=== PATIENT | male | born 1965 | race Caucasian/White ===

== ENCOUNTER → 2016-07-21 | Outpatient (CLI) | payer OTHER ==
--- NOTE | 2016-07-21 09:26 | NM ---
Nuclear medicine hepatobiliary scan. HISTORY: Pain. The patient received 8 ounces of ensure plus and 5.2 mCi of Technetium 99m Choletec. There is normal hepatic extraction. The gallbladder is seen by 15 minutes. There is biliary to cherie l clearance by 30 minutes. Ejection fraction is 67%. IMPRESSION: 1. Normal hepatobiliary exam
== END | disposition home or self-care (01) ==
LOC: RADNMMAIN 07:08
PROVIDERS: ATTEND Surgery
DX: R10.13 Epigastric pain (principal)
CPT/HCPCS: 78226; A9537

== ENCOUNTER → 2016-07-28 | Outpatient (CLI) | payer OTHER ==
--- NOTE | 2016-07-28 19:16 | XR ---
EXAMINATION TYPE: XR chest 2V DATE OF EXAM: 07/28/2016 COMPARISON: NONE HISTORY: Chest pain TECHNIQUE: Frontal and lateral views of the chest are obtained. FINDINGS: Heart and mediastinum are normal. Lungs are clear. Diaphragm is normal. Bony thorax is int act. IMPRESSION: Normal chest
== END | disposition home or self-care (01) ==
LOC: RADXRMAIN 17:43
PROVIDERS: ATTEND Family Medicine
DX: R07.81 Pleurodynia (principal)
CPT/HCPCS: 71020

== ENCOUNTER 2017-08-21 07:43 | Day surgery (SDC) | payer OTHER ==
[2017-08-18 16:10] VITALS: BMI 34.3
[~2017-08-21 07:43] MED LIST: LACTATED RINGERS 1,000 ML IV SCH
[2017-08-21] MEDS ORDERED: LIDOCAINE 1% 20 ML VIAL (10MG/ML) FOR IV START INTRADERMA ONE (08:01)
[2017-08-21 08:10] VITALS: RESP 16; TEMP 98.2
[2017-08-21] MEDS ORDERED: PROPOFOL 10 MG/ML 20 ML VIAL IV ONE (08:33)
--- NOTE | 2017-08-21 08:39 | P.GSHP ---
History of Present Illness H&P Date: 08/21/17 Chief Complaint: Constipation This is a 52-year-old male with a history of dysphagia.. Patient presents today for colonoscopy. Past Medical History Past Medical History: Asthma, Hyperlipidemia, Hypertension, Osteoarthritis (OA) , Prostate Disorder Additional Past Medical History / Comment(s): anemia, heart palpitations, blood clot left ankle, pituitary tumor, constipation, History of Any Multi-Drug Resistant Organisms: None Reported Past Surgical History: Heart Catheterization, Orthopedic Surgery Additional Past Surgical History / Comment(s): LEFT FOOT X6 , RIGHT FOOT X2, LEFT KNEE X3 (ARTHROSCOPIC), VASECTOMY, RIGHT LITTLE FINGER,LEFT SHOULDER X2, RIGHT SHOULDER X2 Past Anesthesia/Blood Transfusion Reactions: No Reported Reaction Smoking Status: Former smoker - Past Family History Mother Family Medical History: No Reported History Father Additional Family Medical History / Comment(s): ankylosis,spondylosis Medications and Allergies Home Medications Medication Instructions Recorded Confirmed Type Aspirin 81 mg PO DAILY 05/10/14 08/21/17 History Acetaminophen [Tylenol Extra 1,000 mg PO TID PRN 08/18/17 08/18/17 History Strength] Amitriptyline HCl 50 mg PO HS 08/18/17 08/21/17 History Atorvastatin [Lipitor] 80 mg PO HS 08/18/17 08/21/17 History Ferrous Sulfate [Feosol] 325 mg PO DAILY 08/18/17 08/18/17 History Ibuprofen [Motrin] 600 mg PO TID PRN 08/18/17 08/18/17 History Isosorbide Mononitrate ER [Imdur] 30 mg PO DAILY 08/18/17 08/18/17 History Lisinopril [Zestril] 10 mg PO DAILY 08/18/17 08/18/17 History Metoprolol Succinate [Toprol XL] 25 mg PO DAILY 08/18/17 08/18/17 History Allergies Allergy/AdvReac Type Severity Reaction Status Date / Time adhesive tape Allergy Itching Verified 08/18/17 15:57 pregabalin [From Lyrica] Allergy Rash/Hives Verified 08/18/17 15:57 Surgical - Exam Vital Signs Temp Pulse Resp BP Pulse Ox 98.2 F 97 16 123/91 95 08/21/17 08:07 08/21/17 08:07 08/21/17 08:07 08/21/17 08:07 08/21/17 08:07 - General well developed, no distress - Eyes PERRL - ENT normal pinna - Neck no masses - Respiratory normal expansion - Cardiovascular Rhythm: regular - Abdomen Abdomen: soft, non tender Assessment and Plan Assessment: Counts patient. We'll perform colonoscopy.
--- NOTE | 2017-08-21 08:52 | P.OP ---
Date of Procedure: 08/21/17 Preoperative Diagnosis: Constipation Postoperative Diagnosis: Diverticulosis Procedure(s) Performed: Colonoscopy Anesthesia: MAC Surgeon: Aakash Miller Pathology: none sent Condition: stable Disposition: PACU Description of Procedure: The patient's placed on the endoscopy table in the lateral position. He received IV sedation. Digital rectal exam was performed which revealed no no abnormalities. The flexible colonoscope was then placed patient anus and passed throughout the entire colon. The ileocecal valve lesions. The cecum, ascending and transverse colon appeared normal. In the descending; there is moderate diverticular changes. Scope summer back the rectum and this appeared normal. Scope was withdrawn for patient.
[2017-08-21 09:08] VITALS: BP 109/65; PULSE 71
== END 2017-08-21 09:33 | disposition home or self-care (01) ==
LOC: ORWHC2ENDO 07:43
PROVIDERS: ATTEND Surgery
DX: K57.30 Diverticulosis of large intestine without perforation or abscess without bleeding (principal); J45.909 Unspecified asthma, uncomplicated; E78.5 Hyperlipidemia, unspecified; I10 Essential (primary) hypertension; M19.90 Unspecified osteoarthritis, unspecified site; N42.9 Disorder of prostate, unspecified; D64.9 Anemia, unspecified; Z87.891 Personal history of nicotine dependence; Z79.82 Long term (current) use of aspirin; Z79.899 Other long term (current) drug therapy; Z88.8 Allergy status to other drugs, medicaments and biological substances; Z91.048 Other nonmedicinal substance allergy status
CPT/HCPCS: 45378; J2704

== ENCOUNTER → 2017-12-15 | Outpatient (CLI) | payer OTHER | END | disposition home or self-care (01) | LOC: LABPAT 14:31 | PROVIDERS: ATTEND Surgery | DX: Z01.812 Encounter for preprocedural laboratory examination (principal); K43.0 Incisional hernia with obstruction, without gangrene | CPT/HCPCS: 36415; 85025; 86850; 86900; 86901 ==

== ENCOUNTER 2017-12-25 07:53 | Observation (INO) | payer OTHER ==
[2017-12-25] MEDS ORDERED: SODIUM CHLORIDE 0.9% 2,000 ML IV STA (08:39)
[2017-12-25 09:04] LABS: Basophils % (A) 0 %; Eosinophils # (A) 0.1 k/uL (0-0.7); Eosinophils % (A) 1 %; HGB 14.6 gm/dL (13.0-17.5); Lymphocytes # (A) 0.7 k/uL (1.0-4.8); Lymphocytes % (A) 6 %; MCH 30.6 pg (25.0-35.0); MCHC 32.5 g/dL (31.0-37.0); MCV 94.2 fL (80.0-100.0); Mean Platelet Volume 6.8; Monocytes # (A) 0.5 k/uL (0-1.0); Monocytes % (A) 5 %; Neutrophils # (A) 9.8 k/uL (1.3-7.7); Neutrophils % (A) 87 %; Platelet Count 280 k/uL (150-450); RBC 4.78 m/uL (4.30-5.90); RDW 12.4 % (11.5-15.5); WBC 11.2 k/uL (3.8-10.6)
[2017-12-25 09:19] LABS: ALT 55 U/L (21-72); AST 38 U/L (17-59); Albumin 4.8 g/dL (3.5-5.0); Alkaline Phosphatase 70 U/L (38-126); Amylase 41 U/L (30-110); Anion Gap 12 mmol/L; Blood Urea Nitrogen 16 mg/dL (9-20); Calcium 10.2 mg/dL (8.4-10.2); Carbon Dioxide 27 mmol/L (22-30); Chloride 101 mmol/L (98-107); Glucose 144 mg/dL (74-99); Lipase 32 U/L (23-300); Potassium 4.8 mmol/L (3.5-5.1); Sodium 140 mmol/L (137-145); Total Protein 7.8 g/dL (6.3-8.2)
[2017-12-25] MEDS ORDERED: ONDANSETRON 4 MG/2 ML VIAL IVP STA (09:21)
[2017-12-25] MEDS ORDERED: HYDROmorphone 1 MG/ML 1 ML SYRINGE IVP STA (09:21)
[2017-12-25 09:23] LABS: Prothrombin Time 9.8 sec (9.0-12.0)
[2017-12-25 09:38] LABS: Partial Thromboplastin Time 20.6 sec (22.0-30.0)
--- NOTE | 2017-12-25 09:43 | ED ---
Abdominal Pain HPI - General Chief Complaint: Abdominal Pain Stated Complaint: Swelling/vomiting post surgery abd Time Seen by Provider: 12/25/17 08:38 Source: patient, RN notes reviewed Mode of arrival: wheelchair Limitations: no limitations - History of Present Illness Initial Comments: 52-year-old male presents emergency Department chief complaint abdominal pain. Patient states he had umbilical hernia repair by Dr. Miller on Thursday. Patient states that the pain started later that night and has progressed. He has not had a bowel movement since his surgery. Patient admits to nausea vomiting. Patient states pain is diffuse and states that nothing makes it better. He did not contact his surgeon about his symptoms. Patient states he did have this repair with mesh placement. Patient has no dysuria no hematuria. - Related Data Home Medications Medication Instructions Recorded Confirmed Aspirin 81 mg PO DAILY 05/10/14 12/25/17 Atorvastatin [Lipitor] 80 mg PO HS 08/18/17 12/25/17 Isosorbide Mononitrate ER [Imdur] 30 mg PO DAILY 08/18/17 12/25/17 Metoprolol Succinate [Toprol XL] 25 mg PO DAILY 08/18/17 12/25/17 Cholecalciferol [Vitamin D3] 2,000 unit PO DAILY 12/18/17 12/25/17 Lisinopril [Zestril] 5 mg PO DAILY 12/25/17 12/25/17 Ondansetron HCl [Zofran] 8 mg PO Q8HR PRN 12/25/17 12/25/17 Turmeric Root Extract [Turmeric] 500 mg PO DAILY 12/25/17 12/25/17 Previous Rx's Medication Instructions Recorded Docusate [Colace] 100 mg PO BID #20 capsule 12/23/17 HYDROcodone/APAP 7.5-325MG [[place] 1 tab PO Q4H PRN 3 Days #18 tab 12/23/17 7.5-325] Allergies Allergy/AdvReac Type Severity Reaction Status Date / Time adhesive tape Allergy Itching Verified 12/25/17 08:43 pregabalin [From Lyrica] Allergy Rash/Hives Verified 12/25/17 08:43 Review of Systems ROS Statement: Those systems with pertinent positive or pertinent negative responses have been documented in the HPI. ROS Other: All systems not noted in ROS Statement are negative. Past Medical History Past Medical History: Asthma, Deep Vein Thrombosis (DVT), Hyperlipidemia, Hypertension, Osteoarthritis (OA), Prostate Disorder Additional Past Medical History / Comment(s): anemia, heart palpitations, blood clot left ankle, pituitary tumor, constipation, History of Any Multi-Drug Resistant Organisms: None Reported Past Surgical History: Heart Catheterization, Hernia Repair, Orthopedic Surgery Additional Past Surgical History / Comment(s): LEFT FOOT X6 , RIGHT FOOT X2, LEFT KNEE X3 (ARTHROSCOPIC), VASECTOMY, RIGHT LITTLE FINGER,LEFT SHOULDER X2, RIGHT SHOULDER X2, BILAT ANKLE SX Past Anesthesia/Blood Transfusion Reactions: No Reported Reaction Past Psychological History: Anxiety Smoking Status: Former smoker Past Alcohol Use History: None Reported Past Drug Use History: None Reported - Past Family History Mother Family Medical History: No Reported History Father Additional Family Medical History / Comment(s): ankylosis,spondylosis General Exam General appearance: alert, in no apparent distress Head exam: Present: atraumatic, normocephalic, normal inspection Respiratory exam: Present: normal lung sounds bilaterally. Absent: respiratory distress, wheezes, rales, rhonchi, stridor Cardiovascular Exam: Present: normal rhythm, tachycardia, normal heart sounds. Absent: systolic murmur, diastolic murmur, rubs, gallop, clicks GI/Abdominal exam: Present: soft, distended, tenderness, normal bowel sounds. Absent: guarding, rebound, rigid Course Vital Signs 12/25/17 12/25/17 08:11 11:09 Temperature 98.2 F Pulse Rate 117 H 73 Respiratory 25 H 16 Rate Blood Pressure 169/92 134/79 O2 Sat by Pulse 94 L 93 L Oximetry Medical Decision Making - Medical Decision Making 52-year-old male presented from for abdominal pain postsurgical. Patient abdomen was distended and found have postsurgical ileus. Patient is vomiting. NG tube will be placed for symptom control and recently ileus. Patient will be admitted to Dr. Miller he shouldn't be placed IV fluids, antiemetics and pain control. - Lab Data Result diagrams: 12/25/17 08:36 12/25/17 08:36 Lab Results 12/25/17 12/25/17 12/25/17 Range/Units 08:36 08:36 08:36 WBC 11.2 H (3.8-10.6) k/uL RBC 4.78 (4.30-5.90) m/uL Hgb 14.6 (13.0-17.5) gm/dL Hct 45.0 (39.0-53.0) % MCV 94.2 (80.0-100.0) fL MCH 30.6 (25.0-35.0) pg MCHC 32.5 (31.0-37.0) g/dL RDW 12.4 (11.5-15.5) % Plt Count 280 (150-450) k/uL Neutrophils % 87 % Lymphocytes % 6 % Monocytes % 5 % Eosinophils % 1 % Basophils % 0 % Neutrophils # 9.8 H (1.3-7.7) k/uL Lymphocytes # 0.7 L (1.0-4.8) k/uL Monocytes # 0.5 (0-1.0) k/uL Eosinophils # 0.1 (0-0.7) k/uL Basophils # 0.0 (0-0.2) k/uL PT (9.0-12.0) sec INR (<1.2) APTT (22.0-30.0) sec Sodium 140 (137-145) mmol/L Potassium 4.8 (3.5-5.1) mmol/L Chloride 101 (98-107) mmol/L Carbon Dioxide 27 (22-30) mmol/L Anion Gap 12 mmol/L BUN 16 (9-20) mg/dL Creatinine 0.76 (0.66-1.25) mg/dL Est GFR (CKD-EPI)AfAm >90 (>60 ml/min/1.73 sqM) Est GFR (CKD-EPI)NonAf >90 (>60 ml/min/1.73 sqM) Glucose 144 H (74-99) mg/dL Plasma Lactic Acid Nabeel 1.3 (0.7-2.0) mmol/L Calcium 10.2 (8.4-10.2) mg/dL Total Bilirubin 1.0 (0.2-1.3) mg/dL AST 38 (17-59) U/L ALT 55 (21-72) U/L Alkaline Phosphatase 70 (38-126) U/L Total Protein 7.8 (6.3-8.2) g/dL Albumin 4.8 (3.5-5.0) g/dL Amylase 41 (30-110) U/L Lipase 32 (23-300) U/L 12/25/17 Range/Units 08:36 WBC (3.8-10.6) k/uL RBC (4.30-5.90) m/uL Hgb (13.0-17.5) gm/dL Hct (39.0-53.0) % MCV (80.0-100.0) fL MCH (25.0-35.0) pg MCHC (31.0-37.0) g/dL RDW (11.5-15.5) % Plt Count (150-450) k/uL Neutrophils % % Lymphocytes % % Monocytes % % Eosinophils % % Basophils % % Neutrophils # (1.3-7.7) k/uL Lymphocytes # (1.0-4.8) k/uL Monocytes # (0-1.0) k/uL Eosinophils # (0-0.7) k/uL Basophils # (0-0.2) k/uL PT 9.8 (9.0-12.0) sec INR 1.0 (<1.2) APTT 20.6 L (22.0-30.0) sec Sodium (137-145) mmol/L Potassium (3.5-5.1) mmol/L Chloride (98-107) mmol/L Carbon Dioxide (22-30) mmol/L Anion Gap mmol/L BUN (9-20) mg/dL Creatinine (0.66-1.25) mg/dL Est GFR (CKD-EPI)AfAm (>60 ml/min/1.73 sqM) Est GFR (CKD-EPI)NonAf (>60 ml/min/1.73 sqM) Glucose (74-99) mg/dL Plasma Lactic Acid Nabeel (0.7-2.0) mmol/L Calcium (8.4-10.2) mg/dL Total Bilirubin (0.2-1.3) mg/dL AST (17-59) U/L ALT (21-72) U/L Alkaline Phosphatase (38-126) U/L Total Protein (6.3-8.2) g/dL Albumin (3.5-5.0) g/dL Amylase (30-110) U/L Lipase (23-300) U/L Disposition Clinical Impression: Postoperative ileus, Abdominal pain, Status post unilateral hernia repair Disposition: ADMITTED IP TO THIS [facility] Condition: Fair Referrals: Juan Pa MD [Primary Care Provider] - 1-2 days
--- NOTE | 2017-12-25 10:19 | CT ---
EXAMINATION TYPE: CT abdomen pelvis w con DATE OF EXAM: 12/25/2017 COMPARISON: None HISTORY: Pain CONTRAST: Isovue 300/100 ml was administered through a 20 gauge IVPB placed in the RAC. FINDINGS: LUNG BASES-: Basilar linear atelectasis noted. LIVER/GB: No calcified gallstones. No space occupying hepatic lesion. Biliary tree is of normal ca liber. PANCREAS: No inflammation. No distinct mass. SPLEEN: No splenic enlargement. No lesion seen. ADRENALS: No nodule. No thickening. KIDNEYS/BLADDER: No hydronephrosis. No nephrolithiasis. No distinct renal mass. Urinary bladder g rossly unremarkable. BOWEL: There are small foci of free air seen within the peritoneal cavity compatible with pneumoperit oneum. Site of perforation is difficult to elucidate. There are surgical clips within the epigastrium and correlate with any recent surgical history. There is distention of the stomach as well as the s mall and large bowel which may reflect ileus. There is subcutaneous air seen along the anterior abdom inal wall of uncertain etiology. Again correlate for any recent surgical intervention. The appendix i s not clearly visualized. GENITAL ORGANS: No gross abnormality. LYMPH NODES: No greater than 1cm abdominal or pelvic lymph nodes are appreciated. AORTA: No significant abnormality. OSSEOUS STRUCTURES: No significant abnormality is seen. OTHER: No significant additional abnormality is seen. IMPRESSION: 1. Mild pneumoperitoneum is noted. I cannot exclude perforated hollow viscus. Site of possible perfor ation difficult to elucidate. 2. Changes of Miguel fundoplication. Correlate with the recent surgical history. 3. Subcutaneous emphysema of uncertain etiology overlying the anterior abdominal wall just superior a nd cranial to the level of the umbilicus. 4. Ileus
[2017-12-25] MEDS ORDERED: NALOXONE 0.4 MG/ML 1 ML VIAL IV PRN (11:14)
[2017-12-25] MEDS ORDERED: HYDROmorphone 1 MG/ML 1 ML SYRINGE IVP PRN (11:14)
[2017-12-25] MEDS ORDERED: ONDANSETRON 4 MG/2 ML VIAL IVP PRN (11:14)
[2017-12-25 11:20] LABS: Appearance,Urine Clear (Clear); Bilirubin,Urine Negative (Negative); Blood,Urine Negative (Negative); Color,Urine Light Yellow; Glucose,Urine (UA) Negative (Negative); Ketones,Urine Negative (Negative); Leukocyte Esterase,Urine Negative (Negative); Nitrite,Urine Negative (Negative); PH, Urine 6.5 (5.0-8.0); Protein,Urine Negative (Negative); Urobilinogen,Urine <2.0 mg/dL (<2.0)
[2017-12-25 11:34] LABS: Specific Gravity,Urine 1.046 (1.001-1.035)
[2017-12-25] MEDS: SODIUM CHLORIDE 0.9% 1,000 ML IV SCH (12:32)
[2017-12-25] MEDS: METOCLOPRAMIDE 5 MG/ML 2 ML VIAL IVP SCH ×2 (12:38→17:41)
[2017-12-25] MEDS: HYDROmorphone 1 MG/ML 1 ML SYRINGE IVP PRN ×2 (13:23→19:53)
[2017-12-25] MEDS: PANTOPRAZOLE 40 MG/10 ML VIAL IVP SCH (14:21)
[2017-12-25] MEDS ORDERED: PNEUMOCOCCAL VACC-PNEUMOVAX 23 25 MCG/0.5 ML VIAL IM ONE (14:48)
--- NOTE | 2017-12-25 15:00 | P.GSHP ---
History of Present Illness H&P Date: 12/25/17 Chief Complaint: Abdominal pain 52-year-old gentleman presented to the emergency room with a chief complaint of developing a sudden onset of abdominal pain. Patient stated it occurred during the night continue to progress. Reports the pain was intolerable. States he had not had a bowel movement since his surgery. Husser nauseated did vomit. Patient described the pain as diffuse. He noted that nothing seemed to make it better. Patient did recently undergo umbilical hernia repair by Dr. eastman on Thursday and was discharged. He states he went home was not having any problems until this occurred. He stated his last bowel movement was Thursday a day before the surgery currently patient is resting in bed with a nasogastric tube in place patient states after having the tube placed the abdominal discomfort has significantly improved CAT scan of the abdomen and pelvis with contrast resume report showed postop ileus - Review of Systems Comment: Essentially unremarkable except as mentioned in the present illness 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 Past Anesthesia/Blood Transfusion Reactions: No Reported Reaction Smoking Status: Former smoker - Past Family History Mother Family Medical History: Dementia Additional Family Medical History / Comment(s): Mother is 70yrs old. Father Family Medical History: Myocardial Infarction ([place]) Additional Family Medical History / Comment(s): Pt does not know father very well except that he was involved in drugs and of a [place]. Medications and Allergies Home Medications Medication Instructions Recorded Confirmed Type Aspirin 81 mg PO DAILY 05/10/14 12/25/17 History Atorvastatin [Lipitor] 80 mg PO HS 08/18/17 12/25/17 History Isosorbide Mononitrate ER [Imdur] 30 mg PO DAILY 08/18/17 12/25/17 History Metoprolol Succinate [Toprol XL] 25 mg PO DAILY 08/18/17 12/25/17 History Cholecalciferol [Vitamin D3] 2,000 unit PO DAILY 12/18/17 12/25/17 History Docusate [Colace] 100 mg PO BID #20 capsule 12/23/17 12/25/17 Rx HYDROcodone/APAP 7.5-325MG [[place] 1 tab PO Q4H PRN 3 Days #18 tab 12/23/1712/25 Rx 7.5-325] Lisinopril [Zestril] 5 mg PO DAILY 12/25/17 12/25/17 History Ondansetron HCl [Zofran] 8 mg PO Q8HR PRN 12/25/17 12/25/17 History Turmeric Root Extract [Turmeric] 500 mg PO DAILY 12/25/17 12/25/17 History Allergies Allergy/AdvReac Type Severity Reaction Status Date / Time adhesive tape Allergy Itching Verified 12/25/17 08:43 pregabalin [From Lyrica] Allergy Rash/Hives Verified 12/25/17 08:43 Surgical - Exam Vital Signs Temp Pulse Resp BP Pulse Ox 98.2 F 117 H 25 H 169/92 94 L 12/25/17 08:11 12/25/17 08:11 12/25/17 08:11 12/25/17 08:11 12/25/17 08:11 GENERAL APPEARANCE: The patient is alert, oriented, in no acute distress. States nasogastric tube has decrease the abdominal discomfort VITAL SIGNS: Reviewed HEENT: Head is normocephalic and atraumatic. Pupils are equal and reactive. The nares are patent. Oropharynx is clear without lesions. NECK: Supple without lymphadenopathy. Traches midline. HEART: S1, S2. Regular rate and rhythm. No murmur noted LUNGS: No crackles or wheezes are heard. Adequate air movement bilaterally ABDOMEN: Soft, surgical dressing sites dry mildly distended mild tenderness nasal gastric tube to suction scant amount of drainage in the tube few bowel sounds. No peritoneal signs. No palpable organomegaly or masses. EXTREMITIES: Normal skin color and turgor. No cyanosis, rash, ulceration, clubbing or edema. Radial pedal pulses are 2/4 bilaterally. NEUROLOGICAL: No focal deficits. Strength and sensation are grossly intact. Results - Labs 12/25/17 08:36 12/25/17 08:36 Abnormal Lab Results - Last 24 Hours (Table) 12/25/17 12/25/17 12/25/17 Range/Units 08:36 08:36 08:36 WBC 11.2 H (3.8-10.6) k/uL Neutrophils # 9.8 H (1.3-7.7) k/uL Lymphocytes # 0.7 L (1.0-4.8) k/uL APTT 20.6 L (22.0-30.0) sec Glucose 144 H (74-99) mg/dL Ur Specific [place] (1.001-1.035) 12/25/17 Range/Units 11:10 WBC (3.8-10.6) k/uL Neutrophils # (1.3-7.7) k/uL Lymphocytes # (1.0-4.8) k/uL APTT (22.0-30.0) sec Glucose (74-99) mg/dL Ur Specific [place] 1.046 H (1.001-1.035) Diabetes panel 12/25/17 Range/Units 08:36 Sodium 140 (137-145) mmol/L Potassium 4.8 (3.5-5.1) mmol/L Chloride 101 (98-107) mmol/L Carbon Dioxide 27 (22-30) mmol/L BUN 16 (9-20) mg/dL Creatinine 0.76 (0.66-1.25) mg/dL Glucose 144 H (74-99) mg/dL Calcium 10.2 (8.4-10.2) mg/dL AST 38 (17-59) U/L ALT 55 (21-72) U/L Alkaline Phosphatase 70 (38-126) U/L Total Protein 7.8 (6.3-8.2) g/dL Albumin 4.8 (3.5-5.0) g/dL Calcium panel 12/25/17 Range/Units 08:36 Calcium 10.2 (8.4-10.2) mg/dL Albumin 4.8 (3.5-5.0) g/dL Pituitary panel 12/25/17 Range/Units 08:36 Sodium 140 (137-145) mmol/L Potassium 4.8 (3.5-5.1) mmol/L Chloride 101 (98-107) mmol/L Carbon Dioxide 27 (22-30) mmol/L BUN 16 (9-20) mg/dL Creatinine 0.76 (0.66-1.25) mg/dL Glucose 144 H (74-99) mg/dL Calcium 10.2 (8.4-10.2) mg/dL Adrenal panel 12/25/17 Range/Units 08:36 Sodium 140 (137-145) mmol/L Potassium 4.8 (3.5-5.1) mmol/L Chloride 101 (98-107) mmol/L Carbon Dioxide 27 (22-30) mmol/L BUN 16 (9-20) mg/dL Creatinine 0.76 (0.66-1.25) mg/dL Glucose 144 H (74-99) mg/dL Calcium 10.2 (8.4-10.2) mg/dL Total Bilirubin 1.0 (0.2-1.3) mg/dL AST 38 (17-59) U/L ALT 55 (21-72) U/L Alkaline Phosphatase 70 (38-126) U/L Total Protein 7.8 (6.3-8.2) g/dL Albumin 4.8 (3.5-5.0) g/dL Assessment and Plan Assessment: Impression Present on admission vomiting nausea abdominal pain suspect due to postop ileus unexpected Computed tomography scan abdomen and pelvis reviewed the report suggest postop ileus Recent laparoscopic robotic-assisted repair of recurrent incarcerated incisional hernia December 23 Plan Continue the nasogastric tube to intermittent suction IV fluid for hydration Nothing by mouth until bowel function resumes Pain control DVT and GI prophylaxis Increase activity The above impression and plan of care have been discussed and directed by signing physician. Danica Cohen nurse practitioner acting as scribe for signing physician.
[2017-12-25] MEDS: HEPARIN SODIUM,PORCINE 5,000 UNIT/ML 1 ML VIAL SQ SCH (16:53)
[2017-12-26] MEDS: HEPARIN SODIUM,PORCINE 5,000 UNIT/ML 1 ML VIAL SQ SCH ×3 (00:41→17:59)
[2017-12-26] MEDS: METOCLOPRAMIDE 5 MG/ML 2 ML VIAL IVP SCH ×4 (00:42→17:58)
[2017-12-26] MEDS: HYDROmorphone 1 MG/ML 1 ML SYRINGE IVP PRN ×5 (00:42→22:40)
[2017-12-26] MEDS: SODIUM CHLORIDE 0.9% 1,000 ML IV SCH ×6 (00:51→20:44)
[2017-12-26] MEDS: PANTOPRAZOLE 40 MG/10 ML VIAL IVP SCH (08:36)
[2017-12-26 09:49] LABS: Basophils % (A) 0 %; Eosinophils # (A) 0.2 k/uL (0-0.7); Eosinophils % (A) 2 %; HCT 40.6 % (39.0-53.0); HGB 13.7 gm/dL (13.0-17.5); Lymphocytes # (A) 1.1 k/uL (1.0-4.8); Lymphocytes % (A) 13 %; MCH 31.7 pg (25.0-35.0); MCHC 33.7 g/dL (31.0-37.0); Mean Platelet Volume 7.1; Monocytes # (A) 0.6 k/uL (0-1.0); Monocytes % (A) 6 %; Neutrophils # (A) 6.7 k/uL (1.3-7.7); Neutrophils % (A) 77 %; Platelet Count 216 k/uL (150-450); RBC 4.32 m/uL (4.30-5.90); RDW 12.4 % (11.5-15.5); WBC 8.7 k/uL (3.8-10.6)
[2017-12-26 09:50] LABS: Anion Gap 8 mmol/L; Blood Urea Nitrogen 16 mg/dL (9-20); Calcium 8.7 mg/dL (8.4-10.2); Carbon Dioxide 30 mmol/L (22-30); Chloride 102 mmol/L (98-107); Glucose 96 mg/dL (74-99); Magnesium 1.8 mg/dL (1.6-2.3); Potassium 4.5 mmol/L (3.5-5.1); Sodium 140 mmol/L (137-145)
[2017-12-26 16:28] VITALS: BMI 35.2
--- NOTE | 2017-12-26 17:05 | P.PN ---
Subjective Progress Note Date: 12/26/17 CHIEF COMPLAINT: Ileus HISTORY OF PRESENT ILLNESS: The patient is a 52-year-old gentleman status post robotic ventral hernia repair who developed moderate ileus. He is now passing flatus. He requests his home medications. Abdominal pain is resolved. He reports irritation from nasogastric tube. PHYSICAL EXAM: GENERAL: Well-developed in no acute distress. HEENT: No sclera icterus. Extraocular movements grossly intact. Moist buccal mucosa. Head is atraumatic, normocephalic. Hears conversational speech. No nasal drainage. NECK: Supple without lymphadenopathy. CHEST: Non-labored respirations and equal bilateral excursions. CARDIOVASCULAR: Regular rate with regular rhythm. ABDOMEN: Soft, nontender, nondistended MUSCULOSKELETAL: No clubbing, cyanosis or edema. NEUROLOGIC: No focal or lateralizing signs. Cranial nerves II through XII grossly intact. PSYCH: Alert and oriented to person, place and time. SKIN: Well perfused. Good skin turgor. LABS: Reviewed ASSESSMENT: 1. Postoperative ileus following abdominal surgery PLAN: 1. I personally discontinued his NG tube at bedside. 2. Home medications reordered. 3. Start of diet. Objective - Vital Signs Vital signs: Vital Signs Temp 98.7 F 12/26/17 14:14 Pulse 88 12/26/17 14:14 Resp 16 12/26/17 14:14 BP 148/78 12/26/17 14:14 Pulse Ox 92 L 12/26/17 14:14 Intake & Output 12/25/17 12/26/17 12/26/17 18:59 06:59 18:59 Intake Total 250 1125 1000 Output Total 300 Balance 794 103 9664 Weight 92.986 kg 92.986 kg Intake: Intake, IV Titration 250 1125 1000 Amount Sodium Chloride 0.9% 1, 250 1125 1000 000 ml @ 125 mls/hr IV . Q8H ML Rx#:[id number] Output: Gastric Drainage 300 Other: # Voids 3 - Labs CBC & Chem 7: 12/26/17 09:14 12/26/17 09:14 Assessment and Plan (1) Abdominal pain Current Visit: Yes Status: Acute Code(s): R10.9 - UNSPECIFIED ABDOMINAL PAIN SNOMED Code(s): 41957410 (2) Postoperative ileus Current Visit: Yes Status: Acute Code(s): K91.89 - OTH POSTPROCEDURAL COMPLICATIONS AND DISORDERS OF DGSTV SYS; K56.7 - ILEUS, UNSPECIFIED SNOMED Code(s): 054540507 (3) Status post unilateral hernia repair Current Visit: Yes Status: Acute Code(s): Z98.890 - OTHER SPECIFIED POSTPROCEDURAL STATES; Z87.19 - PERSONAL HISTORY OF OTHER DISEASES OF THE DIGESTIVE SYSTEM SNOMED Code(s): 90397081276873
[2017-12-26] MEDS: ISOSORBIDE MONONITRATE ER 30 MG TAB.ER.24H PO SCH (17:59)
[2017-12-26] MEDS: LISINOPRIL 5 MG TAB PO SCH (17:59)
[2017-12-26] MEDS: METOPROLOL SUCCINATE (ER) 25 MG TAB.ER.24H PO SCH (18:00)
[2017-12-26] MEDS: HYDROcodone/APAP 7.5-325MG 1 EACH TAB PO PRN (18:05)
[2017-12-26] MEDS: DOCUSATE 100 MG CAP PO SCH (20:43)
[2017-12-26] MEDS ORDERED: ATORVASTATIN 80 MG TAB PO SCH (21:00)
[2017-12-27] MEDS: METOCLOPRAMIDE 5 MG/ML 2 ML VIAL IVP SCH ×3 (00:58→13:14)
[2017-12-27] MEDS: HEPARIN SODIUM,PORCINE 5,000 UNIT/ML 1 ML VIAL SQ SCH ×2 (00:59→09:26)
[2017-12-27] MEDS: SODIUM CHLORIDE 0.9% 1,000 ML IV SCH (05:53)
[2017-12-27] MEDS: HYDROcodone/APAP 7.5-325MG 1 EACH TAB PO PRN (06:24)
[2017-12-27] MEDS ORDERED: ASPIRIN 81 MG PO SCH (09:00)
[2017-12-27] MEDS: PANTOPRAZOLE 40 MG/10 ML VIAL IVP SCH (09:24)
[2017-12-27] MEDS: ISOSORBIDE MONONITRATE ER 30 MG TAB.ER.24H PO SCH (09:25)
[2017-12-27] MEDS: DOCUSATE 100 MG CAP PO SCH (09:25)
[2017-12-27] MEDS: LISINOPRIL 5 MG TAB PO SCH (09:26)
[2017-12-27] MEDS: METOPROLOL SUCCINATE (ER) 25 MG TAB.ER.24H PO SCH (09:26)
[2017-12-27 10:11] VITALS: RESP 16
[2017-12-27] MEDS ORDERED: CHOLECALCIFEROL 1,000 UNIT TAB PO SCH (12:00)
--- NOTE | 2017-12-27 13:27 | P.DS ---
Providers Date of admission: 12/25/17 11:29 Expected date of discharge: 12/27/17 Attending physician: Aakash Miller Primary care physician: Juan Pa - Discharge Diagnosis(es) (1) Abdominal pain Current Visit: Yes Status: Acute (2) Postoperative ileus Current Visit: Yes Status: Acute (3) Status post unilateral hernia repair Current Visit: Yes Status: Acute Hospital Course: CHIEF COMPLAINT: Ileus HISTORY OF PRESENT ILLNESS: The patient is a 52-year-old gentleman status post robotic ventral hernia repair who developed moderate ileus. Yesterday he started passing flatus. This morning and last night he is tolerating regular diet. Nasogastric tube had been discontinued since yesterday. Long discussion of avoiding narcotics and pain alternatives and were reviewed. Overall had abdominal pain resolved. PHYSICAL EXAM: Vital Signs Temp 99 F 12/27/17 07:00 Pulse 75 12/27/17 07:00 Resp 16 12/27/17 07:00 BP 111/65 12/27/17 07:00 Pulse Ox 93 L 12/27/17 07:00 Intake & Output 12/26/17 12/27/17 12/27/17 18:59 06:59 18:59 Intake Total 1368 2100 220 Balance 1368 2100 220 Weight 92.986 kg Intake: Intake, IV Titration 1000 2000 Amount Sodium Chloride 0.9% 1, 1000 1000 000 ml @ 125 mls/hr IV . Q8H ML Rx#:[id number] Sodium Chloride 0.9% 1, 1000 000 ml @ 999 mls/hr IV . Q1H1M ML Rx#:[id number] Oral 368 100 220 Other: # Voids 3 2 GENERAL: Well-developed in no acute distress. HEENT: No sclera icterus. Extraocular movements grossly intact. Moist buccal mucosa. Head is atraumatic, normocephalic. Hears conversational speech. No nasal drainage. NECK: Supple without lymphadenopathy. CHEST: Non-labored respirations and equal bilateral excursions. CARDIOVASCULAR: Regular rate with regular rhythm. ABDOMEN: Soft, nontender, nondistended MUSCULOSKELETAL: No clubbing, cyanosis or edema. NEUROLOGIC: No focal or lateralizing signs. Cranial nerves II through XII grossly intact. PSYCH: Alert and oriented to person, place and time. SKIN: Well perfused. Good skin turgor. LABS: Reviewed Laboratory Last Values WBC 8.7 k/uL (3.8-10.6) 12/26/17 09:14 RBC 4.32 m/uL (4.30-5.90) 12/26/17 09:14 Hgb 13.7 gm/dL (13.0-17.5) 12/26/17 09:14 Hct 40.6 % (39.0-53.0) 12/26/17 09:14 MCV 94.0 fL (80.0-100.0) 12/26/17 09:14 MCH 31.7 pg (25.0-35.0) 12/26/17 09:14 MCHC 33.7 g/dL (31.0-37.0) 12/26/17 09:14 RDW 12.4 % (11.5-15.5) 12/26/17 09:14 Plt Count 216 k/uL (150-450) 12/26/17 09:14 Neutrophils % 77 % 12/26/17 09:14 Lymphocytes % 13 % 12/26/17 09:14 Monocytes % 6 % 12/26/17 09:14 Eosinophils % 2 % 12/26/17 09:14 Basophils % 0 % 12/26/17 09:14 Neutrophils # 6.7 k/uL (1.3-7.7) 12/26/17 09:14 Lymphocytes # 1.1 k/uL (1.0-4.8) 12/26/17 09:14 Monocytes # 0.6 k/uL (0-1.0) 12/26/17 09:14 Eosinophils # 0.2 k/uL (0-0.7) 12/26/17 09:14 Basophils # 0.0 k/uL (0-0.2) 12/26/17 09:14 PT 9.8 sec (9.0-12.0) 12/25/17 08:36 INR 1.0 (<1.2) 12/25/17 08:36 APTT 20.6 sec (22.0-30.0) L 12/25/17 08:36 Sodium 140 mmol/L (137-145) 12/26/17 09:14 Potassium 4.5 mmol/L (3.5-5.1) 12/26/17 09:14 Chloride 102 mmol/L (98-107) 12/26/17 09:14 Carbon Dioxide 30 mmol/L (22-30) 12/26/17 09:14 Anion Gap 8 mmol/L 12/26/17 09:14 BUN 16 mg/dL (9-20) 12/26/17 09:14 Creatinine 0.69 mg/dL (0.66-1.25) 12/26/17 09:14 Est GFR (CKD-EPI)AfAm >90 (>60 ml/min/1.73 sqM) 12/26/17 09:14 Est GFR (CKD-EPI)NonAf >90 (>60 ml/min/1.73 sqM) 12/26/17 09:14 Glucose 96 mg/dL (74-99) 12/26/17 09:14 Plasma Lactic Acid Nabeel 1.3 mmol/L (0.7-2.0) 12/25/17 08:36 Calcium 8.7 mg/dL (8.4-10.2) 12/26/17 09:14 Phosphorus 3.0 mg/dL (2.5-4.5) 12/26/17 09:14 Magnesium 1.8 mg/dL (1.6-2.3) 12/26/17 09:14 Total Bilirubin 1.0 mg/dL (0.2-1.3) 12/25/17 08:36 AST 38 U/L (17-59) 12/25/17 08:36 ALT 55 U/L (21-72) 12/25/17 08:36 Alkaline Phosphatase 70 U/L (38-126) 12/25/17 08:36 Total Protein 7.8 g/dL (6.3-8.2) 12/25/17 08:36 Albumin 4.8 g/dL (3.5-5.0) 12/25/17 08:36 Amylase 41 U/L (30-110) 12/25/17 08:36 Lipase 32 U/L (23-300) 12/25/17 08:36 Urine Color Light Yellow 12/25/17 11:10 Urine Appearance Clear (Clear) 12/25/17 11:10 Urine pH 6.5 (5.0-8.0) 12/25/17 11:10 Ur Specific [place] 1.046 (1.001-1.035) H 12/25/17 11:10 Urine Protein Negative (Negative) 12/25/17 11:10 Urine Glucose (UA) Negative (Negative) 12/25/17 11:10 Urine Ketones Negative (Negative) 12/25/17 11:10 Urine Blood Negative (Negative) 12/25/17 11:10 Urine Nitrite Negative (Negative) 12/25/17 11:10 Urine Bilirubin Negative (Negative) 12/25/17 11:10 Urine Urobilinogen <2.0 mg/dL (<2.0) 12/25/17 11:10 Ur Leukocyte Esterase Negative (Negative) 12/25/17 11:10 ASSESSMENT: 1. Postoperative ileus following abdominal surgery PLAN: 1. Patient will follow up with operating surgeon in the office. 2. Sclerae for discharge. Pertinent Studies: CT of the abdomen pelvis demonstrated diffuse gaseous distended stomach including small intestine. Postoperative changes along the subcutaneous tissue from previous ventral hernia repair Patient Condition at Discharge: Fair Plan - Discharge Summary Discharge Rx Participant: No New Discharge Prescriptions: No Action Aspirin 81 mg PO DAILY Metoprolol Succinate [Toprol XL] 25 mg PO DAILY Isosorbide Mononitrate ER [Imdur] 30 mg PO DAILY Atorvastatin [Lipitor] 80 mg PO HS Cholecalciferol [Vitamin D3] 2,000 unit PO DAILY Docusate [Colace] 100 mg PO BID #20 capsule HYDROcodone/APAP 7.5-325MG [Carmel 7.5-325] 1 tab PO Q4H PRN 3 Days #18 tab PRN Reason: Pain Turmeric Root Extract [Turmeric] 500 mg PO DAILY Lisinopril [Zestril] 5 mg PO DAILY Ondansetron HCl [Zofran] 8 mg PO Q8HR PRN PRN Reason: Nausea Discharge Medication List Aspirin 81 mg PO DAILY 05/10/14 [History] Atorvastatin [Lipitor] 80 mg PO HS 08/18/17 [History] Isosorbide Mononitrate ER [Imdur] 30 mg PO DAILY 08/18/17 [History] Metoprolol Succinate [Toprol XL] 25 mg PO DAILY 08/18/17 [History] Cholecalciferol [Vitamin D3] 2,000 unit PO DAILY 12/18/17 [History] Docusate [Colace] 100 mg PO BID #20 capsule 12/23/17 [Rx] HYDROcodone/APAP 7.5-325MG [Carmel 7.5-325] 1 tab PO Q4H PRN 3 Days #18 tab 12/23 [Rx] Lisinopril [Zestril] 5 mg PO DAILY 12/25/17 [History] Ondansetron HCl [Zofran] 8 mg PO Q8HR PRN 12/25/17 [History] Turmeric Root Extract [Turmeric] 500 mg PO DAILY 12/25/17 [History] Follow up Appointment(s)/Referral(s): Juan Pa MD [Primary Care Provider] - 1-2 days Aakash Miller MD [STAFF PHYSICIAN] - 12/29/17 Patient Instructions/Handouts: Pain Management (DC), Safe Use of Opioids (DC) Activity/Diet/Wound Care/Special Instructions: Diet as tolerated. Avoid additional narcotics. May shower. No bath tub soaks. Discharge Disposition: HOME SELF-CARE
[2017-12-27 14:40] VITALS: BP 112/66; PULSE 80; TEMP 98.7
== END 2017-12-27 14:53 | disposition home or self-care (01) ==
LOC: SUPCPDRO 07:53 → EC 07:53 → INTOOBSV 11:29 → 4SSUR 11:29 → UNDODISIN 12-27 14:53
PROVIDERS: ADMIT Surgery; ATTEND Surgery
DX: K91.89 Other postprocedural complications and disorders of digestive system (principal); K56.7 Ileus, unspecified; I71.4 Abdominal aortic aneurysm, without rupture; Z87.81 Personal history of (healed) traumatic fracture; M19.90 Unspecified osteoarthritis, unspecified site; Z87.01 Personal history of pneumonia (recurrent); Z87.891 Personal history of nicotine dependence; E78.5 Hyperlipidemia, unspecified; I10 Essential (primary) hypertension; K59.00 Constipation, unspecified; N42.9 Disorder of prostate, unspecified; Z86.718 Personal history of other venous thrombosis and embolism; Z79.82 Long term (current) use of aspirin; Z79.899 Other long term (current) drug therapy; Z88.8 Allergy status to other drugs, medicaments and biological substances; Z91.048 Other nonmedicinal substance allergy status; Z91.81 History of falling; Z82.49 Family history of ischemic heart disease and other diseases of the circulatory system; Z81.8 Family history of other mental and behavioral disorders
CPT/HCPCS: 96376 ×3; 96361 ×3; 96372 ×3; 96375 ×2; 96374; 99285; 36415; 80053; 80048; 82150; 83605; 83690; 83735; 84100; 85025 ×2; 85610; 85730; 81003; 74177; G0378 ×3; J1644 ×3; J2765 ×3; J2405; J1170 ×2; C9113 ×3; Q9967

== ENCOUNTER 2018-08-09 21:03 | Inpatient (IN) | payer OTHER ==
[2018-08-09] MEDS ORDERED: SODIUM CHLORIDE 0.9% 1,000 ML IV STA (21:24)
[2018-08-09] MEDS ORDERED: ASPIRIN 81 MG PO STA (21:24)
--- NOTE | 2018-08-09 21:26 | ED ---
Chest Pain HPI - General Chief Complaint: Chest Pain Stated Complaint: Chest Pain Time Seen by Provider: 08/09/18 21:24 Source: patient Mode of arrival: wheelchair Limitations: no limitations - History of Present Illness Initial Comments: Gonzalez is a 53-year-old gentleman who presents the emergency department today for evaluation of epigastric abdominal pain that began around 7 PM tonight. Patient reports that he wasusual state of health throughout the day today, he states that he ate a normal lunch she came home from work and he ate some cheese and an apple and felt some pain in his epigastrium. Patient describes it as a pressure similar to when he had a postop ileus after hiatal hernia repair last year. She reports that his last bowel movement was this morning and was normal in color caliber and consistency. Patient does note that he had cardiac stenting done approximately 4 weeks ago he's not been experiencing chest pain palpitation shortness of breath diaphoresis or lightheadedness. He's been compliant with all his medications including his anti-coagulated antiplatelet medications. - Related Data Home Medications Medication Instructions Recorded Confirmed Aspirin 81 mg PO DAILY 05/10/14 08/09/18 Atorvastatin [Lipitor] 80 mg PO HS 08/18/17 08/09/18 Isosorbide Mononitrate ER [Imdur] 30 mg PO DAILY 08/18/17 08/09/18 Metoprolol Succinate [Toprol XL] 25 mg PO DAILY 08/18/17 08/09/18 Cholecalciferol [Vitamin D3] 2,000 unit PO DAILY 12/18/17 08/09/18 Lisinopril [Zestril] 5 mg PO DAILY 12/25/17 08/09/18 Ondansetron HCl [Zofran] 8 mg PO Q8HR PRN 12/25/17 08/09/18 Caberline 0.5mg 0.5 mg PO TUFR 08/09/18 08/09/18 Ticagrelor [Brilinta] 90 mg PO BID 08/09/18 08/09/18 Allergies Allergy/AdvReac Type Severity Reaction Status Date / Time adhesive tape Allergy Itching Verified 08/09/18 22:02 pregabalin [From Lyrica] Allergy Rash/Hives Verified 08/09/18 22:02 Review of Systems ROS Statement: Those systems with pertinent positive or pertinent negative responses have been documented in the HPI. ROS Other: All systems not noted in ROS Statement are negative. 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 Past Anesthesia/Blood Transfusion Reactions: No Reported Reaction Past Psychological History: Anxiety, Depression Smoking Status: Former smoker Past Alcohol Use History: None Reported Past Drug Use History: None Reported - Past Family History Mother Family Medical History: Dementia Additional Family Medical History / Comment(s): Mother is 70yrs old. Father Family Medical History: Myocardial Infarction ([place]) Additional Family Medical History / Comment(s): Pt does not know father very well except that he was involved in drugs and of a [place]. General Exam - General Exam Comments Initial Comments: Physical Exam GENERAL: Appears uncomfortable HENT: Normocephalic, Atraumatic. EYES: PERRL, EOMI PULMONARY: Unlabored respirations. No audible rales rhonchi or wheezing was noted. CARDIOVASCULAR: There is a regular rate and rhythm without any murmurs gallops or rubs. ABDOMEN: Distended, tympanic epigastrum NABS SKIN: Skin is clear with no lesions or rashes and otherwise unremarkable. : Deferred NEUROLOGIC: Patient is alert and oriented x3. Moving all extremities spontaneously MUSCULOSKELETAL: Normal extremities with adequate strength and full range of motion. No lower extremity swelling or edema. No calf tenderness. PSYCHIATRIC: Normal psychiatric evaluation. Limitations: no limitations Course Vital Signs 08/09/18 08/09/18 08/09/18 21:09 21:21 21:26 Temperature 98.0 F Pulse Rate 92 75 Pulse Rate [ 83 Bilateral Test Department Helper ] Respiratory 18 18 Rate Blood Pressure 115/81 134/97 O2 Sat by Pulse 96 98 Oximetry 08/10/18 00:29 Temperature Pulse Rate 72 Pulse Rate [ Bilateral Test Department Helper ] Respiratory 18 Rate Blood Pressure 128/89 O2 Sat by Pulse 94 L Oximetry Chest Pain MDM - MDM The patient was seen and evaluated, history is obtained from the patient and review of medical record History and physical exam are concerning for a small bowel obstruction given the patient has epigastric distention nausea no vomiting X-rays concerning for small bowel surgeon as there is a very distended stomach full of air and multiple air-fluid levels on CT next and decision was made place an NG tube Labs unremarkable Cardiac enzymes negative - I believe the patient's discomfort is not cardiac in nature Patient will be admitted for IVF, NG tube management and evaluation by surgeon Dr. Pagan Patient care discussed with Dr. Torres who agrees with plan Disposition Clinical Impression: SBO (small bowel obstruction) Disposition: ADMITTED IP TO THIS HOSP Condition: Stable Is patient prescribed a controlled substance at d/c from ED?: No Referrals: Nonstaff,Physician [REFERRING] - 1-2 days
[2018-08-09 22:06] LABS: Basophils % (A) 1 %; Eosinophils # (A) 0.5 k/uL (0-0.7); Eosinophils % (A) 7 %; HCT 39.8 % (39.0-53.0); HGB 13.6 gm/dL (13.0-17.5); Lymphocytes # (A) 1.9 k/uL (1.0-4.8); Lymphocytes % (A) 26 %; MCH 31.3 pg (25.0-35.0); MCHC 34.1 g/dL (31.0-37.0); MCV 91.8 fL (80.0-100.0); Mean Platelet Volume 7.3; Monocytes # (A) 0.5 k/uL (0-1.0); Monocytes % (A) 6 %; Neutrophils # (A) 4.1 k/uL (1.3-7.7); Neutrophils % (A) 57 %; Platelet Count 230 k/uL (150-450); RBC 4.34 m/uL (4.30-5.90); RDW 12.6 % (11.5-15.5); WBC 7.3 k/uL (3.8-10.6)
[2018-08-09] MEDS ORDERED: LIDOCAINE URO-JET JELLY 2% 5 ML KIT URETHRAL ONE (22:11)
[2018-08-09] MEDS ORDERED: HYDROmorphone 1 MG/ML 1 ML SYRINGE IVP STA (22:13)
[2018-08-09 22:16] LABS: ALT 38 U/L (21-72); AST 31 U/L (17-59); African American GFR (CKD) >90 (>60 ml/min/1.73 sqM); Alkaline Phosphatase 56 U/L (38-126); Anion Gap 11 mmol/L; Blood Urea Nitrogen 24 mg/dL (9-20); Calcium 9.9 mg/dL (8.4-10.2); Carbon Dioxide 24 mmol/L (22-30); Chloride 107 mmol/L (98-107); Glucose 95 mg/dL (74-99); Lipase 69 U/L (23-300); Magnesium 2.2 mg/dL (1.6-2.3); Potassium 4.4 mmol/L (3.5-5.1); Sodium 142 mmol/L (137-145); Total Bilirubin 0.6 mg/dL (0.2-1.3); Total Protein 7.5 g/dL (6.3-8.2)
[2018-08-09 22:32] LABS: INR 0.9 (<1.2); Prothrombin Time 9.5 sec (9.0-12.0)
[2018-08-09 22:44] LABS: Partial Thromboplastin Time 21.6 sec (22.0-30.0)
--- NOTE | 2018-08-09 23:01 | XR ---
EXAM: XR Abdomen, 1 View CLINICAL HISTORY: ITS.REASON XR Reason: Pain TECHNIQUE: Frontal upright view of the abdomen/pelvis. COMPARISON: Correlation is made with chest x-ray 08/09/2018. FINDINGS: Moderate gaseous distention of stomach. Mild gaseous distention of proximal small bowel in the left upper quadrant and mid abdomen with associated air-fluid levels. Paucity of more distal small bowel gas. Findings suggestive of early or partial small bowel obstruction. Moderate fecal debris in the right colon. No evidence of pneumoperitoneum. No abnormal calcifications identified. Mild lumbar spine degenerative changes and mild lumbar scoliosis, convex to the left. IMPRESSION: Findings suggesting early or partial small bowel obstruction. <MYCVCSECTION> [employer] 08/09/18 23:04 Verify Receipt Verified receipt with [facility] in the ER for Dr Arrington on 08/09 23:04 (-04:00)
[2018-08-09] MEDS ORDERED: NALOXONE 0.4 MG/ML 1 ML VIAL IV PRN (23:20)
--- NOTE | 2018-08-09 23:50 | XR ---
EXAM: XR Chest, 2 Views CLINICAL HISTORY: ITS.REASON XR Reason: Chest Pain TECHNIQUE: Frontal and lateral views of the chest. COMPARISON: Chest x-ray 07/28/2016 FINDINGS: Lungs: No focal pulmonary infiltrates or consolidations. Pleural space: No evidence of pleural effusion or pneumothorax. Heart: Heart size is within normal limits. Mediastinum: Mediastinal structures are unremarkable. Bones/joints: Mild degenerative changes involve lower thoracic spine. IMPRESSION: No evidence of acute cardiopulmonary disease.
[2018-08-10] MEDS: PANTOPRAZOLE 40 MG/10 ML VIAL IV SCH ×2 (00:35→09:11)
[2018-08-10] MEDS: SODIUM CHLORIDE 0.9% 1,000 ML IV SCH ×3 (01:24→19:54)
[2018-08-10] MEDS: HYDROmorphone 1 MG/ML 1 ML SYRINGE IVP PRN ×5 (01:24→23:47)
[2018-08-10] MEDS: NITROGLYCERIN SL TABS 0.4 MG TAB SUBLINGUAL PRN (06:03)
[2018-08-10] MEDS ORDERED: IOPAMIDOL-300 CONTRAST 30 ML VIAL (ORAL USE) PO PRN (10:46)
[2018-08-10] MEDS ORDERED: ENALAPRILAT 1.25 MG/ML 1 ML VIAL IVP PRN (12:47)
--- NOTE | 2018-08-10 12:47 | P.HPIM ---
History of Present Illness H&P Date: 08/10/18 Chief Complaint: Nausea and abdominal pain This is a 53-year-old male patient of Jasiel Mark NP with past medical history of hypertension, hyperlipidemia, coronary artery disease, DVT, previous bowel surgeries, multiple orthopedic surgeries following a fall of 4 stories in 1991 including ankles, left knee scopes, right tibial screws and plate subsequently removed, fractured back without surgery. Patient was recently seen at [facility] on July 15 and had 3 cardiac stents placed by Dr. Mansfield. He is also known to have 2 aortic aneurysms as well. Patient states that he has been walking outside 2 miles every day for the past 2 weeks and started cardiac rehab. Sudden onset yesterday of nausea and abdominal pain. He did have a bowel movement in the morning which was formed. He denies any blood in his stools. He usually has a bowel movement every day. He did pass gas yesterday. The patient does have history of previous ileus following umbilical hernia rep air and he thought the pain was very similar. Patient came into [facility] emergency center for evaluation. Abdominal x-ray revealed early or partial small bowel obstruction. Chest x-ray was negative for acute cardiac pulmonary findings. CBC was within normal limits as well as CMP except for BUN of 24. Troponins negative on 2 draws. Lipase 69. Patient was admitted to the [facility] floor, NG tube placed to suction, consults with Dr. Miller and cardiology. Consultants of added and CAT scan of the abdomen and pelvis and echocardiogram. Review of Systems Constitutional: Reports poor appetite, Denies chills, Denies fatigue, Denies fever, Denies lethargy, Denies malaise, Denies weakness, Denies weight loss Ears, nose, mouth and throat: Denies dental pain, Denies nasal congestion, Denies nasal discharge, Denies vertigo Cardiovascular: Denies chest pain, Denies decreased exercise tolerance, Denies dyspnea on exertion, Denies edema, Denies irregular heart beat, Denies leg edema, Denies lightheadedness, Denies syncope Respiratory: Denies congestion, Denies cough, Denies cough with sputum, Denies dyspnea, Denies excessive sputum, Denies hemoptysis, Denies home oxygen, Denies respiratory infections, Denies sleep apnea, Denies wheezing Gastrointestinal: Reports abdominal pain, Reports bloating, Reports constipation, Reports loss of appetite, Reports nausea, Denies diarrhea Genitourinary: Denies dysuria, Denies urinary retention Musculoskeletal: Denies frequent falls, Denies gait dysfunction, Denies muscle weakness, Denies myalgias Integumentary: Denies pruritus, Denies rash, Denies wounds Neurological: Denies aphasia, Denies change in mentation, Denies change in speech, Denies confusion, Denies convulsions, Denies gait dysfunction, Denies seizures, Denies syncope Psychiatric: Denies anxiety, Denies depression Endocrine: Denies fatigue, Denies weight change 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, DVT L ankle, numbness/tingling legs, 2 abdominal aortic aneurysms, anemia, constipation, diverticulosis, hiatal hernia, L ear tinnitis, palpitations, pituitary gland tumor History of Any Multi-Drug Resistant Organisms: None Reported Past Surgical History: Heart Catheterization, Heart Catheterization With Stent, Hernia Repair, Orthopedic Surgery Additional Past Surgical History / Comment(s): 12/23/17 Incisional hernia with mesh, LEFT FOOT X8 , RIGHT FOOT X2, LEFT KNEE X3 (ARTHROSCOPIC), VASECTOMY, RIGHT LITTLE FINGER,LEFT SHOULDER X2, RIGHT SHOULDER X2, BILAT ANKLE SX, colonoscopy x3, pain clinic procedures. Past Anesthesia/Blood Transfusion Reactions: No Reported Reaction Date of Last Stent Placement:: 07/15/18 Past Psychological History: Anxiety, Depression Additional Psychological History / Comment(s): Pt is disabled. He resides with his spouse and 3 children under the age of 18 and 2 adult children. Pt drives. Smoking Status: Former smoker Past Alcohol Use History: None Reported Additional Past Alcohol Use History / Comment(s): QUIT SMOKING 2003, SMOKED 1 PACK PER WEEK, STARTED SMOKING AT AGE 18 Past Drug Use History: None Reported - Past Family History Mother Family Medical History: Dementia Additional Family Medical History / Comment(s): Mother is 70yrs old with AD. Father Family Medical History: Myocardial Infarction ([place]) Additional Family Medical History / Comment(s): Father passed at age 53 from [place] with history of drug and alcohol abuse. Brother(s) Additional Family Medical History / Comment(s): Patient has one brother with history of diabetes, hypertension, hyperlipidemia, ankylosing spondylosis. Sister(s) Additional Family Medical History / Comment(s): The patient has one sister diagnosed last week with liver cancer unsure primary. Daughter(s) Additional Family Medical History / Comment(s): Patient has 3 daughters ages 23, 19 and 11. 23-year-old daughter has had cardiac ablation done. Son(s) Additional Family Medical History / Comment(s): Patient has 2 sons ages 26 and 14. Son age 26 has been diagnosed with hypertension and chronic back pain. Medications and Allergies Home Medications Medication Instructions Recorded Confirmed Type Aspirin 81 mg PO DAILY 05/10/14 08/10/18 History Atorvastatin [Lipitor] 80 mg PO HS 08/18/17 08/10/18 History Isosorbide Mononitrate ER [Imdur] 30 mg PO DAILY 08/18/17 08/10/18 History Metoprolol Succinate [Toprol XL] 25 mg PO DAILY 08/18/17 08/10/18 History Cholecalciferol [Vitamin D3] 2,000 unit PO DAILY 12/18/17 08/10/18 History Lisinopril [Zestril] 5 mg PO DAILY 12/25/17 08/10/18 History Ondansetron HCl [Zofran] 8 mg PO Q8HR PRN 12/25/17 08/09/18 History Caberline 0.5mg 0.5 mg PO TUFR 08/09/18 08/09/18 History Ticagrelor [Brilinta] 90 mg PO BID 08/09/18 08/10/18 History Multivitamins, Thera [Multivitamin 1 tab PO DAILY 08/10/18 08/10/18 History (formulary)] Nitroglycerin Sl Tabs [Nitrostat] 0.4 mg SUBLINGUAL Q5M PRN 08/10/18 08/10/18 History Allergies Allergy/AdvReac Type Severity Reaction Status Date / Time adhesive tape Allergy Itching Verified 08/09/18 22:02 pregabalin [From Lyrica] Allergy Rash/Hives Verified 08/09/18 22:02 Physical Exam Vitals: Vital Signs Temp Pulse Pulse Pulse Resp BP BP 08/10/18 11:18 98.2 F 76 18 150/92 08/10/18 06:14 131/85 08/10/18 06:08 98.0 F 85 16 140/90 08/10/18 05:38 97.9 F 75 18 138/89 08/10/18 02:53 92 18 138/96 08/10/18 00:29 72 18 128/89 08/09/18 21:26 75 18 134/97 08/09/18 21:21 83 08/09/18 21:09 98.0 F 92 18 115/81 Pulse Ox 08/10/18 11:18 95 08/10/18 06:14 08/10/18 06:08 08/10/18 05:38 96 08/10/18 02:53 95 08/10/18 00:29 94 L 08/09/18 21:26 98 08/09/18 21:21 08/09/18 21:09 96 Intake and Output 08/09/18 08/10/18 08/10/18 22:59 06:59 14:59 Intake Total 400 Balance 400 Intake: Intake, IV Titration 400 Amount Sodium Chloride 0.9% 1, 400 000 ml @ 100 mls/hr IV . Q10H [facility] Rx#:[id number] Other: Voiding Method Toilet Toilet # Voids 1 Weight 92.533 kg 92.533 kg Gen: This is a 53-year-old male. Patient is resting in bed and appea rs to be comfortable. HEENT: Head is atraumatic, normocephalic. Pupils equal, round. Sclerae is anic teric. NG tube in place. NECK: Supple. No JVD. No lymphadenopathy. No thyromegaly. LUNGS: Clear to auscultation. No wheezes or rhonchi. No intercostal retractions. HEART: Regular rate and rhythm. No murmur. ABDOMEN: Soft. Bowel sounds are faint. No masses. No tenderness. EXTREMITIES: No pedal edema. No calf tenderness. Dorsalis pedis +2 bilaterally. NEUROLOGICAL: Patient is awake, alert and oriented x3. Cranial nerves 2 through 12 are grossly intact. Results CBC & Chem 7: 08/09/18 21:30 08/09/18 21:30 Labs: Abnormal Lab Results - Last 24 Hours (Table) 08/09/18 08/09/18 Range/Units 21:30 21:30 APTT 21.6 L (22.0-30.0) sec BUN 24 H (9-20) mg/dL Thrombosis Risk Factor Assmnt - DVT/VTE Prophylaxis DVT/VTE Prophylaxis: Pharmacologic Prophylaxis ordered - Choose All That Apply Any of the Below Risk Factors Present?: Yes Each Factor Represents 1 point: Age 41-60 years Each Risk Factor Represents 3 Points: History of DVT/PE Other congenital or acquired thrombophilia - If yes, enter type in comment: No Thrombosis Risk Factor Assessment Total Risk Factor Score: 4 Thrombosis Risk Factor Assessment Level: Moderate Risk Assessment and Plan Plan: 1. Small bowel obstruction on conservative management. Continue NG tube, consult with Dr. Miller. CAT scan of the abdomen pelvis to be done this afternoon. 2. History of coronary artery disease with recent stent placement July [address] Leo and [facility]. Cardiology consult appreciated. Echocardiogram. Brilinta and aspirin on hold. 3. Hypertension. Patient is normally on lisinopril 5 mg daily, Toprol-XL 25 mg daily, Imdur 30 mg daily. 4. Hyperlipidemia. Lipitor on hold. 5. History of previous hiatal hernia repair and umbilical hernia repair along with ileus. 6. Previous traumatic fall with multiple fractures and subsequent surgeries. 7. Memory impairment. Patient is concerned regarding memory loss. Discussed sleep hygiene, use of B12 and recommend neurology workup to be arranged by PCP. 8. DVT prophylaxis. Heparin subcu. 9. GI prophylaxis. Protonix. Patient will be admitted to the hospital for a minimum of 3 night stay. Discharge plan: Return home Impression and plan of care have been directed as dictated by the signing physic ian. Lauren Junior nurse practitioner acting as scribe for signing physician.
--- NOTE | 2018-08-10 13:37 | P.CRDCN ---
History of Present Illness History of present illness: This is a pleasant 53-year-old male past medical history significant for coronary artery disease, dyslipidemia, hypertension, DVT, ascending and descending aortic aneurysm and former nicotine dependence. 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 Mansfield. Urinalysis see him in consultation secondary to chest discomfort. He presented to the hospital yesterday with this tight squeezing sensation in the epigastric region that radiated around like a band on his chest. There is no radiation to the arm, back, neck or jaw. He denies associated shortness of breath. He did have some nausea but no vomiting and mild diaphoresis. His pain was constant with no specific aggravating or alleviating factors. Upon arrival to the emergency department he was found to have a partial small bowel obstruction. He states the discomfort in his epigastric region improved after the NG tube was placed. He recently underwent stent placement to the mid RCA on July and is currently maintained on dual antiplatelet therapy. Per the patient he did not have an acute infarct. EKG reveals sinus mechanism with no acute ST or T wave abnormalities noted. Chest x-ray is negative for acute cardiopulmonary process. Abdominal x-ray suggestive of early or partial small bowel obstruction. Laboratory data reviewed, WBC 7.3, hemoglobin 0.6, platelets 230, sodium 142, potassium 4.4, creatinine 0.71, magnesium 2.2, cardiac enzymes negative 2, proBNP 25. Current cardiac medications include Brilinta 90 mg twice a day, aspirin 81 mg daily, atorvastatin 80 mg daily, Toprol 25 mg daily, lisinopril 5 mg daily, Imdur 30 mg daily. At the time of my exam: CONSTITUTIONAL: Denies fever. Denies chills. EYES: Denies blurred vision. Denies vision changes. Denies eye pain. EARS, NOSE, MOUTH & THROAT: Denies headache. Denies sore throat. Denies ear pain. CARDIOVASCULAR: Denies chest pain. Denies shortness of breath. Denies orthopnea. Denies PND. Denies palpitations. RESPIRATORY: Denies cough. GASTROINTESTINAL: Denies abdominal pain. Denies diarrhea. Denies constipation. Complains of persistent nausea and has had an episode of vomiting. MUSCULOSKELETAL: Denies myalgias. INTEGUMENTARY: Denies pruitis. Denies rash. NEUROLOGIC: Denies numbness. Denies tingling. Denies weakness. PSYCHIATRIC: Denies anxiety. Denies depression. ENDOCRINE: Denies fatigue. Denies weight change. Denies polydipsia. Denies polyurina. GENITOURINARY: Denies burning, hematuria or urgency with micturation. HEMATOLOGIC: Denies history of anemia. Denies bleeding. Blood pressure 150/92 heart rate 76 afebrile maintaining oxygen saturation on room air GENERAL: This is a 53-year-old male in no apparent distress at the time of my examination. HEENT: Head is atraumatic, normocephalic. Pupils are equal, round. Sclerae anicteric. Conjunctivae are clear. Mucous membranes of the mouth are moist. Neck is supple. There is no jugular venous distention. No carotid bruit is heard. LUNGS: Clear to auscultation no wheezes, rales or rhonchi. No chest wall tenderness is noted on palpation or with deep breathing. HEART: Regular rate and rhythm without murmurs, rubs or gallops. S1 and S2 heard. ABDOMEN: Soft, nontender. Bowel sounds are heard. No organomegaly noted. EXTREMITIES: No evidence of peripheral edema and no calf tenderness noted. VASCULAR: Radial and dorsalis pedis pulses palpated, no evidence of clubbing. NEUROLOGIC: Patient is awake, alert and oriented x3. ASSESSMENT Small bowel obstruction, partial Chest pain, atypical for angina. An acute coronary event has been ruled out with EKG evidence of ischemia and negative cardiac enzymes. Coronary artery disease status post recent stent placement to the mid RCA 07/15/2018 maintained on dual antiplatelet therapy Hypertension Dyslipidemia PLAN Brillinta and aspirin to be resumed per surgery services as soon as possible. Last dose was last night. Obtain 2D echocardiogram and doppler study to assess cardiac structure and function. Ongoing medical management per surgery and primary care team. If surgery is required we will place him on an integrillin drip for anti- platelet protection. Thank you kindly for this consultation. Nurse Practitioner note has been reviewed, I agree with a documented findings and plan of care. Patient was seen and examined. 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, DVT L ankle, numbness/tingling legs, 2 abdominal aortic aneurysms, anemia, constipation, diverticulosis, hiatal hernia, L ear tinnitis, palpitations, pituitary gland tumor History of Any Multi-Drug Resistant Organisms: None Reported Past Surgical History: Heart Catheterization, Heart Catheterization With Stent, Hernia Repair, Orthopedic Surgery Additional Past Surgical History / Comment(s): 12/23/17 Incisional hernia with mesh, LEFT FOOT X8 , RIGHT FOOT X2, LEFT KNEE X3 (ARTHROSCOPIC), VASECTOMY, RIGHT LITTLE FINGER,LEFT SHOULDER X2, RIGHT SHOULDER X2, BILAT ANKLE SX, colonoscopy x3, pain clinic procedures. Past Anesthesia/Blood Transfusion Reactions: No Reported Reaction Date of Last Stent Placement:: 07/15/18 Past Psychological History: Anxiety, Depression Additional Psychological History / Comment(s): Pt is disabled. He resides with his spouse and 3 children under the age of 18 and 2 adult children. Pt drives. Smoking Status: Former smoker Past Alcohol Use History: None Reported Additional Past Alcohol Use History / Comment(s): QUIT SMOKING 2003, SMOKED 1 PACK PER WEEK, STARTED SMOKING AT AGE 18 Past Drug Use History: None Reported - Past Family History Mother Family Medical History: Dementia Additional Family Medical History / Comment(s): Mother is 70yrs old. Father Family Medical History: Myocardial Infarction ([place]) Additional Family Medical History / Comment(s): Pt does not know father very well except that he was involved in drugs and of a DC. Brother(s) Additional Family Medical History / Comment(s): Patient has one brother with history of diabetes, hypertension, hyperlipidemia, ankylosing spondylosis. Sister(s) Additional Family Medical History / Comment(s): The patient has one sister diagnosed last week with liver cancer unsure primary. Daughter(s) Additional Family Medical History / Comment(s): Patient has 3 daughters ages 23, 19 and 11. 23-year-old daughter has had cardiac ablation done. Son(s) Additional Family Medical History / Comment(s): Patient has 2 sons ages 26 and 14. Son age 26 has been diagnosed with hypertension and chronic back pain. Medications and Allergies Home Medications Medication Instructions Recorded Confirmed Type Aspirin 81 mg PO DAILY 05/10/14 08/10/18 History Atorvastatin [Lipitor] 80 mg PO HS 08/18/17 08/10/18 History Isosorbide Mononitrate ER [Imdur] 30 mg PO DAILY 08/18/17 08/10/18 History Metoprolol Succinate [Toprol XL] 25 mg PO DAILY 08/18/17 08/10/18 History Cholecalciferol [Vitamin D3] 2,000 unit PO DAILY 12/18/17 08/10/18 History Lisinopril [Zestril] 5 mg PO DAILY 12/25/17 08/10/18 History Ondansetron HCl [Zofran] 8 mg PO Q8HR PRN 12/25/17 08/09/18 History Caberline 0.5mg 0.5 mg PO TUFR 08/09/18 08/09/18 History Ticagrelor [Brilinta] 90 mg PO BID 08/09/18 08/10/18 History Multivitamins, Thera [Multivitamin 1 tab PO DAILY 08/10/18 08/10/18 History (formulary)] Nitroglycerin Sl Tabs [Nitrostat] 0.4 mg SUBLINGUAL Q5M PRN 08/10/18 08/10/18 History Allergies Allergy/AdvReac Type Severity Reaction Status Date / Time adhesive tape Allergy Itching Verified 08/09/18 22:02 pregabalin [From Lyrica] Allergy Rash/Hives Verified 08/09/18 22:02 Physical Exam Vitals: Vital Signs Temp Pulse Pulse Pulse Resp BP BP 08/10/18 11:18 98.2 F 76 18 150/92 08/10/18 06:14 131/85 08/10/18 06:08 98.0 F 85 16 140/90 08/10/18 05:38 97.9 F 75 18 138/89 08/10/18 02:53 92 18 138/96 08/10/18 00:29 72 18 128/89 08/09/18 21:26 75 18 134/97 08/09/18 21:21 83 08/09/18 21:09 98.0 F 92 18 115/81 Pulse Ox 08/10/18 11:18 95 08/10/18 06:14 08/10/18 06:08 08/10/18 05:38 96 08/10/18 02:53 95 08/10/18 00:29 94 L 08/09/18 21:26 98 08/09/18 21:21 08/09/18 21:09 96 Intake and Output 08/09/18 08/10/18 08/10/18 22:59 06:59 14:59 Intake Total 400 Balance 400 Intake: Intake, IV Titration 400 Amount Sodium Chloride 0.9% 1, 400 000 ml @ 100 mls/hr IV . Q10H ML Rx#:[id number] Other: Voiding Method Toilet Toilet # Voids 1 Weight 92.533 kg 92.533 kg Results 08/09/18 21:30 08/09/18 21:30 Cardiac Enzymes 08/09/18 08/09/18 08/10/18 Range/Units 21:30 21:32 06:52 AST 31 (17-59) U/L Troponin I <0.012 <0.012 (0.000-0.034) ng/mL Coagulation 08/09/18 Range/Units 21:30 PT 9.5 (9.0-12.0) sec APTT 21.6 L (22.0-30.0) sec CBC 08/09/18 Range/Units 21:30 WBC 7.3 (3.8-10.6) k/uL RBC 4.34 (4.30-5.90) m/uL Hgb 13.6 (13.0-17.5) gm/dL Hct 39.8 (39.0-53.0) % Plt Count 230 (150-450) k/uL Comprehensive Metabolic Panel 08/09/18 Range/Units 21:30 Sodium 142 (137-145) mmol/L Potassium 4.4 (3.5-5.1) mmol/L Chloride 107 (98-107) mmol/L Carbon Dioxide 24 (22-30) mmol/L BUN 24 H (9-20) mg/dL Creatinine 0.71 (0.66-1.25) mg/dL Glucose 95 (74-99) mg/dL Calcium 9.9 (8.4-10.2) mg/dL AST 31 (17-59) U/L ALT 38 (21-72) U/L Alkaline Phosphatase 56 (38-126) U/L Total Protein 7.5 (6.3-8.2) g/dL Albumin 5.0 (3.5-5.0) g/dL Current Medications Generic Name Dose Route Start Last Admin Trade Name Freq PRN Reason Stop Dose Admin Hydromorphone HCl 1 mg 08/09/18 23:20 08/10/18 11:14 Dilaudid IVP 1 mg Q3HR PRN Administration Severe Pain Sodium Chloride 1,000 mls @ 100 mls/hr 08/09/18 23:30 08/10/18 09:14 Saline 0.9% IV 100 mls/hr .Q10H ML Administration Iopamidol 30 ml 08/10/18 10:46 Isovue-300 30 Ml (For Oral Use) PO 08/11/18 10:[address] Scan Naloxone HCl 0.2 mg 08/09/18 23:20 Narcan IV Q2M PRN Opioid Reversal Nitroglycerin 0.4 mg 08/10/18 05:56 08/10/18 06:03 Nitrostat SUBLINGUAL 0.4 mg Q5M PRN Administration Chest Pain Pantoprazole Sodium 40 mg 08/09/18 23:30 08/10/18 09:11 Protonix IV 40 mg DAILY ML Administration Intake and Output 08/09/18 08/10/18 08/10/18 22:59 06:59 14:59 Intake Total 400 Balance 400 Intake: Intake, IV Titration 400 Amount Sodium Chloride 0.9% 1, 400 000 ml @ 100 mls/hr IV . Q10H ML Rx#:[id number] Other: Voiding Method Toilet Toilet # Voids 1 Weight 92.533 kg 92.533 kg Patient Weight 08/11/18 06:59 Weight 92.533 kg 08/09/18 21:30 08/09/18 21:30
--- NOTE | 2018-08-10 13:42 | P.GSCN ---
History of Present Illness Consult date: 08/10/18 Reason for Consult: SBO Requesting physician: Keila Arrington History of present illness: CHIEF COMPLAINT: Abdominal pain HISTORY OF PRESENT ILLNESS: 53-year-old male who presented to the emergency room with chief complaint of chest pain/epigastric pain. Patient states pain came on very suddenly yesterday afternoon and with his recent cardiac history he came to the ER for further evaluation. Patient reports bowel movement yesterday morning. Normal in characteristics. Patient reports passing flatus yesterday but denies passing flatus this morning. NG tube was placed in ER with bilious drainage. Patient reports NG was disconnected so patient could use the restroom and he reports an episode of emesis. He continues to rate his pain about a 5/10. PAST MEDICAL HISTORY: See list. PAST SURGICAL HISTORY: See list. SOCIAL HISTORY: No illicit drug use. REVIEW OF SYSTEMS: CONSTITUTIONAL: Denies fever or chills. HEENT: Denies blurred vision, vision changes, or eye pain. Denies hemoptysis CARDIOVASCULAR: Reports chest/epigastric pain. RESPIRATORY: No shortness of breath. GASTROINTESTINAL: Refer to HPI for pertinent findings HEMATOLOGIC: Denies bleeding disorders. GENITOURINARY: Denies any blood in urine. SKIN: Denies pruitis. Denies rash. PHYSICAL EXAM: VITAL SIGNS: Reviewed. GENERAL: Well-developed in no acute distress. HEENT: No sclera icterus. Extraocular movements grossly intact. Moist buccal mucosa. Head is atraumatic, normocephalic. ABDOMEN: Soft. Nondistended. Positive bowel sounds. Mild tenderness near epigastric region. NEUROLOGIC: Alert and oriented. Cranial nerves II through XII grossly intact. LABORATORY DATA: Laboratory data reveals white count 7.3. Hemoglobin 13.6. Potassium 4.4. BUN 24. Creatinine 0.71. Magnesium 2.2. IMAGING: KUB x-ray: Findings suggestive of early or partial small bowel obstruction ASSESSMENT: 1. Abdominal pain 2. Small bowel obstruction 3. History of coronary artery disease with recent stent placement 4. Previous hiatal hernia repair and umbilical hernia repair PLAN: 1. NPO. Continue IV fluids 2. Obtain CT abdomen pelvis with IV and oral contrast 3. Continue NG to LIS 4. Hold Brilinta at this time 5. Further recommendations pending Nurse practitioner note has been reviewed by physician. Signing provider agrees with the documented findings, assessment, and plan of care. 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, DVT L ankle, numbness/tingling legs, 2 abdominal aortic aneurysms, anemia, constipation, diverticulosis, hiatal hernia, L ear tinnitis, pa lpitations, pituitary gland tumor History of Any Multi-Drug Resistant Organisms: None Reported Past Surgical History: Heart Catheterization, Heart Catheterization With Stent, Hernia Repair, Orthopedic Surgery Additional Past Surgical History / Comment(s): 12/23/17 Incisional hernia with mesh, LEFT FOOT X8 , RIGHT FOOT X2, LEFT KNEE X3 (ARTHROSCOPIC), VASECTOMY, RIGHT LITTLE FINGER,LEFT SHOULDER X2, RIGHT SHOULDER X2, BILAT ANKLE SX, colonoscopy x3, pain clinic procedures. Past Anesthesia/Blood Transfusion Reactions: No Reported Reaction Date of Last Stent Placement:: 07/15/18 Past Psychological History: Anxiety, Depression Additional Psychological History / Comment(s): Pt is disabled. He resides with his spouse and 3 children under the age of 18 and 2 adult children. Pt drives. Smoking Status: Former smoker Past Alcohol Use History: None Reported Additional Past Alcohol Use History / Comment(s): QUIT SMOKING 2003, SMOKED 1 PACK PER WEEK, STARTED SMOKING AT AGE 18 Past Drug Use History: None Reported - Past Family History Mother Family Medical History: Dementia Additional Family Medical History / Comment(s): Mother is 70yrs old with AD. Father Family Medical History: Myocardial Infarction ([place]) Additional Family Medical History / Comment(s): Father passed at age 53 from [place] with history of drug and alcohol abuse. Brother(s) Additional Family Medical History / Comment(s): Patient has one brother with history of diabetes, hypertension, hyperlipidemia, ankylosing spondylosis. Sister(s) Additional Family Medical History / Comment(s): The patient has one sister diagnosed last week with liver cancer unsure primary. Daughter(s) Additional Family Medical History / Comment(s): Patient has 3 daughters ages 23, 19 and 11. 23-year-old daughter has had cardiac ablation done. Son(s) Additional Family Medical History / Comment(s): Patient has 2 sons ages 26 and 14. Son age 26 has been diagnosed with hypertension and chronic back pain. Medications and Allergies Home Medications Medication Instructions Recorded Confirmed Type Aspirin 81 mg PO DAILY 05/10/14 08/10/18 History Atorvastatin [Lipitor] 80 mg PO HS 08/18/17 08/10/18 History Isosorbide Mononitrate ER [Imdur] 30 mg PO DAILY 08/18/17 08/10/18 History Metoprolol Succinate [Toprol XL] 25 mg PO DAILY 08/18/17 08/10/18 History Cholecalciferol [Vitamin D3] 2,000 unit PO DAILY 12/18/17 08/10/18 History Lisinopril [Zestril] 5 mg PO DAILY 12/25/17 08/10/18 History Ondansetron HCl [Zofran] 8 mg PO Q8HR PRN 12/25/17 08/09/18 History Caberline 0.5mg 0.5 mg PO TUFR 08/09/18 08/09/18 History Ticagrelor [Brilinta] 90 mg PO BID 08/09/18 08/10/18 History Multivitamins, Thera [Multivitamin 1 tab PO DAILY 08/10/18 08/10/18 History (formulary)] Nitroglycerin Sl Tabs [Nitrostat] 0.4 mg SUBLINGUAL Q5M PRN 08/10/18 08/10/18 History Allergies Allergy/AdvReac Type Severity Reaction Status Date / Time adhesive tape Allergy Itching Verified 08/09/18 22:02 pregabalin [From Lyrica] Allergy Rash/Hives Verified 08/09/18 22:02 Surgical - Exam Vital Signs Temp Pulse Resp BP Pulse Ox 98.0 F 92 18 115/81 96 08/09/18 21:09 08/09/18 21:09 08/09/18 21:09 08/09/18 21:09 08/09/18 21:09 Results - Labs 08/09/18 21:30 08/09/18 21:30 Abnormal Lab Results - Last 24 Hours (Table) 08/09/18 08/09/18 Range/Units 21:30 21:30 APTT 21.6 L (22.0-30.0) sec BUN 24 H (9-20) mg/dL Diabetes panel 08/09/18 Range/Units 21:30 Sodium 142 (137-145) mmol/L Potassium 4.4 (3.5-5.1) mmol/L Chloride 107 (98-107) mmol/L Carbon Dioxide 24 (22-30) mmol/L BUN 24 H (9-20) mg/dL Creatinine 0.71 (0.66-1.25) mg/dL Glucose 95 (74-99) mg/dL Calcium 9.9 (8.4-10.2) mg/dL AST 31 (17-59) U/L ALT 38 (21-72) U/L Alkaline Phosphatase 56 (38-126) U/L Total Protein 7.5 (6.3-8.2) g/dL Albumin 5.0 (3.5-5.0) g/dL Calcium panel 08/09/18 Range/Units 21:30 Calcium 9.9 (8.4-10.2) mg/dL Albumin 5.0 (3.5-5.0) g/dL Pituitary panel 08/09/18 Range/Units 21:30 Sodium 142 (137-145) mmol/L Potassium 4.4 (3.5-5.1) mmol/L Chloride 107 (98-107) mmol/L Carbon Dioxide 24 (22-30) mmol/L BUN 24 H (9-20) mg/dL Creatinine 0.71 (0.66-1.25) mg/dL Glucose 95 (74-99) mg/dL Calcium 9.9 (8.4-10.2) mg/dL Adrenal panel 08/09/18 Range/Units 21:30 Sodium 142 (137-145) mmol/L Potassium 4.4 (3.5-5.1) mmol/L Chloride 107 (98-107) mmol/L Carbon Dioxide 24 (22-30) mmol/L BUN 24 H (9-20) mg/dL Creatinine 0.71 (0.66-1.25) mg/dL Glucose 95 (74-99) mg/dL Calcium 9.9 (8.4-10.2) mg/dL Total Bilirubin 0.6 (0.2-1.3) mg/dL AST 31 (17-59) U/L ALT 38 (21-72) U/L Alkaline Phosphatase 56 (38-126) U/L Total Protein 7.5 (6.3-8.2) g/dL Albumin 5.0 (3.5-5.0) g/dL
--- NOTE | 2018-08-10 16:08 | CT ---
EXAMINATION TYPE: CT abdomen pelvis w con DATE OF EXAM: 08/10/2018 COMPARISON: 12/25/2017 HISTORY: 53-year-old male small bowel obstruction TECHNIQUE: Contiguous axial scanning of the abdomen and pelvis following administration of 100 ml Iso digna 300 IV contrast. Delayed images through the kidneys and coronal/sagittal reconstructions perform ed. CT DLP: 1097.60 mGycm Automated exposure control for dose reduction was used. FINDINGS: Heart upper limits of normal in size without pericardial effusion. Coronary vessel calcific ations are present. Strandy atelectasis in the lower lungs without pleural effusion. Mild circumferential wall thickening of the lower esophagus. There is lobulated soft tissue thickening projecting into the lumen of the gastric fundus measuring u p to 4.4 x 4.1 cm extending from below the level of the GE junction. Suggestion of a couple tiny surg ical clips at the GE junction. Tiny calcified granuloma anterior right hepatic dome. Otherwise, no focal liver lesion. No biliary du ctal dilatation. Portal venous system is patent. Gallbladder, adrenal glands, kidneys, spleen, and pancreas appear within normal limits. NG tube is present. Oral contrast does progress into the left mid abdomen. Dilated small bowel loops measure up to 4.0 cm and distal thirds small bowel loops are collapsed Suspected transition point in the lower mid abdomen, axial images 64 with fecalized small bowel keke nt. No free fluid or free air. Distal small bowel loops are collapsed. No mesenteric or retroperitoneal lymphadenopathy. Moderate stool in the right side of the colon. Sigmoid diverticulosis. No pericolonic inflammatory ch sumanth. Bladder is urine distended. Mild pelvic free fluid likely reactive to the small bowel obstruction. No pelvic lymphadenopathy. Bones: Degenerative disc disease and facet arthropathy throughout the lumbar spine. IMPRESSION: 1. FINDINGS SUGGEST HIGH-GRADE SMALL BOWEL OBSTRUCTION WITH TRANSITION POINT IN THE LOWER MID ABDOMEN . SMALL BOWEL LOOPS ARE DILATED UP TO 4.0 CM AND THERE IS MILD PELVIC FREE FLUID LIKELY REACTIVE. 2. LOBULATED SOFT TISSUE THICKENING PROJECTING INTO THE LUMEN OF THE GASTRIC FUNDUS MEASURING 4.4 X 4 .1 CM JUST BELOW THE LEVEL OF THE GE JUNCTION. RECOMMEND DIRECT VISUALIZATION TO EXCLUDE A SUBMUCOSA L GASTRIC MASS. GIVEN THE PRESENCE OF A COUPLE SURGICAL CLIPS AT THE GE JUNCTION, AN UNUSUAL POSTSURG ICAL APPEARANCE IS ALSO A POSSIBILITY. 3. MILD CIRCUMFERENTIAL WALL THICKENING OF THE LOWER ESOPHAGUS COULD REPRESENT ESOPHAGITIS.
[2018-08-10] MEDS: HEPARIN SODIUM,PORCINE 5,000 UNIT/ML 1 ML VIAL SQ SCH (20:00)
[2018-08-11] MEDS: SODIUM CHLORIDE 0.9% 1,000 ML IV SCH ×2 (03:45→18:02)
[2018-08-11] MEDS: HYDROmorphone 1 MG/ML 1 ML SYRINGE IVP PRN ×4 (03:46→21:32)
[2018-08-11] MEDS: HEPARIN SODIUM,PORCINE 5,000 UNIT/ML 1 ML VIAL SQ SCH ×2 (09:30→21:32)
[2018-08-11] MEDS: PANTOPRAZOLE 40 MG/10 ML VIAL IV SCH (09:37)
--- NOTE | 2018-08-11 10:27 | P.PN ---
Subjective This is a pleasant 53-year-old male past medical history significant for coronary artery disease, dyslipidemia, hypertension, DVT, ascending and descending aortic aneurysm and former nicotine dependence. 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 Mansfield. Patient is seen and examined sitting up in bed. He is currently experiencing persistent hiccups and describes pain all over his abdomen and torso with mild associated nausea. CT of the abdomen and pelvis obtained yesterday suggested a high-grade small bowel obstruction with transi tion point in the lower mid abdomen, small bowel loops are dilated up to 4 cm and there is mild pelvic free fluid. Mild circumferential wall thickening suggestive of esophagitis. Lobulated soft tissue thickening into the lumen of the gastric fundus just below the level of the GE junction. Surgery is planned for this afternoon with Dr. Ibanez. Last dose of brillinta was Thursday night. He denies any symptoms of angina, shortness of breath, dizziness or palpitations. Blood pressure 139/84 heart rate 86 afebrile and maintaining oxygen saturation on room air. GENERAL: This is a 53-year-old male in no apparent distress at the time of my examination. HEENT: Head is atraumatic, normocephalic. Pupils are equal, round. Sclerae anicteric. Conjunctivae are clear. Mucous membranes of the mouth are moist. Neck is supple. There is no jugular venous distention. No carotid bruit is heard. NG tube in place. LUNGS: Clear to auscultation no wheezes, rales or rhonchi. No chest wall tender ness is noted on palpation or with deep breathing. HEART: Regular rate and rhythm without murmurs, rubs or gallops. S1 and S2 heard. EXTREMITIES: No evidence of peripheral edema and no calf tenderness noted. ASSESSMENT Small bowel obstruction, partial Chest pain, atypical for angina. An acute coronary event has been ruled out with EKG evidence of ischemia and negative cardiac enzymes. Coronary artery disease status post recent stent placement to the mid [facility] 07/15/2018 maintained on dual antiplatelet therapy Hypertension Dyslipidemia PLAN Stable from a cardiac perspective for surgery this afternoon. Brillinta should be resumed as soon as possible per surgical services. Preferably this evening if not tomorrow morning. Echo has been obtained and will be reviewed prior to surgery. We will continue to follow and make recommendations accordingly. Nurse Practitioner note has been reviewed, I agree with a documented findings and plan of care. Patient was seen and examined. Objective - Vital Signs Vital signs: Vital Signs Temp 98.1 F 08/11/18 04:44 Pulse 86 08/11/18 04:44 Resp 18 08/11/18 08:00 BP 139/84 08/11/18 04:44 Pulse Ox 99 08/11/18 04:44 Intake & Output 08/10/18 08/11/18 08/11/18 18:59 06:59 18:59 Intake Total 800 1200 Output Total 300 Balance 800 900 Weight 92.533 kg Intake: Intake, IV Titration 800 1200 Amount Sodium Chloride 0.9% 1, 800 1200 000 ml @ 100 mls/hr IV . Q10H ML Rx#:[id number] Output: Gastric Drainage 300 Other: Voiding Method Toilet Toilet Toilet # Voids 2 - Labs CBC & Chem 7: 08/09/18 21:30 08/09/18 21:30
--- NOTE | 2018-08-11 12:12 | ECHOF ---
Referral Reason:cp MEASUREMENTS -------- HEIGHT: 162.6 cm WEIGHT: 92.5 kg BP: 150/92 RVIDd: 3.0 cm (< 3.3) IVSd: 1.2 cm (0.6 - 1.1) LVIDd: 4.9 cm (3.9 - 5.3) LVPWd: 1.1 cm (0.6 - 1.1) IVSs: 1.7 cm LVIDs: 3.0 cm LVPWs: 1.6 cm LA Diam: 3.6 cm (2.7 - 3.8) LAESV Index (A-L): 20.85 ml/m Ao Diam: 3.5 cm (2.0 - 3.7) AV Cusp: 2.4 cm (1.5 - 2.6) MV EXCURSION: 13.341 mm (> 18.000) MV EF SLOPE: 108 mm/s (70 - 150) EPSS: 0.5 cm MV E Edinson: 1.05 m/s MV DecT: 206 ms MV A Edinson: 1.08 m/s MV E/A Ratio: 0.98 RAP: 5.00 mmHg RVSP: 35.70 mmHg FINDINGS -------- Sinus rhythm. This was a technically adequate study. The left ventricular size is normal. There is borderline concentric left ventricular hypertrophy. Overall left ventricular systolic function is normal with, an EF between 60 - 65 %. The right ventricle is normal in size. Normal LA size by volume 22+/-6 ml/m2. The right atrium is normal in size. Interatrial and interventricular septum intact. The aortic valve is trileaflet and appears structurally normal. Mild mitral regurgitation is present. Mild tricuspid regurgitation present. There is mild pulmonary hypertension. The right ventricular systolic pressure, as measured by Doppler, is 35.70mmHg. There is no pulmonic regurgitation present. The aortic root size is normal. IVC Not well visulized. There is no pericardial effusion. CONCLUSIONS -------- 1. Sinus rhythm. 2. This was a technically adequate study. 3. The left ventricular size is normal. 4. There is borderline concentric left ventricular hypertrophy. 5. Overall left ventricular systolic function is normal with, an EF between 60 - 65 %. 6. The right ventricle is normal in size. 7. Normal LA size by volume 22+/-6 ml/m2. 8. The right atrium is normal in size. 9. Interatrial and interventricular septum intact. 10. The aortic valve is trileaflet and appears structurally normal. 11. Mild mitral regurgitation is present. 12. Mild tricuspid regurgitation present. 13. There is mild pulmonary hypertension. 14. The right ventricular systolic pressure, as measured by Doppler, is 35.70mmHg. 15. There is no pulmonic regurgitation present. 16. The aortic root size is normal. 17. IVC Not well visulized. 18. There is no pericardial effusion. BANKING OFFICER: Safia Murphy RDCS
[2018-08-11 12:29] LABS: HCT 38.8 % (39.0-53.0); HGB 12.5 gm/dL (13.0-17.5); MCH 30.5 pg (25.0-35.0); MCHC 32.3 g/dL (31.0-37.0); MCV 94.5 fL (80.0-100.0); Mean Platelet Volume 7.8; Platelet Count 205 k/uL (150-450); RDW 13.9 % (11.5-15.5)
[2018-08-11 12:40] LABS: ALT 32 U/L (21-72); AST 24 U/L (17-59); African American GFR (CKD) >90 (>60 ml/min/1.73 sqM); Albumin 4.4 g/dL (3.5-5.0); Alkaline Phosphatase 58 U/L (38-126); Anion Gap 9 mmol/L; Blood Urea Nitrogen 15 mg/dL (9-20); Calcium 9.1 mg/dL (8.4-10.2); Carbon Dioxide 30 mmol/L (22-30); Chloride 102 mmol/L (98-107); Glucose 89 mg/dL (74-99); Potassium 4.6 mmol/L (3.5-5.1); Sodium 141 mmol/L (137-145); Total Bilirubin 1.4 mg/dL (0.2-1.3); Total Protein 6.7 g/dL (6.3-8.2)
--- NOTE | 2018-08-11 13:05 | XR ---
EXAMINATION TYPE: XR KUB portable DATE OF EXAM: 08/09/2018 11:07 PM CLINICAL HISTORY: NG tube placement TECHNIQUE: Single supine KUB image of the abdomen is obtained. COMPARISON: 08/09/2018. FINDINGS: Fenestrated portion of the enteric tube is at the gastroesophageal junction with recommenda tion of advancement of 5 cm for optimal placement. The stomach is markedly enlarged with air-fluid le vels throughout dilated small bowel concerning for small bowel obstruction. Exam is suboptimal for ev aluation of pneumoperitoneum. IMPRESSION: Enteric tube is cephalad in placement and should be advanced approximately 5 cm placement . Again findings of small bowel obstruction are seen.
[2018-08-11] MEDS ORDERED: LACTATED RINGERS 1,000 ML IV ONE ×3 (13:11→14:46)
[2018-08-11] MEDS ORDERED: HEPARIN SODIUM,PORCINE 5,000 UNIT/ML 1 ML VIAL SQ ONE (13:18)
--- NOTE | 2018-08-11 13:18 | P.PN ---
Progress Note - Text Progress Note Date: 08/11/18 Patient's CAT scan shows evidence of a high-grade small bowel charge. Patient will go to the OR today for exploratory laparotomy.
[2018-08-11] MEDS ORDERED: NEOSTIGMINE 1 MG/ML 10 ML VIAL ONE (13:19)
[2018-08-11] MEDS ORDERED: SUCCINYLCHOLINE CHLORIDE 100 MG/5 ML SYR IV ONE (13:19)
[2018-08-11] MEDS ORDERED: MIDAZOLAM 2 MG/2 ML VIAL ONE (13:19)
[2018-08-11] MEDS ORDERED: ESMOLOL 100 MG/10 ML VIAL ONE (13:19)
[2018-08-11] MEDS ORDERED: HYDROmorphone (PF) 1 MG/ML ONE (13:19)
[2018-08-11] MEDS ORDERED: GLYCOPYRROLATE 0.2 MG/ML 2 ML VIAL ONE (13:19)
[2018-08-11] MEDS ORDERED: PROPOFOL 10 MG/ML 20 ML VIAL IV ONE (13:19)
[2018-08-11] MEDS ORDERED: METOPROLOL TARTRATE 5 MG/5 ML VIAL IVP ONE (13:19)
[2018-08-11] MEDS ORDERED: fentaNYL (PF) 50 MCG/ML 2 ML AMP ONE (13:19)
[2018-08-11] MEDS ORDERED: LIDOCAINE 1% INJ 10MG/ML (20 ML MDV) ONE (13:19)
[2018-08-11] MEDS ORDERED: ceFAZolin 1,000 MG VIAL ONE (13:19)
[2018-08-11] MEDS ORDERED: ROCURONIUM BROMIDE 10 MG/ML 10 ML VIAL IV ONE (13:19)
--- NOTE | 2018-08-11 14:24 | P.PN ---
Subjective Progress Note Date: 08/11/18 This is a 53-year-old male patient of Jasiel Mark NP with past medical history of hypertension, hyperlipidemia, coronary artery disease, DVT, previous bowel surgeries, multiple orthopedic surgeries following a fall of 4 stories in 1991 including ankles, left knee scopes, right tibial screws and plate subsequently removed, fractured back without surgery. Patient was recently seen at [facility] on July 15 and had 3 cardiac stents placed by Dr. Mansfield. He is also known to have 2 aortic aneurysms as well. Patient states that he has been walking outside 2 miles every day for the past 2 weeks and started cardiac rehab. Sudden onset yesterday of nausea and abdominal pain. He did have a bowel movement in the morning which was formed. He denies any blood in his stools. He usually has a bowel movement every day. He did pass gas yesterday. The patient does have history of previous ileus following umbilical hernia repair and he thought the pain was very similar. Patient came into [facility] for evaluation. Abdominal x-ray revealed early or partial small bowel obstruction. Chest x-ray was negative for acute cardiac pulmonary findings. CBC was within normal limits as well as CMP except for BUN of 24. Troponins negative on 2 draws. Lipase 69. Patient was admitted to the MedSurg floor, NG tube placed to suction, consults with Dr. Miller and cardiology. Consultants of added and CAT scan of the abdomen and pelvis and echocardiogram. 08/11: Patient states he has continued to have vomiting despite NG tube in place. CAT scan of the abdomen and pelvis with contrast reveals high-grade small bowel obstruction with transition point in the lower mid abdomen. Small bowel loops dilated up to 4 cm and mild pelvic free fluid likely reactive. Lobulated soft tissue thickening projecting into the lumen of the gastric fundus measuring 4.4 x 4.1 cm below the level of the GE junction. Mild circumferential wall thickening of the lower esophagus could represent esophagitis. Dr. Nagy is taking the patient for exploratory laparotomy today. Patient has been evaluated by cardiology and cleared for surgery. Proventil to be resumed as soon as possible once cleared by surgical services. Echocardiogram reveals EF of 60-65% with borderline concentric left ventricular hypertrophy, mild mitral regurgitation, mild tricuspid regurgitation, mild pul monary hypertension. Patient has been afebrile, heart rate 81, blood pressure 136/65, pulse ox 96% on room air. Repeat white count 9.0, hemoglobin 12.5, platelet count 205, electrolytic within normal limits, creatinine 0.61. Total bilirubin 1.4 and liver function tests within normal limits. Objective - Vital Signs Vital signs: Vital Signs Temp 98.1 F 08/11/18 04:44 Pulse 86 08/11/18 04:44 Resp 18 08/11/18 08:00 BP 139/84 08/11/18 04:44 Pulse Ox 99 08/11/18 04:44 Intake & Output 08/10/18 08/11/18 08/11/18 18:59 06:59 18:59 Intake Total 800 1200 Output Total 300 Balance 800 900 Weight 92.533 kg Intake: Intake, IV Titration 800 1200 Amount Sodium Chloride 0.9% 1, 800 1200 000 ml @ 100 mls/hr IV . Q10H ML Rx#:[id number] Output: Gastric Drainage 300 Other: Voiding Method Toilet Toilet Toilet # Voids 2 - Exam Review of Systems Constitutional: Reports poor appetite, Denies chills, Denies fatigue, Denies fever, Denies lethargy, Denies malaise, Denies weakness, Denies weight loss Ears, nose, mouth and throat: Denies dental pain, Denies nasal congestion, Denies nasal discharge, Denies vertigo Cardiovascular: Denies chest pain, Denies decreased exercise tolerance, Denies dyspnea on exertion, Denies edema, Denies irregular heart beat, Denies leg edema, Denies lightheadedness, Denies syncope Respiratory: Denies congestion, Denies cough, Denies cough with sputum, Denies dyspnea, Denies excessive sputum, Denies hemoptysis, Denies home oxygen, Denies respiratory infections, Denies sleep apnea, Denies wheezing Gastrointestinal: Reports abdominal pain, Reports bloating, Reports constipation, Reports loss of appetite, Reports nausea, reports vomiting, Denies diarrhea Genitourinary: Denies dysuria, Denies urinary retention Musculoskeletal: Denies frequent falls, Denies gait dysfunction, Denies muscle weakness, Denies myalgias Integumentary: Denies pruritus, Denies rash, Denies wounds Neurological: Denies aphasia, Denies change in mentation, Denies change in speech, Denies confusion, Denies convulsions, Denies gait dysfunction, Denies seizures, Denies syncope Psychiatric: Denies anxiety, Denies depression Endocrine: Denies fatigue, Denies weight change Gen: This is a 53-year-old male. Patient is resting in bed and appears to be comfortable. HEENT: Head is atraumatic, normocephalic. Pupils equal, round. Sclerae is anicteric. NG tube in place draining dark brown/black fluid. NECK: Supple. No JVD. No lymphadenopathy. No thyromegaly. LUNGS: Clear to auscultation. No wheezes or rhonchi. No intercostal retractions. HEART: Regular rate and rhythm. No murmur. ABDOMEN: Soft. Bowel sounds are faint. No masses. No tenderness. EXTREMITIES: No pedal edema. No calf tenderness. Dorsalis pedis +2 bilaterally. NEUROLOGICAL: Patient is awake, alert and oriented x3. Cranial nerves 2 through 12 are grossly intact. - Labs CBC & Chem 7: 08/11/18 11:53 08/11/18 11:53 Assessment and Plan Plan: 1. Small bowel obstruction on conservative management. Continue NG tube, consult with Dr. Miller. CAT scan of the abdomen pelvis as above. Patient is going for expiratory laparotomy this afternoon. 2. History of coronary artery disease with recent stent placement July [address] Leo and [facility]. Cardiology consult appreciated. Echocardiogram as above. Brilinta and aspirin on hold. 3. Hypertension. Patient is normally on lisinopril 5 mg daily, Toprol-XL 25 mg daily, Imdur 30 mg daily. 4. Hyperlipidemia. Lipitor on hold. 5. History of previous hiatal hernia repair and umbilical hernia repair along with ileus. 6. Previous traumatic fall with multiple fractures and subsequent surgeries. 7. Memory impairment. Patient is concerned regarding memory loss. Discussed sleep hygiene, use of B12 and recommend neurology workup to be arranged by PCP. 8. DVT prophylaxis. Heparin subcu. 9. GI prophylaxis. Protonix. Discharge plan: Return home Impression and plan of care have been directed as dictated by the signing physician. Lauren Junior nurse practitioner acting as scribe for signing physician.
--- NOTE | 2018-08-11 14:43 | P.OP ---
Date of Procedure: 08/11/18 Preoperative Diagnosis: Small bowel obstruction Postoperative Diagnosis: Small bowel obstruction secondary to in Relation of Jejunum and Ileum Procedure(s) Performed: Exposure laparotomy with lysis of adhesions Anesthesia: CHANDAN Surgeon: Aakash Miller Estimated Blood Loss (ml): 50 Pathology: none sent Condition: stable Disposition: PACU Description of Procedure: The patient's placed on the operative table in the supine position. He received general anesthesia. His abdomen was prepped and draped in usual sterile fashion. The abdomen was entered through midline incision. The Bookwalter exposed wound. The small bowel was examined. The small bowel appeared to be chronically dilated. There was a peculiar pattern of obstruction of the entire jejunum and ileum. The small bowel was encapsulated in a scar which created multiple points of obstruction. At this point the prostate 1 hour of operative time used to lyse adhesions of the small bowel. Care was taken to identify and preserve the small bowel wall. There is no enterotomies made. The entire small bowel was freed from adhesions. And then the bowel was run. There is no evidence of any enterotomies. Several small serosal tears were sutured with 3-0 GI silk suture suture. The small bowel was run. There is no obstruction seen. The fluid could be transferred throughout the small bowel by milking the bowel. This point the abdomen was irrigated. The fascia was closed with looped #1 PDS suture. Skin was closed shahbaz. The perivenous wound system was placed on the stapled skin.
[2018-08-11] MEDS: HYDROmorphone 1 MG/ML 1 ML SYRINGE IVP ONE ×2 (15:07→15:15)
[2018-08-11] MEDS: fentaNYL (PF) 50 MCG/ML 2 ML AMP IV ONE ×2 (15:25→15:35)
[2018-08-11] MEDS: MIDAZOLAM (PF) 2 MG/2 ML VIAL IV ONE ×2 (15:31→15:55)
[2018-08-11] MEDS: ACETAMINOPHEN IV (For NPO) 1,000 MG in EMPTY BAG 1 BAG IVPB PRN (19:11)
[2018-08-12] MEDS: HYDROmorphone 1 MG/ML 1 ML SYRINGE IVP PRN ×7 (00:24→21:18)
[2018-08-12] MEDS: SODIUM CHLORIDE 0.9% 1,000 ML IV SCH ×3 (06:48→21:24)
[2018-08-12 07:43] LABS: Basophils % (A) 0 %; Eosinophils % (A) 0 %; HCT 41.4 % (39.0-53.0); HGB 13.5 gm/dL (13.0-17.5); Lymphocytes % (A) 9 %; MCH 30.2 pg (25.0-35.0); MCHC 32.6 g/dL (31.0-37.0); MCV 92.6 fL (80.0-100.0); Mean Platelet Volume 7.3; Monocytes # (A) 0.6 k/uL (0-1.0); Monocytes % (A) 6 %; Neutrophils # (A) 8.9 k/uL (1.3-7.7); Neutrophils % (A) 83 %; Platelet Count 240 k/uL (150-450); RBC 4.47 m/uL (4.30-5.90); RDW 12.5 % (11.5-15.5); WBC 10.7 k/uL (3.8-10.6)
[2018-08-12 08:03] LABS: ALT 26 U/L (21-72); AST 22 U/L (17-59); African American GFR (CKD) >90 (>60 ml/min/1.73 sqM); Albumin 3.7 g/dL (3.5-5.0); Alkaline Phosphatase 52 U/L (38-126); Anion Gap 13 mmol/L; Blood Urea Nitrogen 12 mg/dL (9-20); Calcium 8.5 mg/dL (8.4-10.2); Carbon Dioxide 25 mmol/L (22-30); Chloride 99 mmol/L (98-107); Glucose 92 mg/dL (74-99); Potassium 4.3 mmol/L (3.5-5.1); Sodium 137 mmol/L (137-145); Total Bilirubin 1.4 mg/dL (0.2-1.3); Total Protein 5.8 g/dL (6.3-8.2)
[2018-08-12] MEDS: PANTOPRAZOLE 40 MG/10 ML VIAL IV SCH (08:49)
[2018-08-12] MEDS: HEPARIN SODIUM,PORCINE 5,000 UNIT/ML 1 ML VIAL SQ SCH ×2 (08:49→21:19)
[2018-08-12] MEDS ORDERED: TICAGRELOR 90 MG TAB PO SCH (09:00)
[2018-08-12] MEDS ORDERED: TAMSULOSIN 0.4 MG CAP.ER.24H PO STA (09:04)
[2018-08-12] MEDS: TICAGRELOR 90 MG TAB PO SCH ×2 (10:06→21:19)
--- NOTE | 2018-08-12 10:14 | P.PN ---
Subjective Progress Note Date: 08/12/18 This is a 53-year-old gentleman with history of ischemic heart disease who had a stent placement done in July in [place], was admitted to the hospital with complaints of a down pain and was found to have small bowel obstruction. Patient underwent surgical procedure yesterday to free of obstruction. Patient seemed to be clinically stable. He patient is slightly tachycardic and blood pressures running high in the range of 150/80. Complaints of a vague chest discomfort which seemed to moderate superficial and associated with some tenderness. The pain is different than the discomfort he had before the stent placement. Apparently patient is not going to get better length that today. I'm going to put him on IV Lopressor 2.5 mg every 6-8 hours. Rest of the medication to be continued. We'll monitor him closely Objective - Vital Signs Vital signs: Vital Signs Temp 98.8 F 08/12/18 05:00 Pulse 106 H 08/12/18 05:00 Resp 18 08/12/18 05:00 BP 140/99 08/12/18 05:00 Pulse Ox 92 L 08/12/18 05:00 Intake & Output 08/11/18 08/12/18 08/12/18 18:59 06:59 18:59 Intake Total 2800 900 Output Total 325 1225 Balance 2475 -325 Intake: IV 2300 Intake, IV Titration 500 900 Amount ACETAMINOPHEN IV (For NPO 100 ) 1,000 mg In Empty Bag 1 bag @ 400 mls/hr IVPB Q6HR PRN Rx#:[id number] Sodium Chloride 0.9% 1, 500 800 000 ml @ 100 mls/hr IV . Q10H ML Rx#:[id number] Oral 0 Output: Gastric Drainage 125 Urine 225 1100 Uretheral (Pimentel) 1100 Estimated Blood Loss 100 Other: Voiding Method Indwelling Catheter Indwelling Catheter Indwelling Catheter # Voids 3 - Exam GENERAL EXAM: Patient is alert and oriented and doesn't appear to be in any acute distress HEENT: Normocephalic. Normal reaction of pupils, equal size, normal range of extraocular motion. No erythema or exudates in the throat. NECK: No masses, no nuchal rigidity. CHEST: No chest wall deformity. LUNGS: Equal air entry with no crackles or wheeze. HEART: S1 and S2 normal with no audible mumurs or gallops. Regular rhythm, femorals equal on both sides.. ABDOMEN: Postsurgical. SKIN: No rashes CENTRAL NERVOUS SYSTEM: No focal deficits. EXTREMITIES: No cyanosis, clubbing or edema. A normal physical exam - Labs CBC & Chem 7: 08/12/18 06:53 08/12/18 06:53 Labs: Abnormal Lab Results - Last 24 Hours (Table) 08/11/18 08/11/18 08/12/18 Range/Units 11:53 11:53 06:53 WBC 10.7 H (3.8-10.6) k/uL RBC 4.10 L (4.30-5.90) m/uL Hgb 12.5 L (13.0-17.5) gm/dL Hct 38.8 L (39.0-53.0) % Neutrophils # 8.9 H (1.3-7.7) k/uL Creatinine 0.60 L (0.66-1.25) mg/dL Total Bilirubin 1.4 H (0.2-1.3) mg/dL Total Protein (6.3-8.2) g/dL 08/12/18 Range/Units 06:53 WBC (3.8-10.6) k/uL RBC (4.30-5.90) m/uL Hgb (13.0-17.5) gm/dL Hct (39.0-53.0) % Neutrophils # (1.3-7.7) k/uL Creatinine 0.64 L (0.66-1.25) mg/dL Total Bilirubin 1.4 H (0.2-1.3) mg/dL Total Protein 5.8 L (6.3-8.2) g/dL Assessment and Plan (1) History of ischemic heart disease Current Visit: Yes Status: Acute Code(s): Z86.79 - PERSONAL HISTORY OF OTHER DISEASES OF THE CIRCULATORY SYSTEM SNOMED Code(s): 523076951 (2) SBO (small bowel obstruction) Current Visit: Yes Status: Acute Code(s): K56.609 - UNSP INTESTNL OBST, UNSP TO PARTIAL VERSUS COMPLETE OBST SNOMED Code(s): 121062343 (3) Hypertension Current Visit: Yes Status: Acute Code(s): I10 - ESSENTIAL (PRIMARY) HYPERTENSION SNOMED Code(s): 31613434 Plan: I'll start him IV beta livier and switch to by mouth beta livier when patient is able to swallow. We'll resume Brillinta as soon as cleared by surgeon. Rest of the management as for the surgeon. We'll follow
--- NOTE | 2018-08-12 10:27 | P.PN ---
<Christi Jerez Carolin - Last Filed: 08/12/18 10:20> Subjective Progress Note Date: 08/12/18 CHIEF COMPLAINT: Abdominal pain HISTORY OF PRESENT ILLNESS: Patient is s/p exploratory laparotomy with lysis of adhesions secondary to bowel obstruction. POD #1. NG to LIS. Denies passing fla tus. Pain controlled on current medications. WBC 10.7. Hemoglobin stable at 13.5. PHYSICAL EXAM: VITAL SIGNS: Currently stable. GENERAL: Well-developed in no acute distress. HEENT: NG to LIS. No sclera icterus. Extraocular movements grossly intact. Moist buccal mucosa. Head is atraumatic, normocephalic. Hears conversational speech. No nasal drainage. NECK: Supple without lymphadenopathy. CHEST: Non-labored respirations and equal bilateral excursions. CARDIOVASCULAR: Regular rate with regular rhythm. Palpable 2+ radial pulses. ABDOMEN: Soft. Nondistended. Hypoactive bowel sounds. PREVENA intact to incision. MUSCULOSKELETAL: No clubbing, cyanosis or edema. NEUROLOGIC: No focal or lateralizing signs. Cranial nerves II through XII grossly intact. PSYCH: Appropriate affect. Alert and oriented to person, place and time. SKIN: Well perfused. Good skin turgor. ASSESSMENT: 1. Abdominal pain 2. Small bowel obstruction 3. History of coronary artery disease with recent stent placement 4. Previous hiatal hernia repair and umbilical hernia repair PLAN: 1. Begin ice chips and popsicles 2. Continue NG tube until patient begins passing flatus 3. Flomax 0.4mg. Discontinue andres catheter. 4. May resume Brilinta today due to recent stent placement 5. Pain control 6. Activity as tolerated 7. Incentive spirometry Nurse practitioner note has been reviewed by physician. Signing provider agrees with the documented findings, assessment, and plan of care. Objective - Vital Signs Vital signs: Vital Signs Temp 98.8 F 08/12/18 05:00 Pulse 106 H 08/12/18 05:00 Resp 18 08/12/18 05:00 BP 140/99 08/12/18 05:00 Pulse Ox 92 L 08/12/18 05:00 Intake & Output 08/11/18 08/12/18 08/12/18 18:59 06:59 18:59 Intake Total 2800 900 Output Total 325 1225 Balance 2475 -325 Intake: IV 2300 Intake, IV Titration 500 900 Amount ACETAMINOPHEN IV (For NPO 100 ) 1,000 mg In Empty Bag 1 bag @ 400 mls/hr IVPB Q6HR PRN Rx#:[id number] Sodium Chloride 0.9% 1, 500 800 000 ml @ 100 mls/hr IV . Q10H ML Rx#:[id number] Oral 0 Output: Gastric Drainage 125 Urine 225 1100 Uretheral (Andres) 1100 Estimated Blood Loss 100 Other: Voiding Method Indwelling Catheter Indwelling Catheter Indwelling Catheter # Voids 3 - Labs CBC & Chem 7: 08/12/18 06:53 08/12/18 06:53 Labs: Abnormal Lab Results - Last 24 Hours (Table) 08/11/18 08/11/18 08/12/18 Range/Units 11:53 11:53 06:53 WBC 10.7 H (3.8-10.6) k/uL RBC 4.10 L (4.30-5.90) m/uL Hgb 12.5 L (13.0-17.5) gm/dL Hct 38.8 L (39.0-53.0) % Neutrophils # 8.9 H (1.3-7.7) k/uL Creatinine 0.60 L (0.66-1.25) mg/dL Total Bilirubin 1.4 H (0.2-1.3) mg/dL Total Protein (6.3-8.2) g/dL 08/12/18 Range/Units 06:53 WBC (3.8-10.6) k/uL RBC (4.30-5.90) m/uL Hgb (13.0-17.5) gm/dL Hct (39.0-53.0) % Neutrophils # (1.3-7.7) k/uL Creatinine 0.64 L (0.66-1.25) mg/dL Total Bilirubin 1.4 H (0.2-1.3) mg/dL Total Protein 5.8 L (6.3-8.2) g/dL Assessment and Plan (1) History of ischemic heart disease Current Visit: Yes Status: Acute Code(s): Z86.79 - PERSONAL HISTORY OF OTHER DISEASES OF THE CIRCULATORY SYSTEM SNOMED Code(s): 000257535 (2) SBO (small bowel obstruction) Current Visit: Yes Status: Acute Code(s): K56.609 - UNSP INTESTNL OBST, UNSP TO PARTIAL VERSUS COMPLETE OBST SNOMED Code(s): 552505872 (3) Abdominal pain Current Visit: No Status: Acute Code(s): R10.9 - UNSPECIFIED ABDOMINAL PAIN SNOMED Code(s): 39796953 <KeltonRand N - Last Filed: 08/12/18 18:41> Subjective I personally spoke to admitting attending regarding recent stent placement and antiplatelet therapy. Per cardiology, Brilinta must be re-started immediately with operating surgeon agreeable to restart. Will watch for any bleeding. Ov erall condition, guarded. Objective - Vital Signs Vital signs: Vital Signs Temp 100.4 F H 08/12/18 11:22 Pulse 116 H 08/12/18 11:22 Resp 16 08/12/18 11:22 BP 124/82 08/12/18 11:22 Pulse Ox 92 L 08/12/18 11:22 Intake & Output 08/11/18 08/12/18 08/12/18 18:59 06:59 18:59 Intake Total 2800 900 800 Output Total 325 1225 1240 Balance 2475 -325 -440 Intake: IV 2300 Intake, IV Titration 500 900 800 Amount ACETAMINOPHEN IV (For NPO 100 100 ) 1,000 mg In Empty Bag 1 bag @ 400 mls/hr IVPB Q6HR PRN Rx#:[id number] Sodium Chloride 0.9% 1, 500 800 700 000 ml @ 100 mls/hr IV . Q10H ML Rx#:[id number] Oral 0 Output: Gastric Drainage 125 300 Urine 225 1100 800 Uretheral (Andres) 1100 Post Void Residual 140 Estimated Blood Loss 100 Other: Voiding Method Indwelling Catheter Indwelling Catheter Indwelling Catheter # Voids 3 2 - Labs CBC & Chem 7: 08/12/18 06:53 08/12/18 06:53 Labs: Abnormal Lab Results - Last 24 Hours (Table) 08/12/18 08/12/18 Range/Units 06:53 06:53 WBC 10.7 H (3.8-10.6) k/uL Neutrophils # 8.9 H (1.3-7.7) k/uL Creatinine 0.64 L (0.66-1.25) mg/dL Total Bilirubin 1.4 H (0.2-1.3) mg/dL Total Protein 5.8 L (6.3-8.2) g/dL
[2018-08-12] MEDS: METOPROLOL TARTRATE 25 MG TAB PO SCH ×2 (11:07→21:19)
[2018-08-12] MEDS: METOPROLOL TARTRATE 5 MG/5 ML VIAL IVP SCH (11:56)
--- NOTE | 2018-08-12 12:15 | P.PN ---
Subjective Progress Note Date: 08/12/18 This is a 53-year-old male patient of Jasiel Mark NP with past medical history of hypertension, hyperlipidemia, coronary artery disease, DVT, previous bowel surgeries, multiple orthopedic surgeries following a fall of 4 stories in 1991 including ankles, left knee scopes, right tibial screws and plate subsequently removed, fractured back without surgery. Patient was recently seen [place] [facility] [place] and had 3 cardiac stents placed by Dr. Mansfield. He is also known to have 2 aortic aneurysms as well. Patient states that he has been walking outside 2 miles every day for the past 2 weeks and started cardiac rehab. Sudden onset yesterday of nausea and abdominal pain. He did have a bowel movement in the morning which was formed. He denies any blood in his stools. He usually has a bowel movement every day. He did pass gas yesterday. The patient does have history of previous ileus following umbilical hernia repair and he thought the pain was very similar. Patient came into [facility] emergency center for evaluation. Abdominal x-ray revealed early or partial small bowel obstruction. Chest x-ray was negative for acute cardiac pulmonary findings. CBC was within normal limits as well as CMP except for BUN of 24. Troponins negative on 2 draws. Lipase 69. Patient was admitted to the MedSurg floor, NG tube placed to suction, consults with Dr. Miller and cardiology. Consultants of added and CAT scan of the abdomen and pelvis and echocardiogram. 08/11: Patient states he has continued to have vomiting despite NG tube in place. CAT scan of the abdomen and pelvis with contrast reveals high-grade small bowel obstruction with transition point in the lower mid abdomen. Small bowel loops dilated up to 4 cm and mild pelvic free fluid likely reactive. Lobulated soft tissue thickening projecting into the lumen of the gastric fundus measuring 4.4 x 4.1 cm below the level of the GE junction. Mild circumferential wall thickening of the lower esophagus could represent esophagitis. Dr. Nagy is taking the patient for exploratory laparotomy today. Patient has been evaluated by cardiology and cleared for surgery. Proventil to be resumed as soon as possible once cleared by surgical services. Echocardiogram reveals EF of 60-65% with borderline concentric left ventricular hypertrophy, mild mitral regurgitation, mild tricuspid regurgitation, mild pul monary hypertension. Patient has been afebrile, heart rate 81, blood pressure 136/65, pulse ox 96% on room air. Repeat white count 9.0, hemoglobin 12.5, platelet count 205, electrolytic within normal limits, creatinine 0.61. Total bilirubin 1.4 and liver function tests within normal limits. 08/12, patient underwent exploratory laparotomy with lysis of adhesions on 08/11/2018, in relation to small bowel obstruction from jejunum and ileum, patient was seen by cardiology for which the entire has to be resumed as soon as possible secondary to recent stent 07/15/2018, patient's aware off bleeding, occasions related to this, however the stent needs to be protected. We would monitor for bleeding, Review of Systems Constitutional: Reports poor appetite, Denies chills, Denies fatigue, Denies fever, Denies lethargy, Denies malaise, Denies weakness, Denies weight loss Ears, nose, mouth and throat: Denies dental pain, Denies nasal congestion, Denies nasal discharge, Denies vertigo Cardiovascular: Denies chest pain, Denies decreased exercise tolerance, Denies dyspnea on exertion, Denies edema, Denies irregular heart beat, Denies leg edema, Denies lightheadedness, Denies syncope Respiratory: Denies congestion, Denies cough, Denies cough with sputum, Denies dyspnea, Denies excessive sputum, Denies hemoptysis, Denies home oxygen, Denies respiratory infections, Denies sleep apnea, Denies wheezing Gastrointestinal: Reports abdominal pain, Reports bloating, Reports constipation, Reports loss of appetite, Reports nausea, reports vomiting, Denies diarrhea Genitourinary: Denies dysuria, Denies urinary retention Musculoskeletal: Denies frequent falls, Denies gait dysfunction, Denies muscle weakness, Denies myalgias Integumentary: Denies pruritus, Denies rash, Denies wounds Neurological: Denies aphasia, Denies change in mentation, Denies change in s peech, Denies confusion, Denies convulsions, Denies gait dysfunction, Denies seizures, Denies syncope Psychiatric: Denies anxiety, Denies depression Endocrine: Denies fatigue, Denies weight change Objective - Vital Signs Vital signs: Vital Signs Temp 100.4 F H 08/12/18 11:22 Pulse 116 H 08/12/18 11:22 Resp 16 08/12/18 11:22 BP 124/82 08/12/18 11:22 Pulse Ox 92 L 08/12/18 11:22 Intake & Output 08/11/18 08/12/18 08/12/18 18:59 06:59 18:59 Intake Total 2800 900 Output Total 325 1225 Balance 2475 -325 Intake: IV 2300 Intake, IV Titration 500 900 Amount ACETAMINOPHEN IV (For NPO 100 ) 1,000 mg In Empty Bag 1 bag @ 400 mls/hr IVPB Q6HR PRN Rx#:[id number] Sodium Chloride 0.9% 1, 500 800 000 ml @ 100 mls/hr IV . Q10H ML Rx#:[id number] Oral 0 Output: Gastric Drainage 125 Urine 225 1100 Uretheral (Pimentel) 1100 Estimated Blood Loss 100 Other: Voiding Method Indwelling Catheter Indwelling Catheter Indwelling Catheter # Voids 3 - Constitutional General appearance: Present: cooperative, no acute distress - EENT Eyes: Present: anicteric sclerae, dentition normal, normal appearance ENT: Present: NA/AT, normal oropharynx - Neck Neck: Present: normal ROM. Absent: lymphadenopathy, other, rigidity, stridor, thyromegaly - Respiratory Respiratory: bilateral: CTA, negative: diminished, dullness, rales - Cardiovascular Rhythm: regular Heart sounds: normal: S1, S2 Abnormal Heart Sounds: Absent: systolic murmur, diastolic murmur, rub, S3 Au p, S4 Gallop, click, other - Gastrointestinal General gastrointestinal: Present: normal bowel sounds, soft - Integumentary Integumentary: Present: decreased turgor, normal - Neurologic Neurologic: Present: CNII-XII intact - Musculoskeletal Musculoskeletal: Present: gait normal - Psychiatric Psychiatric: Present: A&O x's 3, appropriate affect - Labs CBC & Chem 7: 08/12/18 06:53 08/12/18 06:53 Labs: Abnormal Lab Results - Last 24 Hours (Table) 08/11/18 08/11/18 08/12/18 Range/Units 11:53 11:53 06:53 WBC 10.7 H (3.8-10.6) k/uL RBC 4.10 L (4.30-5.90) m/uL Hgb 12.5 L (13.0-17.5) gm/dL Hct 38.8 L (39.0-53.0) % Neutrophils # 8.9 H (1.3-7.7) k/uL Creatinine 0.60 L (0.66-1.25) mg/dL Total Bilirubin 1.4 H (0.2-1.3) mg/dL Total Protein (6.3-8.2) g/dL 08/12/18 Range/Units 06:53 WBC (3.8-10.6) k/uL RBC (4.30-5.90) m/uL Hgb (13.0-17.5) gm/dL Hct (39.0-53.0) % Neutrophils # (1.3-7.7) k/uL Creatinine 0.64 L (0.66-1.25) mg/dL Total Bilirubin 1.4 H (0.2-1.3) mg/dL Total Protein 5.8 L (6.3-8.2) g/dL Assessment and Plan Plan: 1. Small bowel obstruction status post exploratory laparotomy with lysis of adhesions 08/11/[address] Miller Continue NG tube, consult with Dr. Neena quinones. CAT scan of the abdomen pelvis as above. 2. History of coronary artery disease with recent stent placement July [address] Leo and C. Cardiology consult appreciated. Echocardiogram as above. Brilinta at 90 twice a day restarted August 12 to prevent risk for stent restenosis, higher bleeding risks patient aware, continued monitor H&H 3. Hypertension. Patient is normally on lisinopril 5 mg daily, Toprol-XL 25 mg daily, Imdur 30 mg daily. 4. Hyperlipidemia. Lipitor on hold. 5. History of previous hiatal hernia repair and umbilical hernia repair along with ileus. 6. Previous traumatic fall with multiple fractures and subsequent surgeries. 7. Memory impairment. Patient is concerned regarding memory loss. Discussed sleep hygiene, use of B12 and recommend neurology workup to be arranged by PCP. 8. DVT prophylaxis. Heparin subcu. 9. GI prophylaxis. Protonix.
[2018-08-12] MEDS: ACETAMINOPHEN IV (For NPO) 1,000 MG in EMPTY BAG 1 BAG IVPB PRN (12:55)
[2018-08-12] MEDS ORDERED: ACETAMINOPHEN IV (For NPO) 1,000 MG in EMPTY BAG 1 BAG IVPB PRN (18:19)
[2018-08-13] MEDS: HYDROmorphone 1 MG/ML 1 ML SYRINGE IVP PRN ×6 (00:19→19:24)
[2018-08-13] MEDS ORDERED: NITROGLYCERIN SL TABS 0.4 MG TAB SUBLINGUAL PRN (08:26)
[2018-08-13] MEDS ORDERED: METOPROLOL SUCCINATE (ER) 25 MG TAB.ER.24H PO SCH (09:00)
[2018-08-13] MEDS: NITROGLYCERIN 0.1MG/HR PATCH TRANSDERM SCH (09:29)
[2018-08-13] MEDS: PANTOPRAZOLE 40 MG/10 ML VIAL IV SCH ×2 (09:29→20:47)
[2018-08-13] MEDS: METOPROLOL TARTRATE 25 MG TAB PO SCH ×2 (09:29→20:46)
[2018-08-13] MEDS: SODIUM CHLORIDE 0.9% 1,000 ML IV SCH ×2 (09:29→17:47)
[2018-08-13] MEDS: TICAGRELOR 90 MG TAB PO SCH ×2 (09:30→20:46)
[2018-08-13] MEDS: HEPARIN SODIUM,PORCINE 5,000 UNIT/ML 1 ML VIAL SQ SCH ×2 (09:30→20:47)
--- NOTE | 2018-08-13 09:37 | XR ---
EXAMINATION TYPE: XR chest 1V portable DATE OF EXAM: 08/13/2018 Comparison: 08/09/2018 Clinical History: 53-year-old male pneumonia, atelectasis Findings: Heart upper limits of normal in size. Low lung volumes and vascular markings. New focal patchy right basilar opacity. No sizable effusion. ET tube tip is just below the GE junction. Consider advancement by 5 cm. Impression: New focal patchy opacity at the right base could represent either atelectasis or pneumonia. Follow-up after treatment to reassess. NG tube could be further advanced into the stomach by 5 cm.
[2018-08-13 09:44] LABS: Basophils % (A) 0 %; Eosinophils # (A) 0.1 k/uL (0-0.7); Eosinophils % (A) 1 %; HCT 35.8 % (39.0-53.0); HGB 11.9 gm/dL (13.0-17.5); Lymphocytes # (A) 0.7 k/uL (1.0-4.8); Lymphocytes % (A) 8 %; MCH 30.5 pg (25.0-35.0); MCHC 33.3 g/dL (31.0-37.0); MCV 91.6 fL (80.0-100.0); Mean Platelet Volume 7.7; Monocytes # (A) 0.6 k/uL (0-1.0); Monocytes % (A) 7 %; Neutrophils % (A) 82 %; Platelet Count 213 k/uL (150-450); RBC 3.91 m/uL (4.30-5.90); RDW 13.2 % (11.5-15.5); WBC 8.5 k/uL (3.8-10.6)
[2018-08-13 10:02] LABS: African American GFR (CKD) >90 (>60 ml/min/1.73 sqM); Anion Gap 14 mmol/L; Blood Urea Nitrogen 13 mg/dL (9-20); Calcium 8.4 mg/dL (8.4-10.2); Carbon Dioxide 23 mmol/L (22-30); Chloride 100 mmol/L (98-107); Glucose 109 mg/dL (74-99); Sodium 137 mmol/L (137-145)
--- NOTE | 2018-08-13 11:09 | P.PN ---
Subjective Progress Note Date: 08/13/18 This is a 53-year-old male patient of Jasiel Mark NP with past medical history of hypertension, hyperlipidemia, coronary artery disease, DVT, previous bowel surgeries, multiple orthopedic surgeries following a fall of 4 stories in 1991 including ankles, left knee scopes, right tibial screws and plate subsequently removed, fractured back without surgery. Patient was recently seen at [facility] on July 15 and had 3 cardiac stents placed by Dr. Mansfield. He is also known to have 2 aortic aneurysms as well. Patient states that he has been walking outside 2 miles every day for the past 2 weeks and started cardiac rehab. Sudden onset yesterday of nausea and abdominal pain. He did have a bowel movement in the morning which was formed. He denies any blood in his stools. He usually has a bowel movement every day. He did pass gas yesterday. The patient does have history of previous ileus following umbilical hernia repair and he thought the pain was very similar. Patient came into [facility] emergency center for evaluation. Abdominal x-ray revealed early or partial small bowel obstruction. Chest x-ray was negative for acute cardiac pulmonary findings. CBC was within normal limits as well as CMP except for BUN of 24. Troponins negative on 2 draws. Lipase 69. Patient was admitted to the MedSurg floor, NG tube placed to suction, consults with Dr. Miller and cardiology. Consultants of added and CAT scan of the abdomen and pelvis and echocardiogram. 08/11: Patient states he has continued to have vomiting despite NG tube in place. CAT scan of the abdomen and pelvis with contrast reveals high-grade small bowel obstruction with transition point in the lower mid abdomen. Small bowel loops dilated up to 4 cm and mild pelvic free fluid likely reactive. Lobulated soft tissue thickening projecting into the lumen of the gastric fundus measuring 4.4 x 4.1 cm below the level of the GE junction. Mild circumferential wall thickening of the lower esophagus could represent esophagitis. Dr. Nagy is taking the patient for exploratory laparotomy today. Patient has been evaluated by cardiology and cleared for surgery. Proventil to be resumed as soon as possible once cleared by surgical services. Echocardiogram reveals EF of 60-65% with borderline concentric left ventricular hypertrophy, mild mitral regurgitation, mild tricuspid regurgitation, mild pul monary hypertension. Patient has been afebrile, heart rate 81, blood pressure 136/65, pulse ox 96% on room air. Repeat white count 9.0, hemoglobin 12.5, platelet count 205, electrolytic within normal limits, creatinine 0.61. Total bilirubin 1.4 and liver function tests within normal limits. 08/12, patient underwent exploratory laparotomy with lysis of adhesions on 08/11/2018, in relation to small bowel obstruction from jejunum and ileum, patient was seen by cardiology for which the entire has to be resumed as soon as possible secondary to recent stent 07/15/2018, patient's aware off bleeding, occasions related to this, however the stent needs to be protected. We would monitor for bleeding, 08/13: Temperature max 101.6, heart rate running between 106 and 121, blood pressure 134/95, pulse ox 94% on room air. Chest x-ray and urinalysis ordered. Patient is complaining of feeling soreness. He denies passing any gas. NG tube is worked up with coffee-ground return. Wound VAC is in place. He is using incentive spirometry at 2500 ML's every hour. Lopressor has been resumed by cardiology and patient is on Vasotec IV. Patient is having some complaints of chest pain and nitro patch will be ordered. Troponin ordered as well. Objective - Vital Signs Vital signs: Vital Signs Temp 99.1 F 08/13/18 05:00 Pulse 106 H 08/13/18 05:00 Resp 18 08/13/18 05:00 BP 154/95 08/13/18 05:00 Pulse Ox 95 08/13/18 05:00 Intake & Output 08/12/18 08/13/18 08/13/18 18:59 06:59 18:59 Intake Total 800 1600 Output Total 1240 400 Balance -440 1200 Intake: Intake, IV Titration 800 1600 Amount ACETAMINOPHEN IV (For NPO 100 ) 1,000 mg In Empty Bag 1 bag @ 400 mls/hr IVPB Q6HR PRN Rx#:[id number] ACETAMINOPHEN IV (For NPO 400 ) 1,000 mg In Empty Bag 1 bag @ 400 mls/hr IVPB Q6HR PRN Rx#:[id number] Sodium Chloride 0.9% 1, 700 1200 000 ml @ 100 mls/hr IV . Q10H ML Rx#:[id number] Oral 0 Output: Gastric Drainage 300 Urine 800 400 Post Void Residual 140 Other: Voiding Method Indwelling Catheter Indwelling Catheter # Voids 2 2 - Exam Review of Systems Constitutional: Reports poor appetite, reports chills, Denies fatigue, reports fever, Denies lethargy, Denies malaise, Denies weakness, Denies weight loss Ears, nose, mouth and throat: Denies dental pain, Denies nasal congestion, Denies nasal discharge, Denies vertigo Cardiovascular: Denies chest pain, Denies decreased exercise tolerance, Denies dyspnea on exertion, Denies edema, Denies irregular heart beat, Denies leg edema, Denies lightheadedness, Denies syncope Respiratory: Denies congestion, Denies cough, Denies cough with sputum, Denies dyspnea, Denies excessive sputum, Denies hemoptysis, Denies home oxygen, Denies respiratory infections, Denies sleep apnea, Denies wheezing Gastrointestinal: Reports abdominal pain, Reports bloating, Reports constipation, Reports loss of appetite, Reports nausea, reports vomiting, Denies diarrhea Genitourinary: Denies dysuria, Denies urinary retention Musculoskeletal: Denies frequent falls, Denies gait dysfunction, Denies muscle weakness, Denies myalgias Integumentary: Denies pruritus, Denies rash, Denies wounds Neurological: Denies aphasia, Denies change in mentation, Denies change in speech, Denies confusion, Denies convulsions, Denies gait dysfunction, Denies seizures, Denies syncope Psychiatric: Denies anxiety, Denies depression Endocrine: Denies fatigue, Denies weight change Gen: This is a 53-year-old male. Patient is resting in chair and appears to be comfortable. HEENT: Head is atraumatic, normocephalic. Pupils equal, round. Sclerae is anicteric. NG tube in place draining dark brown/black fluid. NECK: Supple. No JVD. No lymphadenopathy. No thyromegaly. LUNGS: Clear to auscultation. No wheezes or rhonchi. No intercostal retractions. HEART: Regular rate and rhythm. No murmur. ABDOMEN: Soft. Bowel sounds are faint. No masses. Wound VAC in place to the mid abdominal wound. EXTREMITIES: No pedal edema. No calf tenderness. Dorsalis pedis +2 bilaterally. NEUROLOGICAL: Patient is awake, alert and oriented x3. Cranial nerves 2 through 12 are grossly intact. - Labs CBC & Chem 7: 08/13/18 09:22 08/13/18 09:22 Labs: Abnormal Lab Results - Last 24 Hours (Table) 08/12/18 08/12/18 Range/Units 06:53 06:53 WBC 10.7 H (3.8-10.6) k/uL Neutrophils # 8.9 H (1.3-7.7) k/uL Creatinine 0.64 L (0.66-1.25) mg/dL Total Bilirubin 1.4 H (0.2-1.3) mg/dL Total Protein 5.8 L (6.3-8.2) g/dL Assessment and Plan Plan: 1. Small bowel obstruction status post exploratory laparotomy with lysis of adhesions 08/11/[address] Miller. Continue NG tube. 2. Fevers. Portable chest x-ray, urinalysis added. Patient is doing well with incentive spirometry. Continue Kefzol. 2. History of coronary artery disease with recent stent placement July [address] Leo and C. Cardiology consult appreciated. Echocardiogram as above. Brilinta has been resumed as well as Lopressor 25 mg twice daily. We will add in nitroglycerin patch. 3. Hypertension. Patient is normally on lisinopril 5 mg daily, Toprol-XL 25 mg daily, Imdur 30 mg daily. Vasotec IV as needed. 4. Hyperlipidemia. Lipitor on hold. 5. History of previous hiatal hernia repair and umbilical hernia repair along with ileus. 6. Previous traumatic fall with multiple fractures and subsequent surgeries. 7. Memory impairment. Patient is concerned regarding memory loss. Discussed sleep hygiene, use of B12 and recommend neurology workup to be arranged by PCP. 8. DVT prophylaxis. Heparin subcu. 9. GI prophylaxis. Protonix. Discharge plan: Return home Impression and plan of care have been directed as dictated by the signing physician. Lauren Junior nurse practitioner acting as scribe for signing physician.
--- NOTE | 2018-08-13 11:57 | P.PN ---
<Christi Jerez Carolin - Last Filed: 08/13/18 11:51> Subjective Progress Note Date: 08/13/18 CHIEF COMPLAINT: Abdominal pain HISTORY OF PRESENT ILLNESS: Patient is s/p exploratory laparotomy with lysis of adhesions secondary to bowel obstruction. POD #2. NG to LIS with dark coffee gr ound drainage. Denies passing flatus. He reports his pain has increased over the last 24 hours. He feels his abdomen is more distended today. Using IS and pulling 2500cc. Patient was febrile overnight. Chest xray ordered this morning ordered per medicine team. XR feels NG needs to be advanced further for optimal position. PHYSICAL EXAM: VITAL SIGNS: Currently stable. GENERAL: Well-developed in no acute distress. HEENT: NG to LIS with dark coffee ground drainage. No sclera icterus. Extraocular movements grossly intact. Moist buccal mucosa. Head is atraumatic, normocephalic. Hears conversational speech. No nasal drainage. NECK: Supple without lymphadenopathy. CHEST: Non-labored respirations and equal bilateral excursions. CARDIOVASCULAR: Regular rate with regular rhythm. Palpable 2+ radial pulses. ABDOMEN: Soft. Distended. Very hypoactive bowel sounds. PREVENA intact to incision. MUSCULOSKELETAL: No clubbing, cyanosis or edema. NEUROLOGIC: No focal or lateralizing signs. Cranial nerves II through XII grossly intact. PSYCH: Appropriate affect. Alert and oriented to person, place and time. SKIN: Well perfused. Good skin turgor. ASSESSMENT: 1. Abdominal pain 2. Small bowel obstruction 3. History of coronary artery disease with recent stent placement 4. Previous hiatal hernia repair and umbilical hernia repair 5. Gastritis PLAN: 1. Continue ice chips and popsicles 2. Continue NG tube until patient begins passing flatus 3. NG has been advanced. Repeat XR to ensure proper positioning. 4. Pain control. Continue dilaudid. Add IV Tylenol 4 doses 5. Incentive spirometry 6. Increase activity as tolerated. Patient encouraged to ambulate in the hallway 7. Continue Protonix 40mg. Will increase to BID. 8. Monitor hemoglobin. Repeat at 1400. 9. Beta livier resumed per cardiology and increased to BID dosing Nurse practitioner note has been reviewed by physician. Signing provider agrees with the documented findings, assessment, and plan of care. Objective - Vital Signs Vital signs: Vital Signs Temp 98.8 F 08/13/18 09:02 Pulse 110 H 08/13/18 09:02 Resp 18 08/13/18 09:02 BP 134/95 08/13/18 09:02 Pulse Ox 94 L 08/13/18 09:02 Intake & Output 08/12/18 08/13/18 08/13/18 18:59 06:59 18:59 Intake Total 800 1600 Output Total 1240 400 Balance -440 1200 Intake: Intake, IV Titration 800 1600 Amount ACETAMINOPHEN IV (For NPO 100 ) 1,000 mg In Empty Bag 1 bag @ 400 mls/hr IVPB Q6HR PRN Rx#:[id number] ACETAMINOPHEN IV (For NPO 400 ) 1,000 mg In Empty Bag 1 bag @ 400 mls/hr IVPB Q6HR PRN Rx#:[id number] Sodium Chloride 0.9% 1, 700 1200 000 ml @ 100 mls/hr IV . Q10H ML Rx#:[id number] Oral 0 Output: Gastric Drainage 300 Urine 800 400 Post Void Residual 140 Other: Voiding Method Indwelling Catheter Indwelling Catheter # Voids 2 2 - Labs CBC & Chem 7: 08/13/18 09:22 08/13/18 09:22 Labs: Abnormal Lab Results - Last 24 Hours (Table) 08/13/18 08/13/18 Range/Units 09:22 09:22 RBC 3.91 L (4.30-5.90) m/uL Hgb 11.9 L (13.0-17.5) gm/dL Hct 35.8 L (39.0-53.0) % Lymphocytes # 0.7 L (1.0-4.8) k/uL Creatinine 0.56 L (0.66-1.25) mg/dL Glucose 109 H (74-99) mg/dL Assessment and Plan (1) History of ischemic heart disease Current Visit: Yes Status: Acute Code(s): Z86.79 - PERSONAL HISTORY OF OTHER DISEASES OF THE CIRCULATORY SYSTEM SNOMED Code(s): 134730657 (2) SBO (small bowel obstruction) Current Visit: Yes Status: Acute Code(s): K56.609 - UNSP INTESTNL OBST, UNSP TO PARTIAL VERSUS COMPLETE OBST SNOMED Code(s): 467755619 (3) Abdominal pain Current Visit: No Status: Acute Code(s): R10.9 - UNSPECIFIED ABDOMINAL PAIN SNOMED Code(s): 77198012 <Rand Melara N - Last Filed: 08/13/18 16:37> Subjective Abdominal x-ray personally reviewed confirming NG tube in satisfactory position within the body of the stomach. We'll continue to monitor hemoglobin. Ambulation and incentive spirometry education reinforced. Objective - Vital Signs Vital signs: Vital Signs Temp 98.1 F 08/13/18 13:56 Pulse 105 H 08/13/18 13:56 Resp 18 08/13/18 13:56 BP 139/85 08/13/18 13:56 Pulse Ox 94 L 08/13/18 13:56 Intake & Output 08/12/18 08/13/18 08/13/18 18:59 06:59 18:59 Intake Total 800 1600 800 Output Total 1240 400 Balance -440 1200 800 Weight 92.533 kg Intake: Intake, IV Titration 800 1600 800 Amount ACETAMINOPHEN IV (For NPO 100 ) 1,000 mg In Empty Bag 1 bag @ 400 mls/hr IVPB Q6HR PRN Rx#:[id number] ACETAMINOPHEN IV (For NPO 400 ) 1,000 mg In Empty Bag 1 bag @ 400 mls/hr IVPB Q6HR PRN Rx#:[id number] Sodium Chloride 0.9% 1, 700 1200 750 000 ml @ 100 mls/hr IV . Q10H ML Rx#:[id number] ceFAZolin 1,000 mg In 50 Sodium Chloride 0.9% 50 ml @ 100 mls/hr IVPB Q8HR ML Rx#:[id number] Oral 0 Output: Gastric Drainage 300 Urine 800 400 Post Void Residual 140 Other: Voiding Method Indwelling Catheter Indwelling Catheter # Voids 2 2 - Labs CBC & Chem 7: 08/13/18 09:22 08/13/18 09:22 Labs: Abnormal Lab Results - Last 24 Hours (Table) 08/13/18 08/13/18 08/13/18 Range/Units 09:00 09:22 09:22 RBC 3.91 L (4.30-5.90) m/uL Hgb 11.9 L (13.0-17.5) gm/dL Hct 35.8 L (39.0-53.0) % Lymphocytes # 0.7 L (1.0-4.8) k/uL Creatinine 0.56 L (0.66-1.25) mg/dL Glucose 109 H (74-99) mg/dL Urine Protein 1+ H (Negative) Urine Ketones 4+ H (Negative) Urine Blood Trace H (Negative) Urine Mucus Few H (None) /hpf
[2018-08-13 12:17] LABS: Appearance,Urine Clear (Clear); Bilirubin,Urine Negative (Negative); Blood,Urine Trace (Negative); Color,Urine Yellow; Glucose,Urine (UA) Negative (Negative); Ketones,Urine 4+ (Negative); Leukocyte Esterase,Urine Negative (Negative); Mucus,Urine Few /hpf; Nitrite,Urine Negative (Negative); Protein,Urine 1+ (Negative); RBC,Urine 1 /hpf (0-5); Specific Gravity,Urine 1.022 (1.001-1.035); Squamous Epithelial Cell,Urine <1 /hpf (0-4); Urobilinogen,Urine <2.0 mg/dL (<2.0)
[2018-08-13] MEDS: ACETAMINOPHEN IV (For NPO) 1,000 MG in EMPTY BAG 1 BAG IVPB SCH ×3 (12:59→23:05)
--- NOTE | 2018-08-13 13:17 | XR ---
EXAMINATION TYPE: XR chest 1V confirm [facility] DATE OF EXAM: 08/13/2018 COMPARISON: NONE HISTORY: 53-year-old male status post advancement of NG tube. TECHNIQUE: Single frontal view of the chest is obtained. FINDINGS: Heart upper limits of normal in size. Focal patchy opacity right base persists. NG tube now satisfact ory after advancement. IMPRESSION: NG tube now satisfactory after advancement. Continued focal patchy opacification at the right base.
--- NOTE | 2018-08-13 14:48 | CDI ---
Documentation Clarification Form Date: 08/13/2018 2:16:50 PM From: Desiree Avila RN, CCDS Admit Date: 08/10/2018 2:18:00 AM Patient Name: Gonzalez Sauceda Visit Number: [id number] Discharge Date: ATTENTION: The Clinical Documentation Specialists (CDI) and [facility] Coding Staff appreciate your assistance in clarifying documentation. Please respond to the clarification below the line at the bottom and electronically sign. The CDI & [facility] Coding staff will review the response and follow-up if needed. Please note: Queries are made part of the Legal Health Record. If you have any questions, please contact the author of this message via ITS. Dr. Aakash Miller Several small serosal tears are documented in the operative report on 08/11/18 and further clarification is needed. Patients Admitting Diagnosis: Small bowel obstruction Post-Operative Diagnosis: Small bowel obstruction secondary to the Relation of Jejunum and Ileum Procedure performed: Exploratory laparotomy with lysis of adhesions. History/Risk Factors: Coronary artery disease, Hypertension, Asthma, hyperlipidemia Clinical Indicators: 53-year-old male who present with complaints of abdominal pain CT Abdomen findings suggest high-grade small bowel obstruction with transition point in the lower mid abdomen. Small bowel loops are dilated up to 4.0 cm. Procedure notes: Several small serosal tears were sutured with 3-0 GI silk suture. Treatment: Exploratory laparotomy with lysis of adhesions NGT LIS Pain control. Continue Dilaudid. Added IV Tylenol x4 doses, Incentive spirometry Increase activity as tolerated. Continue Protonix IV Monitor HGB IV Fluids In order to accurately reflect this patients severity of illness, please clarify findings of serosal tears in the operative note is: An expected post-procedural or post-surgical condition related to patient underlying medical conditions (specify if known) An unexpected post-procedural or post-surgical condition related to surgical care (a complication of care) An unexpected post-procedural or post-surgical condition, related to the patients underlying medical comorbidities Other, please specify Unable to determine (Last Revision: May 2018) Expected MTDD
[2018-08-13 16:53] LABS: HCT 36.2 % (39.0-53.0); HGB 12.1 gm/dL (13.0-17.5); MCH 31.1 pg (25.0-35.0); MCHC 33.4 g/dL (31.0-37.0); MCV 93.1 fL (80.0-100.0); Mean Platelet Volume 7.6; Platelet Count 223 k/uL (150-450); RBC 3.89 m/uL (4.30-5.90); RDW 12.7 % (11.5-15.5); WBC 8.4 k/uL (3.8-10.6)
[2018-08-14] MEDS: HYDROmorphone 1 MG/ML 1 ML SYRINGE IVP PRN ×5 (00:42→21:30)
[2018-08-14] MEDS: ACETAMINOPHEN IV (For NPO) 1,000 MG in EMPTY BAG 1 BAG IVPB SCH (05:38)
[2018-08-14] MEDS: SODIUM CHLORIDE 0.9% 1,000 ML IV SCH ×2 (05:39→16:50)
[2018-08-14 07:25] LABS: Basophils % (A) 0 %; Eosinophils # (A) 0.4 k/uL (0-0.7); Eosinophils % (A) 7 %; HCT 31.3 % (39.0-53.0); HGB 10.5 gm/dL (13.0-17.5); Lymphocytes # (A) 0.8 k/uL (1.0-4.8); Lymphocytes % (A) 16 %; MCHC 33.7 g/dL (31.0-37.0); MCV 91.9 fL (80.0-100.0); Mean Platelet Volume 7.4; Monocytes # (A) 0.5 k/uL (0-1.0); Monocytes % (A) 9 %; Neutrophils # (A) 3.6 k/uL (1.3-7.7); Neutrophils % (A) 67 %; Platelet Count 203 k/uL (150-450); RDW 13.3 % (11.5-15.5); WBC 5.3 k/uL (3.8-10.6)
[2018-08-14] MEDS: HEPARIN SODIUM,PORCINE 5,000 UNIT/ML 1 ML VIAL SQ SCH ×2 (08:51→21:26)
[2018-08-14] MEDS: METOPROLOL TARTRATE 25 MG TAB PO SCH ×2 (08:51→21:26)
[2018-08-14] MEDS: TICAGRELOR 90 MG TAB PO SCH ×2 (08:51→21:26)
[2018-08-14] MEDS: NITROGLYCERIN 0.1MG/HR PATCH TRANSDERM SCH (08:51)
[2018-08-14] MEDS: PANTOPRAZOLE 40 MG/10 ML VIAL IV SCH ×3 (08:51→21:26)
--- NOTE | 2018-08-14 08:54 | P.PN ---
Subjective Progress Note Date: 08/14/18 CHIEF COMPLAINT: Acute hydrops cholecystitis HISTORY OF PRESENT ILLNESS: The patient is a 53-year-old female status post lysis of adhesions, 08/11/2018. He is POD 3. His pain is well controlled. "I slept better and my stomach is rumbling." He is ambulating. No reports of fevers. Hemoglobin has dropped from 13.5 to under 12 mg/dL since institution of Brilinta. ROS: No reports of nausea and vomiting. No bowel movements. No fevers or chills. No new chest pain. No productive sputum PHYSICAL EXAM: VITAL SIGNS: Reviewed CONSTITUTIONAL: Well developed and in no acute distress. EYES: Conjuctivae without sclera icterus. Extraocular movements grossly intact. HEAD, EARS, NOSE, THROAT: Moist buccal mucosa. Head is atraumatic, normocephalic. Hears conversational speech. No nasal drainage. NECK: Supple. No thyroidomegaly. RESPIRATORY: Non-labored respirations and equal bilateral excursions. CARDIOVASCULAR: Palpable 2+ radial pulses. Regular rate. Regular rhythm. ABDOMEN: Soft, nondistened. NGT output decrease bilious. Incision clean, dry intact. MUSCULOSKELETAL: No gross deformity of the lower extremities noted. No clubbing. No cyanosis. SKIN: Good skin turgor. Well perfused. NEUROLOGIC: Cranial nerves I through XII grossly intact. No focal or lateralizing signs. PSYCH: Appropriate affect. Alert and oriented to person, place and time. CLINCAL LABS: White blood cell count normal. Hemoglobin dropper from 13.5 to 10.5 after start of Brilinta ASSESSMENT: 1. Small bowel obstruction s/p lysis of adhesions 2. Myocardial infarction 3. Coronary artery disease s/p stent placement. 4. Chronic antiplatelet therapy PLAN: 1. Monitor hemoglobin. 2. Bowel function is imminent. May remove NGT with passage of flatus. 3. Will start clear liquid once flatus resumes. Objective - Vital Signs Vital signs: Vital Signs Temp 98.9 F 08/14/18 05:00 Pulse 93 08/14/18 05:00 Resp 16 08/14/18 05:00 BP 131/83 08/14/18 05:00 Pulse Ox 93 L 08/14/18 05:00 Intake & Output 08/13/18 08/14/18 08/14/18 18:59 06:59 18:59 Intake Total 800 1650 Output Total 900 Balance 800 750 Weight 92.533 kg Intake: Intake, IV Titration 800 1650 Amount Sodium Chloride 0.9% 1, 750 1600 000 ml @ 100 mls/hr IV . Q10H ML Rx#:[id number] ceFAZolin 1,000 mg In 50 50 Sodium Chloride 0.9% 50 ml @ 100 mls/hr IVPB Q8HR ML Rx#:[id number] Output: Gastric Drainage 900 Other: Voiding Method Toilet # Voids 1 - Labs CBC & Chem 7: 08/14/18 06:36 08/13/18 09:22 Labs: Abnormal Lab Results - Last 24 Hours (Table) 08/13/18 08/13/18 08/13/18 Range/Units 09:00 09:22 09:22 RBC 3.91 L (4.30-5.90) m/uL Hgb 11.9 L (13.0-17.5) gm/dL Hct 35.8 L (39.0-53.0) % Lymphocytes # 0.7 L (1.0-4.8) k/uL Creatinine 0.56 L (0.66-1.25) mg/dL Glucose 109 H (74-99) mg/dL Urine Protein 1+ H (Negative) Urine Ketones 4+ H (Negative) Urine Blood Trace H (Negative) Urine Mucus Few H (None) /hpf 08/13/18 08/14/18 Range/Units 15:42 06:36 RBC 3.89 L 3.40 L (4.30-5.90) m/uL Hgb 12.1 L 10.5 L (13.0-17.5) gm/dL Hct 36.2 L 31.3 L (39.0-53.0) % Lymphocytes # 0.8 L (1.0-4.8) k/uL Creatinine (0.66-1.25) mg/dL Glucose (74-99) mg/dL Urine Protein (Negative) Urine Ketones (Negative) Urine Blood (Negative) Urine Mucus (None) /hpf
[2018-08-14] MEDS ORDERED: ACETAMINOPHEN TAB 500 MG TAB PO PRN (11:26)
[2018-08-14] MEDS ORDERED: MORPHINE SULFATE 2 MG/ML SYRINGE IVP PRN (15:16)
--- NOTE | 2018-08-14 16:42 | P.PN ---
Subjective Progress Note Date: 08/14/18 This is a 53-year-old male patient of Jasiel Mark NP with past medical history of hypertension, hyperlipidemia, coronary artery disease, DVT, previous bowel surgeries, multiple orthopedic surgeries following a fall of 4 stories in 1991 including ankles, left knee scopes, right tibial screws and plate subsequently removed, fractured back without surgery. Patient was recently seen at [facility] on July 15 and had 3 cardiac stents placed by Dr. Mansfield. He is also known to have 2 aortic aneurysms as well. Patient states that he has been walking outside 2 miles every day for the past 2 weeks and started cardiac rehab. Sudden onset yesterday of nausea and abdominal pain. He did have a bowel movement in the morning which was formed. He denies any blood in his stools. He usually has a bowel movement every day. He did pass gas yesterday. The patient does have history of previous ileus following umbilical hernia repair and he thought the pain was very similar. Patient came into [facility] emergency center for evaluation. Abdominal x-ray revealed early or partial small bowel obstruction. Chest x-ray was negative for acute cardiac pulmonary findings. CBC was within normal limits as well as CMP except for BUN of 24. Troponins negative on 2 draws. Lipase 69. Patient was admitted to the MedSurg floor, NG tube placed to suction, consults with Dr. Miller and cardiology. Consultants of added and CAT scan of the abdomen and pelvis and echocardiogram. 08/11: Patient states he has continued to have vomiting despite NG tube in place. CAT scan of the abdomen and pelvis with contrast reveals high-grade small bowel obstruction with transition point in the lower mid abdomen. Small bowel loops dilated up to 4 cm and mild pelvic free fluid likely reactive. Lobulated soft tissue thickening projecting into the lumen of the gastric fundus measuring 4.4 x 4.1 cm below the level of the GE junction. Mild circumferential wall thickening of the lower esophagus could represent esophagitis. Dr. Nagy is taking the patient for exploratory laparotomy today. Patient has been evaluated by cardiology and cleared for surgery. Proventil to be resumed as soon as possible once cleared by surgical services. Echocardiogram reveals EF of 60-65% with borderline concentric left ventricular hypertrophy, mild mitral regurgitation, mild tricuspid regurgitation, mild pul monary hypertension. Patient has been afebrile, heart rate 81, blood pressure 136/65, pulse ox 96% on room air. Repeat white count 9.0, hemoglobin 12.5, platelet count 205, electrolytic within normal limits, creatinine 0.61. Total bilirubin 1.4 and liver function tests within normal limits. 08/12, patient underwent exploratory laparotomy with lysis of adhesions on 08/11/2018, in relation to small bowel obstruction from jejunum and ileum, patient was seen by cardiology for which the entire has to be resumed as soon as possible secondary to recent stent 07/15/2018, patient's aware off bleeding, occasions related to this, however the stent needs to be protected. We would monitor for bleeding, 08/13: Temperature max 101.6, heart rate running between 106 and 121, blood pressure 134/95, pulse ox 94% on room air. Chest x-ray and urinalysis ordered. Patient is complaining of feeling soreness. He denies passing any gas. NG tube is worked up with coffee-ground return. Wound VAC is in place. He is using incentive spirometry at 2500 ML's every hour. Lopressor has been resumed by cardiology and patient is on Vasotec IV. Patient is having some complaints of chest pain and nitro patch will be ordered. Troponin ordered as well. 08/14 patient examined bedside is doing well today. He continues to have the NG tube. No flatus or bowel movement.labs this morning suggests a hemoglobin of 10 WBC 5.3 patient and no episodes of fever. Continue to be nothing by mouth has he has not passed flatulence ROS Constitutional: Reports poor appetite, reports chills, Denies fatigue, reports fever, Denies lethargy, Denies malaise, Denies weakness, Denies weight loss Ears, nose, mouth and throat: Denies dental pain, Denies nasal congestion, Den ies nasal discharge, Denies vertigo Cardiovascular: Denies chest pain, Denies decreased exercise tolerance, Denies dyspnea on exertion, Denies edema, Denies irregular heart beat, Denies leg edema, Denies lightheadedness, Denies syncope Respiratory: Denies congestion, Denies cough, Denies cough with sputum, Denies dyspnea, Denies excessive sputum, Denies hemoptysis, Denies home oxygen, Denies respiratory infections, Denies sleep apnea, Denies wheezing Gastrointestinal: Reports abdominal pain, Reports bloating, Reports co nstipation, Reports loss of appetite, Reports nausea, reports vomiting, Denies diarrhea Genitourinary: Denies dysuria, Denies urinary retention Musculoskeletal: Denies frequent falls, Denies gait dysfunction, Denies muscle weakness, Denies myalgias Integumentary: Denies pruritus, Denies rash, Denies wounds Neurological: Denies aphasia, Denies change in mentation, Denies change in speech, Denies confusion, Denies convulsions, Denies gait dysfunction, Denies seizures, Denies syncope Psychiatric: Denies anxiety, Denies depression Endocrine: Denies fatigue, Denies weight change Objective - Vital Signs Vital signs: Vital Signs Temp 97.8 F 08/14/18 12:45 Pulse 92 08/14/18 12:45 Resp 16 08/14/18 12:45 BP 130/80 08/14/18 12:45 Pulse Ox 94 L 08/14/18 12:45 Intake & Output 08/13/18 08/14/18 08/14/18 18:59 06:59 18:59 Intake Total 800 1650 800 Output Total 900 Balance 800 750 800 Weight 92.533 kg Intake: Intake, IV Titration 800 1650 800 Amount Sodium Chloride 0.9% 1, 750 1600 750 000 ml @ 100 mls/hr IV . Q10H ML Rx#:[id number] ceFAZolin 1,000 mg In 50 50 50 Sodium Chloride 0.9% 50 ml @ 100 mls/hr IVPB Q8HR ML Rx#:[id number] Output: Gastric Drainage 900 Other: Voiding Method Toilet Toilet # Voids 1 - Exam Gen: This is a 53-year-old male. Patient is resting in chair and appears to be comfortable. HEENT: Head is atraumatic, normocephalic. Pupils equal, round. Sclerae is anicteric. NG tube in place draining dark brown/black fluid. NECK: Supple. No JVD. No lymphadenopathy. No thyromegaly. LUNGS: Clear to auscultation. No wheezes or rhonchi. No intercostal retractions. HEART: Regular rate and rhythm. No murmur. ABDOMEN: Soft. Bowel sounds are faint. No masses. Wound VAC in place to the mid abdominal wound. EXTREMITIES: No pedal edema. No calf tenderness. Dorsalis pedis +2 bilat erally. NEUROLOGICAL: Patient is awake, alert and oriented x3. Cranial nerves 2 through 12 are grossly intact. - Labs CBC & Chem 7: 08/14/18 06:36 08/13/18 09:22 Labs: Abnormal Lab Results - Last 24 Hours (Table) 08/13/18 08/14/18 Range/Units 15:42 06:36 RBC 3.89 L 3.40 L (4.30-5.90) m/uL Hgb 12.1 L 10.5 L (13.0-17.5) gm/dL Hct 36.2 L 31.3 L (39.0-53.0) % Lymphocytes # 0.8 L (1.0-4.8) k/uL Assessment and Plan Plan: 1. Small bowel obstruction status post exploratory laparotomy with lysis of adhesions 08/11/[address] Miller. Continue NG tube. 2. Fevers. Portable chest x-raywith focal patchy opacification and right base concerning for pneumonia, urinalysis is negative Patient is doing well with incentive spirometry. Continue Kefzol. 2. History of coronary artery disease with recent stent placement July [address] Leo and [facility]. Cardiology consult appreciated. Echocardiogram as above. Brilinta has been resumed as well as Lopressor 25 mg twice daily. continue nitroglycerin patch. 3. Hypertension. Patient is normally on lisinopril 5 mg daily, Toprol-XL 25 mg daily, Imdur 30 mg daily. Vasotec IV as needed. 4. Hyperlipidemia. Lipitor on hold. 5. History of previous hiatal hernia repair and umbilical hernia repair along with ileus. 6. Previous traumatic fall with multiple fractures and subsequent surgeries. 7. Memory impairment. Patient is concerned regarding memory loss. Discussed sleep hygiene, use of B12 and recommend neurology workup to be arranged by PCP 8. DVT prophylaxis. Heparin subcu. 9. GI prophylaxis. Protonix. 10.Pituitarytumor caberline on hold Discharge plan: Return home
[2018-08-15] MEDS: HYDROmorphone 1 MG/ML 1 ML SYRINGE IVP PRN ×2 (01:08→04:08)
[2018-08-15] MEDS: SODIUM CHLORIDE 0.9% 1,000 ML IV SCH ×3 (03:58→20:44)
[2018-08-15] MEDS ORDERED: MORPHINE SULFATE 2 MG/ML SYRINGE IVP PRN (07:19)
[2018-08-15] MEDS ORDERED: LISINOPRIL 5 MG TAB PO STA (08:27)
--- NOTE | 2018-08-15 08:27 | P.PN ---
Subjective Progress Note Date: 08/14/18 This is a 53-year-old gentleman with history of ischemic heart disease who had a stent placement done in July in [place], was admitted to the hospital with complaints of a down pain and was found to have small bowel obstruction. Patient underwent surgical procedure yesterday to free of obstruction. Patient seemed to be clinically stable. He patient is slightly tachycardic and blood pressures running high in the range of 150/80. Complaints of a vague chest discomfort which seemed to moderate superficial and associated with some tenderness. The pain is different than the discomfort he had before the stent placement. Apparently patient is not going to get better length that today. I'm going to put him on IV Lopressor 2.5 mg every 6-8 hours. Rest of the medication to be continued. We'll monitor him closely. 08/14/2018: Patient is feeling better. He is put on Brillinta. So far. Patient is tolerating well. No complaints of any chest pain or shortness of breath. Still has NG tube. Maintaining sinus rhythm. Patient is on her also on IV Lopressor. We'llswitch to by mouth Lopressor Objective - Vital Signs Vital signs: Vital Signs Temp 98.6 F 08/15/18 04:11 Pulse 104 H 08/15/18 04:11 Resp 18 08/15/18 04:11 BP 137/89 08/15/18 04:11 Pulse Ox 94 L 08/15/18 04:11 Intake & Output 08/14/18 08/15/18 08/15/18 18:59 06:59 18:59 Intake Total 800 Output Total 350 650 Balance 450 -650 Intake: Intake, IV Titration 800 Amount Sodium Chloride 0.9% 1, 750 000 ml @ 100 mls/hr IV . Q10H ML Rx#:[id number] ceFAZolin 1,000 mg In 50 Sodium Chloride 0.9% 50 ml @ 100 mls/hr IVPB Q8HR ML Rx#:[id number] Output: Gastric Drainage 350 250 Urine 400 Other: Voiding Method Toilet Toilet # Voids 1 - Exam GENERAL EXAM: Patient is alert and oriented and doesn't appear to be in any acute distress HEENT: Normocephalic. Normal reaction of pupils, equal size, normal range of extraocular motion. No erythema or exudates in the throat. NECK: No masses, no nuchal rigidity. CHEST: No chest wall deformity. LUNGS: Equal air entry with no crackles or wheeze. HEART: S1 and S2 normal with no audible mumurs or gallops. Regular rhythm, femorals equal on both sides.. ABDOMEN: Postsurgical. SKIN: No rashes CENTRAL NERVOUS SYSTEM: No focal deficits. EXTREMITIES: No cyanosis, clubbing or edema. A normal physical exam - Labs CBC & Chem 7: 08/14/18 06:36 08/13/18 09:22 Assessment and Plan (1) History of ischemic heart disease Current Visit: Yes Status: Acute Code(s): Z86.79 - PERSONAL HISTORY OF OTHER DISEASES OF THE CIRCULATORY SYSTEM SNOMED Code(s): 439685183 (2) SBO (small bowel obstruction) Current Visit: Yes Status: Acute Code(s): K56.609 - UNSP INTESTNL OBST, UNSP TO PARTIAL VERSUS COMPLETE OBST SNOMED Code(s): 266141541 (3) Hypertension Current Visit: Yes Status: Acute Code(s): I10 - ESSENTIAL (PRIMARY) HYPERTENSION SNOMED Code(s): 71867660 Plan: Patient is clinically stable. Taking pills by mouth. Started on anti-platelet agent. We'll switch to by mouth beta livier
--- NOTE | 2018-08-15 08:35 | P.PN ---
Subjective Progress Note Date: 08/15/18 CHIEF COMPLAINT: Acute hydrops cholecystitis HISTORY OF PRESENT ILLNESS: The patient is a 53-year-old female status post lysis of adhesions, 08/11/2018. He is POD 4. He is passing flatus and ambulating. No new abdominal pain. No fevers. No bowel movements. ROS: No reports of nausea and vomiting. No bowel movements. No fevers or chills. No new chest pain. No productive sputum PHYSICAL EXAM: VITAL SIGNS: Reviewed CONSTITUTIONAL: Well developed and in no acute distress. EYES: Conjuctivae without sclera icterus. Extraocular movements grossly intact. HEAD, EARS, NOSE, THROAT: Moist buccal mucosa. Head is atraumatic, normocephalic. Hears conversational speech. No nasal drainage. NECK: Supple. No thyroidomegaly. RESPIRATORY: Non-labored respirations and equal bilateral excursions. CARDIOVASCULAR: Palpable 2+ radial pulses. Regular rate. Regular rhythm. ABDOMEN: Dressing clean dry and intact. NGT removed. MUSCULOSKELETAL: No gross deformity of the lower extremities noted. No clubbi ng. No cyanosis. SKIN: Good skin turgor. Well perfused. NEUROLOGIC: Cranial nerves I through XII grossly intact. No focal or lateralizing signs. PSYCH: Appropriate affect. Alert and oriented to person, place and time. CLINCAL LABS: White blood cell count normal. ASSESSMENT: 1. Small bowel obstruction s/p lysis of adhesions 2. Myocardial infarction 3. Coronary artery disease s/p stent placement. 4. Chronic antiplatelet therapy PLAN: 1. NGT removed by me at bedside 2. Start clears. Objective - Vital Signs Vital signs: Vital Signs Temp 98.6 F 08/15/18 04:11 Pulse 104 H 08/15/18 04:11 Resp 18 08/15/18 04:11 BP 137/89 08/15/18 04:11 Pulse Ox 94 L 08/15/18 04:11 Intake & Output 08/14/18 08/15/18 08/15/18 18:59 06:59 18:59 Intake Total 800 Output Total 350 650 Balance 450 -650 Intake: Intake, IV Titration 800 Amount Sodium Chloride 0.9% 1, 750 000 ml @ 100 mls/hr IV . Q10H [facility] Rx#:[id number] ceFAZolin 1,000 mg In 50 Sodium Chloride 0.9% 50 ml @ 100 mls/hr IVPB Q8HR [facility] Rx#:[id number] Output: Gastric Drainage 350 250 Urine 400 Other: Voiding Method Toilet Toilet # Voids 1 - Labs CBC & Chem 7: 08/14/18 06:36 08/13/18 09:22 Assessment and Plan (1) History of ischemic heart disease Current Visit: Yes Status: Acute Code(s): Z86.79 - PERSONAL HISTORY OF OTHER DISEASES OF THE CIRCULATORY SYSTEM SNOMED Code(s): 589725505 (2) SBO (small bowel obstruction) Current Visit: Yes Status: Acute Code(s): K56.609 - UNSP INTESTNL OBST, UNSP TO PARTIAL VERSUS COMPLETE OBST SNOMED Code(s): 464720969 (3) GERD (gastroesophageal reflux disease) Current Visit: No Status: Acute Code(s): K21.9 - GASTRO-ESOPHAGEAL REFLUX DISEASE WITHOUT ESOPHAGITIS SNOMED Code(s): 300949767
[2018-08-15] MEDS: NITROGLYCERIN SL TABS 0.4 MG TAB SUBLINGUAL PRN (08:38)
[2018-08-15] MEDS: METOPROLOL TARTRATE 25 MG TAB PO SCH (08:40)
[2018-08-15] MEDS: TICAGRELOR 90 MG TAB PO SCH ×2 (08:40→20:44)
[2018-08-15] MEDS: ATORVASTATIN 80 MG TAB PO SCH ×2 (08:40→20:43)
[2018-08-15] MEDS: HEPARIN SODIUM,PORCINE 5,000 UNIT/ML 1 ML VIAL SQ SCH ×2 (08:41→20:43)
[2018-08-15] MEDS: NITROGLYCERIN 0.1MG/HR PATCH TRANSDERM SCH (08:41)
--- NOTE | 2018-08-15 08:43 | P.PN ---
Subjective Progress Note Date: 08/15/18 This is a 53-year-old gentleman with history of ischemic heart disease who had a stent placement done in July in [place], was admitted to the hospital with complaints of a down pain and was found to have small bowel obstruction. Patient underwent surgical procedure yesterday to free of obstruction. Patient seemed to be clinically stable. He patient is slightly tachycardic and blood pressures running high in the range of 150/80. Complaints of a vague chest discomfort which seemed to moderate superficial and associated with some tenderness. The pain is different than the discomfort he had before the stent placement. Apparently patient is not going to get better length that today. I'm going to put him on IV Lopressor 2.5 mg every 6-8 hours. Rest of the medication to be continued. We'll monitor him closely. 08/14/2018: Patient is feeling better. He is put on Brillinta. So far. Patient is tolerating well. No complaints of any chest pain or shortness of breath. Still has NG tube. Maintaining sinus rhythm. Patient is on her also on IV Lopressor. We'llswitch to by mouth Lopressor. 08/15/2018: Patient NG tube is taken out. Patient is passing flatus. Does complain of some chest pain across the chest. Doesn't appear to be in acute distress. Rates this pain as a 5 on a scale of 1-10. Patient seemed to be under stress because his daughter is at [facility] emergency room. We'll going to give her sublingual nitro and also nitro paste. We will going to get an EKG. I'm also going to increase the dose of the Lopressor. Further examination depend upon the findings and clinical course Objective - Vital Signs Vital signs: Vital Signs Temp 98.6 F 08/15/18 04:11 Pulse 104 H 08/15/18 04:11 Resp 18 08/15/18 04:11 BP 137/89 08/15/18 04:11 Pulse Ox 94 L 08/15/18 04:11 Intake & Output 08/14/18 08/15/18 08/15/18 18:59 06:59 18:59 Intake Total 800 Output Total 350 650 Balance 450 -650 Intake: Intake, IV Titration 800 Amount Sodium Chloride 0.9% 1, 750 000 ml @ 100 mls/hr IV . Q10H [facility] Rx#:[id number] ceFAZolin 1,000 mg In 50 Sodium Chloride 0.9% 50 ml @ 100 mls/hr IVPB Q8HR [facility] Rx#:[id number] Output: Gastric Drainage 350 250 Urine 400 Other: Voiding Method Toilet Toilet # Voids 1 - Exam GENERAL EXAM: Patient is alert and oriented and doesn't appear to be in any acute distress HEENT: Normocephalic. Normal reaction of pupils, equal size, normal range of extraocular motion. No erythema or exudates in the throat. NECK: No masses, no nuchal rigidity. CHEST: No chest wall deformity. LUNGS: Equal air entry with no crackles or wheeze. HEART: S1 and S2 normal with no audible mumurs or gallops. Regular rhythm, femorals equal on both sides.. ABDOMEN: Postsurgical. SKIN: No rashes CENTRAL NERVOUS SYSTEM: No focal deficits. EXTREMITIES: No cyanosis, clubbing or edema. A normal physical exam - Labs CBC & Chem 7: 08/14/18 06:36 08/13/18 09:22 Assessment and Plan (1) History of ischemic heart disease Current Visit: Yes Status: Acute Code(s): Z86.79 - PERSONAL HISTORY OF OTHER DISEASES OF THE CIRCULATORY SYSTEM SNOMED Code(s): 703538575 (2) SBO (small bowel obstruction) Current Visit: Yes Status: Acute Code(s): K56.609 - UNSP INTESTNL OBST, UNSP TO PARTIAL VERSUS COMPLETE OBST SNOMED Code(s): 979134306 (3) Hypertension Current Visit: Yes Status: Acute Code(s): I10 - ESSENTIAL (PRIMARY) HYPERTENSION SNOMED Code(s): 85212310 Plan: Patient complains of chest pain but doesn't appear to be in acute distress. We will treat him with sublingual nitro Nitropaste. EKG to be taken. We'll increase the dose of the Lopressor. Further recommendations depend upon clinical course
[2018-08-15] MEDS: METOPROLOL TARTRATE 50 MG TAB PO SCH ×2 (09:30→20:44)
[2018-08-15] MEDS: HYDROcodone/APAP 5-325MG 1 EACH TAB PO PRN ×3 (14:26→23:37)
--- NOTE | 2018-08-15 15:29 | P.PN ---
Subjective Progress Note Date: 08/15/18 This is a 53-year-old male patient of Jasiel Mark NP with past medical history of hypertension, hyperlipidemia, coronary artery disease, DVT, previous bowel surgeries, multiple orthopedic surgeries following a fall of 4 stories in 1991 including ankles, left knee scopes, right tibial screws and plate subsequently removed, fractured back without surgery. Patient was recently seen at [facility] on July 15 and had 3 cardiac stents placed by Dr. Mansfield. He is also known to have 2 aortic aneurysms as well. Patient states that he has been walking outside 2 miles every day for the past 2 weeks and started cardiac rehab. Sudden onset yesterday of nausea and abdominal pain. He did have a bowel movement in the morning which was formed. He denies any blood in his stools. He usually has a bowel movement every day. He did pass gas yesterday. The patient does have history of previous ileus following umbilical hernia repair and he thought the pain was very similar. Patient came into [facility] emergency center for evaluation. Abdominal x-ray revealed early or partial small bowel obstruction. Chest x-ray was negative for acute cardiac pulmonary findings. CBC was within normal limits as well as CMP except for BUN of 24. Troponins negative on 2 draws. Lipase 69. Patient was admitted to the MedSurg floor, NG tube placed to suction, consults with Dr. Miller and cardiology. Consultants of added and CAT scan of the abdomen and pelvis and echocardiogram. 08/11: Patient states he has continued to have vomiting despite NG tube in place. CAT scan of the abdomen and pelvis with contrast reveals high-grade small bowel obstruction with transition point in the lower mid abdomen. Small bowel loops dilated up to 4 cm and mild pelvic free fluid likely reactive. Lobulated soft tissue thickening projecting into the lumen of the gastric fundus measuring 4.4 x 4.1 cm below the level of the GE junction. Mild circumferential wall thickening of the lower esophagus could represent esophagitis. Dr. Nagy is taking the patient for exploratory laparotomy today. Patient has been evaluated by cardiology and cleared for surgery. Proventil to be resumed as soon as possible once cleared by surgical services. Echocardiogram reveals EF of 60-65% with borderline concentric left ventricular hypertrophy, mild mitral regurgitation, mild tricuspid regurgitation, mild pul monary hypertension. Patient has been afebrile, heart rate 81, blood pressure 136/65, pulse ox 96% on room air. Repeat white count 9.0, hemoglobin 12.5, platelet count 205, electrolytic within normal limits, creatinine 0.61. Total bilirubin 1.4 and liver function tests within normal limits. 08/12, patient underwent exploratory laparotomy with lysis of adhesions on 08/11/2018, in relation to small bowel obstruction from jejunum and ileum, patient was seen by cardiology for which the entire has to be resumed as soon as possible secondary to recent stent 07/15/2018, patient's aware off bleeding, occasions related to this, however the stent needs to be protected. We would monitor for bleeding, 08/13: Temperature max 101.6, heart rate running between 106 and 121, blood pressure 134/95, pulse ox 94% on room air. Chest x-ray and urinalysis ordered. Patient is complaining of feeling soreness. He denies passing any gas. NG tube is worked up with coffee-ground return. Wound VAC is in place. He is using incentive spirometry at 2500 ML's every hour. Lopressor has been resumed by cardiology and patient is on Vasotec IV. Patient is having some complaints of chest pain and nitro patch will be ordered. Troponin ordered as well. 08/14 patient examined bedside is doing well today. He continues to have the NG tube. No flatus or bowel movement.labs this morning suggests a hemoglobin of 10 WBC 5.3 patient and no episodes of fever. Continue to be nothing by mouth has he has not passed flatulence 08/15 patient doing well. He did have a brief episode of chest pain this morning and was given nitro tab. NG tube is out as patient is passing blood clot as. Clear liquid diet is initiated. With his present medications Imdur and removed patient's Nitropatch. Vitals are otherwise stable. Patient is ambulating without any difficulty. We'll advance diet slowly ROS Constitutional: Reports poor appetite, reports chills, Denies fatigue, reports fever, Denies lethargy, Denies malaise, Denies weakness, Denies weight loss Ears, nose, mouth and throat: Denies dental pain, Denies nasal congestion, Denies nasal discharge, Denies vertigo Cardiovascular: Denies chest pain, Denies decreased exercise tolerance, Denies dyspnea on exertion, Denies edema, Denies irregular heart beat, Denies leg edema, Denies lightheadedness, Denies syncope Respiratory: Denies congestion, Denies cough, Denies cough with sputum, Denies dyspnea, Denies excessive sputum, Denies hemoptysis, Denies home oxygen, Denies respiratory infections, Denies sleep apnea, Denies wheezing Gastrointestinal: Reports abdominal pain, Reports bloating, Reports constipation, Reports loss of appetite, Reports nausea, reports vomiting, Denies diarrhea Genitourinary: Denies dysuria, Denies urinary retention Musculoskeletal: Denies frequent falls, Denies gait dysfunction, Denies muscle weakness, Denies myalgias Integumentary: Denies pruritus, Denies rash, Denies wounds Neurological: Denies aphasia, Denies change in mentation, Denies change in speech, Denies confusion, Denies convulsions, Denies gait dysfunction, Denies seizures, Denies syncope Psychiatric: Denies anxiety, Denies depression Endocrine: Denies fatigue, Denies weight change Objective - Vital Signs Vital signs: Vital Signs Temp 98.3 F 08/15/18 13:45 Pulse 87 08/15/18 13:45 Resp 16 08/15/18 13:45 BP 123/78 08/15/18 13:45 Pulse Ox 94 L 08/15/18 13:45 Intake & Output 08/14/18 08/15/18 08/15/18 18:59 06:59 18:59 Intake Total 800 850 Output Total 350 650 Balance 450 -650 850 Weight 92.533 kg Intake: Intake, IV Titration 800 850 Amount Sodium Chloride 0.9% 1, 750 800 000 ml @ 100 mls/hr IV . Q10H ML Rx#:[id number] ceFAZolin 1,000 mg In 50 50 Sodium Chloride 0.9% 50 ml @ 100 mls/hr IVPB Q8HR ML Rx#:[id number] Output: Gastric Drainage 350 250 Urine 400 Other: Voiding Method Toilet Toilet Toilet # Voids 1 - Exam Gen: This is a 53-year-old male. Patient is resting in chair and appears to be comfortable. HEENT: Head is atraumatic, normocephalic. Pupils equal, round. Sclerae is anicteric. NECK: Supple. No JVD. No lymphadenopathy. No thyromegaly. LUNGS: Clear to auscultation. No wheezes or rhonchi. No intercostal retractions. HEART: Regular rate and rhythm. No murmur. ABDOMEN: Soft. Bowel sounds are faint. No masses. Wound VAC in place to the mid abdominal wound. EXTREMITIES: No pedal edema. No calf tenderness. Dorsalis pedis +2 bilaterally. NEUROLOGICAL: Patient is awake, alert and oriented x3. Cranial nerves 2 through 12 are grossly intact. - Labs CBC & Chem 7: 08/14/18 06:36 08/13/18 09:22 Assessment and Plan Plan: 1. Small bowel obstruction status post exploratory laparotomy with lysis of adhesions 08/11/[address] Miller. Clear liquid diet initiated today 2. Fevers. Portable chest x-raywith focal patchy opacification and right base concerning for pneumonia, urinalysis is negative Patient is doing well with incentive spirometry. Continue Kefzol. 2. History of coronary artery disease with recent stent placement July [address] Leo and C. Cardiology consult appreciated. Echocardiogram as above. Brilinta has been resumed as well as Lopressor 25 mg twice daily. We will restart Imdur 3. Hypertension. Patient is normally on lisinopril 5 mg daily, Toprol-XL 25 mg daily, Imdur 30 mg daily. Vasotec IV as needed. 4. Hyperlipidemia. Lipitor was initiated 5. History of previous hiatal hernia repair and umbilical hernia repair along with ileus. 6. Previous traumatic fall with multiple fractures and subsequent surgeries. 7. Memory impairment. Patient is concerned regarding memory loss. Discussed sleep hygiene, use of B12 and recommend neurology workup to be arranged by PCP 8. DVT prophylaxis. Heparin subcu. 9. GI prophylaxis. Protonix. 10.Pituitarytumor caberline on hold Discharge plan: Return home
[2018-08-15] MEDS: PANTOPRAZOLE 40 MG/10 ML VIAL IV SCH (20:44)
[2018-08-16] MEDS: SODIUM CHLORIDE 0.9% 1,000 ML IV SCH ×2 (03:55→16:18)
[2018-08-16] MEDS: HYDROcodone/APAP 5-325MG 1 EACH TAB PO PRN ×3 (03:57→15:01)
[2018-08-16] MEDS: HEPARIN SODIUM,PORCINE 5,000 UNIT/ML 1 ML VIAL SQ SCH ×2 (08:55→22:29)
[2018-08-16] MEDS: METOPROLOL TARTRATE 50 MG TAB PO SCH ×2 (08:55→22:29)
[2018-08-16] MEDS: PANTOPRAZOLE 40 MG/10 ML VIAL IV SCH ×2 (08:55→22:29)
[2018-08-16] MEDS: LISINOPRIL 5 MG TAB PO SCH (08:55)
[2018-08-16] MEDS: ATORVASTATIN 80 MG TAB PO SCH ×2 (08:55→22:29)
[2018-08-16] MEDS: ISOSORBIDE MONONITRATE ER 30 MG TAB.ER.24H PO SCH (08:55)
[2018-08-16] MEDS: TICAGRELOR 90 MG TAB PO SCH ×2 (08:56→22:30)
[2018-08-16] MEDS: NITROGLYCERIN 0.1MG/HR PATCH TRANSDERM SCH (08:56)
[2018-08-16] MEDS: SIMETHICONE 40 MG/0.6 ML DROPS 2,000 MG/30 ML BOTTLE PO SCH ×4 (11:16→22:30)
[2018-08-16 11:43] LABS: HCT 35.9 % (39.0-53.0); HGB 11.9 gm/dL (13.0-17.5); MCH 30.4 pg (25.0-35.0); MCHC 33.1 g/dL (31.0-37.0); Mean Platelet Volume 6.7; Platelet Count 330 k/uL (150-450); RDW 12.5 % (11.5-15.5); WBC 7.8 k/uL (3.8-10.6)
--- NOTE | 2018-08-16 11:44 | P.PN ---
Subjective Progress Note Date: 08/16/18 CHIEF COMPLAINT: Abdominal pain HISTORY OF PRESENT ILLNESS: Patient is s/p exploratory laparotomy with lysis of adhesions secondary to bowel obstruction. NG tube was discontinued yesterday. Patient has been tolerating clear liquids. Patient reports passing a small amount of flatus this morning. No bowel movement today. He reports abdominal pain and is currently rating it 6/10. He reports a lot of belching this morning as well. Lab work from this morning is currently pending. PHYSICAL EXAM: VITAL SIGNS: Currently stable. GENERAL: Well-developed in no acute distress. HEENT: No sclera icterus. Extraocular movements grossly intact. Moist buccal mucosa. Head is atraumatic, normocephalic. Hears conversational speech. No nasal drainage. NECK: Supple without lymphadenopathy. CHEST: Non-labored respirations and equal bilateral excursions. CARDIOVASCULAR: Regular rate with regular rhythm. Palpable 2+ radial pulses. ABDOMEN: Soft. Mildly distended.. Hypoactive bowel sounds. PREVENA intact to incision. MUSCULOSKELETAL: No clubbing, cyanosis or edema. NEUROLOGIC: No focal or lateralizing signs. Cranial nerves II through XII grossly intact. PSYCH: Appropriate affect. Alert and oriented to person, place and time. SKIN: Well perfused. Good skin turgor. ASSESSMENT: 1. Abdominal pain 2. Small bowel obstruction 3. History of coronary artery disease with recent stent placement 4. Previous hiatal hernia repair and umbilical hernia repair 5. Gastritis 6. Acute myocardial infarction, ruled out PLAN: 1. Await lab work from this morning 2. Continue clear liquid diet 3. Begin Reglan 10 mg IV every 6 hours 4. Pain control 5. Incentive spirometry 6. Increase activity as tolerated. Patient encouraged to ambulate in the hallway Nurse practitioner note has been reviewed by physician. Signing provider agrees with the documented findings, assessment, and plan of care. Objective - Vital Signs Vital signs: Vital Signs Temp 97.9 F 08/16/18 05:00 Pulse 90 08/16/18 05:00 Resp 16 08/16/18 05:00 BP 113/80 08/16/18 05:00 Pulse Ox 96 08/16/18 05:00 Intake & Output 08/15/18 08/16/18 08/16/18 18:59 06:59 18:59 Intake Total 850 1290 Output Total 400 Balance 850 890 Weight 92.533 kg Intake: Intake, IV Titration 850 50 Amount Sodium Chloride 0.9% 1, 800 0 000 ml @ 100 mls/hr IV . Q10H ML Rx#:[id number] ceFAZolin 1,000 mg In 50 50 Sodium Chloride 0.9% 50 ml @ 100 mls/hr IVPB Q8HR ML Rx#:[id number] Oral 1240 Output: Drainage 0 Abdomen 0 Urine 400 Other: Voiding Method Toilet Toilet Toilet # Voids 2 - Labs CBC & Chem 7: 08/14/18 06:36 08/13/18 09:22 Assessment and Plan (1) History of ischemic heart disease Current Visit: Yes Status: Acute Code(s): Z86.79 - PERSONAL HISTORY OF OTHER DISEASES OF THE CIRCULATORY SYSTEM SNOMED Code(s): 023137048 (2) SBO (small bowel obstruction) Current Visit: Yes Status: Acute Code(s): K56.609 - UNSP INTESTNL OBST, UNSP TO PARTIAL VERSUS COMPLETE OBST SNOMED Code(s): 747456693 (3) Abdominal pain Current Visit: No Status: Acute Code(s): R10.9 - UNSPECIFIED ABDOMINAL PAIN SNOMED Code(s): 14615105
[2018-08-16 12:03] LABS: African American GFR (CKD) >90 (>60 ml/min/1.73 sqM); Anion Gap 12 mmol/L; Blood Urea Nitrogen 15 mg/dL (9-20); Carbon Dioxide 28 mmol/L (22-30); Chloride 99 mmol/L (98-107); Glucose 121 mg/dL (74-99); Potassium 3.6 mmol/L (3.5-5.1); Sodium 139 mmol/L (137-145)
[2018-08-16] MEDS: METOCLOPRAMIDE 5 MG/ML 2 ML VIAL IVP SCH ×3 (12:08→23:26)
--- NOTE | 2018-08-16 13:53 | P.PN ---
Subjective Progress Note Date: 08/16/18 This is a 53-year-old male patient of Jasiel Mark NP with past medical history of hypertension, hyperlipidemia, coronary artery disease, DVT, previous bowel surgeries, multiple orthopedic surgeries following a fall of 4 stories in 1991 including ankles, left knee scopes, right tibial screws and plate subsequently removed, fractured back without surgery. Patient was recently seen at [facility] on July 15 and had 3 cardiac stents placed by Dr. Mansfield. He is also known to have 2 aortic aneurysms as well. Patient states that he has been walking outside 2 miles every day for the past 2 weeks and started cardiac rehab. Sudden onset yesterday of nausea and abdominal pain. He did have a bowel movement in the morning which was formed. He denies any blood in his stools. He usually has a bowel movement every day. He did pass gas yesterday. The patient does have history of previous ileus following umbilical hernia repair and he thought the pain was very similar. Patient came into [facility] emergency center for evaluation. Abdominal x-ray revealed early or partial small bowel obstruction. Chest x-ray was negative for acute cardiac pulmonary findings. CBC was within normal limits as well as CMP except for BUN of 24. Troponins negative on 2 draws. Lipase 69. Patient was admitted to the MedSurg floor, NG tube placed to suction, consults with Dr. Miller and cardiology. Consultants of added and CAT scan of the abdomen and pelvis and echocardiogram. 08/11: Patient states he has continued to have vomiting despite NG tube in place. CAT scan of the abdomen and pelvis with contrast reveals high-grade small bowel obstruction with transition point in the lower mid abdomen. Small bowel loops dilated up to 4 cm and mild pelvic free fluid likely reactive. Lobulated soft tissue thickening projecting into the lumen of the gastric fundus measuring 4.4 x 4.1 cm below the level of the GE junction. Mild circumferential wall thickening of the lower esophagus could represent esophagitis. Dr. Nagy is taking the patient for exploratory laparotomy today. Patient has been evaluated by cardiology and cleared for surgery. Proventil to be resumed as soon as possible once cleared by surgical services. Echocardiogram reveals EF of 60-65% with borderline concentric left ventricular hypertrophy, mild mitral regurgitation, mild tricuspid regurgitation, mild pul monary hypertension. Patient has been afebrile, heart rate 81, blood pressure 136/65, pulse ox 96% on room air. Repeat white count 9.0, hemoglobin 12.5, platelet count 205, electrolytic within normal limits, creatinine 0.61. Total bilirubin 1.4 and liver function tests within normal limits. 08/12, patient underwent exploratory laparotomy with lysis of adhesions on 08/11/2018, in relation to small bowel obstruction from jejunum and ileum, patient was seen by cardiology for which the entire has to be resumed as soon as possible secondary to recent stent 07/15/2018, patient's aware off bleeding, occasions related to this, however the stent needs to be protected. We would monitor for bleeding, 08/13: Temperature max 101.6, heart rate running between 106 and 121, blood pressure 134/95, pulse ox 94% on room air. Chest x-ray and urinalysis ordered. Patient is complaining of feeling soreness. He denies passing any gas. NG tube is worked up with coffee-ground return. Wound VAC is in place. He is using incentive spirometry at 2500 ML's every hour. Lopressor has been resumed by cardiology and patient is on Vasotec IV. Patient is having some complaints of chest pain and nitro patch will be ordered. Troponin ordered as well. 08/14 patient examined bedside is doing well today. He continues to have the NG tube. No flatus or bowel movement.labs this morning suggests a hemoglobin of 10 WBC 5.3 patient and no episodes of fever. Continue to be nothing by mouth has he has not passed flatulence 08/15 patient doing well. He did have a brief episode of chest pain this morning and was given nitro tab. NG tube is out as patient is passing blood clot as. Clear liquid diet is initiated. With his present medications Imdur and removed patient's Nitropatch. Vitals are otherwise stable. Patient is ambulating without any difficulty. We'll advance diet slowly 08/16: Patient states that he had 2 very tiny bowel movements yesterday. He denies having any nausea vomiting. He still has some abdominal pain and [place] takes the edge off. He does have some tenderness around the surgical area. Wound VAC remains in place. Repeat lab work reveals Shelly BC 7.8, hemoglobin 11.9. Repeat troponins were negative on August 13 and a BMP 85. IV fluids will be discontinued. Patient is continued on IV Kefzol. Objective - Vital Signs Vital signs: Vital Signs Temp 97.9 F 08/16/18 05:00 Pulse 90 08/16/18 05:00 Resp 16 08/16/18 05:00 BP 113/80 08/16/18 05:00 Pulse Ox 96 08/16/18 05:00 Intake & Output 08/15/18 08/16/18 08/16/18 18:59 06:59 18:59 Intake Total 850 1290 Output Total 400 Balance 850 890 Weight 92.533 kg Intake: Intake, IV Titration 850 50 Amount Sodium Chloride 0.9% 1, 800 0 000 ml @ 100 mls/hr IV . Q10H ML Rx#:[id number] ceFAZolin 1,000 mg In 50 50 Sodium Chloride 0.9% 50 ml @ 100 mls/hr IVPB Q8HR ML Rx#:[id number] Oral 1240 Output: Drainage 0 Abdomen 0 Urine 400 Other: Voiding Method Toilet Toilet # Voids 2 - Exam Review of Systems Constitutional: Reports poor appetite, reports chills, Denies fatigue, reports fever, Denies lethargy, Denies malaise, Denies weakness, Denies weight loss Ears, nose, mouth and throat: Denies dental pain, Denies nasal congestion, Denies nasal discharge, Denies vertigo Cardiovascular: Denies chest pain, Denies decreased exercise tolerance, Denies dyspnea on exertion, Denies edema, Denies irregular heart beat, Denies leg edema, Denies lightheadedness, Denies syncope Respiratory: Denies congestion, Denies cough, Denies cough with sputum, Denies dyspnea, Denies excessive sputum, Denies hemoptysis, Denies home oxygen, Denies respiratory infections, Denies sleep apnea, Denies wheezing Gastrointestinal: Reports abdominal pain, Reports bloating, Reports constipation, Reports loss of appetite, denies nausea, denies vomiting, Denies diarrhea Genitourinary: Denies dysuria, Denies urinary retention Musculoskeletal: Denies frequent falls, Denies gait dysfunction, Denies muscle weakness, Denies myalgias Integumentary: Denies pruritus, Denies rash, Denies wounds Neurological: Denies aphasia, Denies change in mentation, Denies change in speech, Denies confusion, Denies convulsions, Denies gait dysfunction, Denies seizures, Denies syncope Psychiatric: Denies anxiety, Denies depression Endocrine: Denies fatigue, Denies weight change Gen: This is a 53-year-old male. Patient is resting in chair and appears to be comfortable. HEENT: Head is atraumatic, normocephalic. Pupils equal, round. Sclerae is anicteric. NECK: Supple. No JVD. No lymphadenopathy. No thyromegaly. LUNGS: Clear to auscultation. No wheezes or rhonchi. No intercostal retractions. HEART: Regular rate and rhythm. No murmur. ABDOMEN: Soft. Bowel sounds are faint. No masses. Wound VAC in place to the mid abdominal wound. Mild tenderness. EXTREMITIES: No pedal edema. No calf tenderness. Dorsalis pedis +2 bilaterally. NEUROLOGICAL: Patient is awake, alert and oriented x3. Cranial nerves 2 through 12 are grossly intact. - Labs CBC & Chem 7: 08/16/18 11:11 08/16/18 11:11 Assessment and Plan Plan: 1. Small bowel obstruction status post exploratory laparotomy with lysis of adhesions 08/11/[address] Miller. Continue clear liquid diet and advance per general surgery. Continue ensure. Reglan 10 mg IV push every 6 hours started by general surgery. 2. Fevers. Portable chest x-ray, urinalysis added. Patient is doing well with incentive spirometry. Continue Kefzol. 2. History of coronary artery disease with recent stent placement July [address] Leo and [facility]. Cardiology consult appreciated. Echocardiogram as above. Brilinta has been resumed as well as Lopressor increased to 50 mg twice daily. Imdur resumed 3. Hypertension. Continue lisinopril 5 mg daily, Lopressor 50 mg twice daily, Imdur 30 mg daily. Vasotec IV as needed. 4. Hyperlipidemia. Continue Lipitor 80 mg at bedtime. 5. History of previous hiatal hernia repair and umbilical hernia repair along with ileus. 6. Previous traumatic fall with multiple fractures and subsequent surgeries. 7. Memory impairment. Patient is concerned regarding memory loss. Discussed sleep hygiene, use of B12 and recommend neurology workup to be arranged by PCP. 8. DVT prophylaxis. Heparin subcu. 9. GI prophylaxis. Protonix. Discharge plan: Return home in the next 24-48 hours. Impression and plan of care have been directed as dictated by the signing physician. Lauren Junior nurse practitioner acting as scribe for signing physician.
[2018-08-16] MEDS: ONDANSETRON 4 MG/2 ML VIAL IVP PRN (20:05)
--- NOTE | 2018-08-16 21:29 | XR ---
EXAMINATION TYPE: XR chest 1V portable DATE OF EXAM: 08/16/2018 Comparison: 08/13/2018 Clinical History: 53-year-old male in GE tube placement Findings: NG tube is present looped in the epigastric region projecting over the gastric lucency. Heart upper l imits of normal in size. Hazy peripheral lung densities related to overlying soft tissue. Strandy ate lectasis right base with improving aeration in the mid and lower lungs from prior exam. Impression: 1. NG tube looped over the gastric lucency. It appears satisfactory. 2. Improving aeration at the lung bases with some residual strandy right basilar atelectasis.
--- NOTE | 2018-08-16 23:12 | PN ---
PROGRESS NOTE Mr. Sauceda has a known case of ischemic heart disease. He has recently had a stent placement done in July. The patient was admitted with a small bowel obstruction. The patient has undergone surgery. The patient is still complaining of nausea and abdominal discomfort, had small bowel movements yesterday. He has not had any chest pains. His vital signs are stable. His hemoglobin is 11.9. Electrolytes are normal. From a cardiac standpoint, the patient seems to be stable. Will continue current medical therapy. Will continue with the anti-platelet agents along with Lipitor, Imdur, lisinopril and metoprolol. PHYSICAL EXAMINATION: Physical examination reveals a 53-year-old gentleman who is alert and oriented, does not appear in acute distress. NECK: Supple. No JVD. HEART: S1 and S2 heard. LUNGS: Lungs appear to be clear. EXTREMITIES: No significant edema. ABDOMEN: Distended with mild tenderness. LAB VALUES: Hemoglobin of 11.9, white count 7.8. Electrolytes are normal. Kidney function is normal. FINAL IMPRESSION: 1. Status post surgery for a small bowel obstruction. 2. Ischemic heart disease with recent stent placement. 3. Hypertension. PLAN: Continue current medical therapy. Will follow him. MMODL / IJN: [id number] /
[2018-08-17] MEDS: HYDROcodone/APAP 5-325MG 1 EACH TAB PO PRN ×6 (00:08→23:56)
[2018-08-17] MEDS: SODIUM CHLORIDE 0.9% 1,000 ML IV SCH ×2 (04:48→19:21)
[2018-08-17] MEDS: METOCLOPRAMIDE 5 MG/ML 2 ML VIAL IVP SCH ×4 (05:14→23:52)
[2018-08-17] MEDS: PANTOPRAZOLE 40 MG/10 ML VIAL IV SCH ×2 (09:11→20:20)
[2018-08-17] MEDS: SIMETHICONE 40 MG/0.6 ML DROPS 2,000 MG/30 ML BOTTLE PO SCH ×3 (09:12→17:42)
[2018-08-17] MEDS: HEPARIN SODIUM,PORCINE 5,000 UNIT/ML 1 ML VIAL SQ SCH ×2 (09:12→20:20)
[2018-08-17] MEDS: ONDANSETRON 4 MG/2 ML VIAL IVP PRN (09:12)
[2018-08-17] MEDS: TICAGRELOR 90 MG TAB PO SCH ×2 (09:14→20:08)
[2018-08-17] MEDS: NITROGLYCERIN 0.1MG/HR PATCH TRANSDERM SCH (09:14)
[2018-08-17] MEDS: METOPROLOL TARTRATE 50 MG TAB PO SCH ×2 (09:15→20:08)
[2018-08-17] MEDS: ISOSORBIDE MONONITRATE ER 30 MG TAB.ER.24H PO SCH (09:15)
[2018-08-17] MEDS: ATORVASTATIN 80 MG TAB PO SCH ×2 (09:15→20:21)
[2018-08-17] MEDS: LISINOPRIL 5 MG TAB PO SCH (09:15)
[2018-08-17] MEDS: [UNRECOGNIZED DRUG - OTHER] PO SCH (09:17)
--- NOTE | 2018-08-17 12:05 | P.PN ---
Subjective Progress Note Date: 08/17/18 This is a 53-year-old gentleman with history of ischemic heart disease who had a stent placement done in July in [place], was admitted to the hospital with complaints of a down pain and was found to have small bowel obstruction. Patient underwent surgical procedure yesterday to free of obstruction. Patient seemed to be clinically stable. He patient is slightly tachycardic and blood pressures running high in the range of 150/80. Complaints of a vague chest discomfort which seemed to moderate superficial and associated with some tenderness. The pain is different than the discomfort he had before the stent placement. Apparently patient is not going to get better length that today. I'm going to put him on IV Lopressor 2.5 mg every 6-8 hours. Rest of the medication to be continued. We'll monitor him closely. 08/14/2018: Patient is feeling better. He is put on Brillinta. So far. Patient is tolerating well. No complaints of any chest pain or shortness of breath. Still has NG tube. Maintaining sinus rhythm. Patient is on her also on IV Lopressor. We'llswitch to by mouth Lopressor. 08/15/2018: Patient NG tube is taken out. Patient is passing flatus. Does complain of some chest pain across the chest. Doesn't appear to be in acute distress. Rates this pain as a 5 on a scale of 1-10. Patient seemed to be under stress because his daughter is at [facility] emergency room. We'll going to give her sublingual nitro and also nitro paste. We will going to get an EKG. I'm also going to increase the dose of the Lopressor. Further examination depend upon the findings and clinical course. 08/17/2018. Patient unfortunately was having nausea and retching yesterday with abdominal discomfort. NG tube has frequent back. Feeling better since NG tube is put back. Had some problem with nasal bleeding. No complex of chest pain. Vital signs are otherwise stable. Lungs are clear. We'll continue current medical therapy. Patient is back on his beta blockers Objective - Vital Signs Vital signs: Vital Signs Temp 98.3 F 08/17/18 11:35 Pulse 89 08/17/18 11:35 Resp 16 08/17/18 11:35 BP 116/74 08/17/18 11:35 Pulse Ox 95 08/17/18 11:35 Intake & Output 08/16/18 08/17/18 08/17/18 18:59 06:59 18:59 Intake Total 725 Output Total 500 Balance 225 Weight 92.533 kg Intake: Intake, IV Titration 575 Amount Sodium Chloride 0.9% 1, 525 000 ml @ 75 mls/hr IV . [id number] ML Rx#:[id number] ceFAZolin 1,000 mg In 50 Sodium Chloride 0.9% 50 ml @ 100 mls/hr IVPB Q8HR ML Rx#:[id number] Oral 150 Output: Drainage 300 Abdomen 300 Urine 200 Other: Voiding Method Toilet Toilet # Voids 5 1 - Exam GENERAL EXAM: Patient is alert and oriented and doesn't appear to be in any acute distress HEENT: Normocephalic. Normal reaction of pupils, equal size, normal range of extraocular motion. No erythema or exudates in the throat. NECK: No masses, no nuchal rigidity. CHEST: No chest wall deformity. LUNGS: Equal air entry with no crackles or wheeze. HEART: S1 and S2 normal with no audible mumurs or gallops. Regular rhythm, femorals equal on both sides.. ABDOMEN: Postsurgical. SKIN: No rashes CENTRAL NERVOUS SYSTEM: No focal deficits. EXTREMITIES: No cyanosis, clubbing or edema. A normal physical exam - Labs CBC & Chem 7: 08/16/18 11:11 08/16/18 11:11 Labs: Abnormal Lab Results - Last 24 Hours (Table) 08/16/18 Range/Units 11:11 Glucose 121 H (74-99) mg/dL Assessment and Plan (1) History of ischemic heart disease Current Visit: Yes Status: Acute Code(s): Z86.79 - PERSONAL HISTORY OF OTHER DISEASES OF THE CIRCULATORY SYSTEM SNOMED Code(s): 179143436 (2) SBO (small bowel obstruction) Current Visit: Yes Status: Acute Code(s): K56.609 - UNSP INTESTNL OBST, UNSP TO PARTIAL VERSUS COMPLETE OBST SNOMED Code(s): 804903755 (3) Hypertension Current Visit: Yes Status: Acute Code(s): I10 - ESSENTIAL (PRIMARY) HYPERTENSION SNOMED Code(s): 83495252 Plan: Patient has NG tube back. Feeling better. Had some bowel movement this morning. Cardiac-caceres stable. We'll continue current medical therapy
--- NOTE | 2018-08-17 12:08 | P.PN ---
Subjective Progress Note Date: 08/17/18 CHIEF COMPLAINT: Abdominal pain HISTORY OF PRESENT ILLNESS: Patient is s/p exploratory laparotomy with lysis of adhesions secondary to bowel obstruction. Overnight, patient began having increased abdominal distention, nausea, and dry heaves. NG was inserted. patient reports relief of symptoms. He reports passing a small amount of flatus this morning. No BM today. PHYSICAL EXAM: VITAL SIGNS: Currently stable. GENERAL: Well-developed in no acute distress. HEENT: No sclera icterus. Extraocular movements grossly intact. Moist buccal mucosa. Head is atraumatic, normocephalic. Hears conversational speech. No nasal drainage. NECK: Supple without lymphadenopathy. CHEST: Non-labored respirations and equal bilateral excursions. CARDIOVASCULAR: Regular rate with regular rhythm. Palpable 2+ radial pulses. ABDOMEN: Soft. Mildly distended.. Hypoactive bowel sounds. PREVENA intact to incision. MUSCULOSKELETAL: No clubbing, cyanosis or edema. NEUROLOGIC: No focal or lateralizing signs. Cranial nerves II through XII grossly intact. PSYCH: Appropriate affect. Alert and oriented to person, place and time. SKIN: Well perfused. Good skin turgor. ASSESSMENT: 1. Abdominal pain 2. Small bowel obstruction 3. History of coronary artery disease with recent stent placement 4. Previous hiatal hernia repair and umbilical hernia repair 5. Gastritis 6. Acute myocardial infarction, ruled out PLAN: 1. NPO 2. Continue Reglan 3. Continue NG tube to LIS 4. Consult dietary to begin TPN 5. Pain control 6. Incentive spirometry 7. Activity as tolerated Nurse practitioner note has been reviewed by physician. Signing provider agrees with the documented findings, assessment, and plan of care. Objective - Vital Signs Vital signs: Vital Signs Temp 98.3 F 08/17/18 11:35 Pulse 89 08/17/18 11:35 Resp 16 08/17/18 11:35 BP 116/74 08/17/18 11:35 Pulse Ox 95 08/17/18 11:35 Intake & Output 08/16/18 08/17/18 08/17/18 18:59 06:59 18:59 Intake Total 725 Output Total 500 Balance 225 Weight 92.533 kg Intake: Intake, IV Titration 575 Amount Sodium Chloride 0.9% 1, 525 000 ml @ 75 mls/hr IV . [id number] [facility] Rx#:[id number] ceFAZolin 1,000 mg In 50 Sodium Chloride 0.9% 50 ml @ 100 mls/hr IVPB Q8HR ML Rx#:[id number] Oral 150 Output: Drainage 300 Abdomen 300 Urine 200 Other: Voiding Method Toilet Toilet # Voids 5 1 - Labs CBC & Chem 7: 08/16/18 11:11 08/16/18 11:11 Labs: Abnormal Lab Results - Last 24 Hours (Table) 08/16/18 Range/Units 11:11 Glucose 121 H (74-99) mg/dL Assessment and Plan (1) History of ischemic heart disease Current Visit: Yes Status: Acute Code(s): Z86.79 - PERSONAL HISTORY OF OTHER DISEASES OF THE CIRCULATORY SYSTEM SNOMED Code(s): 993257719 (2) SBO (small bowel obstruction) Current Visit: Yes Status: Acute Code(s): K56.609 - UNSP INTESTNL OBST, UNSP TO PARTIAL VERSUS COMPLETE OBST SNOMED Code(s): 743387059 (3) Abdominal pain Current Visit: No Status: Acute Code(s): R10.9 - UNSPECIFIED ABDOMINAL PAIN SNOMED Code(s): 41246862
[2018-08-17 13:45] LABS: HCT 30.6 % (39.0-53.0); HGB 10.5 gm/dL (13.0-17.5); MCH 31.6 pg (25.0-35.0); MCHC 34.2 g/dL (31.0-37.0); MCV 92.5 fL (80.0-100.0); Mean Platelet Volume 6.9; Platelet Count 313 k/uL (150-450); RBC 3.31 m/uL (4.30-5.90); RDW 12.5 % (11.5-15.5); WBC 6.2 k/uL (3.8-10.6)
[2018-08-17 13:50] LABS: African American GFR (CKD) >90 (>60 ml/min/1.73 sqM); Anion Gap 8 mmol/L; Blood Urea Nitrogen 15 mg/dL (9-20); Calcium 8.8 mg/dL (8.4-10.2); Carbon Dioxide 29 mmol/L (22-30); Chloride 103 mmol/L (98-107); Glucose 96 mg/dL (74-99); Potassium 3.9 mmol/L (3.5-5.1); Sodium 140 mmol/L (137-145)
[2018-08-17 15:44] LABS: Magnesium 2.1 mg/dL (1.6-2.3); Phosphorus 3.3 mg/dL (2.5-4.5)
--- NOTE | 2018-08-17 15:54 | P.PN ---
Subjective Progress Note Date: 08/17/18 This is a 53-year-old male patient of Jasiel Mark NP with past medical history of hypertension, hyperlipidemia, coronary artery disease, DVT, previous bowel surgeries, multiple orthopedic surgeries following a fall of 4 stories in 1991 including ankles, left knee scopes, right tibial screws and plate subsequently removed, fractured back without surgery. Patient was recently seen at [facility] on July 15 and had 3 cardiac stents placed by Dr. Mansfield. He is also known to have 2 aortic aneurysms as well. Patient states that he has been walking outside 2 miles every day for the past 2 weeks and started cardiac rehab. Sudden onset yesterday of nausea and abdominal pain. He did have a bowel movement in the morning which was formed. He denies any blood in his stools. He usually has a bowel movement every day. He did pass gas yesterday. The patient does have history of previous ileus following umbilical hernia repair and he thought the pain was very similar. Patient came into emergency center for evaluation. Abdominal x-ray revealed early or partial small bowel obstruction. Chest x-ray was negative for acute cardiac pulmonary findings. CBC was within normal limits as well as CMP except for BUN of 24. Troponins negative on 2 draws. Lipase 69. Patient was admitted to the MedSurg floor, NG tube placed to suction, consults with Dr. Miller and cardiology. Consultants of added and CAT scan of the abdomen and pelvis and echocardiogram. 08/11: Patient states he has continued to have vomiting despite NG tube in place. CAT scan of the abdomen and pelvis with contrast reveals high-grade small bowel obstruction with transition point in the lower mid abdomen. Small bowel loops dilated up to 4 cm and mild pelvic free fluid likely reactive. Lobulated soft tissue thickening projecting into the lumen of the gastric fundus measuring 4.4 x 4.1 cm below the level of the GE junction. Mild circumferential wall thickening of the lower esophagus could represent esophagitis. Dr. Nagy is taking the patient for exploratory laparotomy today. Patient has been evaluated by cardiology and cleared for surgery. Proventil to be resumed as soon as possible once cleared by surgical services. Echocardiogram reveals EF of 60-65% with borderline concentric left ventricular hypertrophy, mild mitral regurgitation, mild tricuspid regurgitation, mild pul monary hypertension. Patient has been afebrile, heart rate 81, blood pressure 136/65, pulse ox 96% on room air. Repeat white count 9.0, hemoglobin 12.5, platelet count 205, electrolytic within normal limits, creatinine 0.61. Total bilirubin 1.4 and liver function tests within normal limits. 08/12, patient underwent exploratory laparotomy with lysis of adhesions on 08/11/2018, in relation to small bowel obstruction from jejunum and ileum, patient was seen by cardiology for which the entire has to be resumed as soon as possible secondary to recent stent 07/15/2018, patient's aware off bleeding, occasions related to this, however the stent needs to be protected. We would monitor for bleeding, 08/13: Temperature max 101.6, heart rate running between 106 and 121, blood pressure 134/95, pulse ox 94% on room air. Chest x-ray and urinalysis ordered. Patient is complaining of feeling soreness. He denies passing any gas. NG tube is worked up with coffee-ground return. Wound VAC is in place. He is using incentive spirometry at 2500 ML's every hour. Lopressor has been resumed by cardiology and patient is on Vasotec IV. Patient is having some complaints of chest pain and nitro patch will be ordered. Troponin ordered as well. 08/14 patient examined bedside is doing well today. He continues to have the NG tube. No flatus or bowel movement.labs this morning suggests a hemoglobin of 10 WBC 5.3 patient and no episodes of fever. Continue to be nothing by mouth has he has not passed flatulence 08/15 patient doing well. He did have a brief episode of chest pain this morning and was given nitro tab. NG tube is out as patient is passing blood clot as. Clear liquid diet is initiated. With his present medications Imdur and removed patient's Nitropatch. Vitals are otherwise stable. Patient is ambulating without any difficulty. We'll advance diet slowly 08/16: Patient states that he had 2 very tiny bowel movements yesterday. He denies having any nausea vomiting. He still has some abdominal pain and [place] takes the edge off. He does have some tenderness around the surgical area. Wound VAC remains in place. Repeat lab work reveals WBC 7.8, hemoglobin 11.9. Repeat troponins were negative on August 13 and a BMP 85. IV fluids will be discontinued. Patient is continued on IV Kefzol. 7/9: The patient states that last evening he had dry heaves for about 4 hours and NG tube was replaced on 10 PM. He does have dark brown/black output. He also complains of having a nosebleed due to trauma from the NG tube and use of Brilinta. Patient states last p.m., he did pass gas and had a formed bowel movement. He has been afebrile, heart rate 89, blood pressure 116/74, pulse ox 95% on room air. Dietitian has been consulted for TPN. Objective - Vital Signs Vital signs: Vital Signs Temp 98.3 F 08/17/18 11:35 Pulse 89 08/17/18 11:35 Resp 16 08/17/18 11:35 BP 116/74 08/17/18 11:35 Pulse Ox 95 08/17/18 11:35 Intake & Output 08/16/18 08/17/18 08/17/18 18:59 06:59 18:59 Intake Total 725 Output Total 500 Balance 225 Weight 92.533 kg 85.729 kg Intake: Intake, IV Titration 575 Amount Sodium Chloride 0.9% 1, 525 000 ml @ 75 mls/hr IV . [id number] ML Rx#:[id number] ceFAZolin 1,000 mg In 50 Sodium Chloride 0.9% 50 ml @ 100 mls/hr IVPB Q8HR ML Rx#:[id number] Oral 150 Output: Drainage 300 Abdomen 300 Urine 200 Other: Voiding Method Toilet Toilet Toilet # Voids 5 1 - Exam Review of Systems Constitutional: Reports poor appetite, reports chills, Denies fatigue, reports fever, Denies lethargy, Denies malaise, Denies weakness, Denies weight loss Ears, nose, mouth and throat: Denies dental pain, Denies nasal congestion, Denies nasal discharge, Denies vertigo Cardiovascular: Denies chest pain, Denies decreased exercise tolerance, Denies dyspnea on exertion, Denies edema, Denies irregular heart beat, Denies leg charbel ma, Denies lightheadedness, Denies syncope Respiratory: Denies congestion, Denies cough, Denies cough with sputum, Denies dyspnea, Denies excessive sputum, Denies hemoptysis, Denies home oxygen, Denies respiratory infections, Denies sleep apnea, Denies wheezing Gastrointestinal: Reports abdominal pain, Reports bloating and abdominal distention, Reports constipation, Reports dry heaves, denies nausea, denies vomiting, Denies diarrhea Genitourinary: Denies dysuria, Denies urinary retention Musculoskeletal: Denies frequent falls, Denies gait dysfunction, Denies muscle weakness, Denies myalgias Integumentary: Denies pruritus, Denies rash, Denies wounds Neurological: Denies aphasia, Denies change in mentation, Denies change in speech, Denies confusion, Denies convulsions, Denies gait dysfunction, Denies seizures, Denies syncope Psychiatric: Denies anxiety, Denies depression Endocrine: Denies fatigue, Denies weight change Gen: This is a 53-year-old male. Patient is resting in chair and appears to be comfortable. HEENT: Head is atraumatic, normocephalic. Pupils equal, round. Sclerae is anicteric. NG tube in place. NECK: Supple. No JVD. No lymphadenopathy. No thyromegaly. LUNGS: Clear to auscultation. No wheezes or rhonchi. No intercostal retractions. HEART: Regular rate and rhythm. No murmur. ABDOMEN: Soft. Bowel sounds are faint. No masses. Mild tenderness. EXTREMITIES: No pedal edema. No calf tenderness. Dorsalis pedis +2 bilaterally. NEUROLOGICAL: Patient is awake, alert and oriented x3. Cranial nerves 2 through 12 are grossly intact. - Labs CBC & Chem 7: 08/17/18 13:16 08/17/18 13:16 Labs: Abnormal Lab Results - Last 24 Hours (Table) 08/17/18 08/17/18 08/17/18 Range/Units 13:16 13:16 13:16 RBC 3.31 L (4.30-5.90) m/uL Hgb 10.5 L (13.0-17.5) gm/dL Hct 30.6 L (39.0-53.0) % Creatinine 0.54 L (0.66-1.25) mg/dL Triglycerides 157 H (<150) mg/dL Assessment and Plan Plan: 1. Small bowel obstruction status post exploratory laparotomy with lysis of adhesions 08/11/[address] Miller. Reglan 10 mg IV push every 6 hours started by general surgery. NG tube replaced. Dietitian consult in for TPN/PPN 2. Fevers secondary to pneumonia. Portable chest x-ray, urinalysis added. Patient is doing well with incentive spirometry. Continue Kefzol. 3. History of coronary artery disease with recent stent placement July [address] Leo and [facility]. Cardiology consult appreciated. Echocardiogram as above. Brilinta has been resumed as well as Lopressor increased to 50 mg twice daily. Imdur resumed 4. Hypertension. Continue lisinopril 5 mg daily, Lopressor 50 mg twice daily, Imdur 30 mg daily. Vasotec IV as needed. 5. Hyperlipidemia. Continue Lipitor 80 mg at bedtime. 6. History of previous hiatal hernia repair and umbilical hernia repair along with ileus. 7. Previous traumatic fall with multiple fractures and subsequent surgeries. 8. Memory impairment. Patient is concerned regarding memory loss. Discussed sleep hygiene, use of B12 and recommend neurology workup to be arranged by PCP. 9. DVT prophylaxis. Heparin subcu. 10. GI prophylaxis. Protonix. 11. Severe protein calorie malnutrition. Patient to start TPN/PPN. Discharge plan: Return home Impression and plan of care have been directed as dictated by the signing physician. Lauren Junior nurse practitioner acting as scribe for signing physician.
[2018-08-17] MEDS ORDERED: MVI, ADULT NO.4 WITH VIT K 10 ML, TRACE (CONC-1ML/DOSE) 1 ML in AMINO ACID 4.25%-D10W+L... IV SCH ×3 (16:00)
[2018-08-17] MEDS: INSULIN ASPART (NovoLOG) 100 UNIT/ML VIAL SQ SCH (17:13)
[2018-08-17] MEDS: FAT EMULSION 20% 250 ML IV SCH (17:13)
[2018-08-17 23:47] LABS: Glucose,Whole Blood 110 mg/dL (75-99)
[2018-08-18] MEDS: SIMETHICONE 40 MG/0.6 ML DROPS 2,000 MG/30 ML BOTTLE PO SCH ×5 (00:04→21:21)
[2018-08-18] MEDS: INSULIN ASPART (NovoLOG) 100 UNIT/ML VIAL SQ SCH ×4 (00:05→17:20)
[2018-08-18] MEDS: HYDROcodone/APAP 5-325MG 1 EACH TAB PO PRN ×4 (04:20→21:23)
[2018-08-18 05:54] LABS: Glucose,Whole Blood 106 mg/dL (75-99)
[2018-08-18] MEDS: METOCLOPRAMIDE 5 MG/ML 2 ML VIAL IVP SCH ×4 (05:55→23:43)
[2018-08-18] MEDS: SODIUM CHLORIDE 0.9% 1,000 ML IV SCH (05:56)
[2018-08-18 07:41] LABS: HCT 30.1 % (39.0-53.0); HGB 10.1 gm/dL (13.0-17.5); MCH 30.8 pg (25.0-35.0); MCHC 33.7 g/dL (31.0-37.0); MCV 91.5 fL (80.0-100.0); Mean Platelet Volume 6.7; Platelet Count 322 k/uL (150-450); RBC 3.29 m/uL (4.30-5.90); RDW 12.6 % (11.5-15.5); WBC 5.9 k/uL (3.8-10.6)
[2018-08-18 07:55] LABS: African American GFR (CKD) >90 (>60 ml/min/1.73 sqM); Anion Gap 8 mmol/L; Blood Urea Nitrogen 11 mg/dL (9-20); Calcium 8.7 mg/dL (8.4-10.2); Carbon Dioxide 32 mmol/L (22-30); Chloride 100 mmol/L (98-107); Glucose 107 mg/dL (74-99); Magnesium 2.2 mg/dL (1.6-2.3); Phosphorus 3.8 mg/dL (2.5-4.5); Potassium 3.3 mmol/L (3.5-5.1); Sodium 140 mmol/L (137-145)
[2018-08-18] MEDS: HEPARIN SODIUM,PORCINE 5,000 UNIT/ML 1 ML VIAL SQ SCH ×2 (09:06→21:21)
[2018-08-18] MEDS: PANTOPRAZOLE 40 MG/10 ML VIAL IV SCH ×2 (09:06→21:20)
[2018-08-18] MEDS: LISINOPRIL 5 MG TAB PO SCH (09:06)
[2018-08-18] MEDS: ATORVASTATIN 80 MG TAB PO SCH ×2 (09:06→21:23)
[2018-08-18] MEDS: NITROGLYCERIN 0.1MG/HR PATCH TRANSDERM SCH (09:07)
[2018-08-18] MEDS: ISOSORBIDE MONONITRATE ER 30 MG TAB.ER.24H PO SCH (09:07)
[2018-08-18] MEDS: TICAGRELOR 90 MG TAB PO SCH ×2 (09:07→21:21)
[2018-08-18] MEDS: METOPROLOL TARTRATE 50 MG TAB PO SCH ×2 (09:08→21:20)
[2018-08-18] MEDS ORDERED: Potassium Replacement Protocol 1 EACH MISC MISCELLANE PRN (09:30)
--- NOTE | 2018-08-18 09:31 | P.PN ---
Subjective Progress Note Date: 08/18/18 CHIEF COMPLAINT: Abdominal pain HISTORY OF PRESENT ILLNESS: Patient is s/p exploratory laparotomy with lysis of adhesions secondary to bowel obstruction. NG remains intact with bilious drainage. Patient reports passing small amount of flatus. Denies BM. Reports pain is tolerable. WBC 5.9. Hemoglobin 10.1. Vital signs stable. Afebrile. PHYSICAL EXAM: VITAL SIGNS: Currently stable. GENERAL: Well-developed in no acute distress. HEENT: NG to LIS with bilious drainage. No sclera icterus. Extraocular movements grossly intact. Moist buccal mucosa. Head is atraumatic, normocephalic. Hears conversational speech. No nasal drainage. NECK: Supple without lymphadenopathy. CHEST: Non-labored respirations and equal bilateral excursions. CARDIOVASCULAR: Regular rate with regular rhythm. Palpable 2+ radial pulses. ABDOMEN: Soft. Mildly distended. Hypoactive bowel sounds. PREVENA intact to incision. MUSCULOSKELETAL: No clubbing, cyanosis or edema. NEUROLOGIC: No focal or lateralizing signs. Cranial nerves II through XII grossly intact. PSYCH: Appropriate affect. Alert and oriented to person, place and time. SKIN: Well perfused. Good skin turgor. ASSESSMENT: 1. Abdominal pain 2. Small bowel obstruction 3. History of coronary artery disease with recent stent placement 4. Previous hiatal hernia repair and umbilical hernia repair 5. Gastritis 6. Acute myocardial infarction, ruled out 7. Ileus 8. Hypokalemia PLAN: 1. NPO except ice chips and Popsicles 2. Continue Reglan 3. Continue NG tube to LIS 4. Continue TPN 5. Pain control 6. Incentive spirometry 7. Activity as tolerated 8. Optifoam dressing ordered. Will DC Prevena today 9. Replace potassium Nurse practitioner note has been reviewed by physician. Signing provider agrees with the documented findings, assessment, and plan of care. Objective - Vital Signs Vital signs: Vital Signs Temp 98.6 F 08/18/18 05:00 Pulse 75 08/18/18 05:00 Resp 18 08/18/18 05:00 BP 152/93 08/18/18 05:00 Pulse Ox 94 L 08/18/18 05:00 Intake & Output 08/17/18 08/18/18 08/18/18 18:59 06:59 18:59 Intake Total 1020 Output Total 450 250 Balance -450 770 Weight 85.729 kg 85 kg Intake: Intake, IV Titration 930 Amount Mvi, Adult No.4 with Vit 600 K 10 ml Trace (Conc-1Ml/ Dose) 1 ml In Amino Acid 4.25%-D10w+Lytes*E* 1,000 ml @ 50 mls/hr IV . [id number] ML Rx#:[id number] Sodium Chloride 0.9% 1, 280 000 ml @ 75 mls/hr IV . [id number] ML Rx#:[id number] ceFAZolin 1,000 mg In 50 Sodium Chloride 0.9% 50 ml @ 100 mls/hr IVPB Q8HR ML Rx#:[id number] Oral 90 Output: Gastric Drainage 450 250 Other: Voiding Method Toilet Toilet # Voids 1 # Bowel Movements 1 - Labs CBC & Chem 7: 08/18/18 07:10 08/18/18 07:10 Labs: Abnormal Lab Results - Last 24 Hours (Table) 08/17/18 08/17/18 08/17/18 Range/Units 13:16 13:16 13:16 RBC 3.31 L (4.30-5.90) m/uL Hgb 10.5 L (13.0-17.5) gm/dL Hct 30.6 L (39.0-53.0) % Potassium (3.5-5.1) mmol/L Carbon Dioxide (22-30) mmol/L Creatinine 0.54 L (0.66-1.25) mg/dL Glucose (74-99) mg/dL POC Glucose (mg/dL) (75-99) mg/dL Triglycerides 157 H (<150) mg/dL 08/17/18 08/18/18 08/18/18 Range/Units 23:46 05:41 07:10 RBC 3.29 L (4.30-5.90) m/uL Hgb 10.1 L (13.0-17.5) gm/dL Hct 30.1 L (39.0-53.0) % Potassium (3.5-5.1) mmol/L Carbon Dioxide (22-30) mmol/L Creatinine (0.66-1.25) mg/dL Glucose (74-99) mg/dL POC Glucose (mg/dL) 110 H 106 H (75-99) mg/dL Triglycerides (<150) mg/dL 08/18/18 Range/Units 07:10 RBC (4.30-5.90) m/uL Hgb (13.0-17.5) gm/dL Hct (39.0-53.0) % Potassium 3.3 L (3.5-5.1) mmol/L Carbon Dioxide 32 H (22-30) mmol/L Creatinine 0.56 L (0.66-1.25) mg/dL Glucose 107 H (74-99) mg/dL POC Glucose (mg/dL) (75-99) mg/dL Triglycerides (<150) mg/dL Assessment and Plan (1) History of ischemic heart disease Current Visit: Yes Status: Acute Code(s): Z86.79 - PERSONAL HISTORY OF OTHER DISEASES OF THE CIRCULATORY SYSTEM SNOMED Code(s): 730700873 (2) SBO (small bowel obstruction) Current Visit: Yes Status: Acute Code(s): K56.609 - UNSP INTESTNL OBST, UNSP TO PARTIAL VERSUS COMPLETE OBST SNOMED Code(s): 310724327 (3) Abdominal pain Current Visit: No Status: Acute Code(s): R10.9 - UNSPECIFIED ABDOMINAL PAIN SNOMED Code(s): 63379888
[2018-08-18 11:16] LABS: Glucose,Whole Blood 99 mg/dL (75-99)
--- NOTE | 2018-08-18 12:38 | P.PN ---
Subjective Progress Note Date: 08/18/18 This is a 53-year-old gentleman with history of ischemic heart disease who had a stent placement done in July in [place], was admitted to the hospital with complaints of a down pain and was found to have small bowel obstruction. Patient underwent surgical procedure yesterday to free of obstruction. Patient seemed to be clinically stable. He patient is slightly tachycardic and blood pressures running high in the range of 150/80. Complaints of a vague chest discomfort which seemed to moderate superficial and associated with some tenderness. The pain is different than the discomfort he had before the stent placement. Apparently patient is not going to get better length that today. I'm going to put him on IV Lopressor 2.5 mg every 6-8 hours. Rest of the medication to be continued. We'll monitor him closely. 08/14/2018: Patient is feeling better. He is put on Brillinta. So far. Patient is tolerating well. No complaints of any chest pain or shortness of breath. Still has NG tube. Maintaining sinus rhythm. Patient is on her also on IV Lopressor. We'llswitch to by mouth Lopressor. 08/15/2018: Patient NG tube is taken out. Patient is passing flatus. Does complain of some chest pain across the chest. Doesn't appear to be in acute distress. Rates this pain as a 5 on a scale of 1-10. Patient seemed to be under stress because his daughter is at [facility] emergency room. We'll going to give her sublingual nitro and also nitro paste. We will going to get an EKG. I'm also going to increase the dose of the Lopressor. Further examination depend upon the findings and clinical course. 08/17/2018. Patient unfortunately was having nausea and retching yesterday with abdominal discomfort. NG tube has frequent back. Feeling better since NG tube is put back. Had some problem with nasal bleeding. No complex of chest pain. Vital signs are otherwise stable. Lungs are clear. We'll continue current medical therapy. Patient is back on his beta blockers. 08/18/2018: Patient is still has NG tube. However is feeling better. She passing some flatness. No complaints of chest pain or shortness of breath. Vital signs are stable. His heart rate is better controlled. Lungs are clear. Heart is regular. Will stay in the current medical therapy. Objective - Vital Signs Vital signs: Vital Signs Temp 98.2 F 08/18/18 12:26 Pulse 71 08/18/18 12:26 Resp 16 08/18/18 12:26 BP 128/80 08/18/18 12:26 Pulse Ox 96 08/18/18 12:26 Intake & Output 08/17/18 08/18/18 08/18/18 18:59 06:59 18:59 Intake Total 1020 Output Total 450 250 Balance -450 770 Weight 85.729 kg 85 kg Intake: Intake, IV Titration 930 Amount Mvi, Adult No.4 with Vit 600 K 10 ml Trace (Conc-1Ml/ Dose) 1 ml In Amino Acid 4.25%-D10w+Lytes*E* 1,000 ml @ 50 mls/hr IV . [id number] [facility] Rx#:[id number] Sodium Chloride 0.9% 1, 280 000 ml @ 75 mls/hr IV . [id number] ML Rx#:[id number] ceFAZolin 1,000 mg In 50 Sodium Chloride 0.9% 50 ml @ 100 mls/hr IVPB Q8HR ML Rx#:[id number] Oral 90 Output: Gastric Drainage 450 250 Other: Voiding Method Toilet Toilet # Voids 1 # Bowel Movements 1 - Exam GENERAL EXAM: Patient is alert and oriented and doesn't appear to be in any acute distress HEENT: Normocephalic. Normal reaction of pupils, equal size, normal range of extraocular motion. No erythema or exudates in the throat. NECK: No masses, no nuchal rigidity. CHEST: No chest wall deformity. LUNGS: Equal air entry with no crackles or wheeze. HEART: S1 and S2 normal with no audible mumurs or gallops. Regular rhythm, femorals equal on both sides.. ABDOMEN: Postsurgical. SKIN: No rashes CENTRAL NERVOUS SYSTEM: No focal deficits. EXTREMITIES: No cyanosis, clubbing or edema. A normal physical exam - Labs CBC & Chem 7: 08/18/18 07:10 08/18/18 07:10 Labs: Abnormal Lab Results - Last 24 Hours (Table) 08/17/18 08/17/18 08/17/18 Range/Units 13:16 13:16 13:16 RBC 3.31 L (4.30-5.90) m/uL Hgb 10.5 L (13.0-17.5) gm/dL Hct 30.6 L (39.0-53.0) % Potassium (3.5-5.1) mmol/L Carbon Dioxide (22-30) mmol/L Creatinine 0.54 L (0.66-1.25) mg/dL Glucose (74-99) mg/dL POC Glucose (mg/dL) (75-99) mg/dL Triglycerides 157 H (<150) mg/dL 08/17/18 08/18/18 08/18/18 Range/Units 23:46 05:41 07:10 RBC 3.29 L (4.30-5.90) m/uL Hgb 10.1 L (13.0-17.5) gm/dL Hct 30.1 L (39.0-53.0) % Potassium (3.5-5.1) mmol/L Carbon Dioxide (22-30) mmol/L Creatinine (0.66-1.25) mg/dL Glucose (74-99) mg/dL POC Glucose (mg/dL) 110 H 106 H (75-99) mg/dL Triglycerides (<150) mg/dL 08/18/18 Range/Units 07:10 RBC (4.30-5.90) m/uL Hgb (13.0-17.5) gm/dL Hct (39.0-53.0) % Potassium 3.3 L (3.5-5.1) mmol/L Carbon Dioxide 32 H (22-30) mmol/L Creatinine 0.56 L (0.66-1.25) mg/dL Glucose 107 H (74-99) mg/dL POC Glucose (mg/dL) (75-99) mg/dL Triglycerides (<150) mg/dL Assessment and Plan (1) History of ischemic heart disease Current Visit: Yes Status: Acute Code(s): Z86.79 - PERSONAL HISTORY OF OTHER DISEASES OF THE CIRCULATORY SYSTEM SNOMED Code(s): 709780618 (2) SBO (small bowel obstruction) Current Visit: Yes Status: Acute Code(s): K56.609 - UNSP INTESTNL OBST, UNSP TO PARTIAL VERSUS COMPLETE OBST SNOMED Code(s): 081706003 (3) Hypertension Current Visit: Yes Status: Acute Code(s): I10 - ESSENTIAL (PRIMARY) HYP ERTENSION SNOMED Code(s): 60736793 Plan: From a cardiac standpoint, patient is stable. Tolerating medications. Heart rate is better controlled. Will stay on the current medical therapy. We'll follow
[2018-08-18] MEDS: 1: MVI, ADULT NO.4 WITH VIT K 10 ML, TRACE (CONC-1ML/DOSE) 1 ML in AMINO ACID 4.25%-D10W IV SCH ×3 (13:03)
[2018-08-18] MEDS: POTASSIUM CHLORIDE 10 MEQ in WATER FOR INJECTION 1 100ML.BAG IVPB SCH ×3 (13:04→18:00)
--- NOTE | 2018-08-18 13:08 | P.PN ---
Subjective Progress Note Date: 08/18/18 This is a 53-year-old male patient of Jasiel Mark NP with past medical history of hypertension, hyperlipidemia, coronary artery disease, DVT, previous bowel surgeries, multiple orthopedic surgeries following a fall of 4 stories in 1991 including ankles, left knee scopes, right tibial screws and plate subsequently removed, fractured back without surgery. Patient was recently seen at [facility] on July 15 and had 3 cardiac stents placed by Dr. Mansfield. He is also known to have 2 aortic aneurysms as well. Patient states that he has been walking outside 2 miles every day for the past 2 weeks and started cardiac rehab. Sudden onset yesterday of nausea and abdominal pain. He did have a bowel movement in the morning which was formed. He denies any blood in his stools. He usually has a bowel movement every day. He did pass gas yesterday. The patient does have history of previous ileus following umbilical hernia repair and he thought the pain was very similar. Patient came into [facility] emergency center for evaluation. Abdominal x-ray revealed early or partial small bowel obstruction. Chest x-ray was negative for acute cardiac pulmonary findings. CBC was within normal limits as well as CMP except for BUN of 24. Troponins negative on 2 draws. Lipase 69. Patient was admitted to the MedSurg floor, NG tube placed to suction, consults with Dr. Miller and cardiology. Consultants of added and CAT scan of the abdomen and pelvis and echocardiogram. 08/11: Patient states he has continued to have vomiting despite NG tube in place. CAT scan of the abdomen and pelvis with contrast reveals high-grade small bowel obstruction with transition point in the lower mid abdomen. Small bowel loops dilated up to 4 cm and mild pelvic free fluid likely reactive. Lobulated soft tissue thickening projecting into the lumen of the gastric fundus measuring 4.4 x 4.1 cm below the level of the GE junction. Mild circumferential wall thickening of the lower esophagus could represent esophagitis. Dr. Nagy is taking the patient for exploratory laparotomy today. Patient has been evaluated by cardiology and cleared for surgery. Proventil to be resumed as soon as possible once cleared by surgical services. Echocardiogram reveals EF of 60-65% with borderline concentric left ventricular hypertrophy, mild mitral regurgitation, mild tricuspid regurgitation, mild pul monary hypertension. Patient has been afebrile, heart rate 81, blood pressure 136/65, pulse ox 96% on room air. Repeat white count 9.0, hemoglobin 12.5, platelet count 205, electrolytic within normal limits, creatinine 0.61. Total bilirubin 1.4 and liver function tests within normal limits. 08/12, patient underwent exploratory laparotomy with lysis of adhesions on 08/11/2018, in relation to small bowel obstruction from jejunum and ileum, patient was seen by cardiology for which the entire has to be resumed as soon as possible secondary to recent stent 07/15/2018, patient's aware off bleeding, occasions related to this, however the stent needs to be protected. We would monitor for bleeding, 08/13: Temperature max 101.6, heart rate running between 106 and 121, blood pressure 134/95, pulse ox 94% on room air. Chest x-ray and urinalysis ordered. Patient is complaining of feeling soreness. He denies passing any gas. NG tube is worked up with coffee-ground return. Wound VAC is in place. He is using incentive spirometry at 2500 ML's every hour. Lopressor has been resumed by cardiology and patient is on Vasotec IV. Patient is having some complaints of chest pain and nitro patch will be ordered. Troponin ordered as well. 08/14 patient examined bedside is doing well today. He continues to have the NG tube. No flatus or bowel movement.labs this morning suggests a hemoglobin of 10 WBC 5.3 patient and no episodes of fever. Continue to be nothing by mouth has he has not passed flatulence 08/15 patient doing well. He did have a brief episode of chest pain this morning and was given nitro tab. NG tube is out as patient is passing blood clot as. Clear liquid diet is initiated. With his present medications Imdur and removed patient's Nitropatch. Vitals are otherwise stable. Patient is ambulating without any difficulty. We'll advance diet slowly 08/16: Patient states that he had 2 very tiny bowel movements yesterday. He denies having any nausea vomiting. He still has some abdominal pain and [place] takes the edge off. He does have some tenderness around the surgical area. Wound VAC remains in place. Repeat lab work reveals WBC 7.8, hemoglobin 11.9. Repeat troponins were negative on August 13 and a BMP 85. IV fluids will be discontinued. Patient is continued on IV Kefzol. 7/9: The patient states that last evening he had dry heaves for about 4 hours and NG tube was replaced on 10 PM. He does have dark brown/black output. He also complains of having a nosebleed due to trauma from the NG tube and use of Brilinta. Patient states last p.m., he did pass gas and had a formed bowel movement. He has been afebrile, heart rate 89, blood pressure 116/74, pulse ox 95% on room air. Dietitian has been consulted for TPN. 08/18 patient continues to be nothing by mouth. He stated his passing platters. He denies any chest pain, shortness of breath, abdominal pain. Blood pressure this morning suggests a blood pressure 152/92, repeat blood pressure 128/80 continue lisinopril and Imdur. And metoprolol 50 twice a day. Heart rate is controlled. ROS Constitutional: Reports poor appetite, reports chills, Denies fatigue, reports fever, Denies lethargy, Denies malaise, Denies weakness, Denies weight loss Ears, nose, mouth and throat: Denies dental pain, Denies nasal congestion, Denies nasal discharge, Denies vertigo Cardiovascular: Denies chest pain, Denies decreased exercise tolerance, Denies dyspnea on exertion, Denies edema, Denies irregular heart beat, Denies leg edema , Denies lightheadedness, Denies syncope Respiratory: Denies congestion, Denies cough, Denies cough with sputum, Denies dyspnea, Denies excessive sputum, Denies hemoptysis, Denies home oxygen, Denies respiratory infections, Denies sleep apnea, Denies wheezing Gastrointestinal: Reports abdominal pain, Reports bloating, Reports constipation, Reports loss of appetite, Reports nausea, reports vomiting, Denies diarrhea Genitourinary: Denies dysuria, Denies urinary retention Musculoskeletal: Denies frequent falls, Denies gait dysfunction, Denies muscle weakness, Denies myalgias Integumentary: Denies pruritus, Denies rash, Denies wounds Neurological: Denies aphasia, Denies change in mentation, Denies change in speech, Denies confusion, Denies convulsions, Denies gait dysfunction, Denies seizures, Denies syncope Psychiatric: Denies anxiety, Denies depression Endocrine: Denies fatigue, Denies weight change Objective - Vital Signs Vital signs: Vital Signs Temp 98.2 F 08/18/18 12:26 Pulse 71 08/18/18 12:26 Resp 16 08/18/18 12:26 BP 128/80 08/18/18 12:26 Pulse Ox 96 08/18/18 12:26 Intake & Output 08/17/18 08/18/18 08/18/18 18:59 06:59 18:59 Intake Total 1020 Output Total 450 250 Balance -450 770 Weight 85.729 kg 85 kg Intake: Intake, IV Titration 930 Amount Mvi, Adult No.4 with Vit 600 K 10 ml Trace (Conc-1Ml/ Dose) 1 ml In Amino Acid 4.25%-D10w+Lytes*E* 1,000 ml @ 50 mls/hr IV . [id number] ML Rx#:[id number] Sodium Chloride 0.9% 1, 280 000 ml @ 75 mls/hr IV . [id number] ML Rx#:[id number] ceFAZolin 1,000 mg In 50 Sodium Chloride 0.9% 50 ml @ 100 mls/hr IVPB Q8HR ML Rx#:[id number] Oral 90 Output: Gastric Drainage 450 250 Other: Voiding Method Toilet Toilet # Voids 1 # Bowel Movements 1 - Exam Gen: This is a 53-year-old male. Patient is resting in chair and appears to be comfortable. HEENT: Head is atraumatic, normocephalic. Pupils equal, round. Sclerae is anicteric. NECK: Supple. No JVD. No lymphadenopathy. No thyromegaly. LUNGS: Clear to auscultation. No wheezes or rhonchi. No intercostal retractions. HEART: Regular rate and rhythm. No murmur. ABDOMEN: Soft. Bowel sounds are faint. No masses. Wound VAC in place to the mid abdominal wound. EXTREMITIES: No pedal edema. No calf tenderness. Dorsalis pedis +2 bilaterally. NEUROLOGICAL: Patient is awake, alert and oriented x3. Cranial nerves 2 through 12 are grossly intact. - Labs CBC & Chem 7: 08/18/18 07:10 08/18/18 07:10 Labs: Abnormal Lab Results - Last 24 Hours (Table) 08/17/18 08/17/18 08/17/18 Range/Units 13:16 13:16 13:16 RBC 3.31 L (4.30-5.90) m/uL Hgb 10.5 L (13.0-17.5) gm/dL Hct 30.6 L (39.0-53.0) % Potassium (3.5-5.1) mmol/L Carbon Dioxide (22-30) mmol/L Creatinine 0.54 L (0.66-1.25) mg/dL Glucose (74-99) mg/dL POC Glucose (mg/dL) (75-99) mg/dL Triglycerides 157 H (<150) mg/dL 08/17/18 08/18/18 08/18/18 Range/Units 23:46 05:41 07:10 RBC 3.29 L (4.30-5.90) m/uL Hgb 10.1 L (13.0-17.5) gm/dL Hct 30.1 L (39.0-53.0) % Potassium (3.5-5.1) mmol/L Carbon Dioxide (22-30) mmol/L Creatinine (0.66-1.25) mg/dL Glucose (74-99) mg/dL POC Glucose (mg/dL) 110 H 106 H (75-99) mg/dL Triglycerides (<150) mg/dL 08/18/18 Range/Units 07:10 RBC (4.30-5.90) m/uL Hgb (13.0-17.5) gm/dL Hct (39.0-53.0) % Potassium 3.3 L (3.5-5.1) mmol/L Carbon Dioxide 32 H (22-30) mmol/L Creatinine 0.56 L (0.66-1.25) mg/dL Glucose 107 H (74-99) mg/dL POC Glucose (mg/dL) (75-99) mg/dL Triglycerides (<150) mg/dL Assessment and Plan Plan: 1. Small bowel obstruction status post exploratory laparotomy with lysis of adhesions 08/11/[address] Miller nothing by mouth. TPN initiated 2. Fevers. Portable chest x-raywith focal patchy opacification and right base concerning for pneumonia, urinalysis is negative Patient is doing well with incentive spirometry. Continue Kefzol. 2. History of coronary artery disease with recent stent placement July [address] Leo and [facility]. Cardiology consult appreciated. Echocardiogram as above. Continue the Lamictal, Lopressor, Imdur and lisinopril 3. Hypertension. Patient is normally on lisinopril 5 mg daily, Toprol-XL 25 mg daily, Imdur 30 mg daily. Vasotec IV as needed. 4. Hyperlipidemia. Lipitor was initiated 5. History of previous hiatal hernia repair and umbilical hernia repair along with ileus. 6. Previous traumatic fall with multiple fractures and subsequent surgeries. 7. Memory impairment. Patient is concerned regarding memory loss. Discussed sleep hygiene, use of B12 and recommend neurology workup to be arranged by PCP 8. DVT prophylaxis. Heparin subcu. 9. GI prophylaxis. Protonix. 10.Pituitarytumor continue caberline 11 hypokalemia status post repletion Discharge plan: Return home
[2018-08-18] MEDS: FAT EMULSION 20% 250 ML IV SCH (16:17)
[2018-08-18 17:16] LABS: Glucose,Whole Blood 105 mg/dL (75-99)
[2018-08-19] MEDS: 1: MVI, ADULT NO.4 WITH VIT K 10 ML, TRACE (CONC-1ML/DOSE) 1 ML in AMINO ACID 4.25%-D10W IV SCH ×6 (00:09→12:47)
[2018-08-19 00:19] LABS: Glucose,Whole Blood 125 mg/dL (75-99)
[2018-08-19] MEDS: INSULIN ASPART (NovoLOG) 100 UNIT/ML VIAL SQ SCH ×4 (00:44→17:36)
[2018-08-19] MEDS: SODIUM CHLORIDE 0.9% 1,000 ML IV SCH ×2 (04:09→12:48)
[2018-08-19] MEDS: HYDROcodone/APAP 5-325MG 1 EACH TAB PO PRN ×5 (04:25→22:19)
[2018-08-19] MEDS: METOCLOPRAMIDE 5 MG/ML 2 ML VIAL IVP SCH ×3 (06:18→17:41)
[2018-08-19 06:41] LABS: Glucose,Whole Blood 129 mg/dL (75-99)
[2018-08-19 08:01] LABS: ALT 93 U/L (21-72); AST 100 U/L (17-59); African American GFR (CKD) >90 (>60 ml/min/1.73 sqM); Albumin 3.8 g/dL (3.5-5.0); Alkaline Phosphatase 54 U/L (38-126); Anion Gap 10 mmol/L; Blood Urea Nitrogen 12 mg/dL (9-20); Carbon Dioxide 28 mmol/L (22-30); Chloride 102 mmol/L (98-107); Glucose 127 mg/dL (74-99); Magnesium 2.2 mg/dL (1.6-2.3); Phosphorus 4.1 mg/dL (2.5-4.5); Potassium 3.2 mmol/L (3.5-5.1); Sodium 140 mmol/L (137-145); Total Bilirubin 0.5 mg/dL (0.2-1.3); Total Protein 6.1 g/dL (6.3-8.2)
[2018-08-19] MEDS: METOPROLOL TARTRATE 50 MG TAB PO SCH ×2 (08:27→20:52)
[2018-08-19] MEDS: ATORVASTATIN 80 MG TAB PO SCH ×2 (08:27→20:52)
[2018-08-19] MEDS: TICAGRELOR 90 MG TAB PO SCH ×2 (08:27→20:53)
[2018-08-19] MEDS: PANTOPRAZOLE 40 MG/10 ML VIAL IV SCH ×2 (08:27→20:52)
[2018-08-19] MEDS: NITROGLYCERIN 0.1MG/HR PATCH TRANSDERM SCH (08:27)
[2018-08-19] MEDS: HEPARIN SODIUM,PORCINE 5,000 UNIT/ML 1 ML VIAL SQ SCH ×2 (08:27→20:52)
[2018-08-19] MEDS: LISINOPRIL 5 MG TAB PO SCH (08:27)
[2018-08-19] MEDS: SIMETHICONE 40 MG/0.6 ML DROPS 2,000 MG/30 ML BOTTLE PO SCH ×4 (08:27→22:20)
[2018-08-19] MEDS: ISOSORBIDE MONONITRATE ER 30 MG TAB.ER.24H PO SCH (08:27)
[2018-08-19] MEDS ORDERED: LISINOPRIL 10 MG TAB PO SCH (09:00)
[2018-08-19] MEDS ORDERED: Potassium Replacement Protocol 1 EACH MISC MISCELLANE PRN (10:29)
[2018-08-19] MEDS: POTASSIUM CHLORIDE ER 20 MEQ TAB.ER PO SCH ×2 (10:38→12:49)
[2018-08-19 11:24] LABS: Glucose,Whole Blood 146 mg/dL (75-99)
--- NOTE | 2018-08-19 11:27 | P.PN ---
Subjective Progress Note Date: 08/19/18 CHIEF COMPLAINT: Abdominal pain HISTORY OF PRESENT ILLNESS: Patient is s/p exploratory laparotomy with lysis of adhesions secondary to bowel obstruction. NG remains intact with bilious drainage. Patient reports passing flatus and having a moderate sized bowel mo vement yesterday. Tolerating ice chips and popsicles. Patient is hestitant to have NG tube removed because he is afraid he will need to have it reinserted. Midline IV went back yesterday and was removed. Patient has new PIV inserted. His potassium was low yesterday-unable to tolerate IV supplementation. K this morning is 3.2. Patient did receive 40meq this AM per NG. PHYSICAL EXAM: VITAL SIGNS: Currently stable. GENERAL: Well-developed in no acute distress. HEENT: NG to LIS with bilious drainage. No sclera icterus. Extraocular movements grossly intact. Moist buccal mucosa. Head is atraumatic, normocephalic. Hears conversational speech. No nasal drainage. NECK: Supple without lymphadenopathy. CHEST: Non-labored respirations and equal bilateral excursions. CARDIOVASCULAR: Regular rate with regular rhythm. Palpable 2+ radial pulses. ABDOMEN: Soft. Nondistended. Positive bowel sounds. Optifoam dressing to midline incision. MUSCULOSKELETAL: No clubbing, cyanosis or edema. NEUROLOGIC: No focal or lateralizing signs. Cranial nerves II through XII grossly intact. PSYCH: Appropriate affect. Alert and oriented to person, place and time. SKIN: Well perfused. Good skin turgor. ASSESSMENT: 1. Abdominal pain 2. Small bowel obstruction 3. History of coronary artery disease with recent stent placement 4. Previous hiatal hernia repair and umbilical hernia repair 5. Gastritis 6. Acute myocardial infarction, ruled out 7. Ileus 8. Hypokalemia, secondary to NG tube PLAN: Patients ileus appears to be resolving. However, patient is very hestitant to have NG removed because he is afraid he will need it re-inserted as this has happened once already since surgery. Begin clear liquid diet. Clamp NG tube. If patient begins to experience increased abdominal pain, abdominal distention, nausea or vomiting place NG back to suction. Continue IV fluids. Will add 20meq of potassium to IV fluids. Patient already received 40meq this morning via NG. anticipate resolution hypokalemia with NG tube clamped and subsequent removal. Continue Reglan. Continue PPN. If patient unable to tolerate clear liquid diet, will order new midline IV to be inserted but will wait at this time to see how patient tolerates. continue incentive spirometry. Activity as tolerated. Patient encouraged to ambulate in the hallway. Nurse practitioner note has been reviewed by physician. Signing provider agrees with the documented findings, assessment, and plan of care. Objective - Vital Signs Vital signs: Vital Signs Temp 98.2 F 08/19/18 05:00 Pulse 107 H 08/19/18 05:00 Resp 16 08/19/18 05:00 BP 133/79 08/19/18 05:00 Pulse Ox 97 08/19/18 05:00 Intake & Output 08/18/18 08/19/18 08/19/18 18:59 06:59 18:59 Intake Total 870 Output Total 500 Balance 870 -500 Weight 85 kg Intake: Intake, IV Titration 870 Amount Amino Acid 4.25%-D10w+ 270 Lytes*E* 1,000 ml @ 90 mls/hr IV .BY DURATION ML Rx#:[id number] Sodium Chloride 0.9% 1, 600 000 ml @ 75 mls/hr IV . [id number] LM Rx#:[id number] Output: Gastric Drainage 300 Urine 200 Other: Voiding Method Toilet # Voids 2 - Labs CBC & Chem 7: 08/18/18 07:10 08/19/18 07:02 Labs: Abnormal Lab Results - Last 24 Hours (Table) 08/18/18 08/19/18 08/19/18 Range/Units 17:15 00:18 06:39 Potassium (3.5-5.1) mmol/L Creatinine (0.66-1.25) mg/dL Glucose (74-99) mg/dL POC Glucose (mg/dL) 105 H 125 H 129 H (75-99) mg/dL AST (17-59) U/L ALT (21-72) U/L Total Protein (6.3-8.2) g/dL 08/19/18 Range/Units 07:02 Potassium 3.2 L (3.5-5.1) mmol/L Creatinine 0.54 L (0.66-1.25) mg/dL Glucose 127 H (74-99) mg/dL POC Glucose (mg/dL) (75-99) mg/dL AST 100 H (17-59) U/L ALT 93 H (21-72) U/L Total Protein 6.1 L (6.3-8.2) g/dL Assessment and Plan (1) History of ischemic heart disease Current Visit: Yes Status: Acute Code(s): Z86.79 - PERSONAL HISTORY OF OTHER DISEASES OF THE CIRCULATORY SYSTEM SNOMED Code(s): 533043073 (2) SBO (small bowel obstruction) Current Visit: Yes Status: Acute Code(s): K56.609 - UNSP INTESTNL OBST, UNSP TO PARTIAL VERSUS COMPLETE OBST SNOMED Code(s): 797317903 (3) Abdominal pain Current Visit: No Status: Acute Code(s): R10.9 - UNSPECIFIED ABDOMINAL PAIN SNOMED Code(s): 43193876
[2018-08-19] MEDS ORDERED: SODIUM CHLORIDE 0.9% 1,000 ML with POTASSIUM CHLORIDE 20 MEQ IV SCH ×2 (11:30)
[2018-08-19] MEDS: 0.9% NACL WITH KCL 20 MEQ/L 1,000 ML IV SCH (12:47)
[2018-08-19] MEDS ORDERED: BENZOCAINE/MENTHOL LOZENG 1 EACH LOZENGE MUCOUS MEM PRN (13:43)
--- NOTE | 2018-08-19 15:51 | P.PN ---
Subjective Progress Note Date: 08/19/18 This is a 53-year-old male patient of Jasiel Mark NP with past medical history of hypertension, hyperlipidemia, coronary artery disease, DVT, previous bowel surgeries, multiple orthopedic surgeries following a fall of 4 stories in 1991 including ankles, left knee scopes, right tibial screws and plate subsequently removed, fractured back without surgery. Patient was recently seen at [facility] on July 15 and had 3 cardiac stents placed by Dr. Mansfield. He is also known to have 2 aortic aneurysms as well. Patient states that he has been walking outside 2 miles every day for the past 2 weeks and started cardiac rehab. Sudden onset yesterday of nausea and abdominal pain. He did have a bowel movement in the morning which was formed. He denies any blood in his stools. He usually has a bowel movement every day. He did pass gas yesterday. The patient does have history of previous ileus following umbilical hernia repair and he thought the pain was very similar. Patient came into [facility] emergency center for evaluation. Abdominal x-ray revealed early or partial small bowel obstruction. Chest x-ray was negative for acute cardiac pulmonary findings. CBC was within normal limits as well as CMP except for BUN of 24. Troponins negative on 2 draws. Lipase 69. Patient was admitted to the MedSurg floor, NG tube placed to suction, consults with Dr. Miller and cardiology. Consultants of added and CAT scan of the abdomen and pelvis and echocardiogram. 08/11: Patient states he has continued to have vomiting despite NG tube in place. CAT scan of the abdomen and pelvis with contrast reveals high-grade small bowel obstruction with transition point in the lower mid abdomen. Small bowel loops dilated up to 4 cm and mild pelvic free fluid likely reactive. Lobulated soft tissue thickening projecting into the lumen of the gastric fundus measuring 4.4 x 4.1 cm below the level of the GE junction. Mild circumferential wall thickening of the lower esophagus could represent esophagitis. Dr. Nagy is taking the patient for exploratory laparotomy today. Patient has been evaluated by cardiology and cleared for surgery. Proventil to be resumed as soon as possible once cleared by surgical services. Echocardiogram reveals EF of 60-65% with borderline concentric left ventricular hypertrophy, mild mitral regurgitation, mild tricuspid regurgitation, mild pul monary hypertension. Patient has been afebrile, heart rate 81, blood pressure 136/65, pulse ox 96% on room air. Repeat white count 9.0, hemoglobin 12.5, platelet count 205, electrolytic within normal limits, creatinine 0.61. Total bilirubin 1.4 and liver function tests within normal limits. 08/12, patient underwent exploratory laparotomy with lysis of adhesions on 08/11/2018, in relation to small bowel obstruction from jejunum and ileum, patient was seen by cardiology for which the entire has to be resumed as soon as possible secondary to recent stent 07/15/2018, patient's aware off bleeding, occasions related to this, however the stent needs to be protected. We would monitor for bleeding, 08/13: Temperature max 101.6, heart rate running between 106 and 121, blood pressure 134/95, pulse ox 94% on room air. Chest x-ray and urinalysis ordered. Patient is complaining of feeling soreness. He denies passing any gas. NG tube is worked up with coffee-ground return. Wound VAC is in place. He is using incentive spirometry at 2500 ML's every hour. Lopressor has been resumed by cardiology and patient is on Vasotec IV. Patient is having some complaints of chest pain and nitro patch will be ordered. Troponin ordered as well. 08/14 patient examined bedside is doing well today. He continues to have the NG tube. No flatus or bowel movement.labs this morning suggests a hemoglobin of 10 WBC 5.3 patient and no episodes of fever. Continue to be nothing by mouth has he has not passed flatulence 08/15 patient doing well. He did have a brief episode of chest pain this morning and was given nitro tab. NG tube is out as patient is passing blood clot as. Clear liquid diet is initiated. With his present medications Imdur and removed patient's Nitropatch. Vitals are otherwise stable. Patient is ambulating without any difficulty. We'll advance diet slowly 08/16: Patient states that he had 2 very tiny bowel movements yesterday. He denies having any nausea vomiting. He still has some abdominal pain and Vida takes the edge off. He does have some tenderness around the surgical area. Wound VAC remains in place. Repeat lab work reveals WBC 7.8, hemoglobin 11.9. Repeat troponins were negative on August 13 and a BMP 85. IV fluids will be discontinued. Patient is continued on IV Kefzol. 7/9: The patient states that last evening he had dry heaves for about 4 hours and NG tube was replaced on 10 PM. He does have dark brown/black output. He also complains of having a nosebleed due to trauma from the NG tube and use of Brilinta. Patient states last p.m., he did pass gas and had a formed bowel movement. He has been afebrile, heart rate 89, blood pressure 116/74, pulse ox 95% on room air. Dietitian has been consulted for TPN. 08/18 patient continues to be nothing by mouth. He stated his passing platters. He denies any chest pain, shortness of breath, abdominal pain. Blood pressure this morning suggests a blood pressure 152/92, repeat blood pressure 128/80 continue lisinopril and Imdur. And metoprolol 50 twice a day. Heart rate is controlled. 08/19: Patient states that he had a bowel movement last night. This morning, NG tube was clamped for about a half-hour patient was unable to tolerate this and had to be put back to suction. He states he started feeling sick and his abdomen was bloated. Plan is to place NG tube on suction 2 hours and off 2 hours. Patient has been ambulating in the hallway. He denies any chest pain, shortness of breath, lightheadedness or dizziness. He is afebrile, heart rate 79, blood pressure 127/78 and pulse ox 98% on room air. Potassium 3.2 and his been replaced, blood sugars running between 127 and 146. Objective - Vital Signs Vital signs: Vital Signs Temp 98.2 F 08/19/18 05:00 Pulse 107 H 08/19/18 05:00 Resp 16 08/19/18 05:00 BP 133/79 08/19/18 05:00 Pulse Ox 97 08/19/18 05:00 Intake & Output 08/18/18 08/19/18 08/19/18 18:59 06:59 18:59 Intake Total 870 Output Total 500 Balance 870 -500 Weight 85 kg Intake: Intake, IV Titration 870 Amount Amino Acid 4.25%-D10w+ 270 Lytes*E* 1,000 ml @ 90 mls/hr IV .BY DURATION [facility] Rx#:[id number] Sodium Chloride 0.9% 1, 600 000 ml @ 75 mls/hr IV . [id number] [facility] Rx#:[id number] Output: Gastric Drainage 300 Urine 200 Other: Voiding Method Toilet # Voids 2 - Exam ROS Constitutional: Reports poor appetite, reports chills, Denies fatigue, reports fever, Denies lethargy, Denies malaise, Denies weakness, Denies weight loss Ears, nose, mouth and throat: Denies dental pain, Denies nasal congestion, Denies nasal discharge, Denies vertigo Cardiovascular: Denies chest pain, Denies decreased exercise tolerance, Denies dyspnea on exertion, Denies edema, Denies irregular heart beat, Denies leg edema, Denies lightheadedness, Denies syncope Respiratory: Denies congestion, Denies cough, Denies cough with sputum, Denies dyspnea, Denies excessive sputum, Denies hemoptysis, Denies home oxygen, Denies respiratory infections, Denies sleep apnea, Denies wheezing Gastrointestinal: Denies abdominal pain, Reports bloating, Reports constipation, Reports loss of appetite, denies nausea, denies vomiting, Denies diarrhea Genitourinary: Denies dysuria, Denies urinary retention Musculoskeletal: Denies frequent falls, Denies gait dysfunction, Denies muscle weakness, Denies myalgias Integumentary: Denies pruritus, Denies rash, Denies wounds Neurological: Denies aphasia, Denies change in mentation, Denies change in speech, Denies confusion, Denies convulsions, Denies gait dysfunction, Denies seizures, Denies syncope Psychiatric: Denies anxiety, Denies depression Endocrine: Denies fatigue, Denies weight change Gen: This is a 53-year-old male. Patient is resting in bed and appears to be comfortable. HEENT: Head is atraumatic, normocephalic. Pupils equal, round. Sclerae is anicteric. NG tube to suction. NECK: Supple. No JVD. No lymphadenopathy. No thyromegaly. LUNGS: Clear to auscultation. No wheezes or rhonchi. No intercostal retractions. HEART: Regular rate and rhythm. No murmur. ABDOMEN: Soft. Bowel sounds are faint. No masses. Dressing to to the mid abdominal wound. EXTREMITIES: No pedal edema. No calf tenderness. Dorsalis pedis +2 bilaterally. NEUROLOGICAL: Patient is awake, alert and oriented x3. Cranial nerves 2 through 12 are grossly intact. - Labs CBC & Chem 7: 08/18/18 07:10 08/19/18 07:02 Labs: Abnormal Lab Results - Last 24 Hours (Table) 08/18/18 08/19/18 08/19/18 Range/Units 17:15 00:18 06:39 Potassium (3.5-5.1) mmol/L Creatinine (0.66-1.25) mg/dL Glucose (74-99) mg/dL POC Glucose (mg/dL) 105 H 125 H 129 H (75-99) mg/dL AST (17-59) U/L ALT (21-72) U/L Total Protein (6.3-8.2) g/dL 08/19/18 Range/Units 07:02 Potassium 3.2 L (3.5-5.1) mmol/L Creatinine 0.54 L (0.66-1.25) mg/dL Glucose 127 H (74-99) mg/dL POC Glucose (mg/dL) (75-99) mg/dL AST 100 H (17-59) U/L ALT 93 H (21-72) U/L Total Protein 6.1 L (6.3-8.2) g/dL Assessment and Plan Plan: 1. Small bowel obstruction status post exploratory laparotomy with lysis of adhesions 08/11/[address] Miller. Reglan 10 mg IV push every 6 hours started by general surgery. NG tube replaced. Dietitian consult in for TPN/PPN 2. Fevers secondary to pneumonia. Portable chest x-ray, urinalysis added. Patient is doing well with incentive spirometry. Continue Kefzol. 3. History of coronary artery disease with recent stent placement July [address] Leo and [facility]. Cardiology consult appreciated. Echocardiogram as above. Brilinta has been resumed as well as Lopressor increased to 50 mg twice daily. Imdur resumed 4. Hypertension. Continue lisinopril 5 mg daily, Lopressor 50 mg twice daily, Imdur 30 mg daily. Vasotec IV as needed. 5. Hyperlipidemia. Continue Lipitor 80 mg at bedtime. 6. History of previous hiatal hernia repair and umbilical hernia repair along with ileus. 7. Previous traumatic fall with multiple fractures and subsequent surgeries. 8. Memory impairment. Patient is concerned regarding memory loss. Discussed sleep hygiene, use of B12 and recommend neurology workup to be arranged by PCP. 9. DVT prophylaxis. Heparin subcu. 10. GI prophylaxis. Protonix. 11. Severe protein calorie malnutrition. TPN/PPN. Discharge plan: Return home Impression and plan of care have been directed as dictated by the signing physician. Lauren Junior nurse practitioner acting as scribe for signing physician.
[2018-08-19] MEDS: FAT EMULSION 20% 250 ML IV SCH (16:16)
[2018-08-19 17:29] LABS: Glucose,Whole Blood 111 mg/dL (75-99)
[2018-08-20 00:12] LABS: Glucose,Whole Blood 121 mg/dL (75-99)
[2018-08-20] MEDS: INSULIN ASPART (NovoLOG) 100 UNIT/ML VIAL SQ SCH ×4 (00:13→18:29)
[2018-08-20] MEDS: METOCLOPRAMIDE 5 MG/ML 2 ML VIAL IVP SCH ×4 (00:35→18:31)
[2018-08-20] MEDS: 1: MVI, ADULT NO.4 WITH VIT K 10 ML, TRACE (CONC-1ML/DOSE) 1 ML in AMINO ACID 4.25%-D10W IV SCH ×6 (00:35→13:01)
[2018-08-20] MEDS: HYDROcodone/APAP 5-325MG 1 EACH TAB PO PRN ×4 (03:59→20:21)
[2018-08-20 05:52] LABS: Glucose,Whole Blood 129 mg/dL (75-99)
[2018-08-20] MEDS: 0.9% NACL WITH KCL 20 MEQ/L 1,000 ML IV SCH ×2 (07:17→13:09)
[2018-08-20 09:07] LABS: ALT 97 U/L (21-72); AST 100 U/L (17-59); African American GFR (CKD) >90 (>60 ml/min/1.73 sqM); Alkaline Phosphatase 54 U/L (38-126); Anion Gap 11 mmol/L; Blood Urea Nitrogen 13 mg/dL (9-20); Calcium 9.2 mg/dL (8.4-10.2); Carbon Dioxide 28 mmol/L (22-30); Chloride 102 mmol/L (98-107); Glucose 117 mg/dL (74-99); Magnesium 2.4 mg/dL (1.6-2.3); Phosphorus 4.4 mg/dL (2.5-4.5); Potassium 4.2 mmol/L (3.5-5.1); Sodium 141 mmol/L (137-145); Total Bilirubin 0.5 mg/dL (0.2-1.3); Total Protein 6.4 g/dL (6.3-8.2)
[2018-08-20] MEDS: PANTOPRAZOLE 40 MG/10 ML VIAL IV SCH ×2 (09:10→20:20)
[2018-08-20] MEDS: LISINOPRIL 5 MG TAB PO SCH (09:12)
[2018-08-20] MEDS: ISOSORBIDE MONONITRATE ER 30 MG TAB.ER.24H PO SCH (09:12)
[2018-08-20] MEDS: ATORVASTATIN 80 MG TAB PO SCH ×2 (09:12→20:20)
[2018-08-20] MEDS: HEPARIN SODIUM,PORCINE 5,000 UNIT/ML 1 ML VIAL SQ SCH ×2 (09:12→20:22)
[2018-08-20] MEDS: METOPROLOL TARTRATE 50 MG TAB PO SCH ×2 (09:12→20:28)
[2018-08-20] MEDS: [UNRECOGNIZED DRUG - OTHER] PO SCH (09:14)
[2018-08-20] MEDS: SIMETHICONE 40 MG/0.6 ML DROPS 2,000 MG/30 ML BOTTLE PO SCH ×3 (09:19→18:30)
[2018-08-20] MEDS: TICAGRELOR 90 MG TAB PO SCH ×2 (09:20→20:20)
[2018-08-20] MEDS: NITROGLYCERIN 0.1MG/HR PATCH TRANSDERM SCH (09:20)
--- NOTE | 2018-08-20 11:32 | P.PN ---
Subjective Progress Note Date: 08/20/18 This is a 53-year-old gentleman with history of ischemic heart disease who had a stent placement done in July in [place], was admitted to the hospital with complaints of a down pain and was found to have small bowel obstruction. Patient underwent surgical procedure yesterday to free of obstruction. Patient seemed to be clinically stable. He patient is slightly tachycardic and blood pressures running high in the range of 150/80. Complaints of a vague chest discomfort which seemed to moderate superficial and associated with some tenderness. The pain is different than the discomfort he had before the stent placement. Apparently patient is not going to get better length that today. I'm going to put him on IV Lopressor 2.5 mg every 6-8 hours. Rest of the medication to be continued. We'll monitor him closely. 08/14/2018: Patient is feeling better. He is put on Brillinta. So far. Patient is tolerating well. No complaints of any chest pain or shortness of breath. Still has NG tube. Maintaining sinus rhythm. Patient is on her also on IV Lopressor. We'llswitch to by mouth Lopressor. 08/15/2018: Patient NG tube is taken out. Patient is passing flatus. Does complain of some chest pain across the chest. Doesn't appear to be in acute distress. Rates this pain as a 5 on a scale of 1-10. Patient seemed to be under stress because his daughter is at [facility] emergency room. We'll going to give her sublingual nitro and also nitro paste. We will going to get an EKG. I'm also going to increase the dose of the Lopressor. Further examination depend upon the findings and clinical course. 08/17/2018. Patient unfortunately was having nausea and retching yesterday with abdominal discomfort. NG tube has frequent back. Feeling better since NG tube is put back. Had some problem with nasal bleeding. No complex of chest pain. Vital signs are otherwise stable. Lungs are clear. We'll continue current medical therapy. Patient is back on his beta blockers. 08/18/2018: Patient is still has NG tube. However is feeling better. She passing some flatness. No complaints of chest pain or shortness of breath. Vital signs are stable. His heart rate is better controlled. Lungs are clear. Heart is regular. Will stay in the current medical therapy. 08/19/2018: Patient tolerated clamping the NG tube for couple of hours. There is more bowel activity and bowel movements. Overall he is feeling better. His blood was was high initially but subsequently came down. . Denies any chest pain or shortness of breath. Maintaining sinus rhythm. Tolerating medications Objective - Vital Signs Vital signs: Vital Signs Temp 98.8 F 08/20/18 05:00 Pulse 90 08/20/18 05:00 Resp 18 08/20/18 05:00 BP 117/86 08/20/18 05:00 Pulse Ox 95 08/20/18 05:00 Intake & Output 08/19/18 08/20/18 08/20/18 18:59 06:59 18:59 Intake Total 1000 825 Balance 1000 825 Weight 87 kg Intake: Intake, IV Titration 1000 825 Amount 0.9% NaCl with KCl 20 Meq 825 /l 1,000 ml @ 75 mls/hr IV .[id number] [facility] Rx#: [id number] Amino Acid 4.25%-D10w+ 1000 Lytes*E* 1,000 ml @ 90 mls/hr IV .BY DURATION [facility] Rx#:[id number] Other: Voiding Method Toilet Toilet # Voids 2 1 - Exam GENERAL EXAM: Patient is alert and oriented and doesn't appear to be in any acute distress HEENT: Normocephalic. Normal reaction of pupils, equal size, normal range of extraocular motion. No erythema or exudates in the throat. NECK: No masses, no nuchal rigidity. CHEST: No chest wall deformity. LUNGS: Equal air entry with no crackles or wheeze. HEART: S1 and S2 normal with no audible mumurs or gallops. Regular rhythm, femorals equal on both sides.. ABDOMEN: Postsurgical. SKIN: No rashes CENTRAL NERVOUS SYSTEM: No focal deficits. EXTREMITIES: No cyanosis, clubbing or edema. A normal physical exam - Labs CBC & Chem 7: 08/18/18 07:10 08/20/18 07:17 Labs: Abnormal Lab Results - Last 24 Hours (Table) 08/19/18 08/20/18 08/20/18 Range/Units 17:27 00:11 05:50 Creatinine (0.66-1.25) mg/dL Glucose (74-99) mg/dL POC Glucose (mg/dL) 111 H 121 H 129 H (75-99) mg/dL Magnesium (1.6-2.3) mg/dL AST (17-59) U/L ALT (21-72) U/L 08/20/18 Range/Units 07:17 Creatinine 0.56 L (0.66-1.25) mg/dL Glucose 117 H (74-99) mg/dL POC Glucose (mg/dL) (75-99) mg/dL Magnesium 2.4 H (1.6-2.3) mg/dL AST 100 H (17-59) U/L ALT 97 H (21-72) U/L Assessment and Plan (1) History of ischemic heart disease Current Visit: Yes Status: Acute Code(s): Z86.79 - PERSONAL HISTORY OF OTHER DISEASES OF THE CIRCULATORY SYSTEM SNOMED Code(s): 320168644 (2) SBO (small bowel obstruction) Current Visit: Yes Status: Acute Code(s): K56.609 - UNSP INTESTNL OBST, UNSP TO PARTIAL VERSUS COMPLETE OBST SNOMED Code(s): 472495346 (3) Hypertension Current Visit: Yes Status: Acute Code(s): I10 - ESSENTIAL (PRIMARY) HYPERTENSION SNOMED Code(s): 21028790 Plan: It appears that patient is making progress and have more bowel activity. Cardiac-caceres stable. We'll continue current medical therapy
[2018-08-20 12:04] LABS: Glucose,Whole Blood 114 mg/dL (75-99)
--- NOTE | 2018-08-20 14:02 | P.PN ---
Subjective Progress Note Date: 08/20/18 This is a 53-year-old male patient of Jasiel Mark NP with past medical history of hypertension, hyperlipidemia, coronary artery disease, DVT, previous bowel surgeries, multiple orthopedic surgeries following a fall of 4 stories in 1991 including ankles, left knee scopes, right tibial screws and plate subsequently removed, fractured back without surgery. Patient was recently seen at [facility] on July 15 and had 3 cardiac stents placed by Dr. Mansfield. He is also known to have 2 aortic aneurysms as well. Patient states that he has been walking outside 2 miles every day for the past 2 weeks and started cardiac rehab. Sudden onset yesterday of nausea and abdominal pain. He did have a bowel movement in the morning which was formed. He denies any blood in his stools. He usually has a bowel movement every day. He did pass gas yesterday. The patient does have history of previous ileus following umbilical hernia repair and he thought the pain was very similar. Patient came into [facility] for evaluation. Abdominal x-ray revealed early or partial small bowel obstruction. Chest x-ray was negative for acute cardiac pulmonary findings. CBC was within normal limits as well as CMP except for BUN of 24. Troponins negative on 2 draws. Lipase 69. Patient was admitted to the MedSurg floor, NG tube placed to suction, consults with Dr. Miller and cardiology. Consultants of added and CAT scan of the abdomen and pelvis and echocardiogram. 08/11: Patient states he has continued to have vomiting despite NG tube in place. CAT scan of the abdomen and pelvis with contrast reveals high-grade small bowel obstruction with transition point in the lower mid abdomen. Small bowel loops dilated up to 4 cm and mild pelvic free fluid likely reactive. Lobulated soft tissue thickening projecting into the lumen of the gastric fundus measuring 4.4 x 4.1 cm below the level of the GE junction. Mild circumferential wall thickening of the lower esophagus could represent esophagitis. Dr. Nagy is taking the patient for exploratory laparotomy today. Patient has been evaluated by cardiology and cleared for surgery. Proventil to be resumed as soon as possible once cleared by surgical services. Echocardiogram reveals EF of 60-65% with borderline concentric left ventricular hypertrophy, mild mitral regurgitation, mild tricuspid regurgitation, mild pul monary hypertension. Patient has been afebrile, heart rate 81, blood pressure 136/65, pulse ox 96% on room air. Repeat white count 9.0, hemoglobin 12.5, platelet count 205, electrolytic within normal limits, creatinine 0.61. Total bilirubin 1.4 and liver function tests within normal limits. 08/12, patient underwent exploratory laparotomy with lysis of adhesions on 08/11/2018, in relation to small bowel obstruction from jejunum and ileum, patient was seen by cardiology for which the entire has to be resumed as soon as possible secondary to recent stent 07/15/2018, patient's aware off bleeding, occasions related to this, however the stent needs to be protected. We would monitor for bleeding, 08/13: Temperature max 101.6, heart rate running between 106 and 121, blood pressure 134/95, pulse ox 94% on room air. Chest x-ray and urinalysis ordered. Patient is complaining of feeling soreness. He denies passing any gas. NG tube is worked up with coffee-ground return. Wound VAC is in place. He is using incentive spirometry at 2500 ML's every hour. Lopressor has been resumed by cardiology and patient is on Vasotec IV. Patient is having some complaints of chest pain and nitro patch will be ordered. Troponin ordered as well. 08/14 patient examined bedside is doing well today. He continues to have the NG tube. No flatus or bowel movement.labs this morning suggests a hemoglobin of 10 WBC 5.3 patient and no episodes of fever. Continue to be nothing by mouth has he has not passed flatulence 08/15 patient doing well. He did have a brief episode of chest pain this morning and was given nitro tab. NG tube is out as patient is passing blood clot as. Clear liquid diet is initiated. With his present medications Imdur and removed patient's Nitropatch. Vitals are otherwise stable. Patient is ambulating without any difficulty. We'll advance diet slowly 08/16: Patient states that he had 2 very tiny bowel movements yesterday. He denies having any nausea vomiting. He still has some abdominal pain and Solon takes the edge off. He does have some tenderness around the surgical area. Wound VAC remains in place. Repeat lab work reveals WBC 7.8, hemoglobin 11.9. Repeat troponins were negative on August 13 and a BMP 85. IV fluids will be discontinued. Patient is continued on IV Kefzol. 08/17: The patient states that last evening he had dry heaves for about 4 hours and NG tube was replaced on 10 PM. He does have dark brown/black output. He also complains of having a nosebleed due to trauma from the NG tube and use of Brilinta. Patient states last p.m., he did pass gas and had a formed bowel movement. He has been afebrile, heart rate 89, blood pressure 116/74, pulse ox 95% on room air. Dietitian has been consulted for TPN. 08/18 patient continues to be nothing by mouth. He stated his passing platters. He denies any chest pain, shortness of breath, abdominal pain. Blood pressure this morning suggests a blood pressure 152/92, repeat blood pressure 128/80 continue lisinopril and Imdur. And metoprolol 50 twice a day. Heart rate is controlled. 08/19: Patient states that he had a bowel movement last night. This morning, NG tube was clamped for about a half-hour patient was unable to tolerate this and had to be put back to suction. He states he started feeling sick and his abdomen was bloated. Plan is to place NG tube on suction 2 hours and off 2 hours. Patient has been ambulating in the hallway. He denies any chest pain, shortness of breath, lightheadedness or dizziness. He is afebrile, heart rate 79, blood pressure 127/78 and pulse ox 98% on room air. Potassium 3.2 and his been replaced, blood sugars running between 127 and 146. 08/20: The patient states that he did have another bowel movement last night. He denies having nausea or vomiting. He is tolerating clear liquids but he is up to suction and continues to have NG tube in place. We anticipate that this will be discontinued by general surgery today. Patient is ambulating well in the hallway without any symptoms of lightheadedness, dizziness, chest pain or shortness of breath. He is continued to be followed by cardiology and has been resumed on his cardiac medications. Objective - Vital Signs Vital signs: Vital Signs Temp 98.8 F 08/20/18 05:00 Pulse 90 08/20/18 05:00 Resp 18 08/20/18 05:00 BP 117/86 08/20/18 05:00 Pulse Ox 95 08/20/18 05:00 Intake & Output 08/19/18 08/20/18 08/20/18 18:59 06:59 18:59 Intake Total 1000 825 Balance 1000 825 Weight 87 kg Intake: Intake, IV Titration 1000 825 Amount 0.9% NaCl with KCl 20 Meq 825 /l 1,000 ml @ 75 mls/hr IV .[id number] ML Rx#: [id number] Amino Acid 4.25%-D10w+ 1000 Lytes*E* 1,000 ml @ 90 mls/hr IV .BY DURATION ML Rx#:[id number] Other: Voiding Method Toilet Toilet # Voids 2 1 - Exam ROS Constitutional: Reports poor appetite, reports chills, Denies fatigue, reports fever, Denies lethargy, Denies malaise, Denies weakness, Denies weight loss Ears, nose, mouth and throat: Denies dental pain, Denies nasal congestion, Denies nasal discharge, Denies vertigo Cardiovascular: Denies chest pain, Denies decreased exercise tolerance, Denies dyspnea on exertion, Denies edema, Denies irregular heart beat, Denies leg edema, Denies lightheadedness, Denies syncope Respiratory: Denies congestion, Denies cough, Denies cough with sputum, Denies dyspnea, Denies excessive sputum, Denies hemoptysis, Denies home oxygen, Denies respiratory infections, Denies sleep apnea, Denies wheezing Gastrointestinal: Denies abdominal pain, denies bloating, denies constipation, denies loss of appetite, denies nausea, denies vomiting, Denies diarrhea Genitourinary: Denies dysuria, Denies urinary retention Musculoskeletal: Denies frequent falls, Denies gait dysfunction, Denies muscle weakness, Denies myalgias Integumentary: Denies pruritus, Denies rash, Denies wounds Neurological: Denies aphasia, Denies change in mentation, Denies change in speech, Denies confusion, Denies convulsions, Denies gait dysfunction, Denies seizures, Denies syncope Psychiatric: Denies anxiety, Denies depression Endocrine: Denies fatigue, Denies weight change Gen: This is a 53-year-old male. Patient is resting in chair and bull ears to be comfortable. HEENT: Head is atraumatic, normocephalic. Pupils equal, round. Sclerae is an icteric. NG tube not hooked to suction. NECK: Supple. No JVD. No lymphadenopathy. No thyromegaly. LUNGS: Clear to auscultation. No wheezes or rhonchi. No intercostal retractions. HEART: Regular rate and rhythm. No murmur. ABDOMEN: Soft. Bowel sounds are active. No masses. Dressing to to the mid abdominal wound. EXTREMITIES: No pedal edema. No calf tenderness. Dorsalis pedis +2 bilaterally. NEUROLOGICAL: Patient is awake, alert and oriented x3. Cranial nerves 2 through 12 are grossly intact. - Labs CBC & Chem 7: 08/18/18 07:10 08/20/18 07:17 Labs: Abnormal Lab Results - Last 24 Hours (Table) 08/19/18 08/20/18 08/20/18 Range/Units 17:27 00:11 05:50 Creatinine (0.66-1.25) mg/dL Glucose (74-99) mg/dL POC Glucose (mg/dL) 111 H 121 H 129 H (75-99) mg/dL Magnesium (1.6-2.3) mg/dL AST (17-59) U/L ALT (21-72) U/L 08/20/18 08/20/18 Range/Units 07:17 12:01 Creatinine 0.56 L (0.66-1.25) mg/dL Glucose 117 H (74-99) mg/dL POC Glucose (mg/dL) 114 H (75-99) mg/dL Magnesium 2.4 H (1.6-2.3) mg/dL AST 100 H (17-59) U/L ALT 97 H (21-72) U/L Assessment and Plan Plan: 1. Small bowel obstruction status post exploratory laparotomy with lysis of adhesions 08/11/[address] Miller. Reglan 10 mg IV push every 6 hours started by general surgery. NG tube most likely will be removed today. 2. Fevers secondary to pneumonia. Portable chest x-ray, urinalysis added. Patient is doing well with incentive spirometry. Continue Kefzol. 3. History of coronary artery disease with recent stent placement July [address] Leo and [facility]. Cardiology consult appreciated. Echocardiogram as above. Brilinta has been resumed as well as Lopressor increased to 50 mg twice daily. Imdur resumed 4. Hypertension. Continue lisinopril 5 mg daily, Lopressor 50 mg twice daily, Imdur 30 mg daily. Vasotec IV as needed. 5. Hyperlipidemia. Continue Lipitor 80 mg at bedtime. 6. History of previous hiatal hernia repair and umbilical hernia repair along with ileus. 7. Previous traumatic fall with multiple fractures and subsequent surgeries. 8. Memory impairment. Patient is concerned regarding memory loss. Discussed sleep hygiene, use of B12 and recommend neurology workup to be arranged by PCP. 9. DVT prophylaxis. Heparin subcu. 10. GI prophylaxis. Protonix. 11. Severe protein calorie malnutrition. TPN/PPN. Discharge plan: Return home over the weekend Impression and plan of care have been directed as dictated by the signing physician. Lauren Junior nurse practitioner acting as scribe for signing physician.
--- NOTE | 2018-08-20 14:04 | P.PN ---
Subjective Progress Note Date: 08/20/18 CHIEF COMPLAINT: Abdominal pain HISTORY OF PRESENT ILLNESS: Patient is s/p exploratory laparotomy with lysis of adhesions secondary to bowel obstruction. patient reports his pain is tolerable. He reports moderate sized bowel movement yesterday. Patient is passing flatus this morning. He is tolerating ice chips and popsicles. Patient also reports drinking clear liquids, though clear liquid diet has not been ordered for patient. Patient reports he has been shutting off the suction to his NG tube intermittently over the last 24 hours and going about 4-5 hours each time with it clamped. PHYSICAL EXAM: VITAL SIGNS: Currently stable. GENERAL: Well-developed in no acute distress. HEENT: NG to LIS with bilious drainage. No sclera icterus. Extraocular movements grossly intact. Moist buccal mucosa. Head is atraumatic, normocephalic. Hears conversational speech. No nasal drainage. NECK: Supple without lymphadenopathy. CHEST: Non-labored respirations and equal bilateral excursions. CARDIOVASCULAR: Regular rate with regular rhythm. Palpable 2+ radial pulses. ABDOMEN: Soft. Nondistended. Positive bowel sounds. Optifoam dressing to midline incision. MUSCULOSKELETAL: No clubbing, cyanosis or edema. NEUROLOGIC: No focal or lateralizing signs. Cranial nerves II through XII grossly intact. PSYCH: Appropriate affect. Alert and oriented to person, place and time. SKIN: Well perfused. Good skin turgor. ASSESSMENT: 1. Abdominal pain 2. Small bowel obstruction 3. History of coronary artery disease with recent stent placement 4. Previous hiatal hernia repair and umbilical hernia repair 5. Gastritis, acute, likely stress induced secondary to recent surgery, resolved 6. Acute myocardial infarction, ruled out 7. Ileus, an unexpected but potential outcome of surgery, resolved 8. Hypokalemia, secondary to NG tube PLAN: Discontinue NG tube Begin clear liquid diet Continue PPN until patient able to tolerate 50% of full liquid diet Anticipate discharge home this weekend if patient remains stable and is able to tolerate advancement to full liquid diet Patient encouraged to remain on full liquid diet at the time of discharge for 3- 5 days Nurse practitioner note has been reviewed by physician. Signing provider agrees with the documented findings, assessment, and plan of care. Objective - Vital Signs Vital signs: Vital Signs Temp 97.8 F 08/20/18 12:56 Pulse 70 08/20/18 12:56 Resp 20 08/20/18 12:56 BP 126/86 08/20/18 12:56 Pulse Ox 97 08/20/18 12:56 Intake & Output 08/19/18 08/20/18 08/20/18 18:59 06:59 18:59 Intake Total 1000 1836 Balance 1000 1836 Weight 87 kg Intake: Intake, IV Titration 1000 1836 Amount 0.9% NaCl with KCl 20 Meq 825 /l 1,000 ml @ 75 mls/hr IV .[id number] ML Rx#: [id number] Amino Acid 4.25%-D10w+ 1000 Lytes*E* 1,000 ml @ 90 mls/hr IV .BY DURATION ML Rx#:[id number] Mvi, Adult No.4 with Vit 1011 K 10 ml Trace (Conc-1Ml/ Dose) 1 ml In Amino Acid 4.25%-D10w+Lytes*E* 1,000 ml @ 90 mls/hr IV .BY DURATION ML Rx#: [id number] Other: Voiding Method Toilet Toilet # Voids 2 1 - Labs CBC & Chem 7: 08/18/18 07:10 08/20/18 07:17 Labs: Abnormal Lab Results - Last 24 Hours (Table) 08/19/18 08/20/18 08/20/18 Range/Units 17:27 00:11 05:50 Creatinine (0.66-1.25) mg/dL Glucose (74-99) mg/dL POC Glucose (mg/dL) 111 H 121 H 129 H (75-99) mg/dL Magnesium (1.6-2.3) mg/dL AST (17-59) U/L ALT (21-72) U/L 08/20/18 08/20/18 Range/Units 07:17 12:01 Creatinine 0.56 L (0.66-1.25) mg/dL Glucose 117 H (74-99) mg/dL POC Glucose (mg/dL) 114 H (75-99) mg/dL Magnesium 2.4 H (1.6-2.3) mg/dL AST 100 H (17-59) U/L ALT 97 H (21-72) U/L Assessment and Plan (1) History of ischemic heart disease Current Visit: Yes Status: Acute Code(s): Z86.79 - PERSONAL HISTORY OF OTHER DISEASES OF THE CIRCULATORY SYSTEM SNOMED Code(s): 241394607 (2) SBO (small bowel obstruction) Current Visit: Yes Status: Acute Code(s): K56.609 - UNSP INTESTNL OBST, UNSP TO PARTIAL VERSUS COMPLETE OBST SNOMED Code(s): 691102054 (3) Abdominal pain Current Visit: No Status: Acute Code(s): R10.9 - UNSPECIFIED ABDOMINAL PAIN SNOMED Code(s): 99629061
[2018-08-20 14:34] VITALS: BMI 32.9
[2018-08-20 17:33] LABS: Glucose,Whole Blood 103 mg/dL (75-99)
[2018-08-20] MEDS: FAT EMULSION 20% 250 ML IV SCH (18:28)
[2018-08-20 22:11] VITALS: RESP 18
[2018-08-21 00:13] LABS: Glucose,Whole Blood 77 mg/dL (75-99)
[2018-08-21] MEDS: INSULIN ASPART (NovoLOG) 100 UNIT/ML VIAL SQ SCH ×2 (00:44→05:56)
[2018-08-21] MEDS: SIMETHICONE 40 MG/0.6 ML DROPS 2,000 MG/30 ML BOTTLE PO SCH ×2 (00:48→08:23)
[2018-08-21] MEDS: METOCLOPRAMIDE 5 MG/ML 2 ML VIAL IVP SCH ×2 (00:49→06:02)
[2018-08-21] MEDS: HYDROcodone/APAP 5-325MG 1 EACH TAB PO PRN ×2 (03:49→12:33)
[2018-08-21] MEDS: 0.9% NACL WITH KCL 20 MEQ/L 1,000 ML IV SCH (04:29)
[2018-08-21 04:51] VITALS: BP 118/84; TEMP 97.9
[2018-08-21 05:58] LABS: Glucose,Whole Blood 109 mg/dL (75-99)
[2018-08-21 07:41] LABS: Basophils # (A) 0.1 k/uL (0-0.2); Basophils % (A) 1 %; Eosinophils # (A) 0.5 k/uL (0-0.7); Eosinophils % (A) 5 %; HCT 35.3 % (39.0-53.0); HGB 11.9 gm/dL (13.0-17.5); Lymphocytes # (A) 1.4 k/uL (1.0-4.8); Lymphocytes % (A) 17 %; MCH 30.7 pg (25.0-35.0); MCHC 33.6 g/dL (31.0-37.0); MCV 91.4 fL (80.0-100.0); Mean Platelet Volume 7.2; Monocytes # (A) 0.4 k/uL (0-1.0); Monocytes % (A) 5 %; Neutrophils # (A) 5.9 k/uL (1.3-7.7); Neutrophils % (A) 70 %; Platelet Count 445 k/uL (150-450); RBC 3.86 m/uL (4.30-5.90); RDW 13.6 % (11.5-15.5); WBC 8.4 k/uL (3.8-10.6)
[2018-08-21 08:04] LABS: African American GFR (CKD) >90 (>60 ml/min/1.73 sqM); Anion Gap 12 mmol/L; Blood Urea Nitrogen 13 mg/dL (9-20); Calcium 9.4 mg/dL (8.4-10.2); Carbon Dioxide 24 mmol/L (22-30); Chloride 103 mmol/L (98-107); Glucose 102 mg/dL (74-99); Magnesium 2.3 mg/dL (1.6-2.3); Potassium 4.7 mmol/L (3.5-5.1); Sodium 139 mmol/L (137-145)
[2018-08-21] MEDS: ATORVASTATIN 80 MG TAB PO SCH (08:22)
[2018-08-21] MEDS: ISOSORBIDE MONONITRATE ER 30 MG TAB.ER.24H PO SCH (08:22)
[2018-08-21] MEDS: HEPARIN SODIUM,PORCINE 5,000 UNIT/ML 1 ML VIAL SQ SCH (08:22)
[2018-08-21] MEDS: LISINOPRIL 5 MG TAB PO SCH (08:22)
[2018-08-21] MEDS: METOPROLOL TARTRATE 50 MG TAB PO SCH (08:23)
[2018-08-21] MEDS: NITROGLYCERIN 0.1MG/HR PATCH TRANSDERM SCH (08:23)
[2018-08-21] MEDS: PANTOPRAZOLE 40 MG/10 ML VIAL IV SCH (08:23)
[2018-08-21] MEDS: TICAGRELOR 90 MG TAB PO SCH (08:28)
[2018-08-21 10:48] VITALS: PULSE 70
--- NOTE | 2018-08-21 11:26 | P.PN ---
Subjective Progress Note Date: 08/21/18 Principal diagnosis: Adhesions Patient doing well today. Tolerating full liquids. He has had multiple loose stools. He is quite anxious to go home. He just learned his family member has stage IV pancreatic cancer. Denies pain. Objective - Vital Signs Vital signs: Vital Signs Temp 97.9 F 08/21/18 04:50 Pulse 70 08/21/18 08:25 Resp 18 08/21/18 08:25 BP 118/84 08/21/18 04:50 Pulse Ox 94 L 08/21/18 08:21 Intake & Output 08/20/18 08/21/18 08/21/18 18:59 06:59 18:59 Intake Total 225 Balance 225 Weight 87 kg 87 kg Intake: Intake, IV Titration 225 Amount 0.9% NaCl with KCl 20 Meq 225 /l 1,000 ml @ 75 mls/hr IV .[id number] ML Rx#: [id number] Other: Voiding Method Toilet Toilet Toilet # Voids 3 2 - Exam Abdomen: Soft, nondistended, incision clean and dry - Labs CBC & Chem 7: 08/21/18 07:11 08/21/18 07:11 Labs: Abnormal Lab Results - Last 24 Hours (Table) 08/20/18 08/20/18 08/21/18 Range/Units 12:01 17:33 05:52 RBC (4.30-5.90) m/uL Hgb (13.0-17.5) gm/dL Hct (39.0-53.0) % Creatinine (0.66-1.25) mg/dL Glucose (74-99) mg/dL POC Glucose (mg/dL) 114 H 103 H 109 H (75-99) mg/dL 08/21/18 08/21/18 Range/Units 07:11 07:11 RBC 3.86 L (4.30-5.90) m/uL Hgb 11.9 L (13.0-17.5) gm/dL Hct 35.3 L (39.0-53.0) % Creatinine 0.55 L (0.66-1.25) mg/dL Glucose 102 H (74-99) mg/dL POC Glucose (mg/dL) (75-99) mg/dL Assessment and Plan (1) SBO (small bowel obstruction) Narrative/Plan: Continue full liquids after discharge. Discharge home today. Outpatient fol low-up one week. Current Visit: Yes Status: Acute Code(s): K56.609 - UNSP INTESTNL OBST, UNSP TO PARTIAL VERSUS COMPLETE OBST SNOMED Code(s): 378226329
[2018-08-21 11:59] LABS: Glucose,Whole Blood 101 mg/dL (75-99)
--- NOTE | 2018-08-21 12:29 | P.DS ---
Providers Date of admission: 08/10/18 02:18 Attending physician: Ashley Torres Consults: 08/09/18 23:20 Consult Physician Urgent Consulting Provider: Aakash Miller Consult Reason/Comments: SBO Do you want consulting provider notified?: Already Contacted 08/10/18 05:59 Consult Physician Routine Consulting Provider: Alexys Rainey Consult Reason/Comments: chest pain Do you want consulting provider notified?: Yes, Notify in am Primary care physician: [facility] Course: This is 53 years old male who presented to the hospital with small bowel obstruction status post exploratory laparotomy with lysis of adhesions on 08/11/2018. Patient had prolonged recovery compensated with fevers that felt to be related to pneumonia a shunt was treated accordingly and evaluated by cardiology due to history of coronary artery disease anticoagulation was resumed during the hospital stay vital signs stabilized a shunt was resumed on his home medication and felt stable from the medical standpoint for discharge after evaluation from general surgery who cleared the patient for discharge. Patient was discharged in stable condition per surgery recommendation Patient Condition at Discharge: Stable Plan - Discharge Summary Discharge Rx Participant: No New Discharge Prescriptions: New Hydrocodone/Acetaminophen [[place] 5-325] 1 tab PO Q4HR PRN 3 Days #18 tab PRN Reason: Pain No Action Aspirin 81 mg PO DAILY Metoprolol Succinate [Toprol XL] 25 mg PO DAILY Isosorbide Mononitrate ER [Imdur] 30 mg PO DAILY Atorvastatin [Lipitor] 80 mg PO HS Cholecalciferol [Vitamin D3] 2,000 unit PO DAILY Lisinopril [Zestril] 5 mg PO DAILY Ondansetron HCl [Zofran] 8 mg PO Q8HR PRN PRN Reason: Nausea Ticagrelor [Brilinta] 90 mg PO BID [place] 0.5mg 0.5 mg PO TUFR Nitroglycerin Sl Tabs [Nitrostat] 0.4 mg SUBLINGUAL Q5M PRN PRN Reason: Chest Pain Multivitamins, Thera [Multivitamin (formulary)] 1 tab PO DAILY Discharge Medication List Aspirin 81 mg PO DAILY 05/10/14 [History] Atorvastatin [Lipitor] 80 mg PO HS 08/18/17 [History] Isosorbide Mononitrate ER [Imdur] 30 mg PO DAILY 08/18/17 [History] Metoprolol Succinate [Toprol XL] 25 mg PO DAILY 08/18/17 [History] Cholecalciferol [Vitamin D3] 2,000 unit PO DAILY 12/18/17 [History] Lisinopril [Zestril] 5 mg PO DAILY 12/25/17 [History] Ondansetron HCl [Zofran] 8 mg PO Q8HR PRN 12/25/17 [History] [place] 0.5mg 0.5 mg PO TUFR 08/09/18 [History] Ticagrelor [Brilinta] 90 mg PO BID 08/09/18 [History] Multivitamins, Thera [Multivitamin (formulary)] 1 tab PO DAILY 08/10/18 [History] Nitroglycerin Sl Tabs [Nitrostat] 0.4 mg SUBLINGUAL Q5M PRN 08/10/18 [History] Hydrocodone/Acetaminophen [[place] 5-325] 1 tab PO Q4HR PRN 3 Days #18 tab 08/11/18 [Rx] Follow up Appointment(s)/Referral(s): Raj Mark NPC [REFERRING] - 1 Week Pascual Mansfield MD [STAFF PHYSICIAN] - 1 Week Aakash Miller MD [STAFF PHYSICIAN] - 1 Week Patient Instructions/Handouts: Hydrocodone/Acetaminophen (By mouth), Gastroeso phageal Reflux Disease (DC), Hypertension (DC), Bowel Obstruction (DC) Activity/Diet/Wound Care/Special Instructions: No driving while taking [place] No lifting over 10 pounds You may shower. No soaking or tub baths Very light activity until you are reevaluated at your follow up appointment with your surgeon continue full liquid diet for 3-5 days after discharge Discharge Disposition: HOME SELF-CARE
== END 2018-08-21 13:01 | disposition home or self-care (01) | DRG 329 ==
LOC: EC 21:03 → 3NMEDONC 08-10 02:18
PROVIDERS: ADMIT Family Medicine; ATTEND Family Medicine
PROC: 0DQ80ZZ Repair Small Intestine, Open Approach (ICD-10-PCS; 2018-08-11)
PROC: 0WPF0JZ Removal of Synthetic Substitute from Abdominal Wall, Open Approach (ICD-10-PCS; 2018-08-11)
PROC: 0DN80ZZ Release Small Intestine, Open Approach (ICD-10-PCS; principal; 2018-08-11 12:20)
PROC: 05HF33Z Insertion of Infusion Device into Left Cephalic Vein, Percutaneous Approach (ICD-10-PCS; 2018-08-16)
DX: K56.50 Intestinal adhesions [bands], unspecified as to partial versus complete obstruction (principal); J18.9 Pneumonia, unspecified organism; K82.1 Hydrops of gallbladder; S36.439A Laceration of unspecified part of small intestine, initial encounter; Z87.01 Personal history of pneumonia (recurrent); J45.909 Unspecified asthma, uncomplicated; K21.9 Gastro-esophageal reflux disease without esophagitis; K29.00 Acute gastritis without bleeding; E78.5 Hyperlipidemia, unspecified; E87.6 Hypokalemia; F32.9 Major depressive disorder, single episode, unspecified; F41.9 Anxiety disorder, unspecified; I10 Essential (primary) hypertension; I25.10 Atherosclerotic heart disease of native coronary artery without angina pectoris; I27.20 Pulmonary hypertension, unspecified; I71.9 Aortic aneurysm of unspecified site, without rupture; K81.9 Cholecystitis, unspecified; R04.0 Epistaxis; Z79.02 Long term (current) use of antithrombotics/antiplatelets; Z79.82 Long term (current) use of aspirin; Z79.899 Other long term (current) drug therapy; Z80.0 Family history of malignant neoplasm of digestive organs; Z82.49 Family history of ischemic heart disease and other diseases of the circulatory system; Z83.3 Family history of diabetes mellitus; Z87.891 Personal history of nicotine dependence; Z95.5 Presence of coronary angioplasty implant and graft; Z81.1 Family history of alcohol abuse and dependence; Z82.61 Family history of arthritis; Z81.3 Family history of other psychoactive substance abuse and dependence; K57.90 Diverticulosis of intestine, part unspecified, without perforation or abscess without bleeding
CPT/HCPCS: 36410; 36415; 71045; 71046; 74018; 74177; 76937; 80048; 80053; 81001; 83690; 83735; 83880; 84100; 84478; 84484; 85025; 85027; 85610; 85730; 86850; 86900; 86901; 88304; 93005; 93306; 94760; 96361; 96374; 96375; 96376; 99285

== ENCOUNTER 2018-09-29 16:07 | Emergency (ER) | payer OTHER ==
--- NOTE | 2018-09-29 17:23 | ED ---
Abdominal Pain HPI - General Chief Complaint: Abdominal Pain Stated Complaint: ABDOMINAL PAIN Time Seen by Provider: 09/29/18 16:20 Source: patient Mode of arrival: ambulatory Limitations: no limitations - History of Present Illness Initial Comments: Patient is a 53-year-old male who presents to the emergency department with reported right lower quadrant abdominal pain. He had surgery on August [address] Miller for small bowel obstruction with lysis of adhesions. After surgery he had some drainage from his incision. He was placed on antibiotics. States that since he finished the course, he has been feeling well. He saw Dr. Miller 1 week ago in office and had no complaints at that time. He states shortly afterwards he began having the right lower quadrant pain which is worse with movement. Also reports that it is severe when he coughs or sneezes. It is adjacent to his incision site. He denies any redness, swelling or induration of the adjacent tissues. He denies any fevers or chills. No drainage from the site. He denies any deep abdominal pain. No nausea or vomiting. Denies any hematemesis. No changes in his bowel or bladder habits. Denies any hematuria, dysuria or difficulty voiding. Denies diarrhea, constipation, melanotic stools or hematochezia. States he has a bowel movement daily. Denies any chest pain or shortness of breath. No testicular pain. There are no alleviating, precipitating or modifying factors - Related Data Home Medications Medication Instructions Recorded Confirmed Aspirin 81 mg PO DAILY 05/10/14 09/29/18 Atorvastatin [Lipitor] 80 mg PO HS 08/18/17 09/29/18 Isosorbide Mononitrate ER [Imdur] 30 mg PO DAILY 08/18/17 09/29/18 Metoprolol Succinate [Toprol XL] 25 mg PO DAILY 08/18/17 09/29/18 Lisinopril [Zestril] 2.5 mg PO DAILY 12/25/17 09/29/18 Nitroglycerin Sl Tabs [Nitrostat] 0.4 mg SUBLINGUAL Q5M PRN 08/10/18 09/29/18 Cabergoline 0.5 mg PO Q5D 09/29/18 09/29/18 Clopidogrel Bisulfate [Plavix] 75 mg PO DAILY 09/29/18 09/29/18 Allergies Allergy/AdvReac Type Severity Reaction Status Date / Time adhesive tape Allergy Itching Verified 09/29/18 16:45 pregabalin [From Lyrica] Allergy Rash/Hives Verified 09/29/18 16:45 Review of Systems ROS Statement: Those systems with pertinent positive or pertinent negative responses have been documented in the HPI. ROS Other: All systems not noted in ROS Statement are negative. 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, DVT L ankle, numbness/tingling legs, 2 abdominal aortic aneurysms, anemia, constipation, diverticulosis, hiatal hernia, L ear tinnitis, palpitations, pituitary gland tumor History of Any Multi-Drug Resistant Organisms: None Reported Past Surgical History: Heart Catheterization, Heart Catheterization With Stent, Hernia Repair, Orthopedic Surgery Additional Past Surgical History / Comment(s): 12/23/17 Incisional hernia with mesh, LEFT FOOT X8 , RIGHT FOOT X2, LEFT KNEE X3 (ARTHROSCOPIC), VASECTOMY, RIGHT LITTLE FINGER,LEFT SHOULDER X2, RIGHT SHOULDER X2, BILAT ANKLE SX, colonoscopy x3, pain clinic procedures. Abd. Surgery 08/11/2018 Past Anesthesia/Blood Transfusion Reactions: No Reported Reaction Date of Last Stent Placement:: 07/15/18 Past Psychological History: Anxiety, Depression Smoking Status: Former smoker Past Alcohol Use History: None Reported Past Drug Use History: None Reported - Past Family History Mother Family Medical History: Dementia Additional Family Medical History / Comment(s): Mother is 70yrs old with AD. Father Family Medical History: Myocardial Infarction ([place]) Additional Family Medical History / Comment(s): Father passed at age 53 from [place] with history of drug and alcohol abuse. Brother(s) Additional Family Medical History / Comment(s): Patient has one brother with history of diabetes, hypertension, hyperlipidemia, ankylosing spondylosis. Sister(s) Additional Family Medical History / Comment(s): The patient has one sister diagnosed last week with liver cancer unsure primary. Daughter(s) Additional Family Medical History / Comment(s): Patient has 3 daughters ages 23, 19 and 11. 23-year-old daughter has had cardiac ablation done. Son(s) Additional Family Medical History / Comment(s): Patient has 2 sons ages 26 and 14. Son age 26 has been diagnosed with hypertension and chronic back pain. General Exam Limitations: no limitations General appearance: alert, in no apparent distress Head exam: Present: atraumatic, normocephalic, normal inspection Eye exam: Present: normal appearance, PERRL, EOMI. Absent: scleral icterus, conjunctival injection, periorbital swelling ENT exam: Present: normal exam, mucous membranes moist Neck exam: Present: normal inspection. Absent: tenderness, meningismus, lymphadenopathy Respiratory exam: Present: normal lung sounds bilaterally. Absent: respiratory distress, wheezes, rales, rhonchi, stridor Cardiovascular Exam: Present: regular rate, normal rhythm, normal heart sounds. Absent: systolic murmur, diastolic murmur, rubs, gallop, clicks GI/Abdominal exam: Present: soft, tenderness (Tenderness in the right lower quadrant adjacent to the patient's midline incision. Incision is well-healed. No drainage, induration or redness surrounding the incision. No deep palpable masses), normal bowel sounds. Absent: distended, guarding, rebound, rigid Rectal exam: Present: deferred Extremities exam: Present: normal inspection, full ROM, normal capillary refill. Absent: tenderness, pedal edema, joint swelling, calf tenderness Back exam: Present: normal inspection Neurological exam: Present: alert, oriented X3, CN II-XII intact Psychiatric exam: Present: normal affect, normal mood Skin exam: Present: warm, dry, intact, normal color. Absent: rash Course Vital Signs 09/29/18 09/29/18 16:14 19:20 Temperature 98.3 F 98.0 F Pulse Rate 76 72 Respiratory 17 18 Rate Blood Pressure 124/80 122/78 O2 Sat by Pulse 96 98 Oximetry Medical Decision Making - Medical Decision Making Upon arrival the patient is placed in room 10. He is hooked up to continuous pulse ox and cardiac monitoring. A thorough history and physical exam was performed. Peripheral IV was established. I offered the patient something for pain control, however he refused. Laboratory studies are performed and the patient sent for CT of his abdomen and pelvis. Upon return of the results they are discussed with the patient. I called and discussed the case with Dr. Hussein coburn who felt comfortable with the patient being discharged home. The patient is to follow up with Dr. Miller on Thursday at his scheduled appointment. He is instructed to take Motrin and Tylenol at home for pain. If he has any new or worsening symptoms, he should return to the emergency room. Patient was then discharged home in stable condition - Differential Diagnosis acute adominal pain, s/p SBO, hx abdominal adhesions, r/o recurrent SBO - Lab Data Result diagrams: 09/29/18 17:30 09/29/18 17:30 Lab Results 09/29/18 09/29/18 09/29/18 Range/Units 17:30 17:30 17:30 WBC 4.8 (3.8-10.6) k/uL RBC 3.96 L (4.30-5.90) m/uL Hgb 12.1 L (13.0-17.5) gm/dL Hct 36.2 L (39.0-53.0) % MCV 91.5 (80.0-100.0) fL MCH 30.5 (25.0-35.0) pg MCHC 33.3 (31.0-37.0) g/dL RDW 13.9 (11.5-15.5) % Plt Count 223 (150-450) k/uL Neutrophils % 65 % Lymphocytes % 18 % Monocytes % 8 % Eosinophils % 4 % Basophils % 1 % Neutrophils # 3.1 (1.3-7.7) k/uL Lymphocytes # 0.9 L (1.0-4.8) k/uL Monocytes # 0.4 (0-1.0) k/uL Eosinophils # 0.2 (0-0.7) k/uL Basophils # 0.0 (0-0.2) k/uL Sodium 141 (137-145) mmol/L Potassium 4.3 (3.5-5.1) mmol/L Chloride 106 (98-107) mmol/L Carbon Dioxide 27 (22-30) mmol/L Anion Gap 8 mmol/L BUN 16 (9-20) mg/dL Creatinine 0.77 (0.66-1.25) mg/dL Est GFR (CKD-EPI)AfAm >90 (>60 ml/min/1.73 sqM) Est GFR (CKD-EPI)NonAf >90 (>60 ml/min/1.73 sqM) Glucose 92 (74-99) mg/dL Plasma Lactic Acid Nabeel 1.1 (0.7-2.0) mmol/L Calcium 9.5 (8.4-10.2) mg/dL Total Bilirubin 0.5 (0.2-1.3) mg/dL AST 27 (17-59) U/L ALT 39 (21-72) U/L Alkaline Phosphatase 47 (38-126) U/L Total Protein 6.6 (6.3-8.2) g/dL Albumin 4.3 (3.5-5.0) g/dL Lipase 224 (23-300) U/L - Radiology Data Radiology results: report reviewed, image reviewed Disposition Clinical Impression: History of small bowel obstruction, Right lower quadrant abdominal pain Disposition: HOME SELF-CARE Condition: Stable Instructions (If sedation given, give patient instructions): Abdominal Pain (ED) Additional Instructions: Please follow-up with Dr. Miller at your scheduled appointment on Thursday. Take Tylenol and Motrin for pain. Return to the emergency room for any new or worsening symptoms Is patient prescribed a controlled substance at d/c from ED?: No Referrals: Juan Pa MD [Primary Care Provider] - 1-2 days Time of Disposition: 18:49
[2018-09-29 17:57] LABS: Basophils % (A) 1 %; Eosinophils # (A) 0.2 k/uL (0-0.7); Eosinophils % (A) 4 %; HCT 36.2 % (39.0-53.0); HGB 12.1 gm/dL (13.0-17.5); Lymphocytes # (A) 0.9 k/uL (1.0-4.8); Lymphocytes % (A) 18 %; MCH 30.5 pg (25.0-35.0); MCHC 33.3 g/dL (31.0-37.0); MCV 91.5 fL (80.0-100.0); Mean Platelet Volume 7.5; Monocytes # (A) 0.4 k/uL (0-1.0); Monocytes % (A) 8 %; Neutrophils # (A) 3.1 k/uL (1.3-7.7); Neutrophils % (A) 65 %; Platelet Count 223 k/uL (150-450); RBC 3.96 m/uL (4.30-5.90); RDW 13.9 % (11.5-15.5); WBC 4.8 k/uL (3.8-10.6)
[2018-09-29 18:01] LABS: ALT 39 U/L (21-72); AST 27 U/L (17-59); African American GFR (CKD) >90 (>60 ml/min/1.73 sqM); Albumin 4.3 g/dL (3.5-5.0); Alkaline Phosphatase 47 U/L (38-126); Anion Gap 8 mmol/L; Blood Urea Nitrogen 16 mg/dL (9-20); Calcium 9.5 mg/dL (8.4-10.2); Carbon Dioxide 27 mmol/L (22-30); Chloride 106 mmol/L (98-107); Glucose 92 mg/dL (74-99); Potassium 4.3 mmol/L (3.5-5.1); Sodium 141 mmol/L (137-145); Total Bilirubin 0.5 mg/dL (0.2-1.3); Total Protein 6.6 g/dL (6.3-8.2)
--- NOTE | 2018-09-29 18:21 | CT ---
EXAMINATION TYPE: CT abdomen pelvis w con DATE OF EXAM: 09/29/2018 COMPARISON: August 10, 2018 HISTORY: Mid Abdominal pain. Post OP August 2018 CT DLP: 1093.6 mGycm Automated exposure control for dose reduction was used. TECHNIQUE: Helical acquisition of images was performed from the lung bases through the pelvis. CONTRAST: Performed without Oral Contrast and with IV Contrast, patient injected with 100 mL of Isovue 300. FINDINGS: Lung bases are clear. There is no pleural effusion. Heart appears enlarged. There is no pericardial e ffusion. There are clips at the gastroesophageal junction. Liver shows no focal defect. Gallbladder is contrac diogenes. Spleen appears normal. There is no pancreatic mass. There is subcutaneous fat stranding in the m idline anterior abdomen related to surgery. There is no adrenal mass. Kidneys show satisfactory contr ast opacification. There is no hydronephrosis. There is no retroperitoneal adenopathy. There is no fr ee fluid in the pelvis. There is no inguinal hernia. There are a few sigmoid diverticula. There is no sign of diverticulitis. Bladder distends smoothly. There is no mesenteric edema. There is no ascites or free air. Lumbar vertebra have normal alignment. Posterior elements are intact. There is no lumbar compression fracture. There is degenerative disc s pace narrowing and spur formation in the lumbar spine. Bony pelvis is intact. IMPRESSION: THERE IS MILD SIGMOID DIVERTICULOSIS. NO EVIDENCE OF A BOWEL OBSTRUCTION. THERE IS CLEARING OF THE DI LATED SMALL BOWEL COMPARED TO OLD EXAM. NO SIGN OF ACUTE ABDOMEN AND PELVIS.
[2018-09-29 19:35] VITALS: BP 122/78; PULSE 72; RESP 18; TEMP 98
== END 2018-09-29 19:20 | disposition home or self-care (01) ==
LOC: EC 16:07
DX: R10.31 Right lower quadrant pain (principal); E78.5 Hyperlipidemia, unspecified; I10 Essential (primary) hypertension; Z87.19 Personal history of other diseases of the digestive system; Z86.718 Personal history of other venous thrombosis and embolism; Z95.818 Presence of other cardiac implants and grafts; Z95.5 Presence of coronary angioplasty implant and graft; Z87.891 Personal history of nicotine dependence; Z98.890 Other specified postprocedural states; Z79.82 Long term (current) use of aspirin; Z79.02 Long term (current) use of antithrombotics/antiplatelets; Z79.899 Other long term (current) drug therapy; Z91.048 Other nonmedicinal substance allergy status; Z88.8 Allergy status to other drugs, medicaments and biological substances
CPT/HCPCS: 99284; 36415; 80053; 83605; 83690; 85025; 74177; Q9967

== ENCOUNTER 2018-11-26 11:53 | Inpatient (IN) | payer OTHER ==
[2018-11-26] MEDS ORDERED: ASPIRIN 81 MG PO STA (12:14)
[2018-11-26] MEDS ORDERED: SODIUM CHLORIDE 0.9% 500 ML 500 ML IV STA (12:14)
[2018-11-26] MEDS ORDERED: NITROGLYCERIN OINT 1 INCH/GM PACKET TOPICAL STA (12:14)
--- NOTE | 2018-11-26 12:20 | ED ---
General Adult HPI - General Chief complaint: Chest Pain Stated complaint: Chest Pain Time Seen by Provider: 11/26/18 12:00 Source: patient, RN notes reviewed Mode of arrival: wheelchair Limitations: no limitations - History of Present Illness Initial comments: This is a 53-year-old male with a past history significant for hypertension high cholesterol and recent stent placement in July. Patient states he started having chest pain today at 10-10 and his taken 3 Nitrostat no relief. Patient states the pain initially was radiating into his neck and down his left arm and he was also very short of breath. Patient states continues to have the chest p ain but he does not have any pain in the arm. Patient denies any recent fever chills or cough per patient denies lightheadedness or dizziness. Patient denies any diaphoretic episodes. Patient denies any abdominal pain patient denies any nausea vomiting diarrhea. Patient denies any leg swelling or calf tenderness. - Related Data Home Medications Medication Instructions Recorded Confirmed Aspirin 81 mg PO DAILY 05/10/14 11/26/18 Atorvastatin [Lipitor] 80 mg PO HS 08/18/17 11/26/18 Isosorbide Mononitrate ER [Imdur] 30 mg PO DAILY 08/18/17 11/26/18 Metoprolol Succinate [Toprol XL] 25 mg PO DAILY 08/18/17 11/26/18 Lisinopril [Zestril] 2.5 mg PO DAILY 12/25/17 11/26/18 Nitroglycerin Sl Tabs [Nitrostat] 0.4 mg SUBLINGUAL Q5M PRN 08/10/18 11/26/18 Cabergoline 0.5 mg PO Q5D 09/29/18 11/26/18 Clopidogrel Bisulfate [Plavix] 75 mg PO DAILY 09/29/18 11/26/18 Allergies Allergy/AdvReac Type Severity Reaction Status Date / Time adhesive tape Allergy Itching Verified 11/26/18 12:17 pregabalin [From Lyrica] Allergy Rash/Hives Verified 11/26/18 12:17 Review of Systems ROS Statement: Those systems with pertinent positive or pertinent negative responses have been documented in the HPI. ROS Other: All systems not noted in ROS Statement are negative. 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, DVT L ankle, numbness/tingling legs, 2 abdominal aortic aneurysms, anemia, constipation, diverticulosis, hiatal hernia, L ear tinnitis, palpitations, pituitary gland tumor History of Any Multi-Drug Resistant Organisms: None Reported Past Surgical History: Heart Catheterization, Heart Catheterization With Stent, Hernia Repair, Orthopedic Surgery Additional Past Surgical History / Comment(s): 12/23/17 Incisional hernia with mesh, LEFT FOOT X8 , RIGHT FOOT X2, LEFT KNEE X3 (ARTHROSCOPIC), VASECTOMY, RIGHT LITTLE FINGER,LEFT SHOULDER X2, RIGHT SHOULDER X2, BILAT ANKLE SX, colonoscopy x3, pain clinic procedures. Abd. Surgery 08/11/2018, scar tissue removal within colon Past Anesthesia/Blood Transfusion Reactions: No Reported Reaction Date of Last Stent Placement:: 07/15/18 Past Psychological History: Anxiety, Depression Smoking Status: Former smoker Past Alcohol Use History: None Reported Past Drug Use History: None Reported - Past Family History Mother Family Medical History: Dementia Additional Family Medical History / Comment(s): Mother is 70yrs old with AD. Father Family Medical History: Myocardial Infarction ([place]) Additional Family Medical History / Comment(s): Father passed at age 53 from [place] with history of drug and alcohol abuse. Brother(s) Additional Family Medical History / Comment(s): Patient has one brother with history of diabetes, hypertension, hyperlipidemia, ankylosing spondylosis. Sister(s) Additional Family Medical History / Comment(s): The patient has one sister diagnosed last week with liver cancer unsure primary. Daughter(s) Additional Family Medical History / Comment(s): Patient has 3 daughters ages 23, 19 and 11. 23-year-old daughter has had cardiac ablation done. Son(s) Additional Family Medical History / Comment(s): Patient has 2 sons ages 26 and 14. Son age 26 has been diagnosed with hypertension and chronic back pain. General Exam - General Exam Comments Initial Comments: GENERAL: Patient is well-developed and well-nourished. Patient is nontoxic and well- hydrated and is in mild distress. ENT: Neck is soft and supple. No significant lymphadenopathy is noted. Oropharynx is clear. Moist mucous membranes. Neck has full range of motion without eliciting any pain. EYES: The sclera were anicteric and conjunctiva were pink and moist. Extraocular movements were intact and pupils were equal round and reactive to light. Eyelids were unremarkable. PULMONARY: Unlabored respirations. Good breath sounds bilaterally. No audible rales rhonchi or wheezing was noted. CARDIOVASCULAR: There is a regular rate and rhythm without any murmurs gallops or rubs. ABDOMEN: Soft and nontender with normal bowel sounds. SKIN: Skin is clear with no lesions or rashes and otherwise unremarkable. NEUROLOGIC: Patient is alert and oriented x3. Cranial nerves II through XII are grossly intact. Motor and sensory are also intact. Normal speech, volume and content. Symmetrical smile. MUSCULOSKELETAL: Normal extremities with adequate strength and full range of motion. LYMPHATICS: No significant lymphadenopathy is noted PSYCHIATRIC: Normal psychiatric evaluation. Limitations: no limitations Course Vital Signs 11/26/18 11:57 Temperature 97.8 F Pulse Rate 77 Respiratory 18 Rate Blood Pressure 118/84 O2 Sat by Pulse 97 Oximetry Medical Decision Making - Medical Decision Making EKG shows normal sinus rhythm at 70 bpm WA interval 244 QRS is 92 QT interval 384 QTC is 414. Patient's EKG has no ST segment elevation. Chest x-ray showed no acute normalities. I started the patient on heparin secondary is unstable anginal picture. I spoke with Dr. Torres she agreed to admit the patient admitted the patient wrote admitting orders and I consult cardiology. I continue the heparin and aspirin and Nitropaste on the floor. - Lab Data Result diagrams: 11/26/18 12:26 11/26/18 12:26 Lab Results 11/26/18 11/26/18 11/26/18 Range/Units 12:26 12:26 12:26 WBC 5.0 (3.8-10.6) k/uL RBC 4.18 L (4.30-5.90) m/uL Hgb 12.6 L (13.0-17.5) gm/dL Hct 38.7 L (39.0-53.0) % MCV 92.6 (80.0-100.0) fL MCH 30.2 (25.0-35.0) pg MCHC 32.6 (31.0-37.0) g/dL RDW 13.0 (11.5-15.5) % Plt Count 221 (150-450) k/uL Neutrophils % 67 % Lymphocytes % 22 % Monocytes % 5 % Eosinophils % 3 % Basophils % 0 % Neutrophils # 3.4 (1.3-7.7) k/uL Lymphocytes # 1.1 (1.0-4.8) k/uL Monocytes # 0.3 (0-1.0) k/uL Eosinophils # 0.1 (0-0.7) k/uL Basophils # 0.0 (0-0.2) k/uL PT 9.9 (9.0-12.0) sec INR 0.9 (<1.2) APTT 21.9 L (22.0-30.0) sec Sodium 141 (137-145) mmol/L Potassium 4.1 (3.5-5.1) mmol/L Chloride 106 (98-107) mmol/L Carbon Dioxide 23 (22-30) mmol/L Anion Gap 12 mmol/L BUN 13 (9-20) mg/dL Creatinine 0.60 L (0.66-1.25) mg/dL Est GFR (CKD-EPI)AfAm >90 (>60 ml/min/1.73 sqM) Est GFR (CKD-EPI)NonAf >90 (>60 ml/min/1.73 sqM) Glucose 92 (74-99) mg/dL Calcium 9.5 (8.4-10.2) mg/dL Magnesium 2.0 (1.6-2.3) mg/dL Total Bilirubin 0.9 (0.2-1.3) mg/dL AST 33 (17-59) U/L ALT 52 (21-72) U/L Alkaline Phosphatase 60 (38-126) U/L Troponin I (0.000-0.034) ng/mL Total Protein 7.2 (6.3-8.2) g/dL Albumin 4.6 (3.5-5.0) g/dL 11/26/18 Range/Units 12:26 WBC (3.8-10.6) k/uL RBC (4.30-5.90) m/uL Hgb (13.0-17.5) gm/dL Hct (39.0-53.0) % MCV (80.0-100.0) fL MCH (25.0-35.0) pg MCHC (31.0-37.0) g/dL RDW (11.5-15.5) % Plt Count (150-450) k/uL Neutrophils % % Lymphocytes % % Monocytes % % Eosinophils % % Basophils % % Neutrophils # (1.3-7.7) k/uL Lymphocytes # (1.0-4.8) k/uL Monocytes # (0-1.0) k/uL Eosinophils # (0-0.7) k/uL Basophils # (0-0.2) k/uL PT (9.0-12.0) sec INR (<1.2) APTT (22.0-30.0) sec Sodium (137-145) mmol/L Potassium (3.5-5.1) mmol/L Chloride (98-107) mmol/L Carbon Dioxide (22-30) mmol/L Anion Gap mmol/L BUN (9-20) mg/dL Creatinine (0.66-1.25) mg/dL Est GFR (CKD-EPI)AfAm (>60 ml/min/1.73 sqM) Est GFR (CKD-EPI)NonAf (>60 ml/min/1.73 sqM) Glucose (74-99) mg/dL Calcium (8.4-10.2) mg/dL Magnesium (1.6-2.3) mg/dL Total Bilirubin (0.2-1.3) mg/dL AST (17-59) U/L ALT (21-72) U/L Alkaline Phosphatase (38-126) U/L Troponin I <0.012 (0.000-0.034) ng/mL Total Protein (6.3-8.2) g/dL Albumin (3.5-5.0) g/dL Critical Care Time Critical Care Time: Yes Total Critical Care Time: 35 Disposition Clinical Impression: Unstable angina pectoris Disposition: ADMITTED IP TO THIS [facility] Time of Disposition: 14:43
--- NOTE | 2018-11-26 12:48 | XR ---
EXAMINATION TYPE: XR chest 2V DATE OF EXAM: 11/26/2018 COMPARISON: Prior chest x-ray 08/16/2018 HISTORY: Chest pain TECHNIQUE: Frontal and lateral views of the chest are obtained. FINDINGS: There are overlying cardiac leads. There is no focal air space opacity, pleural effusion, o r pneumothorax seen. The cardiac silhouette size is within normal limits. The osseous structures a re intact. IMPRESSION: No acute cardiopulmonary process.
[2018-11-26 13:11] LABS: Basophils % (A) 0 %; Eosinophils # (A) 0.1 k/uL (0-0.7); Eosinophils % (A) 3 %; HCT 38.7 % (39.0-53.0); HGB 12.6 gm/dL (13.0-17.5); Lymphocytes # (A) 1.1 k/uL (1.0-4.8); Lymphocytes % (A) 22 %; MCH 30.2 pg (25.0-35.0); MCHC 32.6 g/dL (31.0-37.0); MCV 92.6 fL (80.0-100.0); Mean Platelet Volume 6.5; Monocytes # (A) 0.3 k/uL (0-1.0); Monocytes % (A) 5 %; Neutrophils # (A) 3.4 k/uL (1.3-7.7); Neutrophils % (A) 67 %; Platelet Count 221 k/uL (150-450); RBC 4.18 m/uL (4.30-5.90)
[2018-11-26 13:25] LABS: ALT 52 U/L (21-72); AST 33 U/L (17-59); African American GFR (CKD) >90 (>60 ml/min/1.73 sqM); Albumin 4.6 g/dL (3.5-5.0); Alkaline Phosphatase 60 U/L (38-126); Anion Gap 12 mmol/L; Blood Urea Nitrogen 13 mg/dL (9-20); Calcium 9.5 mg/dL (8.4-10.2); Carbon Dioxide 23 mmol/L (22-30); Chloride 106 mmol/L (98-107); Glucose 92 mg/dL (74-99); Potassium 4.1 mmol/L (3.5-5.1); Sodium 141 mmol/L (137-145); Total Bilirubin 0.9 mg/dL (0.2-1.3); Total Protein 7.2 g/dL (6.3-8.2)
[2018-11-26 13:29] LABS: INR 0.9 (<1.2); Partial Thromboplastin Time 21.9 sec (22.0-30.0); Prothrombin Time 9.9 sec (9.0-12.0)
[2018-11-26] MEDS ORDERED: HEPARIN SODIUM,PORCINE 5,000 UNIT/ML 1 ML VIAL IV ONE (14:32)
[2018-11-26] MEDS ORDERED: NITROGLYCERIN SL TABS 0.4 MG TAB SUBLINGUAL PRN (14:43)
[2018-11-26] MEDS: HEPARIN SOD,PORK IN 0.45% NACL 25,000 UNIT in 0.45% NACL 1 250ML.BAG IV SCH (14:56)
[2018-11-26] MEDS ORDERED: INFLUENZA VACCINE (6 MOS+) 60 MCG/0.5 ML SYRINGE IM ONE (15:52)
[2018-11-26] MEDS: NITROGLYCERIN OINT 1 INCH/GM PACKET TOPICAL SCH ×2 (16:03→23:12)
[2018-11-26] MEDS ORDERED: CABERGOLINE 0.5 MG PO SCH (16:15)
--- NOTE | 2018-11-26 16:18 | P.HPIM ---
History of Present Illness H&P Date: 11/26/18 Chief Complaint: Chest pain This is a 53-year-old male patient of Jasiel Mark NP with past medical history of hypertension, hyperlipidemia, coronary artery disease, DVT, previous bowel surgeries, multiple orthopedic surgeries following a fall of 4 stories in 1991 including ankles, left knee scopes, right tibial screws and plate subsequently removed, fractured back without surgery. Patient was recently seen at [facility] on July 15 2018 and had 3 cardiac stents placed by Dr. Mansfield. He is also known to have 2 aortic aneurysms as well. Patient came into [facility] emergency center for evaluation of chest pain, had taken 3 sublingual nitroglycerin, without relief, this has radiated to the neck, and the left arm, also with shortness of breath. Patient denies any fever no chills no cough, no lightheadedness or dizziness, no abdominal pain melena hematuria, no hemoptysis. Patient denies any leg swelling or calf tenderness.. EKG in the emergency room shows sinus rhythm heart rate of 70, no acute ST-T wave changes, chest x-ray shows no acute abnormalities, patient was started on IV heparin and Nitropaste secondary to unstable anginal c hest pain . 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, DVT L ankle, numbness/tingling legs, 2 abdominal aortic aneurysms, anemia, constipation, diverticulosis, hiatal hernia, L ear tinnitis, palpitations, pituitary gland tumor History of Any Multi-Drug Resistant Organisms: None Reported Past Surgical History: Heart Catheterization, Heart Catheterization With Stent, Hernia Repair, Orthopedic Surgery Additional Past Surgical History / Comment(s): 12/23/17 Incisional hernia with mesh, LEFT FOOT X8 , RIGHT FOOT X2, LEFT KNEE X3 (ARTHROSCOPIC), VASECTOMY, RIG HT LITTLE FINGER,LEFT SHOULDER X2, RIGHT SHOULDER X2, BILAT ANKLE SX, colonoscopy x3, pain clinic procedures. Abd. Surgery 08/11/2018, scar tissue removal within colon Past Anesthesia/Blood Transfusion Reactions: No Reported Reaction Date of Last Stent Placement:: 07/15/18 Past Psychological History: Anxiety, Depression Smoking Status: Former smoker Past Alcohol Use History: None Reported Past Drug Use History: None Reported - Past Family History Mother Family Medical History: Dementia Additional Family Medical History / Comment(s): Mother is 70yrs old with AD. Father Family Medical History: Myocardial Infarction ([place]) Additional Family Medical History / Comment(s): Father passed at age 53 from [place] with history of drug and alcohol abuse. Brother(s) Additional Family Medical History / Comment(s): Patient has one brother with history of diabetes, hypertension, hyperlipidemia, ankylosing spondylosis. Sister(s) Additional Family Medical History / Comment(s): The patient has one sister diagnosed last week with liver cancer unsure primary. Daughter(s) Additional Family Medical History / Comment(s): Patient has 3 daughters ages 23, 19 and 11. 23-year-old daughter has had cardiac ablation done. Son(s) Additional Family Medical History / Comment(s): Patient has 2 sons ages 26 and 14. Son age 26 has been diagnosed with hypertension and chronic back pain. Medications and Allergies Home Medications Medication Instructions Recorded Confirmed Type Aspirin 81 mg PO DAILY 05/10/14 11/26/18 History Atorvastatin [Lipitor] 80 mg PO HS 08/18/17 11/26/18 History Isosorbide Mononitrate ER [Imdur] 30 mg PO DAILY 08/18/17 11/26/18 History Metoprolol Succinate [Toprol XL] 25 mg PO DAILY 08/18/17 11/26/18 History Lisinopril [Zestril] 2.5 mg PO DAILY 12/25/17 11/26/18 History Nitroglycerin Sl Tabs [Nitrostat] 0.4 mg SUBLINGUAL Q5M PRN 08/10/18 11/26/18 History Cabergoline 0.5 mg PO Q5D 09/29/18 11/26/18 History Clopidogrel Bisulfate [Plavix] 75 mg PO DAILY 09/29/18 11/26/18 History Allergies Allergy/AdvReac Type Severity Reaction Status Date / Time adhesive tape Allergy Itching Verified 11/26/18 12:17 pregabalin [From Lyrica] Allergy Rash/Hives Verified 11/26/18 12:17 Physical Exam Vitals: Vital Signs Temp Pulse Pulse Resp BP BP Pulse Ox 11/26/18 15:52 98.2 F 63 18 100/63 98 11/26/18 15:30 57 L 17 124/91 11/26/18 15:00 65 17 109/79 98 11/26/18 14:30 56 L 18 111/81 97 11/26/18 14:00 65 18 103/77 96 11/26/18 13:30 73 19 115/84 95 11/26/18 13:00 73 17 122/82 94 L 11/26/18 11:57 97.8 F 77 18 118/84 97 Intake and Output 11/26/18 11/26/18 11/26/18 06:59 14:59 22:59 Other: Weight 81.193 kg Results CBC & Chem 7: 11/26/18 12:26 11/26/18 12:26 Labs: Abnormal Lab Results - Last 24 Hours (Table) 11/26/18 11/26/18 11/26/18 Range/Units 12:26 12:26 12:26 RBC 4.18 L (4.30-5.90) m/uL Hgb 12.6 L (13.0-17.5) gm/dL Hct 38.7 L (39.0-53.0) % APTT 21.9 L (22.0-30.0) sec Creatinine 0.60 L (0.66-1.25) mg/dL Thrombosis Risk Factor Assmnt - Choose All That Apply Each Factor Represents 1 point: Age 41-60 years Thrombosis Risk Factor Assessment Total Risk Factor Score: 1 Thrombosis Risk Factor Assessment Level: Low Risk Assessment and Plan Plan: 1. 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 Patient is on IV heparin, and Nitropaste, continue on Plavix Lipitor, serial troponins, modify risks. Check A1c 2. History of coronary artery disease with recent stent placement July [address] Leo and [facility]. Cardiology consult appreciated. Echocardiogram reviewed from August 2018. 3. Hypertension. Patient is normally on lisinopril 5 mg daily, Toprol-XL 25 mg daily, Imdur 30 mg daily on hold while on Nitropaste. 4. Hyperlipidemia. On Lipitor 80 lipid panel to be done 5. History of previous hiatal hernia repair and umbilical hernia repair along with ileus. 6. Previous traumatic fall with multiple fractures and subsequent surgeries. 7. Memory impairment. Patient is concerned regarding memory loss. Discussed sleep hygiene, use of B12 and recommend neurology workup to be arranged by PCP. 8. DVT prophylaxis. Heparin subcu. 9. GI prophylaxis. Protonix. Patient currently is under 23 hour observation Discharge plan: Return home
[2018-11-26] MEDS: ATORVASTATIN 80 MG TAB PO SCH (20:06)
[2018-11-27] MEDS: NITROGLYCERIN OINT 1 INCH/GM PACKET TOPICAL SCH ×2 (04:42→13:57)
[2018-11-27 06:10] LABS: Cholesterol 137 mg/dL (<200); HDL Cholesterol 39 mg/dL (40-60); LDL Cholesterol,Calculated 76 mg/dL (0-99); Triglycerides 111 mg/dL (<150)
[2018-11-27] MEDS ORDERED: ASPIRIN 81 MG PO SCH (09:00)
[2018-11-27] MEDS: CLOPIDOGREL 75 MG TAB PO SCH (09:03)
[2018-11-27] MEDS: ASPIRIN 325 MG TAB PO SCH (09:03)
[2018-11-27] MEDS: LISINOPRIL 2.5 MG TAB PO SCH (10:46)
[2018-11-27] MEDS: METOPROLOL SUCCINATE (ER) 25 MG TAB.ER.24H PO SCH (10:46)
[2018-11-27 11:32] VITALS: BMI 30.7
--- NOTE | 2018-11-27 13:21 | P.CRDCN ---
<Suyapa Orona - Last Filed: 11/27/18 13:37> History of Present Illness Consult date: 11/27/18 Consult reason: chest pain History of present illness: the patient is a 53-year-old male with past medical history CAD status post stenting, hypertension, dyslipidemia, and DVT,who follows with a Dr. Mansfield through the [facility]. He presented to the emergency room yesterday with acute onset of chest discomfort radiated through his jaw and down his left arm. This pain was unrelieved with sublingual nitroglycerin. He states he also had associated shortness of breath. EKG showed sinus mechanism without acute ST or T-wave changes. chest x-ray was unremarkable. Cardiac enzymes were negative WBC 5.0 hemoglobin 12.6, hematocrit 38.7, platelet 221, sodium 141, potassium 4.1, BUN 13, creatinine 0.60. he previously followed with Dr. Thacker in the office, however switch to [facility] several years back. He states he recently had stenting performed in July 2018. He also states within the last several weeks he did have stress testing done at the office, however he is scheduled to get the test results. On exam he is resting comfortably in bed. He states he did experience some chest pressure when ambulating to the bathroom this morning. He currently denies any shortness of breath, palpitations, dizziness, or lightheadedness. PAST MEDICAL HISTORY: CAD status post stenting at the [facility], hypertension, dyslipidemia, DVT REVIEW OF SYSTEMS: No fever or chills. No cough or expectoration. No d iaphoresis. Patient denies headache, dizziness, blurred vision, double vision. Patient denies any stomach discomfort. No nausea, vomiting. No hematochezia. No hematemesis. Denies any black stools or blood in his stools. Denies dysuria or hematuria. No muscle weakness or numbness. PHYSICAL EXAMINATION: This is a 53-year-old male in no apparent distress at the time of my examination. HEENT: Head is atraumatic, normocephalic. Pupils are equal, round. Sclerae anicteric. Conjunctivae are clear. Mucous membranes of the mouth are moist. Neck is supple. There is no jugular venous distention. No carotid bruit is heard. CHEST EXAMINATION: Lungs are clear to auscultation. No chest wall tenderness is noted on palpation or with deep breathing. HEART EXAMINATION: Heart regular rate and rhythm. S1, S2 heard. No murmurs, gallops or rub. ABDOMEN: Soft, nontender. Bowel sounds are heard. No organomegaly noted. EXTREMITIES: 2+ peripheral pulses with no evidence of peripheral edema and no calf tenderness noted. NEUROLOGIC EXAMINATION: Patient is awake, alert and oriented x3. LABORATORY DATA: Cardiac enzymes were negative WBC 5.0 hemoglobin 12.6, hematocrit 38.7, platelet 221, sodium 141, potassium 4.1, BUN 13, creatinine 0.60. FINAL ASSESSMENT AND PLAN: #1 chest discomfort, recent cardiac stenting in July 2018 #2 history of coronary artery disease #3 hypertension #4 dyslipidemia PLAN: We will obtain records from the [facility]. Echocardiogram to be performed. Consider stress testing. Discontinue heparin drip, resume Plavix. Continue home medication regimen. 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, DVT L ankle, numbness/tingling legs, 2 abdominal aortic aneurysms, anemia, constipation, diverticulosis, hiatal hernia, L ear tinnitis, palpitations, pituitary gland tumor History of Any Multi-Drug Resistant Organisms: None Reported Past Surgical History: Heart Catheterization, Heart Catheterization With Stent, Hernia Repair, Orthopedic Surgery Additional Past Surgical History / Comment(s): 12/23/17 Incisional hernia with mesh, LEFT FOOT X8 , RIGHT FOOT X2, LEFT KNEE X3 (ARTHROSCOPIC), VASECTOMY, RIGHT LITTLE FINGER,LEFT SHOULDER X2, RIGHT SHOULDER X2, BILAT ANKLE SX, colonoscopy x3, pain clinic procedures. Abd. Surgery 08/11/2018, scar tissue removal within colon Past Anesthesia/Blood Transfusion Reactions: No Reported Reaction Date of Last Stent Placement:: 07/15/18 Past Psychological History: Anxiety, Depression Smoking Status: Former smoker Past Alcohol Use History: None Reported Past Drug Use History: None Reported - Past Family History Mother Family Medical History: Dementia Additional Family Medical History / Comment(s): Mother is 70yrs old with AD. Father Family Medical History: Myocardial Infarction ([place]) Additional Family Medical History / Comment(s): Father passed at age 53 from [place] with history of drug and alcohol abuse. Brother(s) Additional Family Medical History / Comment(s): Patient has one brother with history of diabetes, hypertension, hyperlipidemia, ankylosing spondylosis. Sister(s) Additional Family Medical History / Comment(s): The patient has one sister diagnosed last week with liver cancer unsure primary. Daughter(s) Additional Family Medical History / Comment(s): Patient has 3 daughters ages 23, 19 and 11. 23-year-old daughter has had cardiac ablation done. Son(s) Additional Family Medical History / Comment(s): Patient has 2 sons ages 26 and 14. Son age 26 has been diagnosed with hypertension and chronic back pain. Medications and Allergies Home Medications Medication Instructions Recorded Confirmed Type Aspirin 81 mg PO DAILY 05/10/14 11/26/18 History Atorvastatin [Lipitor] 80 mg PO HS 08/18/17 11/26/18 History Isosorbide Mononitrate ER [Imdur] 30 mg PO DAILY 08/18/17 11/26/18 History Metoprolol Succinate [Toprol XL] 25 mg PO DAILY 08/18/17 11/26/18 History Lisinopril [Zestril] 2.5 mg PO DAILY 12/25/17 11/26/18 History Nitroglycerin Sl Tabs [Nitrostat] 0.4 mg SUBLINGUAL Q5M PRN 08/10/18 11/26/18 History Cabergoline 0.5 mg PO Q5D 09/29/18 11/26/18 History Clopidogrel Bisulfate [Plavix] 75 mg PO DAILY 09/29/18 11/26/18 History Allergies Allergy/AdvReac Type Severity Reaction Status Date / Time adhesive tape Allergy Itching Verified 11/26/18 12:17 pregabalin [From Lyrica] Allergy Rash/Hives Verified 11/26/18 12:17 Physical Exam Vitals: Vital Signs Temp Pulse Pulse Resp BP BP Pulse Ox 11/27/18 12:00 98.4 F 74 16 98/69 96 11/27/18 08:00 97.8 F 71 16 99/63 99 11/27/18 03:46 70 15 11/27/18 03:23 98.0 F 70 15 94/57 99 11/27/18 00:00 58 L 15 11/26/18 23:19 98.0 F 58 L 15 116/63 100 11/26/18 20:00 72 15 11/26/18 19:28 98.0 F 72 15 115/63 97 11/26/18 16:00 18 11/26/18 15:52 98.2 F 63 18 100/63 98 11/26/18 15:30 57 L 17 124/91 11/26/18 15:00 65 17 109/79 98 11/26/18 14:30 56 L 18 111/81 97 11/26/18 14:00 65 18 103/77 96 11/26/18 13:30 73 19 115/84 95 Intake and Output 11/26/18 11/27/18 11/27/18 22:59 06:59 14:59 Intake Total 300 193.399 Balance 300 193.399 Intake: Intake, IV Titration 193.399 Amount Heparin Sod,Pork in 0.45% 193.399 NaCl 25,000 unit In 0.45 % NaCl 1 250ml.bag @ 12 UNITS/KG/HR 9.743 mls/hr IV .Q24H [facility] Rx#: [id number] Oral 300 Other: Voiding Method Toilet Toilet Toilet # Voids 2 Weight 81.193 kg Results 11/26/18 12:26 11/26/18 12:26 Cardiac Enzymes 11/26/18 11/26/18 11/26/18 Range/Units 12:26 12:26 18:40 AST 33 (17-59) U/L Troponin I <0.012 <0.012 (0.000-0.034) ng/mL 11/27/18 Range/Units 00:15 AST (17-59) U/L Troponin I <0.012 (0.000-0.034) ng/mL Coagulation 11/26/18 11/26/18 11/27/18 Range/Units 12:26 18:39 05:26 PT 9.9 (9.0-12.0) sec APTT 21.9 L 47.8 H 39.7 H (22.0-30.0) sec Lipids 11/27/18 Range/Units 05:26 Triglycerides 111 (<150) mg/dL Cholesterol 137 (<200) mg/dL HDL Cholesterol 39 L (40-60) mg/dL CBC 11/26/18 Range/Units 12:26 WBC 5.0 (3.8-10.6) k/uL RBC 4.18 L (4.30-5.90) m/uL Hgb 12.6 L (13.0-17.5) gm/dL Hct 38.7 L (39.0-53.0) % Plt Count 221 (150-450) k/uL Comprehensive Metabolic Panel 11/26/18 Range/Units 12:26 Sodium 141 (137-145) mmol/L Potassium 4.1 (3.5-5.1) mmol/L Chloride 106 (98-107) mmol/L Carbon Dioxide 23 (22-30) mmol/L BUN 13 (9-20) mg/dL Creatinine 0.60 L (0.66-1.25) mg/dL Glucose 92 (74-99) mg/dL Calcium 9.5 (8.4-10.2) mg/dL AST 33 (17-59) U/L ALT 52 (21-72) U/L Alkaline Phosphatase 60 (38-126) U/L Total Protein 7.2 (6.3-8.2) g/dL Albumin 4.6 (3.5-5.0) g/dL Current Medications Generic Name Dose Route Start Last Admin Trade Name Freq PRN Reason Stop Dose Admin Aspirin 325 mg 11/27/18 09:00 11/27/18 09:03 Aspirin PO 325 mg DAILY ML Administration Atorvastatin Calcium 80 mg 11/26/18 21:00 11/26/18 20:06 Lipitor PO 80 mg HS ML Administration Clopidogrel Bisulfate 75 mg 11/27/18 09:00 11/27/18 09:03 Plavix PO 75 mg DAILY ML Administration Heparin Sodium/Sodium Chloride 250 mls @ 9.743 mls/hr 11/26/18 14:45 11/27/18 10:47 25,000 unit/ Sodium Chloride IV 15 units/kg/hr .Q24H ML 12.179 mls/hr Titration Protocol 12 UNITS/KG/HR Lisinopril 2.5 mg 11/27/18 09:00 11/27/18 10:46 Zestril PO 2.5 mg DAILY ML Administration Metoprolol Succinate 25 mg 11/27/18 09:00 11/27/18 10:46 Toprol Xl PO 25 mg DAILY ML Administration Nitroglycerin 0.4 mg 11/26/18 14:43 Nitrostat SUBLINGUAL Q5M PRN Chest Pain Nitroglycerin 1 inch 11/26/18 18:00 11/27/18 04:42 Nitro-Bid Oint TOPICAL 1 inch Q6HR ML Administration Non-Formulary Medication 0.5 mg 11/26/18 16:15 11/26/18 16:54 Cabergoline PO Not Given Q5D ML Intake and Output 11/26/18 11/27/18 11/27/18 22:59 06:59 14:59 Intake Total 300 193.399 Balance 300 193.399 Intake: Intake, IV Titration 193.399 Amount Heparin Sod,Pork in 0.45% 193.399 NaCl 25,000 unit In 0.45 % NaCl 1 250ml.bag @ 12 UNITS/KG/HR 9.743 mls/hr IV .Q24H [facility] Rx#: [id number] Oral 300 Other: Voiding Method Toilet Toilet Toilet # Voids 2 Weight 81.193 kg Patient Weight 11/28/18 06:59 Weight 81.193 kg 11/26/18 12:26 11/26/18 12:26 <Alexys Rainey - Last Filed: 11/27/18 21:33> History of Present Illness History of present illness: Patient evaluated Stress test not available over the weekend We will attempt to get on Thursday Further management thereafter Patient has known coronary artery disease status post stentingIn July 2018 No evidence for acute myocardial infarction Physical Exam Vitals: Vital Signs Temp Pulse Resp BP Pulse Ox 11/27/18 16:00 98.2 F 78 18 105/69 95 11/27/18 12:00 98.4 F 74 16 98/69 96 11/27/18 08:00 97.8 F 71 16 99/63 99 11/27/18 03:46 70 15 11/27/18 03:23 98.0 F 70 15 94/57 99 11/27/18 00:00 58 L 15 11/26/18 23:19 98.0 F 58 L 15 116/63 100 Intake and Output 11/27/18 11/27/18 11/27/18 06:59 14:59 22:59 Intake Total 300 193.399 Balance 300 193.399 Intake: Intake, IV Titration 193.399 Amount Heparin Sod,Pork in 0.45% 193.399 NaCl 25,000 unit In 0.45 % NaCl 1 250ml.bag @ 12 UNITS/KG/HR 9.743 mls/hr IV .Q24H [facility] Rx#: [id number] Oral 300 Other: Voiding Method Toilet Toilet Toilet # Voids 2 Weight 81.193 kg Results 11/26/18 12:26 11/26/18 12:26 Cardiac Enzymes 11/27/18 Range/Units 00:15 Troponin I <0.012 (0.000-0.034) ng/mL Coagulation 11/27/18 Range/Units 05:26 APTT 39.7 H (22.0-30.0) sec Lipids 11/27/18 Range/Units 05:26 Triglycerides 111 (<150) mg/dL Cholesterol 137 (<200) mg/dL HDL Cholesterol 39 L (40-60) mg/dL Current Medications Generic Name Dose Route Start Last Admin Trade Name Freq PRN Reason Stop Dose Admin Acetaminophen 650 mg 11/27/18 16:10 11/27/18 16:16 Tylenol Tab PO 650 mg Q6HR PRN Administration Fever and/ or Mild Pain Aspirin 325 mg 11/27/18 09:00 11/27/18 09:03 Aspirin PO 325 mg DAILY [facility] Administration Atorvastatin Calcium 80 mg 11/26/18 21:00 11/27/18 20:31 Lipitor PO 80 mg HS ML Administration Clopidogrel Bisulfate 75 mg 11/27/18 09:00 11/27/18 09:03 Plavix PO 75 mg DAILY ML Administration Lisinopril 2.5 mg 11/27/18 09:00 11/27/18 10:46 Zestril PO 2.5 mg DAILY [facility] Administration Metoprolol Succinate 25 mg 11/27/18 09:00 11/27/18 10:46 Toprol Xl PO 25 mg DAILY [facility] Administration Nitroglycerin 0.4 mg 11/26/18 14:43 Nitrostat SUBLINGUAL Q5M PRN Chest Pain Non-Formulary Medication 0.5 mg 11/26/18 16:15 11/26/18 16:54 Cabergoline PO Not Given Q5D [facility] Terbinafine HCl 1 applic 11/27/18 20:29 Lamisil Cream TOPICAL BID PRN Rash Intake and Output 11/27/18 11/27/18 11/27/18 06:59 14:59 22:59 Intake Total 300 193.399 Balance 300 193.399 Intake: Intake, IV Titration 193.399 Amount Heparin Sod,Pork in 0.45% 193.399 NaCl 25,000 unit In 0.45 % NaCl 1 250ml.bag @ 12 UNITS/KG/HR 9.743 mls/hr IV .Q24H [facility] Rx#: [id number] Oral 300 Other: Voiding Method Toilet Toilet Toilet # Voids 2 Weight 81.193 kg Patient Weight 11/28/18 06:59 Weight 81.193 kg 11/26/18 12:26 11/26/18 12:26
--- NOTE | 2018-11-27 14:19 | P.PN ---
Subjective Progress Note Date: 11/27/18 This is a 53-year-old male patient of Jasiel Mark NP with past medical history of hypertension, hyperlipidemia, coronary artery disease, DVT, previous bowel surgeries, multiple orthopedic surgeries following a fall of 4 stories in 1991 including ankles, left knee scopes, right tibial screws and plate subsequently removed, fractured back without surgery. Patient was recently seen at [facility] on July 15 2018 and had 3 cardiac stents placed by Dr. Mansfield. He is also known to have 2 aortic aneurysms as well. Patient came into [facility] emergency center for evaluation of chest pain, had taken 3 sublingual nitroglycerin, without relief, this has radiated to the neck, and the left arm, also with shortness of breath. Patient denies any fever no chills no cough, no lightheadedness or dizziness, no abdominal pain melena hematuria, no hemoptysis. Patient denies any leg swelling or calf tenderness.. EKG in the emergency room shows sinus rhythm heart rate of 70, no acute ST-T wave changes, chest x-ray shows no acute abnormalities, patient was started on IV heparin and Nitropaste secondary to unstable anginal chest pain . Consult with cardiology, troponins are 0.012, INR 0.9, WBC count of 5.0, chest x-ray shows no acute pulmonary process, no pneumothorax, no pleural effusion Echocardiogram performed August 2018, sinus rhythm, EF 60-65%, borderline LVH, mild pulmonary hypertension, right ventricle systolic pressure of 35, no aortic stenosis 11/27: Patient is sitting up in bed continues to have some chest discomfort relating to the back as well as left shoulder and jaw area not related to exertion, he was supposed to follow-up with his web architect at [facility] next week however he ended up in the ER here , we will try to get records from the [facility]. Objective - Vital Signs Vital signs: Vital Signs Temp 98.0 F 11/27/18 03:23 Pulse 70 11/27/18 03:46 Resp 15 11/27/18 03:46 BP 94/57 11/27/18 03:23 Pulse Ox 99 11/27/18 03:23 Intake & Output 11/26/18 11/27/18 11/27/18 18:59 06:59 18:59 Intake Total 300 Balance 300 Weight 81.193 kg Intake: Oral 300 Other: Voiding Method Toilet Toilet # Voids 2 - EENT Eyes: Present: EOMI, PERRLA, normal appearance. Absent: ptosis, scleral icterus ENT: Present: hearing grossly normal, NA/AT, normal oropharynx. Absent: thrush Ears: bilateral: normal - Neck Neck: Present: normal ROM. Absent: lymphadenopathy, rigidity, stridor, thyromegaly Carotids: bilateral: upstroke normal Thyroid: bilateral: normal size - Respiratory Respiratory: bilateral: diminished, negative: dullness, rales, rhonchi, wheezing, prolonged expiration - Cardiovascular Rhythm: regular Heart sounds: normal: S1, S2 Abnormal Heart Sounds: Absent: systolic murmur, S3 Gallop, S4 Gallop - Gastrointestinal General gastrointestinal: Present: normal bowel sounds, soft. Absent: splenomegaly, tenderness, umbilical hernia - Integumentary Integumentary: Present: normal, normal turgor - Neurologic Neurologic: Present: CNII-XII intact - Musculoskeletal Musculoskeletal: Present: gait normal - Psychiatric Psychiatric: Present: A&O x's 3, appropriate affect, intact judgment & insight - Labs CBC & Chem 7: 11/26/18 12:26 11/26/18 12:26 Labs: Abnormal Lab Results - Last 24 Hours (Table) 11/26/18 11/26/18 11/26/18 Range/Units 12:26 12:26 12:26 RBC 4.18 L (4.30-5.90) m/uL Hgb 12.6 L (13.0-17.5) gm/dL Hct 38.7 L (39.0-53.0) % APTT 21.9 L (22.0-30.0) sec Creatinine 0.60 L (0.66-1.25) mg/dL HDL Cholesterol (40-60) mg/dL 11/26/18 11/27/18 11/27/18 Range/Units 18:39 05:26 05:26 RBC (4.30-5.90) m/uL Hgb (13.0-17.5) gm/dL Hct (39.0-53.0) % APTT 47.8 H 39.7 H (22.0-30.0) sec Creatinine (0.66-1.25) mg/dL HDL Cholesterol 39 L (40-60) mg/dL Assessment and Plan Assessment: Assessment and Plan Plan: 1. Unstable angina, with known history of CAD, with prior cardiac stent July 2018, follows with a web architect at [facility], patient is on bili into an aspirin, echocardiogram was reviewed from August 2018, no aortic stenosis, no pulmonary mild pulmonary hypertension, normal EF. Patient is on IV heparin, and Nitropaste, continue on Plavix Lipitor, serial troponins, modify risks. Check A1c 2. History of coronary artery disease with recent stent placement July [address] Leo and [facility]. Cardiology consult appreciated. Echocardiogram reviewed from August 2018. 3. Hypertension. Patient is normally on lisinopril 5 mg daily, Toprol-XL 25 mg daily, Imdur 30 mg daily on hold while on Nitropaste. 4. Hyperlipidemia. On Lipitor 80 lipid panel to be done 5. History of previous hiatal hernia repair and umbilical hernia repair along with ileus. 6. Previous traumatic fall with multiple fractures and subsequent surgeries. 7. Memory impairment. Patient is concerned regarding memory loss. Discussed sleep hygiene, use of B12 and recommend neurology workup to be arranged by PCP. 8. DVT prophylaxis. Heparin subcu. 9. GI prophylaxis. Protonix. 10. Records from [facility], likely will need left heart catheterization.
[2018-11-27] MEDS: HEPARIN SOD,PORK IN 0.45% NACL 25,000 UNIT in 0.45% NACL 1 250ML.BAG IV SCH (16:14)
[2018-11-27] MEDS: ACETAMINOPHEN TAB 325 MG TAB PO PRN (16:16)
[2018-11-27] MEDS ORDERED: TERBINAFINE 1% CREAM 15 GM TUBE TOPICAL PRN (20:29)
[2018-11-27] MEDS: ATORVASTATIN 80 MG TAB PO SCH (20:31)
[2018-11-28 06:07] LABS: Basophils # (A) 0.1 k/uL (0-0.2); Basophils % (A) 1 %; Eosinophils # (A) 0.2 k/uL (0-0.7); Eosinophils % (A) 3 %; HCT 37.5 % (39.0-53.0); HGB 12.3 gm/dL (13.0-17.5); Lymphocytes % (A) 16 %; MCH 30.6 pg (25.0-35.0); MCHC 32.8 g/dL (31.0-37.0); MCV 93.2 fL (80.0-100.0); Mean Platelet Volume 6.6; Monocytes # (A) 0.5 k/uL (0-1.0); Monocytes % (A) 8 %; Neutrophils # (A) 4.1 k/uL (1.3-7.7); Neutrophils % (A) 70 %; Platelet Count 196 k/uL (150-450); RBC 4.03 m/uL (4.30-5.90); RDW 13.2 % (11.5-15.5)
[2018-11-28 06:29] LABS: ALT 42 U/L (21-72); AST 25 U/L (17-59); African American GFR (CKD) >90 (>60 ml/min/1.73 sqM); Alkaline Phosphatase 57 U/L (38-126); Anion Gap 9 mmol/L; Blood Urea Nitrogen 18 mg/dL (9-20); Calcium 9.1 mg/dL (8.4-10.2); Carbon Dioxide 24 mmol/L (22-30); Chloride 107 mmol/L (98-107); Glucose 98 mg/dL (74-99); Potassium 4.4 mmol/L (3.5-5.1); Sodium 140 mmol/L (137-145); Total Bilirubin 0.6 mg/dL (0.2-1.3); Total Protein 6.3 g/dL (6.3-8.2)
[2018-11-28] MEDS: ACETAMINOPHEN TAB 325 MG TAB PO PRN ×3 (06:50→19:02)
[2018-11-28] MEDS: METOPROLOL SUCCINATE (ER) 25 MG TAB.ER.24H PO SCH (08:26)
[2018-11-28] MEDS: ASPIRIN 325 MG TAB PO SCH (08:26)
[2018-11-28] MEDS: LISINOPRIL 2.5 MG TAB PO SCH (08:26)
[2018-11-28] MEDS: CLOPIDOGREL 75 MG TAB PO SCH (08:26)
--- NOTE | 2018-11-28 09:00 | ECHOF ---
Referral Reason:cp cad MEASUREMENTS -------- HEIGHT: 162.6 cm WEIGHT: 81.2 kg BP: 94/57 IVSd: 1.1 cm (0.6 - 1.1) LVIDd: 4.6 cm (3.9 - 5.3) LVPWd: 1.2 cm (0.6 - 1.1) IVSs: 1.4 cm LVIDs: 3.3 cm LVPWs: 1.6 cm LA Diam: 3.6 cm (2.7 - 3.8) RVIDd: 2.8 cm (< 3.3) LAESV Index (A-L): 26.85 ml/m Ao Diam: 3.2 cm (2.0 - 3.7) AV Cusp: 2.3 cm (1.5 - 2.6) EPSS: 0.7 cm MV E Edinson: 0.93 m/s MV DecT: 226 ms MV A Edinson: 0.99 m/s MV E/A Ratio: 0.93 RAP: 5.00 mmHg RVSP: 29.15 mmHg MV EF SLOPE: 83.06 mm/s (70 - 150) MV EXCURSION: 14.88 mm (> 18.000) TAPSE: 20.69 mm FINDINGS -------- Sinus rhythm. This was a technically good study. The left ventricular size is normal. There is borderline concentric left ventricular hypertrophy. Overall left ventricular systolic function is normal with, an EF between 60 - 65 %. The diastolic filling pattern is normal for the age of the patient 13.02. The right ventricle is normal in size. Normal LA size by volume 22+/-6 ml/m2. The right atrium is normal in size. Interatrial and interventricular septum intact. The aortic valve is trileaflet and appears structurally normal. There is trace mitral regurgitation. Mild tricuspid regurgitation present. Right ventricular systolic pressure is normal at < 35 mmHg. Trace/mild (physiologic) pulmonic regurgitation. The aortic root size is normal. Normal inferior vena cava with normal inspiratory collapse consistent with estimated right atrial pre ssure of 5 mmHg. There is no pericardial effusion. CONCLUSIONS -------- 1. Sinus rhythm. 2. This was a technically good study. 3. The left ventricular size is normal. 4. There is borderline concentric left ventricular hypertrophy. 5. Overall left ventricular systolic function is normal with, an EF between 60 - 65 %. 6. The diastolic filling pattern is normal for the age of the patient 13.02 7. The right ventricle is normal in size. 8. Normal LA size by volume 22+/-6 ml/m2. 9. The right atrium is normal in size. 10. Interatrial and interventricular septum intact. 11. The aortic valve is trileaflet and appears structurally normal. 12. There is trace mitral regurgitation. 13. Mild tricuspid regurgitation present. 14. Right ventricular systolic pressure is normal at < 35 mmHg. 15. Trace/mild (physiologic) pulmonic regurgitation. 16. The aortic root size is normal. 17. Normal inferior vena cava with normal inspiratory collapse consistent with estimated right atrial pressure of 5 mmHg. 18. There is no pericardial effusion. BEADER TENDER: Safia Murphy RDCS
--- NOTE | 2018-11-28 10:38 | P.PN ---
Subjective Progress Note Date: 11/28/18 This is a 53-year-old male patient of Jasiel Mark NP with past medical history of hypertension, hyperlipidemia, coronary artery disease, DVT, previous bowel surgeries, multiple orthopedic surgeries following a fall of 4 stories in 1991 including ankles, left knee scopes, right tibial screws and plate subsequently removed, fractured back without surgery. Patient was recently seen at [facility] on July 15 2018 and had 3 cardiac stents placed by Dr. Mansfield. He is also known to have 2 aortic aneurysms as well. Patient came into [facility] emergency center for evaluation of chest pain, had taken 3 sublingual nitroglycerin, without relief, this has radiated to the neck, and the left arm, also with shortness of breath. Patient denies any fever no chills no cough, no lightheadedness or dizziness, no abdominal pain melena hematuria, no hemoptysis. Patient denies any leg swelling or calf tenderness.. EKG in the emergency room shows sinus rhythm heart rate of 70, no acute ST-T wave changes, chest x-ray shows no acute abnormalities, patient was started on IV heparin and Nitropaste secondary to unstable anginal chest pain . Consult with cardiology, troponins are 0.012, INR 0.9, WBC count of 5.0, chest x-ray shows no acute pulmonary process, no pneumothorax, no pleural effusion Echocardiogram performed August 2018, sinus rhythm, EF 60-65%, borderline LVH, mild pulmonary hypertension, right ventricle systolic pressure of 35, no aortic stenosis 11/27: Patient is sitting up in bed continues to have some chest discomfort relating to the back as well as left shoulder and jaw area not related to exertion, he was supposed to follow-up with his phone screener at [facility] next week however he ended up in the ER here , we will try to get records from the [facility]. 11/28: Patient is sitting up in bed in no apparent distress he denies any chest pain, shortness breath, he complains of neck pain today, he complains of increased the pain with inspiration suggestive of pleurisy and stated that the pain get worse when he leaned forward, he stated that he wanted to follow-up with his phone screener as an outpatient on Thursday, patient will be kept in the hospital for the next 24 hours until obtaining the final records unless cardiology clears him to go and follow up with his phone screener in the next 24 hours. Objective - Vital Signs Vital signs: Vital Signs Temp 98.5 F 11/28/18 04:00 Pulse 60 11/28/18 04:00 Resp 17 11/28/18 04:00 BP 99/65 11/28/18 04:00 Pulse Ox 97 11/28/18 04:00 Intake & Output 11/27/18 11/28/18 11/28/18 18:59 06:59 18:59 Intake Total 193.399 Output Total 1200 Balance 193.399 -1200 Weight 81.193 kg 82 kg Intake: Intake, IV Titration 193.399 Amount Heparin Sod,Pork in 0.45% 193.399 NaCl 25,000 unit In 0.45 % NaCl 1 250ml.bag @ 12 UNITS/KG/HR 9.743 mls/hr IV .Q24H ML Rx#: [id number] Output: Urine 1200 Other: Voiding Method Toilet Toilet # Voids 1 - Exam - EENT Eyes: Present: EOMI, PERRLA, normal appearance. Absent: ptosis, scleral icterus ENT: Present: hearing grossly normal, NA/AT, normal oropharynx. Absent: thrush Ears: bilateral: normal - Neck Neck: Present: normal ROM. Absent: lymphadenopathy, rigidity, stridor, thyromegaly Carotids: bilateral: upstroke normal Thyroid: bilateral: normal size - Respiratory Respiratory: bilateral: diminished, negative: dullness, rales, rhonchi, wheezi ng, prolonged expiration - Cardiovascular Rhythm: regular Heart sounds: normal: S1, S2 Abnormal Heart Sounds: Absent: systolic murmur, S3 Gallop, S4 Gallop - Gastrointestinal General gastrointestinal: Present: normal bowel sounds, soft. Absent: splenomegaly, tenderness, umbilical hernia - Integumentary Integumentary: Present: normal, normal turgor - Neurologic Neurologic: Present: CNII-XII intact - Musculoskeletal Musculoskeletal: Present: gait normal - Psychiatric Psychiatric: Present: A&O x's 3, appropriate affect, intact judgment & insight - Labs CBC & Chem 7: 11/28/18 05:46 11/28/18 05:46 Labs: Abnormal Lab Results - Last 24 Hours (Table) 11/28/18 11/28/18 Range/Units 05:46 05:46 RBC 4.03 L (4.30-5.90) m/uL Hgb 12.3 L (13.0-17.5) gm/dL Hct 37.5 L (39.0-53.0) % Creatinine 0.61 L (0.66-1.25) mg/dL Assessment and Plan Assessment: Assessment and Plan Plan: 1. Unstable angina, with known history of CAD, with prior cardiac stent July 2018, follows with a phone screener at [facility], patient is on bili into an aspirin, echocardiogram was reviewed from August 2018, no aortic stenosis, no pulmonary mild pulmonary hypertension, normal EF. Patient is on IV heparin, and Nitropaste, continue on Plavix Lipitor, serial troponins, modify risks. Check A1c 2. History of coronary artery disease with recent stent placement July [address] Leo and [facility]. Cardiology consult appreciated. Echocardiogram reviewed from August 2018. 3. Hypertension. Patient is normally on lisinopril 5 mg daily, Toprol-XL 25 mg daily, Imdur 30 mg daily on hold while on Nitropaste. 4. Hyperlipidemia. On Lipitor 80 lipid panel to be done 5. History of previous hiatal hernia repair and umbilical hernia repair along with ileus. 6. Previous traumatic fall with multiple fractures and subsequent surgeries. 7. Memory impairment. Patient is concerned regarding memory loss. Discussed sleep hygiene, use of B12 and recommend neurology workup to be arranged by PCP. 8. DVT prophylaxis. Heparin subcu. 9. GI prophylaxis. Protonix. 10. Records from his phone screener office likely would be in tomorrow morning. 11. We will continue to monitor. 12. Possible pleurisy. An unclear etiology. Continue supportive care.
--- NOTE | 2018-11-28 14:13 | P.PN ---
Subjective Progress Note Date: 11/28/18 the patient is a 53-year-old male with past medical history CAD status post stenting, hypertension, dyslipidemia, and DVT,who follows with a Dr. Mansfield through the [facility]. He presented to the emergency room yesterday with acute onset of chest discomfort radiated through his jaw and down his left arm. This pain was unrelieved with sublingual nitroglycerin. He states he also had associated shortness of breath. EKG showed sinus mechanism without acute ST or T-wave changes. chest x-ray was unremarkable. Cardiac enzymes were negative WBC 5.0 hemoglobin 12.6, hematocrit 38.7, platelet 221, sodium 141, potassium 4.1, BUN 13, creatinine 0.60. he previously followed with Dr. Thacker in the office, however switch to [facility] several years back. He states he recently had stenting performed in July 2018. He also states within the last several weeks he did have stress testing done at the office, however he is scheduled to get the test results. 11/27/18 Received cath report from [facility], however recent stress testing results were not included. Patient continues to have chest discomfort with deep breathing and coughing. He denies any shortness of breath, palpitations, dizziness, or lightheadedness. Cardiac enzymes were negative. WBC 5.0 hemoglobin 12.6, hematocrit 38.7, platelet 221, sodium 141, potassium 4.1, BUN 13, creatinine 0.60. Echocardiogram revealed LV function at 60-65% without significant valvular abnormalities. 11/28/18 Patient continues to have chest discomfort with deep breathing and coughing. He is eager to be discharged. Awaiting test results from [facility] prior to discharge. WBC 6.0, hemoglobin 12.3, hematocrit 37.5, sodium 140, potassium 4.4, BUN 18, creatinine 0.61, AST 25, ALT 42, LDL 76, triglycerides 111. Blood pressures well controlled in the low 100s to 1-teens. Heart rates in the 50s to 70s. 95% on room air. Objective - Vital Signs Vital signs: Vital Signs Temp 97.1 F L 11/28/18 11:35 Pulse 57 L 11/28/18 11:35 Resp 18 11/28/18 11:35 BP 111/70 11/28/18 11:35 Pulse Ox 94 L 11/28/18 11:35 Intake & Output 11/27/18 11/28/18 11/28/18 18:59 06:59 18:59 Intake Total 193.399 720 Output Total 1200 Balance 193.399 -1200 720 Weight 81.193 kg 82 kg Intake: Intake, IV Titration 193.399 Amount Heparin Sod,Pork in 0.45% 193.399 NaCl 25,000 unit In 0.45 % NaCl 1 250ml.bag @ 12 UNITS/KG/HR 9.743 mls/hr IV .Q24H ML Rx#: [id number] Oral 720 Output: Urine 1200 Other: Voiding Method Toilet Toilet # Voids 1 1 - Exam GENERAL: Well-appearing, well-nourished and in no acute distress. NECK: Supple without JVD or thyromegaly. LUNGS: Breath sounds clear to auscultation bilaterally. Respiration equal and unlabored. No wheezes, rales or rhonchi. HEART: Regular rate and rhythm without murmurs, rubs or gallops. S1 and S2 heard. EXTREMITIES: Normal range of motion, no edema. No clubbing or cyanosis. Peripheral pulses intact and strong. - Labs CBC & Chem 7: 11/28/18 05:46 11/28/18 05:46 Labs: Abnormal Lab Results - Last 24 Hours (Table) 11/28/18 11/28/18 Range/Units 05:46 05:46 RBC 4.03 L (4.30-5.90) m/uL Hgb 12.3 L (13.0-17.5) gm/dL Hct 37.5 L (39.0-53.0) % Creatinine 0.61 L (0.66-1.25) mg/dL Assessment and Plan Assessment: #1 chest discomfort, recent cardiac stenting in July 2018 #2 history of coronary artery disease #3 hypertension #4 dyslipidemia Plan: Obtain records from [facility] tomorrow morning. Discharge pending test results.
[2018-11-28] MEDS: ATORVASTATIN 80 MG TAB PO SCH (20:49)
[2018-11-29] MEDS: METOPROLOL SUCCINATE (ER) 25 MG TAB.ER.24H PO SCH (08:19)
[2018-11-29] MEDS: LISINOPRIL 2.5 MG TAB PO SCH (08:19)
[2018-11-29] MEDS: ACETAMINOPHEN TAB 325 MG TAB PO PRN (08:19)
[2018-11-29] MEDS: ASPIRIN 325 MG TAB PO SCH (08:19)
[2018-11-29] MEDS: CLOPIDOGREL 75 MG TAB PO SCH (08:19)
--- NOTE | 2018-11-29 09:10 | P.DS ---
Providers Date of admission: 11/28/18 11:27 Expected date of discharge: 11/29/18 Attending physician: Ashley Torres Consults: 11/26/18 14:43 Consult Physician Urgent Consulting Provider: [facility] Consult Reason/Comments: Unstable angina Do you want consulting provider notified?: Yes Primary care physician: Jameel Coe [facility] Course: This is a 53-year-old male patient of Jasiel Mark NP with past medical history of hypertension, hyperlipidemia, coronary artery disease, DVT, previous bowel surgeries, multiple orthopedic surgeries following a fall of 4 stories in 1991 including ankles, left knee scopes, right tibial screws and plate subsequently removed, fractured back without surgery. Patient was recently seen at [facility] on July 15 2018 and had 3 cardiac stents placed by Dr. Mansfield. He is also known to have 2 aortic aneurysms as well. Patient came into [facility] emergency center for evaluation of chest pain, had taken 3 sublingual nitroglycerin, without relief, this has radiated to the neck, and the left arm, also with shortness of breath. Patient denies any fever no chills no cough, no lightheadedness or dizziness, no abdominal pain melena hematuria, no hemoptysis. Patient denies any leg swelling or calf tenderness.. EKG in the emergency room shows sinus rhythm heart rate of 70, no acute ST-T wave changes, chest x-ray shows no acute abnormalities, patient was started on IV heparin and Nitropaste secondary to unstable anginal chest pain . Consult with cardiology, troponins are 0.012, INR 0.9, WBC count of 5.0, chest x-ray shows no acute pulmonary process, no pneumothorax, no pleural effusion Echocardiogram performed August 2018, sinus rhythm, EF 60-65%, borderline LVH, mild pulmonary hypertension, right ventricle systolic pressure of 35, no aortic stenosis 11/27: Patient is sitting up in bed continues to have some chest discomfort relating to the back as well as left shoulder and jaw area not related to exertion, he was supposed to follow-up with his shroud line tier at [facility] next week however he ended up in the ER here , we will try to get records from the [facility]. 11/28: Patient is sitting up in bed in no apparent distress he denies any chest pain, shortness breath, he complains of neck pain today, he complains of increased the pain with inspiration suggestive of pleurisy and stated that the pain get worse when he leaned forward, he stated that he wanted to follow-up with his shroud line tier as an outpatient on Thursday, patient will be kept in the hospital for the next 24 hours until obtaining the final records unless cardiology clears him to go and follow up with his shroud line tier in the next 24 hours. 11/29: Records were obtained from patient's primary shroud line tier and according to cardiology services, [facility]ulema Menon [employer], stress test that was negative and patient has been cleared for discharge. Patient is to follow-up with his primary shroud line tier tomorrow. Patient will be discharged home today in stable condition.. Discharge diagnoses: 1. Unstable angina, with known history of CAD, with prior cardiac stent July 2018 2. History of coronary artery disease with recent stent placement July [address] Leo at [facility]. 3. Hypertension. 4. Hyperlipidemia. 5. History of previous hiatal hernia repair and umbilical hernia repair along with ileus. 6. Previous traumatic fall with multiple fractures and subsequent surgeries. 7. Memory impairment. Patient is concerned regarding memory loss. Discussed sleep hygiene, use of B12 and recommend neurology workup to be arranged by PCP. 8. Possible pleurisy. An unclear etiology. Discharge plan: Home Impression and plan of care have been directed as dictated by the signing physician. Lauren Junior nurse practitioner acting as scribe for signing physician. Patient Condition at Discharge: Good Plan - Discharge Summary Discharge Rx Participant: No New Discharge Prescriptions: Continue Aspirin 81 mg PO DAILY Metoprolol Succinate [Toprol XL] 25 mg PO DAILY Isosorbide Mononitrate ER [Imdur] 30 mg PO DAILY Atorvastatin [Lipitor] 80 mg PO HS Lisinopril [Zestril] 2.5 mg PO DAILY Nitroglycerin Sl Tabs [Nitrostat] 0.4 mg SUBLINGUAL Q5M PRN PRN Reason: Chest Pain Cabergoline 0.5 mg PO Q5D Clopidogrel Bisulfate [Plavix] 75 mg PO DAILY Discharge Medication List Aspirin 81 mg PO DAILY 05/10/14 [History] Atorvastatin [Lipitor] 80 mg PO HS 08/18/17 [History] Isosorbide Mononitrate ER [Imdur] 30 mg PO DAILY 08/18/17 [History] Metoprolol Succinate [Toprol XL] 25 mg PO DAILY 08/18/17 [History] Lisinopril [Zestril] 2.5 mg PO DAILY 12/25/17 [History] Nitroglycerin Sl Tabs [Nitrostat] 0.4 mg SUBLINGUAL Q5M PRN 08/10/18 [History] Cabergoline 0.5 mg PO Q5D 09/29/18 [History] Clopidogrel Bisulfate [Plavix] 75 mg PO DAILY 09/29/18 [History] Follow up Appointment(s)/Referral(s): Raj Mark NPC [REFERRING] - 12/01/18 11:00 am (Office not answering, will keep trying for appointment. Patient notified.) Veronica Mansfield MD [STAFF PHYSICIAN] - 11/30/18 10:00 am Patient Instructions/Handouts: Chest Pain (DC), Heart Healthy Diet (DC) Discharge Disposition: HOME SELF-CARE
[2018-11-29 09:38] VITALS: BP 103/62; PULSE 75; RESP 14; TEMP 98.2
--- NOTE | 2018-11-29 17:45 | P.PN ---
Subjective This is Uma Cohen PA-C dictating a progress note on this patient The patient was interviewed and examined by me as well as by Dr. Rainey Case discussed with Dr. Rainey and he agrees with the plan of care IMPRESSION / ASSESSMENT: Chest discomfort, resolved, recent stress test negative CAD status post recent stenting in July Hypertension Dyslipidemia PLAN: Patient may be discharged home and follow-up with primary spd manager, states he has an appointment this week HPI/interval history Patient is a 53-year-old male with past medical history of CAD status post stenting, hypertension, dyslipidemia and DVT who presented with complaints of chest discomfort. Enzymes were negative. Echo showed EF 60-65%. Stress test from the [facility] today, showed no evidence of ischemia and normal systolic function. He should seen and examined resting comfortably in bed. States he is eager to go home. No chest pain or shortness of breath on exertion. No dizziness. EXAMINATION Vital signs stable. Patient seen and examined resting comfortably in bed, in no acute distress Lungs clear to auscultation bilaterally Heart is regular, no murmurs noted No elevated JVD or lower extremity edema Abdomen soft Objective - Vital Signs Vital signs: Vital Signs Temp 98.2 F 11/29/18 08:00 Pulse 75 11/29/18 08:00 Resp 14 11/29/18 08:00 BP 103/62 11/29/18 08:00 Pulse Ox 97 11/29/18 08:00 Intake & Output 11/28/18 11/29/18 11/29/18 18:59 06:59 18:59 Intake Total 960 480 Output Total 400 Balance 960 -400 480 Intake: Oral 960 480 Output: Urine 400 Other: Voiding Method Toilet Toilet # Voids 3 4 1 - Labs CBC & Chem 7: 11/28/18 05:46 11/28/18 05:46
== END 2018-11-29 10:35 | disposition home or self-care (01) | DRG 303 ==
LOC: EC 11:53 → 1SOBS 15:04 → 3SCARD 11-27 18:15 → OBSVTOIN 11-28 11:27
PROVIDERS: ADMIT Family Medicine; ATTEND Family Medicine
DX: I25.110 Atherosclerotic heart disease of native coronary artery with unstable angina pectoris (principal); E78.00 Pure hypercholesterolemia, unspecified; E78.5 Hyperlipidemia, unspecified; F32.9 Major depressive disorder, single episode, unspecified; F41.9 Anxiety disorder, unspecified; I10 Essential (primary) hypertension; I27.20 Pulmonary hypertension, unspecified; J45.909 Unspecified asthma, uncomplicated; Z79.02 Long term (current) use of antithrombotics/antiplatelets; Z79.82 Long term (current) use of aspirin; Z79.899 Other long term (current) drug therapy; Z80.0 Family history of malignant neoplasm of digestive organs; Z82.49 Family history of ischemic heart disease and other diseases of the circulatory system; Z83.3 Family history of diabetes mellitus; Z87.01 Personal history of pneumonia (recurrent); Z87.891 Personal history of nicotine dependence; Z95.5 Presence of coronary angioplasty implant and graft; Z88.8 Allergy status to other drugs, medicaments and biological substances; I71.9 Aortic aneurysm of unspecified site, without rupture; Z87.81 Personal history of (healed) traumatic fracture; R09.1 Pleurisy; R41.3 Other amnesia
CPT/HCPCS: 36415; 71046; 80053; 80061; 83735; 84484; 85025; 85610; 85730; 90686; 93005; 93306; 96361; 96365; 96376; 99291

== ENCOUNTER → 2019-02-04 | Outpatient (CLI) | payer OTHER ==
[2019-02-04 11:34] LABS: Basophils % (A) 1 %; Eosinophils # (A) 0.3 k/uL (0-0.7); Eosinophils % (A) 7 %; HCT 37.4 % (39.0-53.0); HGB 12.6 gm/dL (13.0-17.5); Lymphocytes # (A) 1.2 k/uL (1.0-4.8); Lymphocytes % (A) 26 %; MCH 31.3 pg (25.0-35.0); MCHC 33.6 g/dL (31.0-37.0); Mean Platelet Volume 7.4; Monocytes # (A) 0.3 k/uL (0-1.0); Monocytes % (A) 7 %; Neutrophils # (A) 2.6 k/uL (1.3-7.7); Neutrophils % (A) 57 %; Platelet Count 246 k/uL (150-450); RBC 4.02 m/uL (4.30-5.90); RDW 12.6 % (11.5-15.5); WBC 4.6 k/uL (3.8-10.6)
== END | disposition home or self-care (01) ==
LOC: LABPAT 10:15
PROVIDERS: ATTEND Surgery
DX: Z01.818 Encounter for other preprocedural examination (principal); Z01.812 Encounter for preprocedural laboratory examination; K43.0 Incisional hernia with obstruction, without gangrene
CPT/HCPCS: 85025; 93005

== ENCOUNTER 2019-02-16 06:02 | Inpatient (IN) | payer OTHER ==
[2019-02-14 14:45] VITALS: BMI 33.5
[~2019-02-16 06:02] MED LIST changes: +DEXAMETHASONE SOD PHOSPHATE 10 MG/ML 1 ML VIAL IV ONE; +HEPARIN SODIUM,PORCINE 5,000 UNIT/ML 1 ML VIAL SQ ONE; -LACTATED RINGERS 1,000 ML IV SCH; +LIDOCAINE 1% 20 ML VIAL (10MG/ML) FOR IV START INTRADERMA PRN; +MIDAZOLAM 2 MG/2 ML VIAL IV PRN; +ONDANSETRON 4 MG/2 ML VIAL IVP ONE
[2019-02-16] MEDS: LACTATED RINGERS 1,000 ML IV SCH (06:29)
[2019-02-16] MEDS ORDERED: MIDAZOLAM 2 MG/2 ML VIAL IVP ONE (06:57)
[2019-02-16] MEDS ORDERED: fentaNYL (PF) 50 MCG/ML 2 ML AMP IVP ONE (06:57)
[2019-02-16] MEDS ORDERED: SUCCINYLCHOLINE CHLORIDE 100 MG/5 ML SYR IV ONE (07:58)
[2019-02-16] MEDS ORDERED: MIDAZOLAM 2 MG/2 ML VIAL ONE (07:58)
[2019-02-16] MEDS ORDERED: PROPOFOL 10 MG/ML 20 ML VIAL IV ONE (07:58)
[2019-02-16] MEDS ORDERED: ROCURONIUM BROMIDE 10 MG/ML 10 ML VIAL IV ONE (07:58)
[2019-02-16] MEDS ORDERED: fentaNYL (PF) 50 MCG/ML 2 ML AMP ONE (07:58)
[2019-02-16] MEDS ORDERED: ROPIVACAINE 5 MG/ML 30 ML VIAL ONE (07:58)
[2019-02-16] MEDS ORDERED: LIDOCAINE 0.5% (PF) 5 MG/ML (50 ML SDV) ONE (07:58)
[2019-02-16] MEDS ORDERED: LIDOCAINE 1% INJ 10MG/ML (20 ML MDV) ONE (07:58)
[2019-02-16] MEDS ORDERED: KETAMINE 10 MG/ML 20 ML VIAL ONE (07:58)
[2019-02-16] MEDS ORDERED: NEOSTIGMINE 1 MG/ML 10 ML VIAL ONE (07:58)
[2019-02-16] MEDS ORDERED: GLYCOPYRROLATE 0.2 MG/ML 2 ML VIAL ONE (07:58)
--- NOTE | 2019-02-16 07:58 | P.GSHP ---
History of Present Illness H&P Date: 02/16/19 Chief Complaint: Incisional hernia This a 53-year-old male who has developed an incisional hernia. Patient resents today for laparoscopic robotic-assisted repair. 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, chronic back pain., Hx DVT L ankle, 1 ascending and 1descending aortic aneurysm, anemia, constipation, diverticulosis, Hx hiatal hernia with surgery, pituitary gland tumor, BPH., Seasonal Asthma (no rx), wears brace left ankle., Incisional Hernia History of Any Multi-Drug Resistant Organisms: None Reported Past Surgical History: Heart Catheterization, Heart Catheterization With Stent, Hernia Repair, Orthopedic Surgery Additional Past Surgical History / Comment(s): 12/23/17 Incisional hernia with mesh, LEFT FOOT X8 , RIGHT FOOT X2, LEFT KNEE X3 (ARTHROSCOPIC), RIGHT LITTLE FINGER,LEFT SHOULDER X2, RIGHT SHOULDER X2, BILAT ANKLE SX, colonoscopy , pain clinic procedures. Abd. Surgery 08/11/2018, scar tissue removal within colon Past Anesthesia/Blood Transfusion Reactions: No Reported Reaction Date of Last Stent Placement:: 07/15/18 Past Psychological History: Anxiety, Depression Additional Psychological History / Comment(s): no rx- receives Counseling Smoking Status: Former smoker Past Alcohol Use History: None Reported Additional Past Alcohol Use History / Comment(s): QUIT SMOKING 2003, SMOKED 1 PACK PER WEEK, STARTED SMOKING AT AGE 18 Past Drug Use History: Marijuana Additional Drug Use History / Comment(s): edible CBD - Past Family History Mother Family Medical History: Dementia Additional Family Medical History / Comment(s): Mother is 70yrs old with AD. Father Family Medical History: Myocardial Infarction ([place]) Additional Family Medical History / Comment(s): Father passed at age 53 from [place] with history of drug and alcohol abuse. Brother(s) Additional Family Medical History / Comment(s): Patient has one brother with history of diabetes, hypertension, hyperlipidemia, ankylosing spondylosis. Sister(s) Family Medical History: Cancer Additional Family Medical History / Comment(s): liver & pancreatic cancer. Daughter(s) Additional Family Medical History / Comment(s): cardiac ablation Son(s) Additional Family Medical History / Comment(s): hypertension and chronic back pain. Medications and Allergies Home Medications Medication Instructions Recorded Confirmed Type Aspirin 81 mg PO DAILY 05/10/14 02/16/19 History Atorvastatin [Lipitor] 80 mg PO HS 08/18/17 02/16/19 History Isosorbide Mononitrate ER [Imdur] 30 mg PO DAILY 08/18/17 02/16/19 History Metoprolol Succinate [Toprol XL] 25 mg PO DAILY 08/18/17 02/16/19 History Lisinopril [Zestril] 2.5 mg PO DAILY 12/25/17 02/16/19 History Clopidogrel Bisulfate [Plavix] 75 mg PO DAILY 09/29/18 02/16/19 History Acetaminophen Tab [Tylenol Tab] 1,000 mg PO Q6HR PRN 02/14/19 02/16/19 History Cabergoline 0.25 mg PO Q5D 02/14/19 02/16/19 History Cannabidiol (Cbd) Extract 1 dose PO DIRECTED PRN 02/14/19 02/16/19 History [Epidiolex] Multivit-Min/Folic/Vit K/Lycop 1 each PO DAILY 02/14/19 02/16/19 History [Men's Multivitamin Tablet] Pantoprazole [Protonix] 40 mg PO DAILY 02/14/19 02/16/19 History Ranolazine [Ranexa] 500 mg PO BID 02/14/19 02/16/19 History Allergies Allergy/AdvReac Type Severity Reaction Status Date / Time adhesive tape Allergy Itching Verified 02/16/19 06:16 pregabalin [From Lyrica] Allergy Rash/Hives Verified 02/16/19 06:16 Surgical - Exam Vital Signs Temp Pulse Resp BP Pulse Ox 97.3 F L 76 17 104/59 98 02/16/19 06:25 02/16/19 06:25 02/16/19 06:25 02/16/19 06:25 02/16/19 06:25 - General well developed, well nourished, no distress - Eyes PERRL - ENT normal pinna - Neck no masses - Respiratory normal expansion - Cardiovascular Rhythm: regular - Abdomen Abdomen: soft, non tender Hernia: incisional (5 cm incisional hernia located at the superior portion of his low midline scar) Assessment and Plan Assessment: Incisional hernia. We'll perform laparoscopic robotic-assisted repair.
[2019-02-16] MEDS ORDERED: LACTATED RINGERS 1,000 ML IV ONE ×3 (08:22→11:04)
[2019-02-16] MEDS ORDERED: BUPIVACAIN-EPI 0.25%-1:200,000 30 ML VIAL SQ ONE (08:58)
[2019-02-16] MEDS ORDERED: NALOXONE 0.4 MG/ML 1 ML VIAL IV PRN (09:17)
[2019-02-16] MEDS ORDERED: traMADol 50 MG TAB PO PRN (09:17)
[2019-02-16] MEDS ORDERED: ONDANSETRON 4 MG/2 ML VIAL IVP PRN (09:17)
[2019-02-16] MEDS ORDERED: ACETAMINOPHEN TAB 325 MG TAB PO PRN (09:17)
[2019-02-16] MEDS: HYDROmorphone 0.5 MG/0.5 ML SYRINGE IVP PRN ×10 (09:23→21:06)
--- NOTE | 2019-02-16 09:23 | P.OP ---
Date of Procedure: 02/16/19 Preoperative Diagnosis: Incisional hernia Postoperative Diagnosis: Cursory incisional hernia Procedure(s) Performed: Diagnostic laparoscopy Lysis of adhesions Open repair Incarcerated incisional hernia Anesthesia: CHANDAN Surgeon: Aakash Miller Estimated Blood Loss (ml): 10 Pathology: none sent Condition: stable Disposition: PACU Description of Procedure: The patient was placed on the operating table in the supine position. He received general anesthesia. His abdomen was prepped and draped usual fashion. Using a 5 mm optical trocar under direct visualization the peritoneal cavity was entered in the left upper quadrant. The abdomen was then insufflated. The lap aroscope was placed back into the perineal cavity. Next a 8 mm robotic trocar was placed in the left lower quadrant the patient was noted to have significant adhesions to the abdominal wall. Using laparoscopic scissors some adhesions were lysed. At this point decided to perform an open repair of the hernia. The trochars withdrawn. The skin was incised in midline. The hernia was then entered using left cautery. The adhesions to the abdominal wall were then lysed using sharp dissection. The fascial repair was then performed using #1 Ethibond suture. After this was repaired #1 strep fix was then run over top of the repair. Skin was closed shahbaz. Patient top she will was sent to recovery room in stable condition.
[2019-02-16] MEDS ORDERED: diphenhydrAMINE 50 MG/ML 1 ML VIAL IVP ONE (09:32)
--- NOTE | 2019-02-16 09:56 | P.ANPRN ---
Procedure Note - Anesthesia - Nerve Block Performed Bilateral Rectus Abdominis Single Time Out Performed: Yes Date of Procedure: 02/16/19 Procedure Start Time: 06:57 Procedure Stop Time: 07:08 Location of Patient: PreOp Indication: Acute Post-Operative Pain, Requested by Surgeon Specifically requested for management of pain by DrKonstantin: Aakash Miller Sedation Type: Sedate with meaningful contact maintained Preparation: Sterile Prep Position: Supine Catheter: None Needle Types: Pajunk Needle Gauge: 20 Ultrasound used to visualize needle placement: Yes Ultrasound used to observe medication spread: Yes Injectate: Other (see comment) (rop 0.25%/lid 0.5% 30cc per side) Adjunct: Epinephrine (see comment for dilution ratio) (1/200,000) Blood Aspirated: No Pain Paresthesia on Injection Noted: No Resistance on Injection: Normal Image Stored and Saved: Yes Events: Uneventful and Well Tolerated
[2019-02-16] MEDS: HYDROcodone/APAP 5-325MG 1 EACH TAB PO PRN (12:29)
[2019-02-16] MEDS ORDERED: NITROGLYCERIN-D5W PMX 50 MG in DEXTROSE/WATER 1 250ML.BAG IV ONE (15:14)
[2019-02-16] MEDS: ATORVASTATIN 80 MG TAB PO SCH (21:06)
[2019-02-16] MEDS: RANOLAZINE 500 MG TAB.ER.12H PO SCH (21:06)
[2019-02-17] MEDS: HYDROmorphone 0.5 MG/0.5 ML SYRINGE IVP PRN ×3 (00:18→07:40)
[2019-02-17] MEDS: LACTATED RINGERS 1,000 ML IV SCH ×2 (06:58→15:27)
[2019-02-17] MEDS: ISOSORBIDE MONONITRATE ER 30 MG TAB.ER.24H PO SCH (07:38)
[2019-02-17] MEDS: MULTIVITAMINS, THERA 1 EACH TAB PO SCH (07:38)
[2019-02-17] MEDS: PANTOPRAZOLE 40 MG TABLET PO SCH (07:39)
[2019-02-17] MEDS: RANOLAZINE 500 MG TAB.ER.12H PO SCH ×2 (07:39→21:40)
[2019-02-17] MEDS: CLOPIDOGREL 75 MG TAB PO SCH (07:39)
[2019-02-17] MEDS: LISINOPRIL 2.5 MG TAB PO SCH (07:39)
[2019-02-17] MEDS: ASPIRIN 81 MG PO SCH (07:41)
[2019-02-17] MEDS: METOPROLOL SUCCINATE (ER) 25 MG TAB.ER.24H PO SCH (07:53)
[2019-02-17] MEDS: HYDROcodone/APAP 5-325MG 1 EACH TAB PO PRN ×3 (08:44→21:40)
[2019-02-17] MEDS ORDERED: ENOXAPARIN 40 MG/0.4 ML SYRINGE SQ SCH (09:00)
[2019-02-17] MEDS: DOCUSATE 100 MG CAP PO SCH ×2 (12:28→21:39)
[2019-02-17] MEDS: METOCLOPRAMIDE 5 MG/ML 2 ML VIAL IVP SCH ×2 (12:28→17:25)
[2019-02-17] MEDS: KETOROLAC 30 MG/ML 1 ML VIAL IVP PRN ×2 (12:34→22:47)
--- NOTE | 2019-02-17 14:39 | P.PN ---
Subjective Progress Note Date: 02/17/19 CHIEF COMPLAINT: Incisional hernia HISTORY OF PRESENT ILLNESS: Patient is status post diagnostic laparoscopy, lysis of adhesions, and open repair of incarcerated incisional hernia. POD #1. Patient examined at the bedside. He reports abdominal pain. He reports abdominal bloating. Denies passing flatus. Tolerating diet. No nausea or vomiting. Has been ambulating in the hallway. PHYSICAL EXAM: VITAL SIGNS: Reviewed. GENERAL: Well-developed in no acute distress. HEENT: No sclera icterus. Extraocular movements grossly intact. Moist buccal mucosa. Head is atraumatic, normocephalic. ABDOMEN: Soft. Mild distention. Appropriate surgical tenderness. Midline abdominal dressing with shadowing present. NEUROLOGIC: Alert and oriented. Cranial nerves II through XII grossly intact. ASSESSMENT: 1. Incisional hernia, status post diagnostic laparoscopy, lysis of adhesions, and open repair of incarcerated incisional hernia PLAN: -Pain control. Continue [place]. Add Toradol. Avoid IV Dilaudid if possible -Continue diet as tolerated. Add Reglan IVP q6 hours -Increase activity as tolerated -Change optifoam to abdominal incision -Anticipate DC home tomorrow Nurse practitioner note has been reviewed by physician. Signing provider agrees with the documented findings, assessment, and plan of care. Objective - Vital Signs Vital signs: Vital Signs Temp 98.4 F 02/17/19 07:00 Pulse 82 02/17/19 07:00 Resp 12 02/17/19 07:00 BP 137/93 02/17/19 07:00 Pulse Ox 92 L 02/17/19 07:00 Intake & Output 02/16/19 02/17/19 02/17/19 18:59 06:59 18:59 Intake Total 2846 775 Output Total 310 Balance 2536 775 Weight 88.451 kg Intake: IV 2550 Intake, IV Titration 775 Amount Lactated Ringers 1,000 ml 775 @ 125 mls/hr IV .Q8H ONE Rx#:[id number] Oral 296 Output: Urine 300 Estimated Blood Loss 10 Other: Voiding Method Toilet
[2019-02-17] MEDS: ATORVASTATIN 80 MG TAB PO SCH (21:39)
[2019-02-18] MEDS: METOCLOPRAMIDE 5 MG/ML 2 ML VIAL IVP SCH ×2 (00:52→06:23)
[2019-02-18] MEDS: HYDROcodone/APAP 5-325MG 1 EACH TAB PO PRN (04:45)
[2019-02-18] MEDS: KETOROLAC 30 MG/ML 1 ML VIAL IVP PRN (06:23)
[2019-02-18 07:49] VITALS: BP 117/85; PULSE 92; RESP 14; TEMP 98.6
[2019-02-18 08:05] LABS: HCT 36.1 % (39.0-53.0); HGB 12.3 gm/dL (13.0-17.5); MCH 32.2 pg (25.0-35.0); MCHC 34.2 g/dL (31.0-37.0); Mean Platelet Volume 7.7; Platelet Count 207 k/uL (150-450); RBC 3.84 m/uL (4.30-5.90); RDW 12.4 % (11.5-15.5); WBC 6.4 k/uL (3.8-10.6)
[2019-02-18 08:19] LABS: ALT 20 U/L (4-49); AST 38 U/L (17-59); African American GFR (CKD) >90 (>60 ml/min/1.73 sqM); Alkaline Phosphatase 54 U/L (38-126); Anion Gap 10 mmol/L; Blood Urea Nitrogen 18 mg/dL (9-20); Calcium 8.8 mg/dL (8.4-10.2); Carbon Dioxide 28 mmol/L (22-30); Chloride 102 mmol/L (98-107); Glucose 102 mg/dL (74-99); Non-African American GFR(CKD) >90 (>60 ml/min/1.73 sqM); Potassium 3.9 mmol/L (3.5-5.1); Sodium 140 mmol/L (137-145); Total Bilirubin 0.9 mg/dL (0.2-1.3); Total Protein 6.5 g/dL (6.3-8.2)
[2019-02-18] MEDS ORDERED: MAGNESIUM HYDROXIDE 2,400 MG/10 ML CUP PO PRN (08:21)
[2019-02-18] MEDS ORDERED: BISACODYL 10 MG SUPP RECTAL STA (08:21)
[2019-02-18] MEDS: ASPIRIN 81 MG PO SCH (08:52)
[2019-02-18] MEDS: PANTOPRAZOLE 40 MG TABLET PO SCH (08:52)
[2019-02-18] MEDS: DOCUSATE 100 MG CAP PO SCH (08:52)
[2019-02-18] MEDS: MULTIVITAMINS, THERA 1 EACH TAB PO SCH (08:52)
[2019-02-18] MEDS: ISOSORBIDE MONONITRATE ER 30 MG TAB.ER.24H PO SCH (08:52)
[2019-02-18] MEDS: LISINOPRIL 2.5 MG TAB PO SCH (08:52)
[2019-02-18] MEDS: METOPROLOL SUCCINATE (ER) 25 MG TAB.ER.24H PO SCH (08:53)
[2019-02-18] MEDS: CLOPIDOGREL 75 MG TAB PO SCH (08:53)
[2019-02-18] MEDS ORDERED: CABERGOLINE 0.25 MG PO SCH (09:00)
--- NOTE | 2019-02-18 09:32 | P.CONS ---
History of Present Illness - Reason for Consult Consult date: 02/16/19 Medical management Requesting physician: Aakash Miller - Chief Complaint Medical Management post Incisional hernia repeair. - History of Present Illness This is a 53-year-old male one of Dr. Betancourt with a previous medical history significant for CAD post PCI and 3 stent placement back in July 2018, hypertension and hypertensive cardio vascular disease, hyperlipidemia, history of a fall back in 1991 with multiple traumatic injuries including multiple back surgeries and fractures of the left lower extremity currently wears a brace for the left lower extremity, patient underwent incisional hernia repair initially tried with robotic-assisted laparoscopic hernia repair however due to significant adhesions the procedure was aborted and he was converted to an open incisional hernia repair, surgery went uneventfully and the patient was sent to the floor we were asked to see the patient for medical management. Review of Systems Constitutional: Denies anorexia, Denies chronic headaches, Denies chronic pain, Denies lethargy, Denies weakness, Denies weight gain Eyes: denies blurred vision, denies bulging eye, denies decreased vision Ears: deny: decreased hearing Ears, nose, mouth and throat: Denies dysphagia, Denies neck lump, Denies sore throat Cardiovascular: Denies chest pain, Denies decreased exercise tolerance, Denies lightheadedness, Denies rapid heart beat, Denies shortness of breath, Denies syncope Respiratory: Denies congestion, Denies cough, Denies cough with sputum, Denies home oxygen, Denies sleep apnea, Denies snoring, Denies wheezing Gastrointestinal: Reports abdominal pain, Denies bloating, Denies BRBPR, Denies change in bowel habits, Denies heartburn, Denies loss of appetite, Denies melena, Denies nausea, Denies vomiting Genitourinary: Denies dysuria Musculoskeletal: Denies myalgias Musculoskeletal: absent: ankle pain, ankle stiffness, ankle swelling, elbow pain, elbow stiffness, elbow swelling, foot pain, foot stiffness, foot swelling, hand pain, hand stiffness, hand swelling, hip pain, hip stiffness, hip swelling, knee pain, knee stiffness, knee swelling, shoulder pain, shoulder stiffness, shoulder swelling, wrist pain, wrist stiffness, wrist swelling Integumentary: Denies pruritus, Denies rash Neurological: Denies numbness, Denies weakness Psychiatric: Denies anxiety, Denies depression Endocrine: Denies fatigue, Denies weight change Past Medical History Past Medical History: Asthma, Coronary Artery Disease (CAD), Chest Pain / Angina, Deep Vein Thrombosis (DVT), Hyperlipidemia, Hypertension, Osteoarthritis (OA), Prostate Disorder Additional Past Medical History / Comment(s): 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, chronic back pain., Hx DVT L ankle, 1 ascending and 1descending aortic aneurysm, anemia, constipation, diverticulosis, Hx hiatal hernia with surgery, pituitary gland tumor, BPH., Seasonal Asthma (no rx), wears brace left ankle., Incisional Hernia History of Any Multi-Drug Resistant Organisms: None Reported Past Surgical History: Heart Catheterization, Heart Catheterization With Stent, Hernia Repair, Orthopedic Surgery Additional Past Surgical History / Comment(s): 12/23/17 Incisional hernia with mesh, LEFT FOOT X8 , RIGHT FOOT X2, LEFT KNEE X3 (ARTHROSCOPIC), RIGHT LITTLE FINGER,LEFT SHOULDER X2, RIGHT SHOULDER X2, BILAT ANKLE SX, colonoscopy , pain clinic procedures. Abd. Surgery 08/11/2018, scar tissue removal within colon Past Anesthesia/Blood Transfusion Reactions: No Reported Reaction Date of Last Stent Placement:: 07/15/18 Past Psychological History: Anxiety, Depression Additional Psychological History / Comment(s): no rx- receives Counseling Smoking Status: Former smoker Past Alcohol Use History: None Reported Additional Past Alcohol Use History / Comment(s): QUIT SMOKING 2003, SMOKED 1 PACK PER WEEK, STARTED SMOKING AT AGE 18 Past Drug Use History: Marijuana Additional Drug Use History / Comment(s): edible CBD - Past Family History Mother Family Medical History: Dementia Additional Family Medical History / Comment(s): Mother is 70yrs old with AD. Father Family Medical History: Myocardial Infarction ([place]) Additional Family Medical History / Comment(s): Father passed at age 53 from [place] with history of drug and alcohol abuse. Brother(s) Additional Family Medical History / Comment(s): Patient has one brother with history of diabetes, hypertension, hyperlipidemia, ankylosing spondylosis. Sister(s) Family Medical History: Cancer Additional Family Medical History / Comment(s): liver & pancreatic cancer. Daughter(s) Additional Family Medical History / Comment(s): cardiac ablation Son(s) Additional Family Medical History / Comment(s): hypertension and chronic back pain. Medications and Allergies Home Medications Medication Instructions Recorded Confirmed Type Aspirin 81 mg PO DAILY 05/10/14 02/16/19 History Atorvastatin [Lipitor] 80 mg PO HS 08/18/17 02/16/19 History Isosorbide Mononitrate ER [Imdur] 30 mg PO DAILY 08/18/17 02/16/19 History Metoprolol Succinate [Toprol XL] 25 mg PO DAILY 08/18/17 02/16/19 History Lisinopril [Zestril] 2.5 mg PO DAILY 12/25/17 02/16/19 History Clopidogrel Bisulfate [Plavix] 75 mg PO DAILY 09/29/18 02/16/19 History Acetaminophen Tab [Tylenol Tab] 1,000 mg PO Q6HR PRN 02/14/19 02/16/19 History Cabergoline 0.25 mg PO Q5D 02/14/19 02/16/19 History Cannabidiol (Cbd) Extract 1 dose PO DIRECTED PRN 02/14/19 02/16/19 History [Epidiolex] Multivit-Min/Folic/Vit K/Lycop 1 each PO DAILY 02/14/19 02/16/19 History [Men's Multivitamin Tablet] Pantoprazole [Protonix] 40 mg PO DAILY 02/14/19 02/16/19 History Ranolazine [Ranexa] 500 mg PO BID 02/14/19 02/16/19 History Allergies Allergy/AdvReac Type Severity Reaction Status Date / Time adhesive tape Allergy Itching Verified 02/16/19 06:16 pregabalin [From Lyrica] Allergy Rash/Hives Verified 02/16/19 06:16 Physical Exam Vitals: Vital Signs Temp Pulse Pulse Resp BP Pulse Ox 02/16/19 15:46 98.3 F 75 16 133/83 94 L 02/16/19 14:59 72 18 125/94 92 L 02/16/19 13:41 90 16 126/84 02/16/19 13:00 74 16 126/84 96 02/16/19 12:30 83 16 104/60 99 02/16/19 11:16 58 L 16 104/69 97 02/16/19 10:45 77 14 114/73 96 02/16/19 10:15 66 14 123/72 98 02/16/19 10:00 65 16 119/72 97 02/16/19 09:45 58 L 16 121/76 97 02/16/19 09:30 63 15 117/76 02/16/19 09:15 63 14 132/77 94 L 02/16/19 09:03 97.1 F L 89 16 133/69 98 02/16/19 09:00 78 16 133/79 97 02/16/19 07:19 69 16 102/62 97 02/16/19 06:25 97.3 F L 76 17 104/59 98 Intake and Output 02/16/19 02/16/19 02/16/19 06:59 14:59 22:59 Intake Total 500 2550 Output Total 10 300 Balance 500 2540 -300 Intake: IV 500 2550 Output: Urine 300 Estimated Blood Loss 10 Other: Weight 88.451 kg - Constitutional General appearance: average body habitus, no acute distress - EENT Eyes: anicteric sclerae, EOMI, PERRLA, no ptosis, no scleral icterus, normal appearance ENT: hearing grossly normal, NA/AT, normal oropharynx, no thrush Ears: bilateral: normal - Neck Neck: no lymphadenopathy, normal ROM, no rigidity, no stridor Carotids: bilateral: upstroke normal Thyroid: bilateral: normal size - Respiratory Respiratory: bilateral: diminished, negative: dullness, rales, rhonchi, wheezing, prolonged expiration - Cardiovascular Rhythm: regular Heart sounds: normal: S1, S2 Abnormal Heart Sounds: no S3 Gallop, no S4 Gallop - Gastrointestinal General gastrointestinal: decreased bowel sounds, soft, tenderness - Integumentary Integumentary: normal, normal turgor - Neurologic Neurologic: CNII-XII intact - Musculoskeletal Musculoskeletal: strength equal bilaterally - Psychiatric Psychiatric: A&O x's 3, appropriate affect, intact judgment & insight Assessment and Plan Assessment: Assessment and plan: 1. Postoperative day #0 status post open incisional hernia repair. Continue incentive spirometer to reduce the incidence of atelectasis and healthcare associated pneumonia, continue current pain management, continue DVT prophylaxis, restart the patient on aspirin and Plavix if it is okay with general surgery as the patient had multiple stents placement about 7 month ago, continue IV fluid resuscitation continue with antiemetic, early ambulation. 2. CAD post-PCI and 3 stents placement. Continue Toprol-XL 25 mg orally once every day, continue aspirin 81 mg once every day, Plavix 75 mg orally once every day, Lipitor 80 mg once every day, Ranexa 500 mg orally twice every day, Imdur 30 mg orally once every day. 3. Hypertension and hypertensive cardiovascular disease. Continue lisinopril 2.5 mg once every day, Toprol-XL 25 mg orally once every day. 4. Hyperlipidemia. Continue Lipitor 80 mg orally once every day. 5. BPH. Continue to monitor for urinary retention. 6. GERD. Continue Protonix 40 mg orally once every day. 7. History of pituitary tumor. Continue cabergoline 0.25 mg orally once every 5 days. 8. DVT prophylaxis. Continue with heparin 5000 units subcutaneously every 8 hours. 9. GI prophylaxis. Continue PPI . 10. Thank you for the consult we will follow the
--- NOTE | 2019-02-18 10:49 | P.DS ---
Providers Date of admission: 02/16/19 09:17 Expected date of discharge: 02/18/19 Attending physician: Aakash Miller Consults: 02/16/19 09:17 Consult Physician Routine Consulting Provider: Itz Silveira Consult Reason/Comments: Medical management Do you want consulting provider notified?: Yes Primary care physician: Jameel Coe [facility] Hospital Course: 53-year-old male who underwent diagnostic laparoscopy, lysis of adhesions, and open repair of incarcerated incisional hernia with Dr. Miller. Patient is doing well postoperatively without any immediate complications. Pain is controlled on oral medications. He is tolerating diet without nausea or vomiting. Vital signs are stable. He is stable for discharge home today. Please see EMR for further hospital course details. Discharge Diagnosis: 1. Incisional hernia, status post diagnostic laparoscopy, lysis of adhesions, and open repair of incarcerated incisional hernia Nurse practitioner note has been reviewed by physician. Signing provider agrees with the documented findings, assessment, and plan of care. Plan - Discharge Summary Discharge Rx Participant: Yes New Discharge Prescriptions: New Hydrocodone/Acetaminophen [[place] 5-325] 1 tab PO Q6HR PRN 3 Days #12 tab PRN Reason: Pain No Action Aspirin 81 mg PO DAILY Metoprolol Succinate [Toprol XL] 25 mg PO DAILY Isosorbide Mononitrate ER [Imdur] 30 mg PO DAILY Atorvastatin [Lipitor] 80 mg PO HS Lisinopril [Zestril] 2.5 mg PO DAILY Clopidogrel Bisulfate [Plavix] 75 mg PO DAILY Ranolazine [Ranexa] 500 mg PO BID Acetaminophen Tab [Tylenol Tab] 1,000 mg PO Q6HR PRN PRN Reason: Pain Multivit-Min/Folic/Vit K/Lycop [Men's Multivitamin Tablet] 1 each PO DAILY Cannabidiol (Cbd) Extract [Epidiolex] 1 dose PO DIRECTED PRN PRN Reason: Pain Pantoprazole [Protonix] 40 mg PO DAILY Cabergoline 0.25 mg PO Q5D Discharge Medication List Aspirin 81 mg PO DAILY 05/10/14 [History] Atorvastatin [Lipitor] 80 mg PO HS 08/18/17 [History] Isosorbide Mononitrate ER [Imdur] 30 mg PO DAILY 08/18/17 [History] Metoprolol Succinate [Toprol XL] 25 mg PO DAILY 08/18/17 [History] Lisinopril [Zestril] 2.5 mg PO DAILY 12/25/17 [History] Clopidogrel Bisulfate [Plavix] 75 mg PO DAILY 09/29/18 [History] Acetaminophen Tab [Tylenol Tab] 1,000 mg PO Q6HR PRN 02/14/19 [History] Cabergoline 0.25 mg PO Q5D 02/14/19 [History] Cannabidiol (Cbd) Extract [Epidiolex] 1 dose PO DIRECTED PRN 02/14/19 [History] Multivit-Min/Folic/Vit K/Lycop [Men's Multivitamin Tablet] 1 each PO DAILY 02/14/19 [History] Pantoprazole [Protonix] 40 mg PO DAILY 02/14/19 [History] Ranolazine [Ranexa] 500 mg PO BID 02/14/19 [History] Hydrocodone/Acetaminophen [[place] 5-325] 1 tab PO Q6HR PRN 3 Days #12 tab 02/18/19 [Rx] Follow up Appointment(s)/Referral(s): Aakash Miller MD [STAFF PHYSICIAN] - 02/24/19 3:30 pm Activity/Diet/Wound Care/Special Instructions: No driving while taking [place] No lifting over 10 pounds You may shower. No soaking or tub baths Very light activity until you are reevaluated at your follow up appointment with your surgeon
--- NOTE | 2019-02-18 15:47 | P.PN ---
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 with a previous medical history significant for CAD post PCI and 3 stent placement back in July 2018, hypertension and hypertensive cardio vascular disease, hyperlipidemia, history of a fall back in 1991 with multiple traumatic injuries including multiple back surgeries and fractures of the left lower extremity currently wears a brace for the left lower extremity, patient underwent incisional hernia repair initially tried with robotic-assisted laparoscopic hernia repair however due to significant adhesions the procedure was aborted and he was converted to an open incisional hernia repair, surgery went uneventfully and the patient was sent to the floor we were asked to see the patient for medical management. 02/17: The patient is seen on postoperative day #1 status post open repair incarcerated incisional hernia. He states he has passed a little gas but his abdomen feels hard and sore to him. He has walked but pain is increased and also increased pain with eating. He states he was able to eat 100% of his meal. Patient has been started on Reglan and Toradol. Patient has been afebrile, heart rate 82, blood pressure 137/93, pulse ox 92% on room air. Patient's and sister are at the bedside. Review of Systems Constitutional: Denies anorexia, Denies chronic headaches, Denies chronic pain, Denies lethargy, Denies weakness, Denies weight gain Eyes: denies blurred vision, denies bulging eye, denies decreased vision Ears, nose, mouth and throat: Denies dysphagia, Denies neck lump, Denies sore throat Cardiovascular: Denies chest pain, Denies decreased exercise tolerance, Denies lightheadedness, Denies rapid heart beat, Denies shortness of breath, Denies syncope Respiratory: Denies congestion, Denies cough, Denies cough with sputum, Denies home oxygen, Denies sleep apnea, Denies snoring, Denies wheezing Gastrointestinal: Reports abdominal pain, Denies bloating, Denies BRBPR, Denies change in bowel habits, Denies heartburn, Denies loss of appetite, Denies melena, Denies nausea, Denies vomiting Genitourinary: Denies dysuria Musculoskeletal: Denies myalgias Musculoskeletal: absent: ankle pain, ankle stiffness, ankle swelling, elbow pain, elbow stiffness, elbow swelling, foot pain, foot stiffness, foot swelling, hand pain, hand stiffness, hand swelling, hip pain, hip stiffness, hip swelling, knee pain, knee stiffness, knee swelling, shoulder pain, shoulder stiffness, shoulder swelling, wrist pain, wrist stiffness, wrist swelling Integumentary: Denies pruritus, Denies rash Neurological: Denies numbness, Denies weakness Psychiatric: Denies anxiety, Denies depression Endocrine: Denies fatigue, Denies weight change Objective - Vital Signs Vital signs: Vital Signs Temp 98.4 F 02/17/19 07:00 Pulse 82 02/17/19 07:00 Resp 12 02/17/19 07:00 BP 137/93 02/17/19 07:00 Pulse Ox 92 L 02/17/19 07:00 Intake & Output 02/16/19 02/17/19 02/17/19 18:59 06:59 18:59 Intake Total 2846 775 Output Total 310 Balance 2536 775 Weight 88.451 kg Intake: IV 2550 Intake, IV Titration 775 Amount Lactated Ringers 1,000 ml 775 @ 125 mls/hr IV .Q8H ONE Rx#:[id number] Oral 296 Output: Urine 300 Estimated Blood Loss 10 Other: Voiding Method Toilet - Exam General appearance: average body habitus, no acute distress, patient resting in bed, girlfriend and sister at bedside. - EENT Eyes: anicteric sclerae, EOMI, PERRLA, no ptosis, no scleral icterus, normal appearance ENT: hearing grossly normal, NA/AT, normal oropharynx, no thrush Ears: bilateral: normal - Neck Neck: no lymphadenopathy, normal ROM, no rigidity, no stridor Carotids: bilateral: upstroke normal Thyroid: bilateral: normal size - Respiratory Respiratory: bilateral: diminished, negative: dullness, rales, rhonchi, wheezing, prolonged expiration - Cardiovascular Rhythm: regular Heart sounds: normal: S1, S2 Abnormal Heart Sounds: no S3 Gallop, no S4 Gallop - Gastrointestinal General gastrointestinal: bowel sounds present, soft, tenderness - Integumentary Integumentary: normal, normal turgor - Neurologic Neurologic: CNII-XII intact - Musculoskeletal Musculoskeletal: strength equal bilaterally - Psychiatric Psychiatric: A&O x's 3, appropriate affect, intact judgment & insight - Labs CBC & Chem 7: 02/18/19 06:50 02/18/19 06:50 Assessment and Plan Plan: 1. Postoperative day #1 status post open incisional hernia repair. Continue incentive spirometer to reduce the incidence of atelectasis and healthcare associated pneumonia, continue current pain management, continue DVT prophylaxis, restart the patient on aspirin and Plavix if it is okay with general surgery as the patient had multiple stents placement about 7 month ago, continue IV fluid resuscitation continue with antiemetic, early ambulation. Patient has been started on Toradol for pain and Reglan. 2. CAD post-PCI and 3 stents placement. Continue Toprol-XL 25 mg orally once every day, continue aspirin 81 mg once every day, Plavix 75 mg orally once every day, Lipitor 80 mg once every day, Ranexa 500 mg orally twice every day, Imdur 30 mg orally once every day. 3. Hypertension and hypertensive cardiovascular disease. Continue lisinopril 2.5 mg once every day, Toprol-XL 25 mg orally once every day. 4. Hyperlipidemia. Continue Lipitor 80 mg orally once every day. 5. BPH. Continue to monitor for urinary retention. 6. GERD. Continue Protonix 40 mg orally once every day. 7. History of pituitary tumor. Continue cabergoline 0.25 mg orally once every 5 days. 8. DVT prophylaxis. Continue with heparin 5000 units subcutaneously every 8 hours. 9. GI prophylaxis. Continue PPI . Discharge plan: Home tomorrow Impression and plan of care have been directed as dictated by the signing physician. Lauren Junior nurse practitioner acting as scribe for signing physician.
--- NOTE | 2019-02-18 15:49 | P.PN ---
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 with a previous medical history significant for CAD post PCI and 3 stent placement back in July 2018, hypertension and hypertensive cardio vascular disease, hyperlipidemia, history of a fall back in 1991 with multiple traumatic injuries including multiple back surgeries and fractures of the left lower extremity currently wears a brace for the left lower extremity, patient underwent incisional hernia repair initially tried with robotic-assisted laparoscopic hernia repair however due to significant adhesions the procedure was aborted and he was converted to an open incisional hernia repair, surgery went uneventfully and the patient was sent to the floor we were asked to see the patient for medical management. 02/17: The patient is seen on postoperative day #1 status post open repair incarcerated incisional hernia. He states he has passed a little gas but his abdomen feels hard and sore to him. He has walked but pain is increased and also increased pain with eating. He states he was able to eat 100% of his meal. Patient has been started on Reglan and Toradol. Patient has been afebrile, heart rate 82, blood pressure 137/93, pulse ox 92% on room air. Patient's and sister are at the bedside. 02/18: Patient has been afebrile, heart rate 92, blood pressure 117/85, pulse ox 93% on room air. WBC 6.4, hemoglobin 12.3, platelet count 207, blood sugar 102. Patient states he has been ambulating in the hallway. Good bowel sounds. No bowel movement. He denies any nausea vomiting. Plan is for discharge home later today. Review of Systems Constitutional: Denies anorexia, Denies chronic headaches, Denies chronic pain, Denies lethargy, Denies weakness Eyes: denies blurred vision, denies bulging eye, denies decreased vision Ears, nose, mouth and throat: Denies dysphagia, Denies neck lump, Denies sore throat Cardiovascular: Denies chest pain, Denies decreased exercise tolerance, Denies lightheadedness, Denies rapid heart beat, Denies shortness of breath, Denies syncope Respiratory: Denies congestion, Denies cough, Denies cough with sputum, Denies home oxygen, Denies sleep apnea, Denies snoring, Denies wheezing Gastrointestinal: Reports abdominal pain, Denies bloating, Denies BRBPR, Denies change in bowel habits, Denies heartburn, Denies loss of appetite, Denies m jennie, Denies nausea, Denies vomiting Genitourinary: Denies dysuria Musculoskeletal: Denies myalgias Musculoskeletal: absent: ankle pain, ankle stiffness, ankle swelling, elbow pain, elbow stiffness, elbow swelling, foot pain, foot stiffness, foot swelling, hand pain, hand stiffness, hand swelling, hip pain, hip stiffness, hip swelling, knee pain, knee stiffness, knee swelling, shoulder pain, shoulder stiffness, shoulder swelling, wrist pain, wrist stiffness, wrist swelling Integumentary: Denies pruritus, Denies rash Neurological: Denies numbness, Denies weakness Psychiatric: Denies anxiety, Denies depression Endocrine: Denies fatigue, Denies weight change Objective - Vital Signs Vital signs: Vital Signs Temp 98.6 F 02/18/19 07:35 Pulse 92 02/18/19 09:00 Resp 14 02/18/19 09:00 BP 117/85 02/18/19 07:35 Pulse Ox 93 L 02/18/19 00:45 Intake & Output 02/17/19 02/18/19 02/18/19 18:59 06:59 18:59 Other: Voiding Method Toilet # Voids 1 - Exam General appearance: average body habitus, no acute distress, patient resting in bed - EENT Eyes: anicteric sclerae, EOMI, PERRLA, no ptosis, no scleral icterus, normal appearance ENT: hearing grossly normal, NA/AT, normal oropharynx, no thrush Ears: bilateral: normal - Neck Neck: no lymphadenopathy, normal ROM, no rigidity, no stridor Carotids: bilateral: upstroke normal Thyroid: bilateral: normal size - Respiratory Respiratory: bilateral: diminished, negative: dullness, rales, rhonchi, wheezing, prolonged expiration - Cardiovascular Rhythm: regular Heart sounds: normal: S1, S2 Abnormal Heart Sounds: no S3 Gallop, no S4 Gallop - Gastrointestinal General gastrointestinal: bowel sounds normal, soft, tenderness Dressing in place to mid abdomen wound. No breakthrough bleeding. - Integumentary Integumentary: normal, normal turgor - Neurologic Neurologic: CNII-XII intact - Musculoskeletal Musculoskeletal: strength equal bilaterally - Psychiatric Psychiatric: A&O x's 3, appropriate affect, intact judgment & insight - Labs CBC & Chem 7: 02/18/19 06:50 02/18/19 06:50 Labs: Abnormal Lab Results - Last 24 Hours (Table) 02/18/19 02/18/19 Range/Units 06:50 06:50 RBC 3.84 L (4.30-5.90) m/uL Hgb 12.3 L (13.0-17.5) gm/dL Hct 36.1 L (39.0-53.0) % Glucose 102 H (74-99) mg/dL Assessment and Plan Plan: 1. Postoperative day #2 status post open incisional hernia repair. Continue incentive spirometer to reduce the incidence of atelectasis and healthcare associated pneumonia, continue current pain management, continue DVT prophylaxis, restart the patient on aspirin and Plavix if it is okay with general surgery as the patient had multiple stents placement about 7 month ago, continue IV fluid resuscitation continue with antiemetic, early ambulation. Patient has been started on Toradol for pain and Reglan. 2. CAD post-PCI and 3 stents placement. Continue Toprol-XL 25 mg orally once every day, continue aspirin 81 mg once every day, Plavix 75 mg orally once every day, Lipitor 80 mg once every day, Ranexa 500 mg orally twice every day, Imdur 30 mg orally once every day. 3. Hypertension and hypertensive cardiovascular disease. Continue lisinopril 2.5 mg once every day, Toprol-XL 25 mg orally once every day. 4. Hyperlipidemia. Continue Lipitor 80 mg orally once every day. 5. BPH. Continue to monitor for urinary retention. 6. GERD. Continue Protonix 40 mg orally once every day. 7. History of pituitary tumor. Continue cabergoline 0.25 mg orally once every 5 days. 8. DVT prophylaxis. Continue with heparin 5000 units subcutaneously every 8 hours. 9. GI prophylaxis. Continue PPI . Discharge plan: Home today Impression and plan of care have been directed as dictated by the signing physician. Lauren Junior nurse practitioner acting as scribe for signing physician.
== END 2019-02-18 13:12 | disposition home or self-care (01) | DRG 355 ==
LOC: OR 06:02 → 4SSUR 09:17 → OR 09:17 → 4SSUR 15:27
PROVIDERS: ADMIT Surgery; ATTEND Surgery
PROC: 0WQF0ZZ Repair Abdominal Wall, Open Approach (ICD-10-PCS; principal; 2019-02-16 07:40)
PROC: 0WJF4ZZ Inspection of Abdominal Wall, Percutaneous Endoscopic Approach (ICD-10-PCS; principal; 2019-02-16 07:40)
PROC: 8E0W4CZ Robotic Assisted Procedure of Trunk Region, Percutaneous Endoscopic Approach (ICD-10-PCS; principal; 2019-02-16 07:40)
DX: K43.0 Incisional hernia with obstruction, without gangrene (principal); K21.9 Gastro-esophageal reflux disease without esophagitis; I25.10 Atherosclerotic heart disease of native coronary artery without angina pectoris; E78.5 Hyperlipidemia, unspecified; F32.9 Major depressive disorder, single episode, unspecified; F41.9 Anxiety disorder, unspecified; I11.9 Hypertensive heart disease without heart failure; J45.909 Unspecified asthma, uncomplicated; N40.0 Benign prostatic hyperplasia without lower urinary tract symptoms; M19.90 Unspecified osteoarthritis, unspecified site; D49.7 Neoplasm of unspecified behavior of endocrine glands and other parts of nervous system; Z53.31 Laparoscopic surgical procedure converted to open procedure; Z79.02 Long term (current) use of antithrombotics/antiplatelets; Z79.82 Long term (current) use of aspirin; Z79.899 Other long term (current) drug therapy; Z80.0 Family history of malignant neoplasm of digestive organs; Z82.49 Family history of ischemic heart disease and other diseases of the circulatory system; Z86.718 Personal history of other venous thrombosis and embolism; Z83.3 Family history of diabetes mellitus; Z87.891 Personal history of nicotine dependence; Z95.5 Presence of coronary angioplasty implant and graft; Z98.890 Other specified postprocedural states; Z88.8 Allergy status to other drugs, medicaments and biological substances; Z91.048 Other nonmedicinal substance allergy status
CPT/HCPCS: 36415; 80053; 85027; 86850; 86900; 86901